=== PATIENT | male | born 1970 | race Caucasian/White ===

== ENCOUNTER → 2017-09-23 10:46 | Outpatient (CLI) | payer BC, SELFPAY ==
--- NOTE | 2017-09-23 11:29 | NURSING ---
PT ARRIVED FOR [facility] D/T CLOTTED PICC LINE BOTH LUMENS CHECKED AND POSITIVE BLOOD RETURN AND EASY FLUSH NOTED.
== END ==
DX: Z45.2 Encounter for adjustment and management of vascular access device (principal)
CPT/HCPCS: A4216

== ENCOUNTER 2017-09-29 12:13 | Outpatient (RCR) | payer BC, SELFPAY ==
[2017-09-19 13:54] LABS: Hematocrit 42.9 % (40-54); Hemoglobin 14.4 g/dl (13.0-16.5); Mean Corp Hgb Conc 33.6 g/gl (32-36); Mean Corpuscular Volume 98.2 fL (80-94); Mean Platelet Vol. 10.8 fl (6.2-12.0); Platelet Count 322 K/mm3 (150-450); RBC Distribution Width CV 13.1 % (11.6-14.6); RBC Distribution Width SD 46.5 fl (35.1-43.9); Red Blood Count 4.37 M/mm3 (4.6-6.2); White Blood Count 6.4 K/mm3 (4.4-11.0)
[2017-09-19 14:00] LABS: AST(SGOT) 286 U/L (15-37); Alanine Aminotransfer ALT/SGPT 530 U/L (16-61); Albumin, Serum 3.5 g/dL (3.2-5.0); Alkaline Phosphatase 590 U/L (45-117); Anion Gap 10 (5-15); BUN 18 mg/dL (7-18); BUN/Creat Ratio 19.7 RATIO (10-20); Calcium,Total 9.1 mg/dL (8.5-10.1); Chloride 101 mmol/L (98-107); Creatinine, Serum 0.91 mg/dL (0.70-1.30); EST Glomerular Filtration Rate 95 mL/min (>60); Est Glom Filt Rate - Afr Amer 114 mL/min (>60); Globulin 3.6 g/dL (2.2-4.2); Glucose 95 mg/dL (74-106); Magnesium 2.3 mg/dL (1.6-2.6); Phosphorus 3.4 mg/dL (2.5-4.9); Potassium 3.8 mmol/L (3.5-5.1); Protein, Total 7.1 g/dL (6.4-8.2); Sodium Level 141 mmol/L (136-145)
[2017-09-19 14:09] LABS: Scan Indicated on CBC? Y/N NO
[2017-09-26 13:08] LABS: Hematocrit 40.8 % (40-54); Hemoglobin 13.7 g/dl (13.0-16.5); Mean Corp Hgb Conc 33.6 g/gl (32-36); Mean Corpuscular Hgb 32.8 pg (27.0-32.0); Mean Corpuscular Volume 97.6 fL (80-94); Mean Platelet Vol. 11.1 fl (6.2-12.0); Platelet Count 226 K/mm3 (150-450); RBC Distribution Width CV 12.9 % (11.6-14.6); RBC Distribution Width SD 45.2 fl (35.1-43.9); Red Blood Count 4.18 M/mm3 (4.6-6.2); Scan Indicated on CBC? Y/N NO; White Blood Count 6.2 K/mm3 (4.4-11.0)
[2017-09-26 13:19] LABS: AST(SGOT) 76 U/L (15-37); Alanine Aminotransfer ALT/SGPT 277 U/L (16-61); Albumin, Serum 3.6 g/dL (3.2-5.0); Alkaline Phosphatase 348 U/L (45-117); Anion Gap 6 (5-15); BUN 13 mg/dL (7-18); BUN/Creat Ratio 15.3 RATIO (10-20); Calcium,Total 9.1 mg/dL (8.5-10.1); Chloride 105 mmol/L (98-107); Creatinine, Serum 0.85 mg/dL (0.70-1.30); EST Glomerular Filtration Rate 103 mL/min (>60); Est Glom Filt Rate - Afr Amer 125 mL/min (>60); Globulin 3.6 g/dL (2.2-4.2); Glucose 88 mg/dL (74-106); Magnesium 2.2 mg/dL (1.6-2.6); Phosphorus 2.9 mg/dL (2.5-4.9); Potassium 3.6 mmol/L (3.5-5.1); Protein, Total 7.2 g/dL (6.4-8.2); Sodium Level 140 mmol/L (136-145)
== END 2017-10-04 23:59 ==
LOC: HHLAB 12:13
DX: C34.11 Malignant neoplasm of upper lobe, right bronchus or lung (principal); I10 Essential (primary) hypertension; K57.90 Diverticulosis of intestine, part unspecified, without perforation or abscess without bleeding; Z45.2 Encounter for adjustment and management of vascular access device
CPT/HCPCS: 80053; 83735; 84100; 85027

== ENCOUNTER → 2017-09-29 17:45 | Outpatient (CLI) | payer BC, SELFPAY ==
[2017-09-29 18:12] LABS: Hematocrit 40.4 % (40-54); Hemoglobin 13.8 g/dl (13.0-16.5); Mean Corp Hgb Conc 34.2 g/gl (32-36); Mean Corpuscular Hgb 32.2 pg (27.0-32.0); Mean Corpuscular Volume 94.2 fL (80-94); Mean Platelet Vol. 10.7 fl (6.2-12.0); Platelet Count 210 K/mm3 (150-450); RBC Distribution Width SD 44.7 fl (35.1-43.9); Red Blood Count 4.29 M/mm3 (4.6-6.2); White Blood Count 5.6 K/mm3 (4.4-11.0)
[2017-09-29 18:13] LABS: Scan Indicated on CBC? Y/N NO
[2017-09-29 18:23] LABS: Anion Gap 8 (5-15); BUN 11 mg/dL (7-18); BUN/Creat Ratio 13.1 RATIO (10-20); Chloride 105 mmol/L (98-107); Creatinine, Serum 0.84 mg/dL (0.70-1.30); EST Glomerular Filtration Rate 104 mL/min (>60); Est Glom Filt Rate - Afr Amer 126 mL/min (>60); Glucose 86 mg/dL (74-106); Magnesium 2.2 mg/dL (1.6-2.6); Phosphorus 3.9 mg/dL (2.5-4.9); Sodium Level 140 mmol/L (136-145)
[2017-09-30 08:31] LABS: AST(SGOT) 43 U/L (15-37); Alanine Aminotransfer ALT/SGPT 156 U/L (16-61); Alkaline Phosphatase 264 U/L (45-117); Bilirubin, Direct 0.19 mg/dL (0.00-0.30)
== END ==
DX: Z79.899 Other long term (current) drug therapy (principal)
CPT/HCPCS: 80048; 80076; 83735; 84100; 85027

== ENCOUNTER 2024-12-29 22:42 | Emergency (ER) | payer BC, SELFPAY ==
[2024-12-29 22:43] VITALS: BP 169/94; PULSE 86; RESP 16; TEMP 36.9; O2SAT 98; BMI 27.5
--- NOTE | 2024-12-29 22:48 | ED.VIS.CHEST ---
HPI History of Present Illness Chief Complaint: Chest Pain Informant: patient Onset/Context/Timing Onset: Days (4) Activity at onset: sudden and exertion Timing: Intermittent Quality: Positive for Burning and Stabbing Location: Substernal, Right Chest and Left Chest Worsened By: Nothing Relieved By: Nothing Associated Symptoms: Negative for Nausea, Vomiting, Diaphoresis, Dyspnea, Cough, Fever, Lightheadedness, Acid Reflux or Palpitations Narrative Narrative: Patient presents with chest pain that has been getting worse over the past 4 days. Patient states it began rather suddenly. Patient states it began while he was at work. 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 Patient describes his pain as stabbing. Patient states it started on the right side of his chest but is now on the left side. Patient also admits to some burning over the substernal area. Patient states nothing makes it better and nothing makes it worse. Patient denies any shortness of breath or cough. Patient denies any nausea or vomiting. Patient denies any fevers or chills. CVD Risk Factors: Positive for Hypertension, Hypercholesterolemia and Family History 1' </=55; Negative for Diabetes or Smoking PE Risk Factors: Positive for Cancer; Negative for Recent Travel/Surgery, Recent Immobilization, Prior DVT or PE or OCP + Smoking + >/=35 [facility] Medical History (Updated 12/30/24 @ 01:[address] Jefferson Fan DO) Lung cancer Hypertension Hyperlipidemia Home Medications Medication Instructions Recorded Last Taken Type atorvastatin 10 mg tablet 10 mg PO DAILY 12/29/24 Unknown History hydrochlorothiazide 12.5 mg capsule 12.5 mg PO DAILY 12/29/24 Unknown History losartan 50 mg tablet 50 mg PO DAILY 12/29/24 Unknown History Allergy/AdvReac Type Severity Reaction Status Date / Time acetaminophen (From Allergy Intermediate Rash Verified 12/29/24 22:43 Darvocet-N) propoxyphene (From Allergy Intermediate Rash Verified 12/29/24 22:43 Darvocet-N) Surgical History (Updated 12/29/24 @ 23:[address] Jefferson Fan DO) History of lobectomy of lung History of back surgery Social History Smoking Status: Former smoker ROS ROS ED Constitutional Constitutional ED: Denies chills or fever(s) Eyes Eyes: Denies blurry vision or change in vision ENT ENT ED: Reports rhinorrhea; Denies sore throat Cardiovascular Cardiovascular: Reports chest pain; Denies palpitations Respiratory/Chest Respiratory/Chest: Denies cough or dyspnea Gastrointestinal Gastrointestinal: Denies nausea or vomiting Genitourinary Genitourinary ED: Denies dysuria or hematuria Musculoskeletal Musculoskeletal: Reports back pain and neck pain Integumentary Denies abscess or rash Neurologic Neurologic: Denies headache(s) or weakness Allergic/Immunologic Allergic/Immunologic ED: Denies mouth swelling or urticaria EXAM Physical Exam Const Vital Signs: 12/29/24 22:43 12/29/24 22:51 12/29/24 23:05 Temperature 98.5 F Temperature Source Oral Pulse Rate 86 Respiratory Rate 16 Respiratory Effort Normal Non-Labored Blood Pressure 169/94 H Blood Pressure Mean 119 Pulse Ox 98 Oxygen Delivery Method Room Air Room Air 12/29/24 23:43 12/30/24 00:00 12/30/24 01:00 Temperature Temperature Source Pulse Rate 73 67 67 Respiratory Rate 18 16 14 Respiratory Effort Blood Pressure 144/84 H 142/89 H 144/86 H Blood Pressure Mean 104 106 105 Pulse Ox 97 100 100 Oxygen Delivery Method Room Air Room Air Room Air Positive well nourished and well developed Constitutional Narrative: BMI is 27.5. General Appearance ED: well developed and NAD HEENT Reports moist mucous membranes Neck supple and no JVD Chest Wall inspection of chest normal and palpation of chest normal Resp normal respiratory effort and clear to auscultation bilaterally Cardio regular rate and regular rhythm GI soft to palpation, non-tender and non-distended Neuro oriented x3, CN's II-XII intact bilaterally and no sensory deficits noted Sensorium / Orientation: awake and alert Motor Exam: strength 5/5 throughout Psych mental status grossly normal Heart Score History: Slightly/Non-Suspicious ECG: Normal Age: >45 - <65 years Risk Factors: >/= 3 Risk Factors or History of CAD Troponin: </= Normal Limit Score: 3 MDM MDM MDM Narrative Medical decision making narrative: Differential diagnosis includes cardiac dysrhythmia, cardiac ischemia, pneumonia, bronchitis, pulmonary embolism, musculoskeletal pain, gastroesophageal reflux disease, and anxiety. EKG will be obtained to assess for cardiac dysrhythmia and cardiac ischemia. CTA of the chest will be obtained to assess for pulmonary embolism. CBC will be obtained to assess for leukocytosis and anemia. Basic metabolic profile will be obtained to assess for electrolyte abnormality and renal function. High-sensitivity troponin will be obtained to assess for cardiac ischemia. 2-hour repeat high-sensitivity troponin will be obtained to assess for ongoing cardiac ischemia. History & Record Review Additional record(s) reviewed:: No prior records Lab Data Attestation: I reviewed the patient's lab results. Lab results narrative: CBC was reviewed and was within normal limits. Basic metabolic profile was reviewed and was within normal limits. High-sensitivity troponin was reviewed and was normal at 16. 2-hour repeat high-sensitivity troponin was reviewed and was normal at 16. Labs: Laboratory Results - last 24 hr 12/29/24 12/30/24 22:50 00:50 WBC 6.8 RBC 4.99 Hgb 15.8 Hct 46.2 MCV 92.6 MCH 31.7 MCHC 34.2 RDW Std Deviation 43.3 RDW Coeff of Adrian 12.7 Plt Count 212 MPV 10.6 Immature Gran % (Auto) 0.300 Neut % (Auto) 58.9 Lymph % (Auto) 28.5 [place] % (Auto) 10.0 Eos % (Auto) 1.9 Baso % (Auto) 0.4 Absolute Neuts (auto) 4.0 Absolute Lymphs (auto) 1.94 Nucleated RBC % 0 Sodium 139 Potassium 4.2 Chloride 99 Carbon Dioxide 27.6 Anion Gap 12 BUN 12 Creatinine 0.90 Estim Creat Clear Calc 90.78 Est GFR (MDRD) Non-Af 102 BUN/Creatinine Ratio 13.3 Glucose 109 H Calcium 9.7 Troponin T High Sens 16 Troponin T Hi Sens 2 Hr 16 Radiography CTA PE Study: No Evidence of PE and No Evidence of Dissection Diagnostic Testing: Clinical Impression(s) from Imaging Studies Chest CTA 12/29/24 23:01 IMPRESSION: Suboptimal enhancement of the pulmonary artery and its branches limiting the evaluation. No demonstrated large central/massive pulmonary embolism or arterial dissection. Mild emphysema. Scattered pulmonary blebs are noted with the largest measuring 1 cm. Subsegmental atelectatic changes in the right lower lobe. Unremarkable spinal fusion metallic hardware at T12-L1 level. Mild splenomegaly measuring 14.3 cm. Reading [facility] [id number] CTA of the chest was obtained. There is no evidence of pulmonary embolism or aortic dissection. There is no acute infiltrate noted. There is subsegmental atelectasis noted in the right lower lobe. There is no acute abnormalities noted. This was interpreted by the radiologist and was also independently reviewed by myself. EKG Initial EKG: Attestation: I personally reviewed and interpreted this EKG as follows: Interpretation: Sinus Rhythm (72) and No Acute Injury Pattern Comments: EKG was obtained. On my independent interpretation, it showed a normal sinus rhythm with a rate of 72. MD interval, QRS interval, and QTc intervals were all normal. Frederica was normal. There is left ventricular hypertrophy noted. There are no acute ST or T wave changes. Prior EKG tracings: not available for review Prior: No Prior Treatment and Re-Evaluation :: Patient was given aspirin. Patient was given a dose of morphine. Patient was advised of his findings. Patient has a HEART score of 3. Patient was advised that this is a low risk for acute cardiac event. Patient was instructed to follow-up with his primary care physician in 5 to 7 days for further evaluation. Patient understood and was agreeable with the plan. All questions were answered. Discharge Plan Triage Chief Complaint: Chest Pain ED Provider: Jefferson Fan Dx/Rx/DC Orders Clinical Impression: Chest pain, Elevated blood pressure reading Instructions: ED Chest Pain, Uncertain Cause Prescriptions: No Action losartan 50 mg tablet 50 mg PO DAILY atorvastatin 10 mg tablet 10 mg PO DAILY hydrochlorothiazide 12.5 mg capsule 12.5 mg PO DAILY Primary Care Provider: Twin Tong Referrals: Twin Tong MD [Primary Care Provider, Family Practice] - 5-7 Days Print Language: Sami Disposition Disposition: Home, Self Care
--- NOTE | 2024-12-29 23:01 | EKG12_ITS ---
Test Reason : CP Blood Pressure : */* mmHG Vent. Rate : 72 BPM Atrial Rate : 72 BPM P-R Int : 136 ms QRS Dur : 112 ms QT Int : 390 ms P-R-T Axes : 46 54 47 degrees QTcB Int : 427 ms Normal sinus rhythm Minimal voltage criteria for LVH, may be normal variant ( Melquiades product ) Borderline ECG Confirmed by DEMETRIA WASHINGTON ([id number]), editorial clerk KUSHAL DONOHUE ([id number]) on 12/31/2024 6:56:47 AM Referred By: KAREY Confirmed By: DEMETRIA WASHINGTON
--- NOTE | 2024-12-29 23:01 | CT_ITS ---
PROCEDURE: CTA CHEST W/WO CONTRAST 12/29/2024 REASON FOR EXAM: CHEST PAIN TECHNIQUE: Procedure Code: [id number] Modality: CT Procedure: CTA CHEST W/WO CONTRAST Multiplanar Sagittal and Coronal images were obtained. CONTRAST: Isovue 370 VOLUME: 100 mL One or more dose reduction techniques were used (e.g., Automated exposure control, adjustment of the mA and/or kV according to patient size, use of iterative reconstruction technique). RADIATION DOSE SUMMARY: CTDlvol: 12.22 mGy DLP: 430 mGycm COMPARISON: None. FINDINGS: Mild emphysema. Scattered pulmonary blebs are noted with the largest measuring 1 cm. Subsegmental atelectatic changes in the right lower lobe. Unremarkable spinal fusion metallic hardware at T12-L1 level. Mild splenomegaly measuring 14.3 cm. Suboptimal enhancement of the enhancement of the main pulmonary artery and right and left pulmonary arteries. Suboptimal enhancement of the enhancement of the bilateral peripheral pulmonary arteries. There is no demonstrated large central or massive pulmonary embolism. Normal thoracic aorta and visualized great vessels. There is no demonstrated aortic dissection. Normal heart and pericardium. Normal mediastinum. Normal hilar regions. Normal visualized trachea and bronchi. The remaining lungs are well expanded. Normal pleura. Normal visualized upper abdomen. CT/CTA Chest W/WO Contrast IMPRESSION: Suboptimal enhancement of the pulmonary artery and its branches limiting the ev aluation. No demonstrated large central/massive pulmonary embolism or arterial dissection . Mild emphysema. Scattered pulmonary blebs are noted with the largest measuring 1 cm. Subsegmental atelectatic changes in the right lower lobe. Unremarkable spinal fusion metallic hardware at T12-L1 level. Mild splenomegaly measuring 14.3 cm. Reading Location: [place] [address]
--- OUTSIDE RECORDS SUMMARY | 2024-12-29 23:16 | XMS RPT_ITS | CCD ---
Author Organization [facility] CliniSyms Care Team Providers Care Scroll Machine Operator Name Role Phone DORI PITTMAN Unavailable Unavailable ARUNA TONG Unavailable Unavailable OSMAN MOSES Unavailable Unavailable OSMAN MOSES Unavailable Unavailable Twin New Unavailable Unavailable Twin New Unavailable Unavailable OSMAN MOSES Unavailable Unavailable OSMAN MOSES Unavailable Unavailable OSMAN MOSES Unavailable Unavailable Twin New Unavailable Unavailable OSMAN MOSES Unavailable Unavailable OSMAN MOSES Unavailable Unavailable Twin New Unavailable Unavailable Aruna Tong MD Primary Care Provider Aruna Tong MD Primary Care Provider Aruna Tong MD Primary Care Provider ARUNA TONG Primary Care Unavailab HORACE [place] Attending Unavailable Aruna Tong MD Primary Care Provider Aruna Tong MD Primary Care Provider GISELA MCKEON Referring Unavailable ARUNA TONG Primary Care Unavailab le Podlogar MECHANICAL SOUND TECHNICIAN.Belkys GRAY Unavailable Knminna MECHANICAL SOUND TECHNICIAN.Delia GRAY Unavailable Knoble MECHANICAL SOUND TECHNICIAN.Delia GRAY Unavailable BELKYS DEVINE Referring Unavailable ARUNA TONG Primary Care Unavailab le YAIMALOGBELKYS BANDA Attending Unavailable ARUNA TONG Primary Care Unavailab le ARUNA TONG Primary Care Unavailab JUVE Weems Attending Unavailable BELKYS DEVINE Attending Unavailable ARUNA TONG Primary Care Unavailab le ARUNA TONG Primary Care Unavailab ARUNA Rizo Attending Unavailab ARUNA Rizo Primary Care Unavailab le PODLOGAR, BELKYS Attending Unavailable ARUNA TONG Primary Care Unavailab le PODLOGAR, BELKYS Attending Unavailable ARUNA TONG Primary Care Unavailab tootie WEMARIVEL HAMEED Attending Unavailable MARIVEL ARREOLA Referring Unavailable ARUNA TONG Primary Care Unavailab MARIVEL Rodrigeuz Referring Unavailable ARUNA TONG Primary Care Unavailab le PODLOGAR, BELKYS Referring Unavailable ARUNA TONG Primary Care Unavailab le PODLOGAR, BELKYS Attending Unavailable ARUNA TONG Primary Care Unavailab le PODLOGAR, BELKYS Referring Unavailable ARUNA TONG Primary Care Unavailab le Allergies Allergy Classification Reported Allergen(s) Allergy Type Date of Onset Reaction(s) Facility (20 sources) PROPOXYPHENE N-ACETAMINOPHEN; Translations: [PROPOXYPHENE N-ACETAMINOPHEN] Propensity to adverse reactions (disorder) 7 [facility] Medications Current Medications Medication Drug Class(es) Dates Sig (Normalized) Sig (Original) [id number] 200 actuat albuterol 0.09 mg/actuat metered dose inhaler (20 sources) beta2-Adrenergic Agonist Start: 06-22-2023 take 2 puff(s) by inhalation every four hours as needed albuterol HFA (VENTOLIN HFA) 90 mcg/actuation inhaler Indications: SOB (shortness of breath) Inhale 2 Puffs as instructed every 4 hours as needed. 18 g 3 06/22/2023 Active Start: 11-05-2020 End: 06-12-2021 take 2 puff(s) by inhalation every four hours as needed albuterol HFA (VENTOLIN HFA) 90 mcg/actuation inhaler Indications: SOB (shortness of breath) Inhale 2 Puffs as instructed every 4 hours as needed. 18 g 3 11/05/2020 06/12/2021 Discontinued Comment on above: Inhale 2 Puffs as in structed every 4 hours as needed. atorvastatin 10 mg oral tablet (20 sources) HMG-CoA Reductase Inhibitor Start: 4 End: 5 take 1 tablet by mouth once daily atorvastatin (LIPITOR) 10 mg tablet Indications: Hyperlipidemia, mixed Take 1 tablet by mouth once daily. 90 tablet 1 08/21/2024 02/17/2025 Active Start: 12-19-2023 End: 01-16-2024 take 1 tablet by mouth once daily atorvastatin (LIPITOR) 10 mg tablet Indications: Hyperlipidemia, mixed Take 1 tablet by mouth once daily. 30 tablet 01/17/2024 Active Start: 05-24-2023 End: 12-16-2023 take 1 tablet by mouth once daily atorvastatin (LIPITOR) 10 mg tablet Indications: Hyperlipidemia, mixed Take 1 tablet by mouth once daily. 30 tablet 11/16/2023 12/16/2023 Discontinued Comment on above: Take 1 tablet by priscilla th once daily. cholestyramine resin 4000 mg powder for oral suspension (20 sources) Bile Acid Sequestrant Start: End: take 2 g by mouth twice daily before mealtime cholestyramine-s ucrose (QUESTRAN) 4 gram powder Dissolve 2 g (1/2 scoop) in water or juice and take by mouth before meals twice daily 348.6 g 5 09/21/2024 Active Start: 05-10-2022 End: 07-05-2022 take 2 g by mouth twice daily before mealtime cholestyramine-sucrose (QUESTRAN) 4 gram powder Dissolve 2 g (1/2 scoop) in water or juice and take by mouth before meals twice daily 348.6 g 0 05/10/2022 07/05/2022 Discontinued Start: 04-14-2022 take 2 g by mouth tw ice daily before mealtime cholestyramine-sucrose (QUESTRAN) 4 gram powder Dissolve 2 g (1/2 scoop) in water or juice and take by mouth before meals twice daily 348.6 g 0 04/14/2022 Active Start: 04-13-2022 End: 04-13-2022 take 1 g by mouth three times daily at mealtime cholestyramine-sucrose (QUESTRAN) 4 gram powder Take 1 g by mouth three times daily with meals. 348.6 g 0 04/13/2022 04/13/2022 Discontinued (Changing Therapy/Dosage Form) Comment on above: Take 1 g by mouth th ree times daily with meals. Dissolve 2 g (1/2 sc oop) in water or juice and take by mouth before meals twice daily fluticasone propionate 0.05 mg/actuat metered dose nasal spray (3 sources) Corticosteroid Start : 04-22 End: 05-22 take 2 spray(s) by mouth once daily fluticasone (FLONASE) 50 mcg/actuation nasal spray Indications: Rhinorrhea Use 2 Sprays in each nostril once daily. Rinse mouth after use. 18 g 0 04/22/2022 05/22/2022 Active Comment on above: Use 2 Sprays in each nostril once daily. Rinse mouth after use. hydroCHLOROthiazide 12.5 mg oral capsule (20 sources) Thiazide Diuretic Start : 04-13 End: 12-11 take 1 capsule by mouth once daily hydroCHLOROthiazide 12.5 mg capsule Indications: Hypertension, essential Take 1 capsule by mouth once daily. 90 capsule 1 06/14/2024 12/11/2024 Active Comment on above: Take 1 capsule by [facility] once daily. losartan potassium 50 mg oral tablet (20 sources) Angiotensin 2 Receptor Olga Start : 01-10 End: 09-04 take 1 tablet by mouth once daily losartan (COZAAR) 50 mg tablet Indications: Hypertension, essential Take 1 tablet by mouth once daily. 90 tablet 1 09/05/2024 Active 10 actuat olodaterol 0.0025 mg/actuat / tiotropium 0.0025 mg/actuat inhalation spray (20 sources) Anticholinergic, beta2-Adrenergic Agonist Start : 07-18 End: 01-22 tiotropium-olodaterol (STIOLTO RESPIMAT) 2.5-2.5 mcg/actuation inhaler Inhale 2 Puffs as instructed once daily. 3 Each 1 10/25/2023 Active ondansetron 4 mg disintegrating oral tablet (20 sources) Serotonin-3 Receptor Antagonist Start : 06-09 End: 05-09 take 1 tablet by mouth every eight hours as needed for nausea ondansetron orally disintegrating (ZOFRAN ODT) 4 mg disintegrating tablet Indications: Nausea and vomiting, unspecified vomiting type Take 1 tablet by mouth every 8 hours as needed for nausea/vomiting. 12 tablet 05/09/2024 Active Comment on above: Take 1 tablet by priscilla th every 8 hours as needed for nausea/vomiting. oseltamivir 75 mg oral capsule (1 source) Neuraminidase Inhibitor Start : 05-29 End: 06-03 take 1 capsule by mouth twice daily oseltamivir (TAMIFLU) 75 mg capsule Indications: Influenza Take 1 capsule by mouth two times a day for 5 days. 10 capsule 05/29/2024 06/03/2024 Active pantoprazole 40 mg delayed release oral tablet (20 sources) Proton Pump Inhibitor Start : 08-03 take 1 tablet by mouth once daily pantoprazole DR (PROTONIX) 40 mg tablet Take 1 tablet by mouth once daily. 90 tablet 1 08/03/2024 Active Start: 02-17-2023 End: 08-01-2024 take 1 tablet by mouth once daily pantoprazole DR (PROTONIX) 40 mg tablet Take 1 tablet by mouth once daily. 90 tablet 1 02/06/2024 08/01/2024 Discontinued Start: 09-14-2021 End: 08-04-2022 take 1 tablet by mouth once daily pantoprazole DR (PROTONIX) 40 mg tablet Take 1 tablet by mouth once daily. 90 tablet 1 01/05/2022 08/04/2022 Discontinued Start: 09-15-2020 take 1 tablet by priscilla th once daily pantoprazole DR (PROTONIX) 40 mg tablet Take 1 tablet by mouth once daily. 90 tablet 3 09/15/2020 Active Comment on above: Take 1 tablet by priscilla th once daily. potassium chloride 20 meq extended release oral tablet (7 sources) Start: 08-18-19 take 1 tablet by mouth once daily potassium chloride 20 mEq TbER Indications: Hypokalemia Take 1 tablet by mouth once daily. 2 tablet 08/17/2024 Active predniSONE 10 mg oral tablet (1 source) Start: 03-29-19 End: 04-07-19 predniSONE (DELTASONE) 10 mg tablet Indications: Inguinal strain, right, initial encounter Take 4 tabs daily for 3 days, then 2 tabs daily for 3 days, then 1 tab daily for 3 days with food. 21 tablet 0 03/29/2022 04/07/2022 Active Comment on above: Take 4 tabs daily fo r 3 days, then 2 tabs daily for 3 days, then 1 tab daily for 3 days with food. sildenafil 50 mg oral tablet (20 sources) Phosphodiesterase 5 Inhibitor Start: 11-01-19 take 1 tablet by mouth once daily as needed sildenafil (VIAGRA) 50 mg tablet Indications: ED (erectile dysfunction) of organic origin Take 1 tablet by mouth once daily as needed. 10 tablet 2 10/31/2024 Active Start: 08-21-2024 End: 10-30-2024 take 1 tablet by mouth once daily as needed sildenafil (VIAGRA) 50 mg tablet Indications: ED (erectile dysfunction) of organic origin Take 1 tablet by mouth once daily as needed. 10 tablet 2 08/21/2024 10/30/2024 Discontinued Start: 03-28-2024 End: 08-19-2024 take 1 tablet by mouth once daily as needed sildenafil (VIAGRA) 50 mg tablet Indications: ED (erectile dysfunction) of organic origin Take 1 tablet by mouth once daily as needed. 10 tablet 2 06/06/2024 08/19/2024 Discontinued Completed/Discontinued Medications Medication Drug Class(es) Dates Sig (Normalized) Sig (Original) busPIRone hydrochloride 10 mg oral tablet (20 sources) Start: 03-03-2023 End: 03-15-2024 take 1 tablet by mouth three times daily busPIRone (BUSPAR) 10 mg tablet Take 1 tablet by mouth three times a day. 270 tablet 1 08/29/2023 03/15/2024 Discontinued Start: 05-25-2022 End: 08-04-2022 take 1 tablet by mouth three times daily busPIRone (BUSPAR) 10 mg tablet Take 1 tablet by mouth three times daily. 270 tablet 1 08/04/2022 Active Start: 04-30-2021 End: 05-22-2022 take 1 tablet by mouth three times daily busPIRone (BUSPAR) 10 mg tablet Take 1 tablet by mouth three times daily. 270 tablet 1 01/05/2022 05/22/2022 Discontinued Comment on above: Take 1 tablet by priscilla th three times daily. Take 1 tablet by priscilla th three times a day. cyclobenzaprine hydrochloride 10 mg oral tablet (13 sources) Muscle Relaxant Start: 2021 End: 2022 take 1 tablet by mouth twice daily as needed for pain cyclobenzaprine (FLEXERIL) 10 mg tablet Indications: Acute pain of both shoulders , Acute bilateral low back pain without sciatica Take 1 tablet by mouth twice daily as needed for muscle spasm or pain. 30 tablet 01/05/2022 06/02/2022 Discontinued (Course of therapy completed) Comment on above: Take 1 tablet by priscilla th twice daily as needed for muscle spasm or pain. famotidine 20 mg oral tablet (20 sources) Histamine-2 Receptor Antagonist Start: 2024 End: 2024 take 1 tablet by mouth every twenty-four hours as needed for gastroesophageal reflux disease and gastroesophageal reflux disease famotidine (PEPCID) 20 mg tablet Indications: Gastroesophageal reflux disease, unspecified whether esophagitis present Take 1 tablet by mouth at bedtime as needed. 90 tablet 1 04/06/2024 10/03/2024 Start: 04-21-2023 End: 04-03-2024 take 1 tablet by mouth every twenty-four hours as needed for gastroesophageal reflux disease and gastroesophageal reflux disease famotidine (PEPCID) 20 mg tablet Indications: Gastroesophageal reflux disease, unspecified whether esophagitis present Take 1 tablet by mouth at bedtime as needed. 90 tablet 1 10/06/2023 04/03/2024 Active Start: 06-12-2021 End: 01-31-2023 take 1 tablet by mouth every twenty-four hours as needed for gastroesophageal reflux disease and gastroesophageal reflux disease famotidine (PEPCID) 20 mg tablet Indications: Gastroesophageal reflux disease, unspecified whether esophagitis present Take 1 tablet by mouth at bedtime as needed. 90 tablet 1 01/05/2022 03/23/2022 Discontinued Comment on above: Take 1 tablet by priscilla th at bedtime as needed. iv contrast (will be provided with radiology test) (3 sources) Start: 01-05-2022 End: 01-06-2022 iv contrast (will be provided with radiology test) Indications: Malignant neoplasm of unspecified part of unspecified bronchus or lung (HCC) , S/P lobectomy of lung CT Chest W -Inject, intravenously, once for 1 dose.No IV access, insert saline lock prior to the beginning of sedation, infusion, injection of imaging exam. Discontinue saline lock post exam. If Pt. has a central line or IVAD, may access for administration according to line specific nursing protocol. Once exam is complete flush line and de-access according to line specific nursing protocol in the CT contrast administration guidelines link. 1 Each 01/05/2022 01/06/2022 Start: 01-05-2022 End: 01-06-2022 iv contrast (will be provide d with radiology test) Indications: Malignant neoplasm of unspecified part of unspecified bronchus or lung (HCC) , S/P lobectomy of lung CT Chest W -Inject, intravenously, once for 1 dose.No IV access, insert saline lock prior to the beginning of sedation, infusion, injection of imaging exam. Discontinue saline lock post exam. If Pt. has a central line or IVAD, may access for administration according to line specific nursing protocol. Once exam is complete flush line and de-access according to line specific nursing protocol in the CT contrast administration guidelines link. 1 Each 0 01/05/2022 01/06/2022 Active Comment on above: CT Chest W -Inject, intravenously, once for 1 dose.No IV access, insert saline lock prior to the beginning of sedation, infusion, injection of imaging exam. Discontinue saline lock post exam. If Pt. has a central line or IVAD, may access for administration according to line specific nursing protocol. Once exam is complete flush line and de-access according to line specific nursing protocol in the CT contrast administration guidelines link. lisinopril 40 mg oral tablet (20 sources) Angiotensin Converting Enzyme Inhibitor Start: End: 5 take 1 tablet by mouth once daily lisinopril (ZESTRIL) 40 mg tablet Indications: Hypertension, essential Take 1 tablet by mouth once daily. 90 tablet 1 01/04/2024 01/11/2024 Discontinued Start: 06-12-2021 End: 07-04-2023 take 1 tablet by mouth once daily lisinopril (ZESTRIL) 40 mg tablet Indications: Hypertension, essential Take 1 tablet by mouth once daily. 90 tablet 1 01/05/2023 07/04/2023 Active Start: 04-22-2021 End: 06-12-2021 take 1 tablet by mouth once daily lisinopril (ZESTRIL, PRINIVIL) 20 mg tablet Indications: Hypertension, essential Take 1 tablet by mouth once daily. 90 tablet 1 04/22/2021 06/12/2021 Discontinued Comment on above: Take 1 tablet by priscilla th once daily. loperamide hydrochloride 2 mg oral capsule (1 source) Opioid Agonist Start: 05-06-19 End: 06-13-19 loperamide (IMODIUM) 2 mg cap(s) Indications: Functional bowel disorder Take 1-2 after each loose stool. Max of 8 in a day. 100 capsule 2 05/05/2020 06/12/2021 Discontinued Comment on above: Take 1-2 after each loose stool. Max of 8 in a day. meloxicam 15 mg oral tablet (3 sources) Nonsteroidal Anti-inflammatory Drug Start: 01-06-20 End: 02-05-20 take 1 tablet by mouth once daily at mealtime meloxicam (MOBIC) 15 mg tablet Indications: Acute pain of both shoulders , Acute bilateral low back pain without sciatica Take 1 tablet by mouth once daily. With food. 30 tablet 01/05/2022 02/04/2022 Comment on above: Take 1 tablet by priscilla once daily. With food. naproxen 500 mg oral tablet (6 sources) Nonsteroidal Anti-inflammatory Drug Start: 08-05-19 take 1 tablet by mouth every twelve hours as needed naproxen (NAPROSYN) 500 mg tablet Take 1 tablet by mouth twice daily as needed for pain. Take with food. 60 tablet 0 08/04/2022 Active Start: 10-28-2020 End: 06-12-2021 take 1 tablet by mouth twice daily as needed naproxen (NAPROSYN) 500 mg tablet Indications: Lateral epicondylitis of right elbow Take 1 tablet by mouth twice daily as needed. Take with food. 60 tablet 0 10/28/2020 06/12/2021 Discontinued Comment on above: Take 1 tablet by priscilla twice daily as needed. Take with food. Take 1 tablet by priscilla th twice daily as needed for pain. Take with food. sucralfate 1000 mg oral tablet (1 source) Aluminum Complex Start: 09-11-2020 End: 06-12-2021 sucralfate (CARAFATE) 1 gram tablet Indications: Diarrhea, unspecified type , Epigastric pain 3 times daily as needed, wait at least 30 min before food or drink. 120 tablet 1 09/11/2020 06/12/2021 Discontinued Comment on above: 3 times daily as nee ded, wait at least 30 min before food or drink. Problems Active Problems Problem Classification Problem Date Documented Da te Episodic/Chronic Abdominal pain (3 sources) Right upper quadrant pain; Translations: [Epigastric pain] Onset: 2 01-10-2023 Episodic Alcohol-related disorders (20 sources) Alcohol abuse; Translations: [Alcohol abuse, uncomplicated] Onset: 8 12-01-2017 Chronic Anxiety disorders (20 sources) Generalized anxiety disorder; Translations: [Generalized anxiety disorder] Onset: 2 Chronic Cancer of bone and connective tissue (20 sources) Malignant tumor of vertebral column; Translations: [Malignant neoplasm of vertebral column] Onset: 8 12-02-2017 Chronic Cancer of lung (20 sources) Malignant neoplasm of unspecified part of unspecified bronchus or lung; Translations: [Malignant neoplasm of right upper lobe of lung] Onset: 8 Chronic Chronic obstructive pulmonary disease and bronchiectasis (2 sources) Mild chronic obstructive pulmonary disease; Translations: [Chronic obstructive pulmonary disease, unspecified] 07-19-2023 Chronic Disorders of lipid metabolism (8 sources) Mixed hyperlipidemia; Translations: [Mixed hyperlipidemia] Onset: 4 05-11-2023 Chronic Esophageal disorders (10 sources) Gastroesophageal reflux disease; Translations: [Gastro-esophageal reflux disease without esophagitis] Chronic Essential hypertension (20 sources) Essential hypertension; Translations: [Essential (primary) hypertension] Onset: 2 Chronic Fluid and electrolyte disorders (1 source) Hypokalemia; Translations: [Hypokalemia] 08-17-2024 Episodic Influenza (1 source) Influenza; Translations: [Influenza due to unidentified influenza virus with other respiratory manifestations] 05-29-2024 Episodic Intestinal infection (1 source) Viral gastroenteritis; Translations: [Viral intestinal infection, unspecified] 05-09-2024 Episodic Nausea and vomiting (3 sources) Nausea and vomiting; Translations: [Nausea with vomiting, unspecified] 01-25-2023 Episodic Other aftercare (1 source) Encounter for adjustment and management of vascular access device; Translations: [Z45.2 - Encounter for adjustment and management of vascular access device] Onset: 8 Episodic Other aftercare (5 sources) History of malignant neoplasm of thoracic cavity structure; Translations: [Encounter for follow-up examination after completed treatment for malignant neoplasm] Episodic Other and unspecified benign neoplasm (1 source) History of polyp of colon; Translations: [Personal history of colonic polyps] Episodic Other circulatory disease (1 source) Ecchymosis; Translations: [Hemorrhage, not elsewhere classified] 08-15-2024 Episodic Other connective tissue disease (1 source) Swelling of lower limb; Translations: [Other specified soft tissue disorders] 07-19-2023 Episodic Other connective tissue disease (1 source) Pain of left hand; Translations: [Pain in left hand] 04-17-2024 Episodic Other gastrointestinal disorders (2 sources) Diarrhea; Translations: [Diarrhea, unspecified] 01-24-2023 Episodic Other lower respiratory disease (2 sources) Elevated diaphragm; Translations: [Disorders of diaphragm] 07-19-2023 Episodic Other lower respiratory disease (1 source) Disorders of diaphragm; Translations: [Elevated diaphragm] Onset: Episodic Other lower respiratory disease (1 source) Paralysis of diaphragm ; Translations: [Disorders of diaphragm] 10-25-2023 Episodic Other male genital disorders (20 sources) Male erectile dysfunction, unspecified; Translations: [Impotence of organic origin] Onset: 2 Chronic Other male genital disorders (5 sources) Secondary erectile dysfunction; Translations: [Male erectile dysfunction, unspecified] 01-11-2024 Chronic Other nervous system disorders (1 source) Other chronic pain; Translations: [Acute on chronic low back pain] Onset: 5 Chronic Other non-traumatic joint disorders (2 sources) Shoulder pain; Translations: [Pain in right shoulder] Episodic Other screening for suspected conditions (not mental disorders or infectious disease) (2 sources) Patient encounter status; Translations: [Encounter for screening for malignant neoplasm of colon] Episodic Other upper respiratory disease (1 source) Nasal discharge; Translations: [Other specified disorders of nose and nasal sinuses] Episodic Other upper respiratory infections (1 source) Viral sinusitis; Translations: [Chronic sinusitis, unspecified] Chronic Sprains and strains (1 source) Strain of tendon of medial thigh muscle; Translations: [Strain of adductor muscle, fascia and tendon of right thigh, initial encounter] Episodic Substance-related disorders (20 sources) Nicotine dependence; Translations: [Nicotine dependence, unspecified, uncomplicated] Onset: 8 09-09-2017 Chronic Unclassified (1 source) Unknown / UNK(Unknown) Onset: 8 Unclassified (1 source) Acute on chronic low back pain; Translations: [Acute on chronic low back pain] Onset: 5 Past or Other Problems Problem Classification Problem Date Documented Date Episodic/Chronic Abdominal hernia (20 sources) Hernia of anterior abdominal wall; Translations: [Ventral hernia without obstruction or gangrene] Onset: 04-07-2018 04-07-2018 Episodic Administrative/social admission (20 sources) Discharge status; Translations: [Other problems related to medical facilities and other health care] Onset: 08-22-2017 Resolved: 04-07-2018 04-07-2018 Episodic Immunizations and screening for infectious disease (5 sources) Needs influenza immunization; Translations: [Encounter for immunization] Onset: 01-11-2024 Episodic Neoplasms of unspecified nature or uncertain behavior (20 sources) Neoplastic disease; Translations: [Neoplasm of unspecified behavior of bone, soft tissue, and skin] Onset: 11-30-2017 12-01-2017 Episodic Other aftercare (20 sources) Drug therapy finding; Translations: [Other half-way (current) drug therapy] Onset: 07-13-2017 07-13-2017 Episodic Other and unspecified benign neoplasm (20 sources) Hemangioma of liver; Translations: [Hemangioma of intra-abdominal structures] Onset: 03-12-2022 03-12-2022 Episodic Other circulatory disease (1 source) Hemorrhage, not elsewhere classified; Translations: [Ecchymosis] Onset: 08-15-2024 Episodic Other connective tissue disease (20 sources) Diastasis recti; Translations: [Separation of muscle (nontraumatic), other site] Onset: 05-31-2018 05-31-2018 Episodic Other infections; including parasitic (20 sources) Personal history of other infectious and parasitic diseases; Translations: [Personal history of COVID-19] Onset: 12-02-2020 12-02-2020 Episodic Other lower respiratory disease (20 sources) Dyspnea; Translations: [Shortness of breath] Onset: 11-10-2019 11-10-2019 Episodic Other nervous system disorders (20 sources) Acute postoperative pain; Translations: [Other acute postprocedural pain] Onset: 09-01-2017 Resolved: 04-07-2018 04-07-2018 Episodic Other upper respiratory infections (4 sources) Acute upper respiratory infection; Translations: [Acute upper respiratory infection, unspecified] Onset: 07-03-2024 Episodic Pleurisy; pneumothorax; pulmonary collapse (20 sources) Chylothorax; Translations: [Chylous effusion] Onset: 09-02-2017 Resolved: 04-07-2018 04-07-2018 Episodic Residual codes; unclassified (20 sources) History of lung lobectomy; Translations: [Acquired absence of lung [part of]] Onset: 11-10-2019 11-10-2019 Episodic Screening and history of mental health and substance abuse codes (20 sources) Tobacco use and exposure - finding; Translations: [Personal history of nicotine dependence] Onset: 06-13-2021 06-13-2021 Episodic Spondylosis; intervertebral disc disorders; other back problems (20 sources) Chronic low back pain; Translations: [Chronic lower back pain] Onset: 06-13-2021 06-13-2021 Episodic Results Test Name Value Interpretation Reference Range Facility [facility] 11-26-2024 [facility] NAVARRO LIN ([id number]) 1970 M Date Time Provider Department 11/26/24 ARUNA TONG [facility] During your visit today, we recorded the following information about you: Steven Bess LPN 11/26/2024 4:42 PM Addendum Patient has a tooth abscess and is requesting antibiotics. Unable to come in for appointment, currently on house arrest. Virtual visit offered. Needing something after 3pm. No availability. Accepted 1pm with Delia Cook. Steven Bess LPN Allergies As of Date: 11/26/2024 Noted Allergy Reaction DARVOCET A500 (PROPOXYPHENE N-FAWAD*06/28/2016 4 - Hives Date Reviewed: 08/15/2024 Reviewed by: Steven Bess LPN - Fully Assessed Prescriptions as of 12/05/2024 - sildenafil (VIAGRA) 50 mg tablet Take 1 tablet by mouth once daily as needed. - cholestyramine-sucrose (QUESTRAN) 4 gram powder Dissolve 2 g (1/2 scoop) in water or juice and take by mouth before meals twice daily - losartan (COZAAR) 50 mg tablet Take 1 tablet by mouth once daily. - atorvastatin (LIPITOR) 10 mg tablet Take 1 tablet by mouth once daily. - potassium chloride 20 mEq TbER Take 1 tablet by mouth once daily. - pantoprazole DR (PROTONIX) 40 mg tablet Take 1 tablet by mouth once daily. - hydroCHLOROthiazide 12.5 mg capsule Take 1 capsule by mouth once daily. - ondansetron orally disintegrating (ZOFRAN ODT) 4 mg disintegrating tablet Take 1 tablet by mouth every 8 hours as needed for nausea/vomiting. - tiotropium-olodaterol (STIOLTO RESPIMAT) 2.5-2.5 mcg/actuation inhaler Inhale 2 Puffs as instructed once daily. - albuterol HFA (VENTOLIN HFA) 90 mcg/actuation inhaler Inhale 2 Puffs as instructed every 4 hours as needed. 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] 11/30/2017 Ventral hernia without obstruction or gangrene *04/07/2018 Diastasis recti [M62.08] 05/31/2018 08/31/2017 - Right VATS upper lobectomy [Z90.2] 11/10/2019 SOB (shortness of breath) [R06.02] 11/10/2019 Personal history of COVID-19 [Z86.16] 12/02/2020 Erectile dysfunction [N52.9] 06/13/2021 Chronic lower back pain [M54.50, G89.29] 06/13/2021 Generalized anxiety disorder [F41.1] 06/13/2021 History of tobacco use [Z87.891] 06/13/2021 Hypertension [I10] 06/13/2021 Liver hemangioma [D18.03] 03/12/2022 Encounter Status:Closed by STEVEN BESS on 12/05/24 Normal [facility] CBC W Auto Differential pane l (Bld)on 08-15-2024 Basophils (Bld) [#/Vol] [facility] Basophils/100 WBC (Bld) 0.4 % [facility] Differential cell count method Nom (Bld) Auto [facility] Eosinophils (Bld) [#/Vol] 0.08 10*3/uL [facility] Eosinophils/100 WBC (Bld) 1.6 % [facility] Erythrocyte distribution width (RBC) [Ratio] 13.2 % 11.5 - 15.0 % [facility] Hematocrit (Bld) [Volume fraction] 41 % 39.0 - 51.0 % [facility] Hemoglobin (Bld) [Mass/Vol] 14.2 g/dL 13.0 - 17.0 g/dL [facility] Immature granulocytes (Bld) [#/Vol] [facility] Immature granulocytes/100 WBC (Bld) 0.2 % [facility] Interpretation and review of laboratory results Abnormal [facility] Lymphocytes (Bld) [#/Vol] 0.95 10*3/uL Low [facility] Lymphocytes/100 WBC (Bld) 19.2 % [facility] MCH (RBC) [Entitic mass] 32.4 pg 26.0 - 34.0 pg [facility] MCHC (RBC) [Mass/Vol] 34.6 g/dL 30.5 - 36.0 g/dL [facility] MCV (RBC) [Entitic vol] 93.6 fL 80.0 - 100.0 fL [facility] Monocytes (Bld) [#/Vol] 0.4 10*3/uL [facility] Monocytes/100 WBC (Bld) 8.1 % [facility] Neutrophils (Bld) [#/Vol] 3.5 10*3/uL [facility] Neutrophils/100 WBC (Bld) 70.5 % [facility] Nucleated RBC (Bld) [#/Vol] NINF [facility] Nucleated RBC/100 WBC (Bld) [Ratio] 0 % /100 WBC [facility] Platelet mean volume (Bld) [Entitic vol] 11.2 fL 9.0 - 12.7 fL [facility] Platelets (Bld) [#/Vol] 203 10*3/uL [facility] RBC (Bld) [#/Vol] 4.38 10*6/uL 4.20 - 6.0 0 m/uL [facility] WBC (Bld) [#/Vol] 4.96 10*3/uL [facility] Basophils (Bld) [#/Vol] 10*3/uL Normal <0.11 [facility] Comment on above: Order Comment: Speci men Type: BLOOD SPECIMENOrdering Facility: [facility] Address: [address] [place] [address] Performed By: #### 5 7021-8 ####[facility] LABCLIA [id number] [place] [address] [place] Basophils/100 WBC (Bld) 0.4 % Normal [facility] Comment on above: Order Comment: Speci men Type: BLOOD SPECIMENOrdering Facility: [facility] Address: [address] [place] [address] Performed By: #### 5 7021-8 ####[facility] LABIA [id number] [place] [address] [place] Differential cell count method Nom (Bld) Auto Normal [facility] Comment on above: Order Comment: Speci men Type: BLOOD SPECIMENOrdering Facility: [facility] Address: [address] [place] [address] Performed By: #### 5 7021-8 ####[facility] LABCLIA [id number] [address], [place] [address] [place] Eosinophils (Bld) [#/Vol] 0.08 10*3/uL Normal <0.46 [facility] Comment on above: Order Comment: Speci men Type: BLOOD SPECIMENOrdering Facility: [facility] Address: [address] [place] [address] Performed By: #### 5 7021-8 ####[facility] LABCLIA [id number] [address], [place] [address] [place] Eosinophils/100 WBC (Bld) 1.6 % Normal [facility] Comment on above: Order Comment: Speci men Type: BLOOD SPECIMENOrdering Facility: [facility] Address: [address] [place] [address] Performed By: #### 5 7021-8 ####[facility] LABCLIA [id number] [address], [place] [address] [place] Erythrocyte distribution width (RBC) [Ratio] 13.2 % Normal 11.5-15.0 [facility] Comment on above: Order Comment: Speci men Type: BLOOD SPECIMENOrdering Facility: [facility] Address: [address] [place] [address] Performed By: #### 5 7021-8 ####[facility] LABCLIA [id number] [place] [address] [place] Hematocrit (Bld) [Volume fraction] 41.0 % Normal 39.0-51.0 [facility] Comment on above: Order Comment: Speci men Type: BLOOD SPECIMENOrdering Facility: [facility] Address: [address] [place] [address] Performed By: #### 5 7021-8 ####[facility] LABCLIA [id number] [address] [place] [address] [place] Hemoglobin (Bld) [Mass/Vol] 14.2 g/dL Normal 13.0-17.0 [facility] Comment on above: Order Comment: Speci men Type: BLOOD SPECIMENOrdering Facility: [facility] Address: [address] [place] [address] Performed By: #### 5 7021-8 ####[facility] LABCLIA [id number] [facility] [address] [place] Immature granulocytes (Bld) [#/Vol] 10*3/uL Normal <0.10 [facility] Comment on above: Order Comment: Speci men Type: BLOOD SPECIMENOrdering Facility: [facility] Address: [address] [place] [address] Performed By: #### 5 7021-8 ####[facility] LABCLIA [id number] [place] [address] [place] Immature granulocytes/100 WBC (Bld) 0.2 % Normal [facility] Comment on above: Order Comment: Speci men Type: BLOOD SPECIMENOrdering Facility: [facility] Address: [address] [place] [address] Performed By: #### 5 7021-8 ####[facility] LABCLIA [id number] [place] [address] [place] Lymphocytes (Bld) [#/Vol] 0.95 10*3/uL Low 1.00-4.00 [facility] Comment on above: Order Comment: Speci men Type: BLOOD SPECIMENOrdering Facility: [facility] Address: [address] [place] [address] Performed By: #### 5 7021-8 ####[facility] LABCLIA [id number] [place] [address] [place] Lymphocytes/100 WBC (Bld) 19.2 % Normal [facility] Comment on above: Order Comment: Speci men Type: BLOOD SPECIMENOrdering Facility: [facility] Address: [address] [place] [address] Performed By: #### 5 7021-8 ####[facility] LABIA [id number] [place] [address] [place] MCH (RBC) [Entitic mass] 32.4 pg Normal 26.0-34.0 [facility] Comment on above: Order Comment: Speci men Type: BLOOD SPECIMENOrdering Facility: [facility] Address: [address] [place] [address] Performed By: #### 5 7021-8 ####[facility] [id number] [place] [address] [place] MCHC (RBC) [Mass/Vol] 34.6 g/dL Normal 30.5-36.0 [facility] Comment on above: Order Comment: Speci men Type: BLOOD SPECIMENOrdering Facility: [facility] Address: [address] [place] [address] Performed By: #### 5 7021-8 ####[facility] [id number] [place] [address] [place] MCV (RBC) [Entitic vol] 93.6 fL Normal 80.0-100.0 [facility] Comment on above: Order Comment: Speci men Type: BLOOD SPECIMENOrdering Facility: [facility] Address: [address] [place] [address] Performed By: #### 5 7021-8 ####[facility] LABIA [id number] [place] [address] [place] Monocytes (Bld) [#/Vol] 0.40 10*3/uL Normal <0.87 [facility] Comment on above: Order Comment: Speci men Type: BLOOD SPECIMENOrdering Facility: [facility] Address: [address] [place] [address] Performed By: #### 5 7021-8 ####[facility] LABIA [id number] [address] [place] [address] [place] Monocytes/100 WBC (Bld) 8.1 % Normal [facility] Comment on above: Order Comment: Speci men Type: BLOOD SPECIMENOrdering Facility: [facility] Address: [address] [place] [address] Performed By: #### 5 7021-8 ####[facility] LABCLIA [id number] [place] [address] [place] Neutrophils (Bld) [#/Vol] 3.50 10*3/uL Normal 1.45-7.50 [facility] Comment on above: Order Comment: Speci men Type: BLOOD SPECIMENOrdering Facility: [facility] Address: [address] [place] [address] Performed By: #### 5 7021-8 ####[facility] LABCLIA [id number] [place] [address] [place] Neutrophils/100 WBC (Bld) 70.5 % Normal [facility] Comment on above: Order Comment: Speci men Type: BLOOD SPECIMENOrdering Facility: [facility] Address: [address] [place] [address] Performed By: #### 5 7021-8 ####[facility] LABCLIA [id number] [place] [address] [place] Nucleated RBC (Bld) [#/Vol] 10*3/uL Normal <0.01 [facility] Comment on above: Order Comment: Speci men Type: BLOOD SPECIMENOrdering Facility: [facility] Address: [address] [place] [address] Performed By: #### 5 7021-8 ####[facility] LABCLIA [id number] [place] [id number] [place] Nucleated RBC/100 WBC (Bld) [Ratio] 0.0 /100 WBC Normal [facility] Comment on above: Order Comment: Speci men Type: BLOOD SPECIMENOrdering Facility: [facility] Address: [address] [place] [address] Performed By: #### 5 7021-8 ####[facility] LABCLIA [id number] [place] [address] [place] Platelet mean volume (Bld) [Entitic vol] 11.2 fL Normal 9.0-12.7 [facility] Comment on above: Order Comment: Speci men Type: BLOOD SPECIMENOrdering Facility: [facility] Address: [address] [place] [address] Performed By: #### 5 7021-8 ####[facility] LABIA [id number] [place] [address] [place] Platelets (Bld) [#/Vol] 203 10*3/uL Normal 150-400 [facility] Comment on above: Order Comment: Speci men Type: BLOOD SPECIMENOrdering Facility: [facility] Address: [address] [place] [address] Performed By: #### 5 7021-8 ####[facility] LABIA [id number] [place] [address] [place] RBC (Bld) [#/Vol] 4.38 10*6/uL Normal 4.20-6.00 [facility] Comment on above: Order Comment: Speci men Type: BLOOD SPECIMENOrdering Facility: [facility] Address: [address] [place] [address] Performed By: #### 5 7021-8 ####[facility] LABCLIA [id number] [place] [id number] [place] WBC (Bld) [#/Vol] 4.96 10*3/uL Normal 3.70-11.00 [facility] Comment on above: Order Comment: Speci men Type: BLOOD SPECIMENOrdering Facility: [facility] Address: [address] [place] [address] Performed By: #### 5 7021-8 ####[facility] LABLAKSHMI [id number] ESDRASVimal [address] [place] CNOVon 08-15-2024 CNOV Office Visit (ELENAWS ) NAVARRO LIN ([id number]) 1970 M Date Time Provider Department 08/15/24 1:00 PM BELKYS DEVINE During your visit today, we recorded the following information about you: Pulse Respiration Blood pressure Weight 70/minute 18/minute 142/84 81.8 kg Belkys Devine APRN.COMPENSATION CONSULTING MANAGER 08/15/2024 1:17 PM Signed 08/15/2024 Patient presents with: Back Pain: Lower back, got some rest this morning and eased up. Needs work excuse. SUBJECTIVE: This is a 53 year old that is here today for Above Complaints.. Hx of low back pain. This AM woke up with increased pain. Pain located in center of lower back. Described as dull. Reports it has eased up since this AM. Has a hx of laminectomy. 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 hydroCHLOROthiazide 12.5 mg capsule Take 1 capsule by mouth once daily. sildenafil (VIAGRA) 50 mg tablet Take 1 tablet by mouth once daily as needed. ondansetron orally disintegrating (ZOFRAN ODT) 4 mg disintegrating tablet Take 1 tablet by mouth every 8 hours as needed for nausea/vomiting. famotidine (PEPCID) 20 mg tablet Take 1 tablet by mouth at bedtime as needed. losartan (COZAAR) 50 mg tablet Take 1 tablet by mouth once daily. atorvastatin (LIPITOR) 10 mg tablet Take 1 tablet by mouth once daily. tiotropium-olodaterol (STIOLTO RESPIMAT) 2.5-2.5 mcg/actuation inhaler Inhale 2 Puffs as instructed once daily. cholestyramine-sucrose (QUESTRAN) 4 gram powder Dissolve 2 g (1/2 scoop) in water or juice and take by mouth before meals twice daily albuterol HFA (VENTOLIN HFA) 90 mcg/actuation inhaler Inhale 2 Puffs as instructed every 4 hours as needed. (Patient not taking: Reported on 04/17/2024) No current facility-administered medications for this visit. Medications and allergies reviewed by this provider. SOCIAL HISTORY Social History Tobacco Use Smoking status: Former Current packs/day: 0.00 Average packs/day: 3.0 packs/day for 33.1 years (99.4 ttl pk-yrs) Types: Cigarettes Start date: 07/18/1984 Quit date: 08/31/2017 Years since quittin.9 Smokeless tobacco: Never Tobacco comments: quit day of surgery Vaping Use Vaping status: Never Used Substance Use Topics Alcohol use: Yes Comment: 2-3 hard cider most days Drug use: No REVIEW OF SYSTEMS All other reviewed and negative other than HPI. OBJECTIVE: BP 142/84 Pulse 70 Resp 18 Wt 81.8 kg (180 lb 6.4 oz) SpO2 97% BMI 26.64 kg/m? . Vital signs reviewed by this provider. APPEARANCE Well appearing, alert, in no acute distress, well-hydrated, well nourished. BACK: no pain to palpation, good flexion and extension, negative SLR test, Large yellowish ecchymotic area to left and right lunar spine sparing the midline, greater on left than right side- patient denies any recent injury EXTREMITIES Extremities normal, No deformities, No skin discoloration, and No edema NEURO Reflexes symmetrical, Normal gait, No involuntary motions., and negative findings: muscle tone normal, muscle strength normal, reflexes normal and symmetric, plantar response downgoing bilaterally SKIN no other ecchymosis noted to torso, arms or legs Depression Screening Never done Hepatitis B Vaccine(1 of 3 - 19+ 3-dose series) Never done DTaP,Tdap,Td Vaccine(1 - Tdap) due on 03/20/2019 Covid-19 Vaccine( - season) due on 01/10/2025 Annual PCP Team Chronic Disease Visit due on 08/15/2025 Diabetes Screening due on 02/02/2027 Colorectal Cancer Screening due on 05/15/2027 Lipid Screening due on 02/02/2029 Influenza Vaccine Completed Shingrix Vaccine Completed Pneumococcal Vaccine: 50+ Completed Hepatitis C Screening Discontinued HIV Screening Discontinued ASSESSMENT/PLAN: 1. Acute on chronic low back pain - ICD9: 724.2, 338.19, 338.29, ICD10: M54.50, G89.29 (primary diagnosis) - no red flag symptoms or exam findings - red flag symptoms discussed, verbalizes understanding - per patient gonzalez (more content not included)... Normal [facility] Comprehensive metabolic 2000 panelon 08-15-2024 Albumin [Mass/Vol] 4.4 g/dL Normal 3.9-4.9 [facility] Comment on above: Order Comment: Speci men Type: BLOOD SPECIMENOrdering Facility: [facility] Address: [address] [place] [address] Performed By: #### 2 4323-8 ####[facility] LABCLIA [id number] [place] [address] [place] ALP [Catalytic activity/Vol] 100 U/L Normal 38-113 [facility] Comment on above: Order Comment: Speci men Type: BLOOD SPECIMENOrdering Facility: [facility] Address: [address] [place] [address] Performed By: #### 2 4323-8 ####[facility] LABCLIA [id number] [address] [place] [address] [place] ALT [Catalytic activity/Vol] 20 U/L Normal 10-54 [facility] Comment on above: Order Comment: Speci men Type: BLOOD SPECIMENOrdering Facility: [facility] Address: [address] [place], [place] [address] Performed By: #### 2 4323-8 ####[facility] LABCLIA [id number] [address] [place] [address] [place] Anion gap [Moles/Vol] 14 mmol/L Normal 8-15 [facility] Comment on above: Order Comment: Speci men Type: BLOOD SPECIMENOrdering Facility: [facility] Address: [address] [place] [address] Performed By: #### 2 4323-8 ####[facility] LABCLIA [id number] [address], [facility] [place] AST [Catalytic activity/Vol] 28 U/L Normal 14-40 [facility] Comment on above: Order Comment: Speci men Type: BLOOD SPECIMENOrdering Facility: [facility] Address: [address] [place], [place] [address] Performed By: #### 2 4323-8 ####[facility] LABCLIA [id number] [address] [place] [address] [place] Bilirubin [Mass/Vol] 1.0 mg/dL Normal 0.2-1.3 [facility] Comment on above: Order Comment: Speci men Type: BLOOD SPECIMENOrdering Facility: [facility] Address: [address] [place], [place] [address] Performed By: #### 2 4323-8 ####[facility] LABCLIA [id number] [address] [address] [place] Calcium [Mass/Vol] 9.1 mg/dL Normal 8.5-10.2 [facility] Comment on above: Order Comment: Speci men Type: BLOOD SPECIMENOrdering Facility: [facility] Address: [address] [place] [address] Performed By: #### 2 4323-8 ####[facility] LABCLIA [id number] [place] [id number] [place] Chloride [Moles/Vol] 100 mmol/L Normal 98-107 [facility] Comment on above: Order Comment: Speci men Type: BLOOD SPECIMENOrdering Facility: [facility] Address: [address] [place] [address] Performed By: #### 2 4323-8 ####[facility] LABCLIA [id number] [place] [address] [place] CO2 [Moles/Vol] 30 mmol/L Normal 22-30 [facility] Comment on above: Order Comment: Speci men Type: BLOOD SPECIMENOrdering Facility: [facility] Address: [address] [place] [address] Performed By: #### 2 4323-8 ####[facility] LABCLIA [id number] [place] [id number] [place] Creatinine [Mass/Vol] 0.74 mg/dL Normal 0.73-1.22 [facility] Comment on above: Order Comment: Speci men Type: BLOOD SPECIMENOrdering Facility: [facility] Address: [address] [place] [address] Performed By: #### 2 4323-8 ####[facility] LABCLIA [id number] [place] [id number] [place] Creatinine and Glomerular filtration rate.predicted panel (S/P/Bld) 108 mL/min/1.73m??? Normal >=60 [facility] Comment on above: Order Comment: Speci men Type: BLOOD SPECIMENOrdering Facility: [facility] Address: [address] [place] [address] Result Comment: Nitza mated Glomerular Filtration Rate (eGFR) is calculated using the 2020 CKD-EPI creatinine equation. This equation utilizes serum creatinine, sex, and age as parameters. The creatinine assay has traceable calibration to isotope dilution-mass spectrometry. Refer to KDIGO guidelines for clinical interpretation. In patients with unstable renal function, e.g. those with acute kidney injury, the eGFR may not accurately reflect actual GFR. Performed By: #### 2 4323-8 ####[facility] LABCLIA [id number] Hazel[employer]D [facility] [place] [id number], [place] [address] [place] Glucose [Mass/Vol] 106 mg/dL High 74-99 [facility] Comment on above: Order Comment: Prashant osuna Type: BLOOD SPECIMENOrdering Facility: [facility] Address: [address] [place] [address] Result Comment: The [place] Diabetes Association (ADA) provides guidance for cutoff values for fasting glucose and random glucose. The ADA defines fasting as no caloric intake for at least 8 hours. Fasting plasma glucose results between 100 to 125 mg/dL indicate increased risk for diabetes (prediabetes). Fasting plasma glucose results greater than or equal to 126 mg/dL meet the criteria for diagnosis of diabetes. In the absence of unequivocal hyperglycemia, results should be confirmed by repeat testing. In a patient with classic symptoms of hyperglycemia or hyperglycemic crisis, random plasma glucose results greater than or equal to 200 mg/dL meet the criteria for diagnosis of diabetes. Reference: Standards of Medical Care in Diabetes 2016, [place] [employer] Association. Diabetes Care. 2016.39(Suppl 1). Performed By: #### 2 4323-8 ####[facility] LABCLIA [id number] [facility] [place] [id number], [place] [address] [place] Potassium [Moles/Vol] 3.4 mmol/L Low 3.7-5.1 [facility] Comment on above: Order Comment: Prashant osuna Type: BLOOD SPECIMENOrdering Facility: [facility] Address: [address] [place] [address] Performed By: #### 2 4323-8 ####[facility] LABCLIA [id number] [facility] [id number], [place] [address] [place] Protein [Mass/Vol] 6.8 g/dL Normal 6.3-8.0 [facility] Comment on above: Order Comment: Speci men Type: BLOOD SPECIMENOrdering Facility: [facility] Address: [address] [place] [address] Performed By: #### 2 4323-8 ####[facility] LABCLIA [id number] [place] [id number] [place] Sodium [Moles/Vol] 144 mmol/L Normal 136-144 [facility] Comment on above: Order Comment: Speci men Type: BLOOD SPECIMENOrdering Facility: [facility] Address: [address] [place] [address] Performed By: #### 2 4323-8 ####[facility] LABIA [id number] [address] [place] Urea nitrogen [Mass/Vol] 8 mg/dL Low 9-24 [facility] Comment on above: Order Comment: Speci men Type: BLOOD SPECIMENOrdering Facility: [facility] Address: [address] [place] [address] Performed By: #### 2 4323-8 ####[facility] LABIA [id number] [place] [address] [place] PT panel Coag (PPP)on 2024 INR Coag (PPP) [Relative time] 1.0 {INR} Normal 0.9-1.3 [facility] Comment on above: Order Comment: Speci men Type: BLOOD SPECIMENOrdering Facility: [facility] Address: [address] [place] [address] Result Comment: Concepcion min K Antagonist (VKA) Therapeutic Range: INR 2 to 3 (Target INR of 2.5) Note: For patients treated with VKA drugs, such as warfarin, the [employer] [employer] 2012 Guideline recommends a therapeutic INR range of 2 to 3 (target INR of 2.5). This recommendation includes high-risk patients with antiphospholipid syndrome with previous arterial or venous thromboembolism, current-generation mechanical or bioprosthetic aortic heart valve replacement. Note: Patients with mechanical aortic valve replacement and additional risk factors for thromboembolic events (atrial fibrillation, previous thromboembolism, LV dysfunction, hypercoagulable conditions) or an older generation mechanical AVR (i.e., ball in-Cage) or any mechanical MVR should have a INR therapeutic range of 2.5 to 3.5 (target INR of 3). Lele DERAS, et al. Chest 2012, 141:7S-47S Robert PEÑA, et al. [facility] 2017, 70: 252-289 Performed By: #### 3 4528-0, 19245-5 ####[facility] [place] [id number] [place] [address] [place] PT Coag (PPP) [Time] 11.0 s Normal 9.7-13.0 [facility] Comment on above: Order Comment: Speci men Type: BLOOD SPECIMENOrdering Facility: [facility] Address: [address] [place] [address] Performed By: #### 3 4528-0, 94373-4 ####[facility] [place] [id number] [place] [address] [place] XR LUMBAR 3V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 50 mg tablet Take 1 tablet by mouth once daily. atorvastatin (LIPITOR) 10 mg tablet Take 1 tablet by mouth once daily. pantoprazole DR (PROTONIX) 40 mg tablet Take 1 tablet by mouth once daily. hydroCHLOROthiazide 12.5 mg capsule Take 1 capsule by mouth once daily. cholestyramine-sucrose (QUESTRAN) 4 gram powder Dissolve 2 g (1/2 scoop) in water or juice and take by mouth before meals twice daily tiotropium-olodaterol (STIOLTO RESPIMAT) 2.5-2.5 mcg/actuation inhaler Inhale 2 Puffs as instructed once daily. albuterol HFA (VENTOLIN HFA) 90 mcg/actuation inhaler Inhale 2 Puffs as instructed every 4 hours as needed. (Patient not taking: Reported on 04/17/2024) ondansetron orally disintegrating (ZOFRAN ODT) 4 mg disintegrating tablet Take 1 tablet by mouth every 8 hours as needed for nausea/vomiting. (Patient not taking: Reported on 04/17/2024) No current facility-administered medications for this visit. Medications and allergies reviewed by this provider. SOCIAL HISTORY Social History Tobacco Use Smoking status: Former Current packs/day: 0.00 Average packs/day: 3.0 packs/day for 33.1 years (99.4 ttl pk-yrs) Types: Cigarettes Start date: 07/18/1984 Quit date: 08/31/2017 Years since quittin.6 Smokeless tobacco: Never Tobacco comments: quit day of surgery Vaping Use Vaping status: Never Used Substance Use Topics Alcohol use: Yes Comment: 2-3 hard cider most days Drug use: No REVIEW OF SYSTEMS All other reviewed and negative other than HPI. OBJECTIVE: BP 142/76 (BP Site: Left Arm, BP Position: Sitting) Pulse 76 Resp 16 Wt 84.9 kg (187 lb 2.7 oz) SpO2 98% BMI 27.64 kg/m? . Vital signs reviewed by this provider. APPEARANCE Well appearing, alert, in no acute distress, well-hydrated, well nourished. LEFT HAND: No obvious deformity, swelling, erythema or ecchymosis. 2+ radial pulse with cap refill WNL. Able to make fist and okay sign. Depression Screening Never done BP Controlled (<130/80) Never done Hepatitis B Vaccine(1 of 3 - 19+ 3-dose series) Never done Alpha-1 Antitrypsin Deficiency Screening Never done DTaP,Tdap,Td Vaccine(1 - Tdap) due on 03/20/2019 Covid-19 Vaccine() due on 01/10/2025 Annual PCP Team Chronic Disease Visit due on 03/28/2025 Diabetes Screening due on 02/02/2027 Colorectal Cancer Screening due on 05/15/2027 Lipid Screening due on 02/02/2029 Spirometry Completed Influenza Vaccine Completed Shingrix Vaccine Completed Pneumococcal Vaccine: 50+ Completed Hepatitis C Screening Discontinued HIV Screening Discontinued ASSESSMENT/PLAN: 1. Left hand pain - ICD9: 729.5, ICD10: M79.642 - no red flag symptoms or exam findings - red flag symptoms discussed, verbalizes understanding - would recommend ice for 15 minutes at a time as well as OTC pain reliever as directed on packaging if needed - follow-up if fails to improve to ER with red flag symptoms Belkys Podlogar, MECHANICAL SOUND TECHNICIAN.COMPENSATION CONSULTING MANAGER Prescription instructions reviewed with patient as applicable. Patient advised if symptoms do not improve or if symptoms worsen sooner, to contact their primary care physician. Potent (more content not included)... Normal [facility] CNOVon 03-28-2024 CNOV Office Visit (FAMPWS ) NAVARRO LIN ([id number]) 1970 M Date Time Provider Department 03/28/24 3:20 PM BELKYS DEVINE During your visit today, we recorded the following information about you: Pulse Respiration Blood pressure Weight 70/minute 18/minute 136/78 85.6 kg Belkys Devine APRN.COMPENSATION CONSULTING MANAGER 03/28/2024 3:51 PM Signed 03/28/2024 Patient presents with: Blood Pressure Check SUBJECTIVE: This is a 53 year old that is here today for Above Complaints. Lisinopril changed to Losartan at last office appointment in January as patient thought contributing to his ED. Reports seems to last a little longer. Taking and tolerating without side effects. Denies visual changes, headaches lightheadedness, dizziness, slurred speech, facial drooping, extremity numbness tingling or weakness. Patient was prescribed Viagra in the past but he reports was too expensive. 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 atorvastatin (LIPITOR) 10 mg tablet Take 1 tablet by mouth once daily. pantoprazole DR (PROTONIX) 40 mg tablet Take 1 tablet by mouth once daily. hydroCHLOROthiazide 12.5 mg capsule Take 1 capsule by mouth once daily. tiotropium-olodaterol (STIOLTO RESPIMAT) 2.5-2.5 mcg/actuation inhaler Inhale 2 Puffs as instructed once daily. famotidine (PEPCID) 20 mg tablet Take 1 tablet by mouth at bedtime as needed. cholestyramine-sucrose (QUESTRAN) 4 gram powder Dissolve 2 g (1/2 scoop) in water or juice and take by mouth before meals twice daily albuterol HFA (VENTOLIN HFA) 90 mcg/actuation inhaler Inhale 2 Puffs as instructed every 4 hours as needed. ondansetron orally disintegrating (ZOFRAN ODT) 4 mg disintegrating tablet Take 1 tablet by mouth every 8 hours as needed for nausea/vomiting. No current facility-administered medications for this visit. Medications and allergies reviewed by this provider. SOCIAL HISTORY Social History Tobacco Use Smoking status: Former Current packs/day: 0.00 Average packs/day: 3.0 packs/day for 33.1 years (99.4 ttl pk-yrs) Types: Cigarettes Start date: 07/18/1984 Quit date: 08/31/2017 Years since quittin.5 Smokeless tobacco: Never Tobacco comments: quit day of surgery Vaping Use Vaping status: Never Used Substance Use Topics Alcohol use: Yes Comment: 2-3 hard cider most days Drug use: No REVIEW OF SYSTEMS All other reviewed and negative other than HPI. OBJECTIVE: BP 136/78 Pulse 70 Resp 18 Wt 85.6 kg (188 lb 12.8 oz) SpO2 97% BMI 27.88 kg/m? . Vital signs reviewed by this provider. APPEARANCE Well appearing, alert, in no acute distress, well-hydrated, well nourished. Depression Screening Never done BP Controlled (<130/80) Never done Hepatitis B Vaccine(1 of 3 - 19+ 3-dose series) Never done Alpha-1 Antitrypsin Deficiency Screening Never done DTaP,Tdap,Td Vaccine(1 - Tdap) due on 03/20/2019 Covid-19 Vaccine( - season) due on 01/10/2025 Annual PCP Team Chronic Disease Visit due on 03/28/2025 Diabetes Screening due on 02/02/2027 Colorectal Cancer Screening due on 05/15/2027 Lipid Screening due on 02/02/2029 Spirometry Completed Influenza Vaccine Completed Shingrix Vaccine Completed Pneumococcal Vaccine: 50+ Completed HPV Vaccine Aged Out Hepatitis C Screening Discontinued HIV Screening Discontinued ASSESSMENT/PLAN: 1. Hypertension, essential - ICD9: 401.9, ICD10: I10 (primary diagnosis) - Controlled - Continue current medications - Recommend home blood pressure monitoring, to bring results to next visit - Encouraged sodium restriction, DASH or Mediterranean diet - Recommend regular aerobic exercise - Follow up in 6 months for hypertension visit - LOSARTAN 50 MG TABLET 2. ED (erectile dysfunction) of organic origin - ICD9: 607.84, ICD10: N52.9 - follow-up if symptoms fail to improve - SILDENAFIL 50 MG TABLET- possible side effects discussed Belkys Devine, MECHANICAL SOUND TECHNICIAN.COMPENSATION CONSULTING MANAGER Prescription instructions reviewed with patient as applicable. Patient advised if symptoms do not improve or if symptoms worsen sooner, to contact their primary care physician. Potential red flag symptoms discussed with the patient. Reviewed appropriate action plan to home (more content not included)... Normal [facility] CT CHEST WO IVCONon 03-12-19 CT CHEST WO IVCON * * *Final Report* * * DATE OF EXAM: Mar 12 2024 10:16AM [facility] 0541 - CT CHEST WO IVCON / PROCEDURE REASON: Neoplasm of lung * * * * Physician Interpretation * * * * EXAMINATION: CHEST CT WITHOUT CONTRAST CLINICAL HISTORY: History of lung adenocarcinoma with visceral pleural invasion status post right upper lobe lobectomy and negative lymph node dissection in 2018. Former smoker. Technique: Spiral CT acquisition of the chest from the thoracic inlet to the upper abdomen without contrast. MQ: CTCWO_6 CT Radiation dose: Integrated Dose-length product (DLP) for this visit = 235 mGy*cm CT Dose Reduction Employed: Automated exposure control(AEC) and iterative recon Comparison: CT chest 03/04/2023. RESULT: Lines, tubes, and devices: None. Lung parenchyma and airways: Right upper lobectomy. Unchanged, small, scattered pulmonary nodules with the largest measuring up to 4 mm along the right major fissure (image 89). Stable, mild herniation of the lateral right middle lobe between the fourth intercostal space. Stable bulla/cyst along the No focal consolidation. Stable 1.4 cm bulla adjacent to the lower mediastinum (image 124). Stable, mild narrowing of the proximal right middle lobe bronchus. The central airways are otherwise patent. Pleural space: No pleural effusion. Stable, mild, smooth right basilar pleural thickening.. Lower neck, lymph nodes, and mediastinum: The imaged thyroid gland is normal. No lymphadenopathy in the supraclavicular, axillary, mediastinal, or hilar regions. Heart, pericardium, and thoracic vessels: The thoracic aorta and main pulmonary artery are normal in caliber. Stable, borderline atria. The cardiac chambers are normal in size. No coronary artery atherosclerotic calcifications are noted, although the study is not optimized for coronary assessment. No pericardial effusion or thickening. Mild aortic arch calcifications Bones and soft tissues: T12-L1 fusion hardware. Thoracic spine degenerative changes. No destructive bone lesion. Stable 1.3 cm fluid density cystic lesion in the right posterior chest wall which likely represents sebaceous cyst. Upper abdomen: No abnormality in the imaged upper abdomen. Localizer images: No additional findings. IMPRESSION: No CT evidence of neoplastic recurrence. No new or enlarging pulmonary nodules. No lymphadenopathy. I agree that this report by the resident or fellow represents my interpretation of the study. Labor Custodian: ROBERTS CHAPEL Transcribe Date/Time: Mar 12 2024 10:39A Dictated by : MARIA ELENA DUONG MD This examination was interpreted and the report reviewed and electronically signed by: LA WILLINGHAM MD on Mar 12 2024 7:22PM EST [id number] Normal [facility] CT Chest WO contraston 03-12 IMPRESSION: No CT evidence of neoplastic recurrence. No new or enlarging pulmonary nodules. No lymphadenopathy. I agree that this report by the resident or fellow represents my interpretation of the study. Labor Custodian: PSCB Transcribe Date/Time: Mar 12 2024 10:39A Dictated by : MARIA ELENA DUONG MD This examination was interpreted and the report reviewed and electronically signed by: LA WILLINGHAM MD on Mar 12 2024 7:22PM [facility] DIVISION OF RADIOLOGY * * *Final Report* * * DATE OF EXAM: Mar 12 2024 10:16AM [facility] 0541 - CT CHEST WO IVCON / PROCEDURE REASON: Neoplasm of lung * * * * Physician Interpretation * * * * EXAMINATION: CHEST CT WITHOUT CONTRAST CLINICAL HISTORY: History of lung adenocarcinoma with visceral pleural invasion status post right upper lobe lobectomy and negative lymph node dissection in 2018. Former smoker. Technique: Spiral CT acquisition of the chest from the thoracic inlet to the upper abdomen without contrast. MQ: CTCWO_6 CT Radiation dose: Integrated Dose-length product (DLP) for this visit = 235 mGy*cm CT Dose Reduction Employed: Automated exposure control(AEC) and iterative recon Comparison: CT chest 03/04/2023. RESULT: Lines, tubes, and devices: None. Lung parenchyma and airways: Right upper lobectomy. Unchanged, small, scattered pulmonary nodules with the largest measuring up to 4 mm along the right major fissure (image 89). Stable, mild herniation of the lateral right middle lobe between the fourth intercostal space. Stable bulla/cyst along the No focal consolidation. Stable 1.4 cm bulla adjacent to the lower mediastinum (image 124). Stable, mild narrowing of the proximal right middle lobe bronchus. The central airways are otherwise patent. Pleural space: No pleural effusion. Stable, mild, smooth right basilar pleural thickening.. Lower neck, lymph nodes, and mediastinum: The imaged thyroid gland is normal. No lymphadenopathy in the supraclavicular, axillary, mediastinal, or hilar regions. Heart, pericardium, and thoracic vessels: The thoracic aorta and main pulmonary artery are normal in caliber. Stable, borderline atria. The cardiac chambers are normal in size. No coronary artery atherosclerotic calcifications are noted, although the study is not optimized for coronary assessment. No pericardial effusion or thickening. Mild aortic arch calcifications Bones and soft tissues: T12-L1 fusion hardware. Thoracic spine degenerative changes. No destructive bone lesion. Stable 1.3 cm fluid density cystic lesion in the right posterior chest wall which likely represents sebaceous cyst. Upper abdomen: No abnormality in the imaged upper abdomen. Localizer images: No additional findings. DIVISION OF RADIOLOGY Provider, [facility] - 03/12/2024 * * *Final Report* * * DATE OF EXAM: Mar 12 2024 10:16AM [facility] 0541 - CT CHEST WO IVCON / PROCEDURE REASON: Neoplasm of lung * * * * Physician Interpretation * * * * EXAMINATION: CHEST CT WITHOUT CONTRAST CLINICAL HISTORY: History of lung adenocarcinoma with visceral pleural invasion status post right upper lobe lobectomy and negative lymph node dissection in 2018. Former smoker. Technique: Spiral CT acquisition of the chest from the thoracic inlet to the upper abdomen without contrast. MQ: CTCWO_6 CT Radiation dose: Integrated Dose-length product (DLP) for this visit = 235 mGy*cm CT Dose Reduction Employed: Automated exposure control(AEC) and iterative recon Comparison: CT chest 03/04/2023. RESULT: Lines, tubes, and devices: None. Lung parenchyma and airways: Right upper lobectomy. Unchanged, small, scattered pulmonary nodules with the largest measuring up to 4 mm along the right major fissure (image 89). Stable, mild herniation of the lateral right middle lobe between the fourth intercostal space. Stable bulla/cyst along the No focal consolidation. Stable 1.4 cm bulla adjacent to the lower mediastinum (image 124). Stable, mild narrowing of the proximal right middle lobe bronchus. The central airways are otherwise patent. Pleural space: No pleural effusion. Stable, mild, smooth right basilar pleural thickening.. Lower neck, lymph nodes, and mediastinum: The imaged thyroid gland is normal. No lymphadenopathy in the supraclavicular, axillary, mediastinal, or hilar regions. Heart, pericardium, and thoracic vessels: The thoracic aorta and main pulmonary artery are normal in caliber. Stable, borderline atria. The cardiac chambers are normal in size. No coronary artery atherosclerotic calcifications are noted, although the study is not optimized for coronary assessment. No pericardial effusion or thickening. Mild aortic arch calcifications Bones and soft tissues: T12-L1 fusion hardware. Thoracic spine degenerative changes. No destructive bone lesion. Stable 1.3 cm fluid density cystic lesion in the right posterior chest wall which likely represents sebaceous cyst. Upper abdomen: No abnormality in the imaged upper abdomen. Localizer images: No additional findings. IMPRESSION IMPRESSION: No CT evidence of neoplastic recurrence. No new or enlarging pulmonary nodules. No lymphadenopathy. I agree that this report by the resident or fellow represents my interpretation of the study. Labor Custodian: OPAL Transcribe Date/Time: Mar 12 2024 10:39A Dictated by : MARIA ELENA DUONG MD This examination was interpreted and the report reviewed and electronically signed by: LA WILLINGHAM MD on Mar 12 2024 7:22PM EST [facility] Radiology Study observation (narrative) [facility] CT Chest WO contrastOrdered By: [facility] Provider on 03-12-2024 [facility] Howard 02-10-2024 CNPN Telephone (FAMPWS) NAVARRO LIN ([id number]) 1970 M Date Time Provider Department 02/10/24 ARUNA TONG During your visit today, we recorded the following information about you: Tammie Camacho RN 02/10/2024 10:30 AM Signed Patient contacted and given message below. Tammie Camacho RN (COPIED): Result Notes Belkys Devine APRN.COMPENSATION CONSULTING MANAGER 02/10/2024 5:56 AM EST Some improvement in cholesterol- would recommend he continue cholesterol med. Triglyceriddes elevated- would work on lower calorie diet along with low carbohydate and low fat. Aim for at least 150 minutes of exercise per week. Liver enzymes are slightly elevated- would recommend avoidance of alcohol and acetaminophen products. Will recheck at next office visit. Belkys Devine, NYDIA.COMPENSATION CONSULTING MANAGER Allergies As of Date: 02/10/2024 Noted Allergy Reaction DARVOCET A500 (PROPOXYPHENE N-FAWAD*06/28/2016 4 - Hives Date Reviewed: 01/11/2024 Reviewed by: Steven Bess LPN - Fully Assessed Reason for Visit: Results [95] Prescriptions as of 02/10/2024 - pantoprazole DR (PROTONIX) 40 mg tablet Take 1 tablet by mouth once daily. - atorvastatin (LIPITOR) 10 mg tablet Take 1 tablet by mouth once daily. - losartan (COZAAR) 50 mg tablet Take 1 tablet by mouth once daily. - hydroCHLOROthiazide 12.5 mg capsule Take 1 capsule by mouth once daily. - tiotropium-olodaterol (STIOLTO RESPIMAT) 2.5-2.5 mcg/actuation inhaler Inhale 2 Puffs as instructed once daily. - famotidine (PEPCID) 20 mg tablet Take 1 tablet by mouth at bedtime as needed. - cholestyramine-sucrose (QUESTRAN) 4 gram powder Dissolve 2 g (1/2 scoop) in water or juice and take by mouth before meals twice daily - busPIRone (BUSPAR) 10 mg tablet Take 1 tablet by mouth three times a day. - albuterol HFA (VENTOLIN HFA) 90 mcg/actuation inhaler Inhale 2 Puffs as instructed every 4 hours as needed. - ondansetron orally disintegrating (ZOFRAN ODT) 4 mg disintegrating tablet Take 1 tablet by mouth every 8 hours as needed for nausea/vomiting. 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] 11/30/2017 Ventral hernia without obstruction or gangrene *04/07/2018 Diastasis recti [M62.08] 05/31/2018 08/31/2017 - Right VATS upper lobectomy [Z90.2] 11/10/2019 SOB (shortness of breath) [R06.02] 11/10/2019 Personal history of COVID-19 [Z86.16] 12/02/2020 Erectile dysfunction [N52.9] 06/13/2021 Chronic lower back pain [M54.50, G89.29] 06/13/2021 Generalized anxiety disorder [F41.1] 06/13/2021 History of tobacco use [Z87.891] 06/13/2021 Hypertension [I10] 06/13/2021 Liver hemangioma [D18.03] 03/12/2022 Encounter Status:Closed by TAMMIE CAMACHO on 02/10/24 Normal [facility] Comprehensive metabolic 2000 panelon 02-03-2024 Albumin [Mass/Vol] 4.4 g/dL Normal 3.9-4.9 [facility] Comment on above: Order Comment: Speci men Type: BLOOD SPECIMENOrdering Facility: [facility] Address: [address] [place] [address] Performed By: #### 2 4323-8, 46010-8 ####[facility] LABCLIA [id number] [place] [address] [place] ALP [Catalytic activity/Vol] 108 U/L Normal 38-113 [facility] Comment on above: Order Comment: Speci men Type: BLOOD SPECIMENOrdering Facility: [facility] Address: [address] [place] [address] Performed By: #### 2 4323-8, 79740-2 ####[facility] LABCLIA [id number] [place] [address] [place] ALT [Catalytic activity/Vol] 57 U/L High 10-54 [facility] Comment on above: Order Comment: Speci men Type: BLOOD SPECIMENOrdering Facility: [facility] Address: [address] [place] [address] Performed By: #### 2 4323-8, 36961-9 ####[facility] LABCLIA [id number] [place] [address] [place] Anion gap [Moles/Vol] 14 mmol/L Normal 8-15 [facility] Comment on above: Order Comment: Speci men Type: BLOOD SPECIMENOrdering Facility: [facility] Address: [address] [place] [address] Performed By: #### 2 4323-8, 50192-3 ####[facility] LABCLIA [id number] [place] [address] [place] AST [Catalytic activity/Vol] 53 U/L High 14-40 [facility] Comment on above: Order Comment: Speci men Type: BLOOD SPECIMENOrdering Facility: [facility] Address: [address] [place] [address] Performed By: #### 2 4323-8, 18148-5 ####[facility] LABCLIA [id number] [place] [address] [place] Bilirubin [Mass/Vol] 0.9 mg/dL Normal 0.2-1.3 [facility] Comment on above: Order Comment: Speci men Type: BLOOD SPECIMENOrdering Facility: [facility] Address: [address] [place] [address] Performed By: #### 2 4323-8, 82819-0 ####[facility] LABCLIA [id number] [place] [address] [place] Calcium [Mass/Vol] 9.4 mg/dL Normal 8.5-10.2 [facility] Comment on above: Order Comment: Speci men Type: BLOOD SPECIMENOrdering Facility: [facility] Address: [address] [place] [address] Performed By: #### 2 4323-8, 75032-2 ####[facility] LABCLIA [id number] [place] [address] [place] Chloride [Moles/Vol] 101 mmol/L Normal 98-107 [facility] Comment on above: Order Comment: Speci men Type: BLOOD SPECIMENOrdering Facility: [facility] Address: [address] [place] [address] Performed By: #### 2 4323-8, 75062-1 ####[facility] LABCLIA [id number] [place] [address] [place] CO2 [Moles/Vol] 28 mmol/L Normal 22-30 [facility] Comment on above: Order Comment: Speci men Type: BLOOD SPECIMENOrdering Facility: [facility] Address: [address] [place] [address] Performed By: #### 2 4323-8, 34698-2 ####[facility] LABCLIA [id number] [place] [address] [place] Creatinine [Mass/Vol] 0.83 mg/dL Normal 0.73-1.22 [facility] Comment on above: Order Comment: Prashant osuna Type: BLOOD SPECIMENOrdering Facility: [facility] Address: [address] [place] [address] Performed By: #### 2 4323-8, 13275-8 ####[facility] LABCLIA [id number] [place] [address] [place] Creatinine and Glomerular filtration rate.predicted panel (S/P/Bld) 105 mL/min/1.73m??? Normal >=60 [facility] Comment on above: Order Comment: Prashant osuna Type: BLOOD SPECIMENOrdering Facility: [facility] Address: [address] [place] [address] Result Comment: Nitza mated Glomerular Filtration Rate (eGFR) is calculated using the 2020 CKD-EPI creatinine equation. This equation utilizes serum creatinine, sex, and age as parameters. The creatinine assay has traceable calibration to isotope dilution-mass spectrometry. Refer to KDIGO guidelines for clinical interpretation. In patients with unstable renal function, e.g. those with acute kidney injury, the eGFR may not accurately reflect actual GFR. Performed By: #### 2 4323-8, 57398-6 ####[facility] LABCLIA [id number] [place] [address] [place] Glucose [Mass/Vol] 100 mg/dL High 74-99 [facility] Comment on above: Order Comment: Prashant osuna Type: BLOOD SPECIMENOrdering Facility: [facility] Address: [address] [place] [address] Result Comment: The [place] Diabetes Association (ADA) provides guidance for cutoff values for fasting glucose and random glucose. The ADA defines fasting as no caloric intake for at least 8 hours. Fasting plasma glucose results between 100 to 125 mg/dL indicate increased risk for diabetes (prediabetes). Fasting plasma glucose results greater than or equal to 126 mg/dL meet the criteria for diagnosis of diabetes. In the absence of unequivocal hyperglycemia, results should be confirmed by repeat testing. In a patient with classic symptoms of hyperglycemia or hyperglycemic crisis, random plasma glucose results greater than or equal to 200 mg/dL meet the criteria for diagnosis of diabetes. Reference: Standards of Medical Care in Diabetes 2016, [place] Diabetes Association. Diabetes Care. 2016.39(Suppl 1). Performed By: #### 2 4323-8, 05683-0 ####[facility] LABCLIA [id number] [address] [address] [place] Potassium [Moles/Vol] 3.7 mmol/L Normal 3.7-5.1 [facility] Comment on above: Order Comment: Speci men Type: BLOOD SPECIMENOrdering Facility: [facility] Address: [address] [place] [address] Performed By: #### 2 4323-8, 50527-2 ####[facility] LABCLIA [id number] [place] [address] [place] Protein [Mass/Vol] 6.9 g/dL Normal 6.3-8.0 [facility] Comment on above: Order Comment: Speci men Type: BLOOD SPECIMENOrdering Facility: [facility] Address: [address] [place] [address] Performed By: #### 2 4323-8, ####[facility] LABIA [id number] [place] [address] [place] Sodium [Moles/Vol] 143 mmol/L Normal 136-144 [facility] Comment on above: Order Comment: Speci men Type: BLOOD SPECIMENOrdering Facility: [facility] Address: [address] [place] [id number] Performed By: #### 2 4323-8, 11702-1 ####[facility] LABCLIA [id number] [address] [address] [place] Urea nitrogen [Mass/Vol] 8 mg/dL Low 9-24 [facility] Comment on above: Order Comment: Speci men Type: BLOOD SPECIMENOrdering Facility: [facility] Address: [address] [place] [id number] Performed By: #### 2 4323-8, 54749-1 ####[facility] LABCLIA [id number] [facility] [place] [address] [place] Lipid 1996 panelon 4 Cholesterol [Mass/Vol] 217 mg/dL High <200 [facility] Comment on above: Order Comment: Speci men Type: BLOOD SPECIMENOrdering Facility: [facility] Address: [address] [place] [address] Result Comment: <200 mg/dL, Desirable 200-239 mg/dL, Borderline high >239 mg/dL, High Performed By: #### 2 4323-8, 98039-8 ####[facility] LABCLIA [id number] [address] [place] Cholesterol in HDL [Mass/Vol] 66 mg/dL Normal >39 [facility] Comment on above: Order Comment: Speci men Type: BLOOD SPECIMENOrdering Facility: [facility] Address: [address] [place] [address] Result Comment: 40-5 9 mg/dL, Acceptable >59 mg/dL, High: Negative risk factor for coronary heart disease <40 mg/dL, Low: Positive risk factor for coronary heart disease Performed By: #### 2 4323-8, 05720-4 ####[facility] LABCLIA [id number] [address] [place] Cholesterol in LDL [Mass/Vol] 92 mg/dL Normal <100 [facility] Comment on above: Order Comment: Speci men Type: BLOOD SPECIMENOrdering Facility: [facility] Address: [address] [place] [address] Result Comment: <100 mg/dL, Optimal 100-129 mg/dL, Near optimal/above optimal 130-159 mg/dL, Borderline high 160-189 mg/dL, High >189 mg/dL, Very high Secondary prevention optimal LDL Cholesterol levels are recommended to be < 70 mg/dL Performed By: #### 2 4323-8, 09833-4 ####[facility] LABCLIA [id number] [address] [place] Cholesterol in LDL/Cholesterol in HDL [Mass ratio] 1.39 {ratio} Normal <2.54 [facility] Comment on above: Order Comment: Prashant osuna Type: BLOOD SPECIMENOrdering Facility: [facility] Address: [address] [place] [address] Result Comment: Refe rence: 1. National Cholesterol Education Program ATP III Guideline At-A-Glance Quick Desk Reference: National Heart, Lung, and Blood [place]. National Institutes of Health. 2001: NIH Publication No. 01-3305. 2. An International Atherosclerosis Society position paper: global recommendations for the management of dyslipidemia: executive summary, Atherosclerosis. 2014: 232(2):410-413. Performed By: #### 2 4323-8, 13749-5 ####[facility] LABCLIA [id number] [place] [address] [place] Cholesterol in VLDL [Mass/Vol] 59 mg/dL High <30 [facility] Comment on above: Order Comment: Prashant osuna Type: BLOOD SPECIMENOrdering Facility: [facility] Address: [address] [place] [address] Performed By: #### 2 4323-8, 32892-5 ####[facility] LABCLIA [id number] [address] [place] Cholesterol non HDL [Mass/Vol] 151 mg/dL High <130 [facility] Comment on above: Order Comment: Symonei men Type: BLOOD SPECIMENOrdering Facility: [facility] Address: [address] [place] [address] Result Comment: <130 mg/dL, Optimal 130-159 mg/dL, Near optimal/above optimal 160-189 mg/dL, Borderline high 190-219 mg/dL, High >219 mg/dL, Very high Secondary prevention optimal non HDL Cholesterol levels are recommended to be <100 mg/dL Performed By: #### 2 4323-8, 29259-3 ####[facility] LABCLIA [id number] [place] [id number] [place] Cholesterol.total/Ch olesterol in HDL [Mass ratio] 3.29 {ratio} Normal <5.10 [facility] Comment on above: Order Comment: Speci men Type: BLOOD SPECIMENOrdering Facility: [facility] Address: [address] [place] [address] Performed By: #### 2 4323-8, 93800-4 ####[facility] LABCLIA [id number] [place] [address] [place] FASTING TIME 12 hrs Normal [facility] Comment on above: Order Comment: Speci men Type: BLOOD SPECIMENOrdering Facility: [facility] Address: [address] [place] [address] Performed By: #### 2 4323-8, 63167-6 ####[facility] LABCLIA [id number] [place] [address] [place] Triglyceride [Mass/Vol] 293 mg/dL High <150 [facility] Comment on above: Order Comment: Speci men Type: BLOOD SPECIMENOrdering Facility: [facility] Address: [address] [place] [address] Result Comment: <150 mg/dL, Normal 150-199 mg/dL, Borderline high 200-499 mg/dL, High >499 mg/dL, Very high Performed By: #### 2 4323-8, 09919-3 ####[facility] LABCLIA [id number] [place] [address] [place] CNOVon 01-11-2024 CNOV Office Visit (FAMPWS ) NAVARRO LIN ([id number]) 1970 M Date Time Provider Department 01/11/24 3:40 PM BELKYS DEVINE During your visit today, we recorded the following information about you: Pulse Respiration Blood pressure Weight 84/minute 18/minute 144/86 85.1 kg Belkys Devine APRN.CNP 01/11/2024 4:24 PM Signed 01/11/2024 Patient presents with: Med Change Request SUBJECTIVE: This is a 53 year old that is here today for Above Complaints.. Reports he believes his Lisinopril is causing him erectile dysfunction. Reports problems with maintaining an erection as well as premature ejaculation and at times inability to ejaculate. Does always have morning erections. Did not take his BP med for the last two days because he ran out Wants to wean off his Buspar. Has been taking 20 mg twice a day. 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 hydroCHLOROthiazide 12.5 mg capsule Take 1 capsule by mouth once daily. atorvastatin (LIPITOR) 10 mg tablet Take 1 tablet by mouth once daily. tiotropium-olodaterol (STIOLTO RESPIMAT) 2.5-2.5 mcg/actuation inhaler Inhale 2 Puffs as instructed once daily. famotidine (PEPCID) 20 mg tablet Take 1 tablet by mouth at bedtime as needed. cholestyramine-sucrose (QUESTRAN) 4 gram powder Dissolve 2 g (1/2 scoop) in water or juice and take by mouth before meals twice daily busPIRone (BUSPAR) 10 mg tablet Take 1 tablet by mouth three times a day. pantoprazole DR (PROTONIX) 40 mg tablet Take 1 tablet by mouth once daily. albuterol HFA (VENTOLIN HFA) 90 mcg/actuation inhaler Inhale 2 Puffs as instructed every 4 hours as needed. ondansetron orally disintegrating (ZOFRAN ODT) 4 mg disintegrating tablet Take 1 tablet by mouth every 8 hours as needed for nausea/vomiting. No current facility-administered medications for this visit. Medications and allergies reviewed by this provider. SOCIAL HISTORY Social History Tobacco Use Smoking status: Former Current packs/day: 0.00 Average packs/day: 3.0 packs/day for 33.1 years (99.4 ttl pk-yrs) Types: Cigarettes Start date: 07/18/1984 Quit date: 08/31/2017 Years since quittin.3 Smokeless tobacco: Never Tobacco comments: quit day of surgery Vaping Use Vaping status: Never Used Substance Use Topics Alcohol use: Yes Comment: 2-3 hard cider most days Drug use: No REVIEW OF SYSTEMS All other reviewed and negative other than HPI. OBJECTIVE: BP 144/86 Pulse 84 Resp 18 Wt 85.1 kg (187 lb 9.8 oz) SpO2 98% BMI 27.71 kg/m? . Vital signs reviewed by this provider. APPEARANCE Well appearing, alert, in no acute distress, well-hydrated, well nourished. EYES conjunctiva and sclera normal. HEART RRR with normal S1 and S2, no murmurs, no gallops, no JVD appreciated LUNG clear to auscultation. No wheezes, rhonchi or rales SKIN Skin color, texture, turgor normal, no suspicious rashes or lesions Depression Screening Never done Hepatitis B Vaccine(1 of 3 - 19+ 3-dose series) Never done Alpha-1 Antitrypsin Deficiency Screening Never done DTaP,Tdap,Td Vaccine(1 - Tdap) due on 03/20/2019 Influenza Vaccine(1) due on 2023 Covid-19 Vaccine( - 2023- season) due on 01/10/2025 Annual PCP Team Chronic Disease Visit due on 06/21/2024 BP Controlled (<130/80) due on 10/24/2024 Diabetes Screening due on 05/22/2026 Colorectal Cancer Screening due on 05/15/2027 Lipid Screening due on 05/22/2028 Spirometry Completed Shingrix Vaccine Completed Pneumococcal Vaccine Completed HPV Vaccine Aged Out Hepatitis C Screening Discontinued HIV Screening Discontinued ASSESSMENT/PLAN: 1. ED (erectile dysfunction) of organic origin - ICD9: 607.84, ICD10: N52.9 (primary diagnosis) - will change Lisinopril to Losartan to see if this helps 2. Hyperlipidemia, mixed - ICD9: 272.2, ICD10: E78.2 - Control undetermined, due for labs - Continue current medications - Counseled on healthy diet and regular exercise - Follow up in 1 month, sooner should any other issues arise. - LIPID PANEL BASIC - COMPREHENSIVE METABOLIC PANEL 3. Encounter for immunization - ICD9: V03.89, ICD10: Z23 - INFLUENZA VA (more content not included)... Normal [facility] GI FLUORO CHEST SNIFF TESTon 09-01-2023 GI FLUORO CHEST SNIFF TEST * * *Final Report* * * DATE OF EXAM: Sep 01 2023 9:23AM MDX 5536 - GI FLUORO CHEST SNIFF TEST / PROCEDURE REASON: J98.6-Elevated diaphragm * * * * Physician Interpretation * * * * GI FLUORO CHEST SNIFF TEST HISTORY: Indication: Elevated diaphragm PT STS DYSPNEA, COPD, RIGHT LOBECTOMY X6 YEARS AGO. TECHNIQUE: Fluoroscopic Radiation Summary: Plane A, Air Kerma: 5.5 mGy Dose Area Product (DAP): 2961.8 mGy*cm2 Fluoro time: 0:42 min:sec Images obtained: 3 Spot film images/cine fluoroscopy images under fluoroscopic guidance. Images were stored in a permanent archive. Comparison: The RIGHT hemidiaphragm and is similar elevation of the chest x-ray from 09/20/2019. RESULT: Findings: RIGHT hemidiaphragm is moderately elevated. On deep inspiration no definite downward movement of the RIGHT hemidiaphragm is seen. During the sniff portion of the RIGHT hemidiaphragm either did not move or may have moved slightly in the opposite direction from the LEFT hemidiaphragm. See procedural note in Epic for further discussion. IMPRESSION: The RIGHT hemidiaphragm showed no downward movement with inspiration. No definite dilated. paradoxical motion was seen Labor Custodian: ROBERTS CHAPEL Transcribe Date/Time: Sep 01 2023 10:48A Dictated by : JOSSY MCELROY DO This examination was interpreted and the report reviewed and electronically signed by: JOSSY MCELROY DO on Sep 01 2023 11:04AM EST [id number] Normal [facility] XR and RF Chest 2 Views and Viewson 09-01-2023 IMPRESSION: The RIGHT hemidiaphragm showed no downward movement with inspiration. No definite dilated. paradoxical motion was seen Labor Custodian: OPAL Transcribe Date/Time: Sep 01 2023 10:48A Dictated by : JOSSY MCELROY DO This examination was interpreted and the report reviewed and electronically signed by: JOSSY MCELROY DO on Sep 01 2023 11:04AM EST [facility] * * *Final Report* * * DATE OF EXAM: Sep 01 2023 9:23AM MDX 5536 - GI FLUORO CHEST SNIFF TEST / PROCEDURE REASON: J98.6-Elevated diaphragm * * * * Physician Interpretation * * * * GI FLUORO CHEST SNIFF TEST HISTORY: Indication: Elevated diaphragm PT STS DYSPNEA, COPD, RIGHT LOBECTOMY X6 YEARS AGO. TECHNIQUE: Fluoroscopic Radiation Summary: Plane A, Air Kerma: 5.5 mGy Dose Area Product (DAP): 2961.8 mGy*cm2 Fluoro time: 0:42 min:sec Images obtained: 3 Spot film images/cine fluoroscopy images under fluoroscopic guidance. Images were stored in a permanent archive. Comparison: The RIGHT hemidiaphragm and is similar elevation of the chest x-ray from 09/20/2019. RESULT: Findings: RIGHT hemidiaphragm is moderately elevated. On deep inspiration no definite downward movement of the RIGHT hemidiaphragm is seen. During the sniff portion of the RIGHT hemidiaphragm either did not move or may have moved slightly in the opposite direction from the LEFT hemidiaphragm. See procedural note in Epic for further discussion. [facility] Provider, Cc Kane g [place] - 09/01/2023 * * *Final Report* * * DATE OF EXAM: Sep 01 2023 9:23AM MDX 5536 - GI FLUORO CHEST SNIFF TEST / PROCEDURE REASON: J98.6-Elevated diaphragm * * * * Physician Interpretation * * * * GI FLUORO CHEST SNIFF TEST HISTORY: Indication: Elevated diaphragm PT STS DYSPNEA, COPD, RIGHT LOBECTOMY X6 YEARS AGO. TECHNIQUE: Fluoroscopic Radiation Summary: Plane A, Air Kerma: 5.5 mGy Dose Area Product (DAP): 2961.8 mGy*cm2 Fluoro time: 0:42 min:sec Images obtained: 3 Spot film images/cine fluoroscopy images under fluoroscopic guidance. Images were stored in a permanent archive. Comparison: The RIGHT hemidiaphragm and is similar elevation of the chest x-ray from 09/20/2019. RESULT: Findings: RIGHT hemidiaphragm is moderately elevated. On deep inspiration no definite downward movement of the RIGHT hemidiaphragm is seen. During the sniff portion of the RIGHT hemidiaphragm either did not move or may have moved slightly in the opposite direction from the LEFT hemidiaphragm. See procedural note in Epic for further discussion. IMPRESSION IMPRESSION: The RIGHT hemidiaphragm showed no downward movement with inspiration. No definite dilated. paradoxical motion was seen Labor Custodian: OPAL Transcribe Date/Time: Sep 01 2023 10:48A Dictated by : JOSSY MCELROY DO This examination was interpreted and the report reviewed and electronically signed by: JOSSY MCELRYO DO on Sep 01 2023 11:04AM EST [facility] Radiology Study observation (narrative) [facility] XR and RF Chest 2 Views and ViewsOrdered By: Ccf Provider on 09-01-2023 [facility] SPIROMETRY - BASELINE AND PO ST DILATORon 07-19-2023 THJ96-84% POST (L/S) 1.19 L/S [facility] HAQ48-32% PRE (L/S) 1.42 L/S [facility] FEV1 PRE (L) 2.53 L [facility] FEV1/FVC POST (%) 68 % [facility] FEV1/FVC PRE (%) 67 % [facility] FEV1_POST (L) 2.45 L [facility] FVC POST (L) 3.61 L [facility] FVC PRE (L) 3.79 L [facility] PEF POST (L/S) 5.57 L/S [facility] PEF PRE (L/S) 6.27 L/S [facility] [address] [place] [address] Test Date: 2023-07-19 Pat Name: NAVARRO LIN Department: Room: Gender: M Pharmacy Care Coordinator: : Requested By: Order Number: [id number] Reading MD: Gisela Mckeon MD Interpretive Statements Medications and Allergies were reviewed for possible drug interactions per policy. No contraindications or sensitivities were noted. Meds taken: albuterol 1 hours before testing. 4 puffs Albuterol (360 mcg) delivered by MDI via holding chamber. HR pre = 70/min, HR post = 70/min. Current ATS/ERS acceptability and repeatability standards for spirometry met. Start of test and EOFE criteria met. IMPRESSION: Spirometry indicates mild obstruction. There was not a significant bronchodilator response. Electronically Signed On 07-19-2023 12:52:29 EDT by Gisela Mckeon MD ID: [id number] Name: NAVARRO LIN Race: White Ht: 69.00 in Wt: 191.00 lbs Age: 52 Gender: Male : 1970 Dx: Shortness of breath Smoking Hx: Non-smoker Doctor: BELKYS DEVINE Test Date: 07/19/2023 Site: Tech: Dacia Miller PRE-BRONCH POST-BRONCH Pre LLN Pred ULN %Pred Post %Pred %Chg SPIROMETRY FVC (L) 3.79 3.34 4.40 5.48 86 3.61 82 -3 FEV1 (L) 2.53 2.63 3.50 4.33 72 2.45 69 -2 FEV1/FVC 0.67 0.68 0.79 0.89 84 0.68 85 1 PEF L/s (L/sec) 6.27 7.22 9.47 11.72 66 5.57 58 -11 FEF50 (L/sec) 1.97 2.39 4.52 6.64 43 1.91 42 -2 FIF50 (L/sec) 2.69 3.01 11 FEF50/FIF50 0.73 90-100 0.64 -13 FIVC (L) 2.84 3.32 16 LBF09-57 (L/sec) 1.42 1.77 3.35 5.42 42 1.19 35 -16 Time (sec) 12.25 12.44 1 FET PEF (sec) 0.07 0.12 64 WALLY (L) 0.08 0.07 -17 Vol Extrap % (%) 2 2 -13 Comments: Medications and Allergies were reviewed for possible drug interactions per policy. No contraindications or sensitivities were noted. Meds taken: albuterol 1 hours before testing. 4 puffs Albuterol (360 mcg) delivered by MDI via holding chamber. HR pre = 70/min, HR post = 70/min. Current ATS/ERS acceptability and repeatability standards for spirometry met. Start of test and EOFE criteria met. PULMONARY FUNCTION LAB [facility] Influenza virus A and B RNA and SARS-CoV-2 (COVID-19) N gene panel RENÉ+probe (Resp)on 01-25-2023 FLUAV RNA RENÉ+probe Ql (Unsp spec) Not detected Not Detected [facility] FLUBV RNA RENÉ+probe Ql (Unsp spec) Not detected Not Detected [facility] SARS-CoV-2 (COVID-19) RNA RENÉ+probe Ql (Resp) Not detected See comment [facility] Comprehensive metabolic 2000 panelon 01-11-2023 Albumin [Mass/Vol] 4.7 g/dL 3.9 - 4.9 g/dL [facility] ALP [Catalytic activity/Vol] 77 U/L 38 - 113 U/L [facility] ALT [Catalytic activity/Vol] 26 U/L 10 - 54 U/L [facility] Anion gap [Moles/Vol] 11 mmol/L 9 - 18 mmol/L [facility] AST [Catalytic activity/Vol] 29 U/L 14 - 40 U/L [facility] Bilirubin [Mass/Vol] 0.8 mg/dL 0.2 - 1 .3 mg/dL [facility] Calcium [Mass/Vol] 10.1 mg/dL 8.5 - 10. 2 mg/dL [facility] Chloride [Moles/Vol] 100 mmol/L 97 - 10 5 mmol/L [facility] CO2 [Moles/Vol] 27 mmol/L 22 - 30 mmol/L [facility] Creatinine [Mass/Vol] 1.30 mg/dL High 0.73 - 1.22 mg/dL [facility] Estimated Glomerular Filtration Rate 66 mL/min/1.73m >=60 mL/min/1.73 m [facility] Glucose [Mass/Vol] 89 mg/dL 74 - 99 mg/dL [facility] Potassium [Moles/Vol] 5.0 mmol/L 3.7 - 5.1 mmol/L [facility] Protein [Mass/Vol] 7.4 g/dL 6.3 - 8.0 g/dL [facility] Sodium [Moles/Vol] 138 mmol/L 136 - 144 mmol/L [facility] Urea nitrogen [Mass/Vol] 18 mg/dL 9 - 24 mg/dL [facility] LIPASE BLDon 01-11-2023 Lipase [Catalytic activity/Vol] 19 U/L 16 - 61 U/L [facility] CBC W Auto Differential pane l (Bld)on 01-10-2023 Basophils (Bld) [#/Vol] 0.03 10*3/uL <0.11 k/uL [facility] Basophils/100 WBC (Bld) 0.4 % [facility] Differential cell count method Nom (Bld) Auto [facility] Eosinophils (Bld) [#/Vol] 0.15 10*3/uL <0.46 k/uL [facility] Eosinophils/100 WBC (Bld) 2.1 % [facility] Erythrocyte distribution width (RBC) [Ratio] 13.0 % 11.5 - 15.0 % [facility] Hematocrit (Bld) [Volume fraction] 48.1 % 39.0 - 51.0 % [facility] Hemoglobin (Bld) [Mass/Vol] 16.4 g/dL 13.0 - 17.0 g/dL [facility] Immature granulocytes (Bld) [#/Vol] <0.10 k/uL [facility] Immature granulocytes/100 WBC (Bld) 0.3 % [facility] Lymphocytes (Bld) [#/Vol] 1.59 10*3/uL 1.00 - 4.00 k/uL [facility] Lymphocytes/100 WBC (Bld) 22.7 % [facility] MCH (RBC) [Entitic mass] 32.9 pg 26.0 - 34.0 pg [facility] MCHC (RBC) [Mass/Vol] 34.1 g/dL 30.5 - 36.0 g/dL [facility] MCV (RBC) [Entitic vol] 96.6 fL 80.0 - 100.0 fL [facility] Monocytes (Bld) [#/Vol] 0.82 10*3/uL <0.87 k/uL [facility] Monocytes/100 WBC (Bld) 11.7 % [facility] Neutrophils (Bld) [#/Vol] 4.39 10*3/uL 1.45 - 7.50 k/uL [facility] Neutrophils/100 WBC (Bld) 62.8 % [facility] Nucleated RBC (Bld) [#/Vol] <0.01 k/uL [facility] Nucleated RBC/100 WBC (Bld) [Ratio] 0.0 /100 WBC [facility] Platelet mean volume (Bld) [Entitic vol] 10.9 fL 9.0 - 12.7 fL [facility] Platelets (Bld) [#/Vol] 216 10*3/uL 150 - 400 k/uL [facility] RBC (Bld) [#/Vol] 4.98 10*6/uL 4.20 - 6.0 0 m/uL [facility] WBC (Bld) [#/Vol] 7.00 10*3/uL 3.70 - 11.00 k/uL [facility] ALLIED HEALTHon 01-18-2022 ALLIED HEALTH HNO ID: [id number] Author: RT Aleksandar(R) Service: ? Author Type: Pharmacy Care Coordinator Type: Allied Health Filed: 01/18/2022 7:08 PM Note Text: Radiology Service Progress Note DATE OF SERVICE: January 18, 2022 TIME: 7:08 PM PATIENT IDENTITY VERIFICATION COMPLETED USING TWO (2) STANDARD IDENTIFIERS: Name and Date of confirmed by patient verbally. FALL SCREENING: Has the patient had 2 falls in the last year or 1 fall with injury or currently using an Ambulatory Assistive Device (Walker, Cane, Wheelchair, Crutches, etc.)? Emergency Room Patient: Screened in ED PATIENT GENDER DATA: Male PATIENT RELEVANT IMPLANT DATA REVIEWED: Not Applicable ALLERGIES: Reviewed and unchanged CONTRAST ALLERGY: NO. EXAM: CT -CONTRAST INDUCED NEPHROPATHY RISK FACTORS: Not applicable CREATININE: Creatinine Date Value Ref Range Status 01/18/2022 0.95 0.73 - 1.22 mg/dL Final 06/12/2021 0.92 0.73 - 1.22 mg/dL Final 11/26/2019 0.91 0.73 - 1.22 mg/dL Final Estimated Glomerular Filtration Rate Date Value Ref Range Status 01/18/2022 97 >=60 mL/min/1.73m? Final Comment: Estimated Glomerular Filtration Rate (eGFR) is calculated using the 2020 CKD-EPI creatinine equation. This equation utilizes serum creatinine, sex, and age as parameters. The creatinine assay has traceable calibration to isotope dilution-mass spectrometry. Refer to KDIGO guidelines for clinical interpretation. In patients with unstable renal function, e.g. those with acute kidney injury, the eGFR may not accurately reflect actual GFR. eGFR- Date Value Ref Range Status 11/26/2019 >60 Final P.O.C.T. RESULTS: POC done: Yes, See Lab Tab January 18, 2022 TREATMENT: N/A PERIPHERAL IV DATA: Inpatient - refer to [facility] documentation RADIOLOGY DEPARTMENT: CT; Exam(s) Completed: Abdomen/Pelvis SIGNATURE: Belkys Winn RT(R) PATIENT NAME: Navarro Lin DATE: January 18, 2022 TIME: 7:08 PM Normal [facility] CBC W Auto Differential pane l (Bld)on 01-18-2022 Basophils (Bld) [#/Vol] 10*3/uL Normal <0.11 [facility] Comment on above: Order Comment: Speci men Type: BLOOD SPECIMEN Ordering Facility: [facility] Address: [address] [place] [address] Performed By: #### 5 7021-8 #### [facility] CLIA [id number] [address] [place] [address] [place] Basophils/100 WBC (Bld) 0.3 % Normal [facility] Comment on above: Order Comment: Speci men Type: BLOOD SPECIMEN Ordering Facility: [facility] Address: [address] [place] [address] Performed By: #### 5 7021-8 #### [facility] CLIA [id number] [address] [id number] [place] Differential cell count method Nom (Bld) Auto Normal [facility] Comment on above: Order Comment: Speci men Type: BLOOD SPECIMEN Ordering Facility: [facility] Address: [address] [address] Performed By: #### 5 7021-8 #### [facility] CLIA [id number] [address] [place] [address] [place] Eosinophils (Bld) [#/Vol] 0.11 10*3/uL Normal <0.46 [facility] Comment on above: Order Comment: Speci men Type: BLOOD SPECIMEN Ordering Facility: [facility] Address: [address] [place] [address] Performed By: #### 5 7021-8 #### [facility] CLIA [id number] [address] [place] [address] [facility] Eosinophils/100 WBC (Bld) 1.5 % Normal [facility] Comment on above: Order Comment: Speci men Type: BLOOD SPECIMEN Ordering Facility: [facility] Address: [address] [place] [address] Performed By: #### 5 7021-8 #### [facility] CLIA [id number] [address] [place] [address] [place] Erythrocyte distribution width (RBC) [Ratio] 12.4 % Normal 11.5-15.0 [facility] Comment on above: Order Comment: Speci men Type: BLOOD SPECIMEN Ordering Facility: [facility] Address: [address] [place] [address] Performed By: #### 5 7021-8 #### [facility] CLIA [id number] [address] [place] Hematocrit (Bld) [Volume fraction] 44.4 % Normal 39.0-51.0 [facility] Comment on above: Order Comment: Speci men Type: BLOOD SPECIMEN Ordering Facility: [facility] Address: [address] [place] [address] Performed By: #### 5 7021-8 #### [facility] CLIA [id number] [address] [place] [address] [place] Hemoglobin (Bld) [Mass/Vol] 15.0 g/dL Normal 13.0-17.0 [facility] Comment on above: Order Comment: Speci men Type: BLOOD SPECIMEN Ordering Facility: [facility] Address: [address] [place] [address] Performed By: #### 5 7021-8 #### [facility] CLIA [id number] [address] [place] [address] [place] Lymphocytes (Bld) [#/Vol] 1.24 10*3/uL Normal 1.00-4.00 [facility] Comment on above: Order Comment: Speci men Type: BLOOD SPECIMEN Ordering Facility: [facility] Address: [address] [place] [address] Performed By: #### 5 7021-8 #### [facility] CLIA [id number] [address] [place] Lymphocytes/100 WBC (Bld) 16.6 % Normal [facility] Comment on above: Order Comment: Speci men Type: BLOOD SPECIMEN Ordering Facility: [facility] Address: [address] [place] [address] Performed By: #### 5 7021-8 #### [facility] CLIA [id number] [address] [place] MCH (RBC) [Entitic mass] 32.9 pg Normal 26.0-34.0 [facility] Comment on above: Order Comment: Speci men Type: BLOOD SPECIMEN Ordering Facility: [facility] Address: [address] [place] [address] Performed By: #### 5 7021-8 #### [facility] CLIA [id number] [address] [place] MCHC (RBC) [Mass/Vol] 33.8 g/dL Normal 30.5-36.0 [facility] Comment on above: Order Comment: Speci men Type: BLOOD SPECIMEN Ordering Facility: [facility] Address: [address] [place] [address] Performed By: #### 5 7021-8 #### [facility] CLIA [id number] [address] [place], [place] [address] [place] [address] [place] MCV (RBC) [Entitic vol] 97.4 fL Normal 80.0-100.0 [facility] Comment on above: Order Comment: Speci men Type: BLOOD SPECIMEN Ordering Facility: [facility] Address: [address] [address] Performed By: #### 5 7021-8 #### [facility] CLIA [id number] [address] [place] [address] [place] Monocytes (Bld) [#/Vol] 0.58 10*3/uL Normal <0.87 [facility] Comment on above: Order Comment: Speci men Type: BLOOD SPECIMEN Ordering Facility: [facility] Address: [address] [place] [address] Performed By: #### 5 7021-8 #### [facility] CLIA [id number] [address] [place] Monocytes/100 WBC (Bld) 7.8 % Normal [facility] Comment on above: Order Comment: Speci men Type: BLOOD SPECIMEN Ordering Facility: [facility] Address: [address] [place] [address] Performed By: #### 5 7021-8 #### [facility] CLIA [id number] [address] [place] [address] [place] Neutrophils (Bld) [#/Vol] 5.53 10*3/uL Normal 1.45-7.50 [facility] Comment on above: Order Comment: Speci men Type: BLOOD SPECIMEN Ordering Facility: [facility] Address: [address] [place] [address] Performed By: #### 5 7021-8 #### [facility] CLIA [id number] [address] [place] [address] [place] Neutrophils/100 WBC (Bld) 73.8 % Normal [facility] Comment on above: Order Comment: Speci men Type: BLOOD SPECIMEN Ordering Facility: [facility] Address: [address] [place] [address] Performed By: #### 5 7021-8 #### [facility] CLIA [id number] [address] [place] [address] [place] Platelet mean volume (Bld) [Entitic vol] 11.0 fL Normal 9.0-12.7 [facility] Comment on above: Order Comment: Speci men Type: BLOOD SPECIMEN Ordering Facility: [facility] Address: [address] [place] [address] Performed By: #### 5 7021-8 #### [facility] CLIA [id number] [address] [place] [address] [place] Platelets (Bld) [#/Vol] 193 10*3/uL Normal 150-400 [facility] Comment on above: Order Comment: Speci men Type: BLOOD SPECIMEN Ordering Facility: [facility] Address: [address] [place] [address] Performed By: #### 5 7021-8 #### [facility] CLIA [id number] [address] [place] RBC (Bld) [#/Vol] 4.56 10*6/uL Normal 4.20-6.00 [facility] Comment on above: Order Comment: Speci men Type: BLOOD SPECIMEN Ordering Facility: [facility] Address: [address] [place] [address] Performed By: #### 5 7021-8 #### [facility] CLIA [id number] [address] [facility] WBC (Bld) [#/Vol] 7.48 10*3/uL Normal 3.70-11.00 [facility] Comment on above: Order Comment: Speci men Type: BLOOD SPECIMEN Ordering Facility: [facility] Address: [address] [place] [address] Performed By: #### 5 7021-8 #### [facility] CLIA [id number] [address] [facility] CT ABD/PEL W IVCONon 11-14-[address] ABD/PEL W IVCON * * *Final Report* * * DATE OF EXAM: Jan 18 2022 6:49PM [facility] 0530 - CT ABD/PEL W IVCON / PROCEDURE REASON: Abdominal pain, acute, nonlocalized * * * * Physician Interpretation * * * * EXAMINATION: CT ABDOMEN AND PELVIS WITH IV CONTRAST CLINICAL HISTORY: Abdominal pain. TECHNIQUE: CT of the abdomen and pelvis was performed using standard technique, scanning from just above the dome of the diaphragm to the symphysis pubis. MQ: CTAP_3 Contrast: IV: 100 ml of Omnipaque 300 Oral: None CT Radiation dose: Integrated Dose-length product (DLP) for this visit = 539.92 mGy*cm. CT Dose Reduction Employed: Automated exposure control (AEC) COMPARISON: 08/01/2016, MRI of the liver dated 09/10/2016. RESULT: Liver: Slight increase in size of a intermediate low-attenuation lesion with peripheral enhancement in the subcapsular aspect of the inferior anterior medial segment of the left lobe the liver (2:46). There is a sub-5 mm partially enhancing focus in the subcapsular inferior right lobe the liver (2:42) which is stable. Slight increase in size of a enhancing lesion in the subcapsular lateral aspect of the lateral segment of the left lobe the liver now measuring 1.9 cm (2:35). Biliary: No bile duct dilation. Gallbladder is unremarkable. Spleen: No mass. No splenomegaly. Pancreas: No mass or duct dilation. Persistence of several tiny calcifications in the pancreas suggesting chronic inflammation. Adrenals: No mass. Kidneys: No mass, calculus or hydronephrosis. GI tract: No dilation or wall thickening. Normal appendix. There are scattered colonic diverticula without CT evidence of diverticulitis. No evidence of bowel obstruction or perforation. Lymph nodes: No abdominal or pelvic lymphadenopathy. Mesentery/Peritoneum: No ascites or mass. Retroperitoneum: No mass. Vasculature: - Abdominal aorta and iliac arteries: Atherosclerotic calcifications without aneurysm. - Celiac and SMA: Patent without stenosis. - Portal venous system (SMV, splenic vein, portal vein and branches): Patent. - Hepatic veins: Patent. Pelvis: No mass, ascites or fluid collection. The urinary bladder appears within normal limits. There are several phlebolithic type calcifications in the pelvis. Bones/Soft Tissues: Postsurgical changes in the T12-L1 spine with posterior fixation hardware and laminectomy defects. Mild degenerative changes in the spine. Bilateral pars interarticularis defects at L5. Slight anterolisthesis of L5 relative to S1. Lower thorax: Scattered foci of subsegmental atelectasis or fibrosis in both lung bases. Postsurgical changes in the right hilar region. 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 IMPRESSION: 1. No evidence of acute intra-abdominal or pelvic pathology. 2. Slight increase in size of hepatic lesions since prior study. Previous MRI dated 09/10/2016 demonstrating these represent benign hemangiomas. No further evaluation required. 3. Several colonic diverticula without CT evidence of diverticulitis. Labor Custodian: PSCB Transcribe Date/Time: Jan 18 2022 7:34P Dictated by : ZOILA MCKEON MD This examination was interpreted and the report reviewed and electronically signed by: ZOILA MCKEON MD on Jan 18 2022 7:55PM EST [id number] Normal [facility] Comprehensive metabolic 2000 panelon 01-18-2022 Albumin [Mass/Vol] 4.6 g/dL Normal 3.9-4.9 [facility] Comment on above: Order Comment: Prashant osuna Type: BLOOD SPECIMEN Ordering Facility: [facility] Address: [address] [address] Performed By: #### 3 040-3, 05878-8 #### [facility] CLIA [id number] [address] OF [facility] ALP [Catalytic activity/Vol] 66 U/L Normal 38-113 [facility] Comment on above: Order Comment: Prashant osuna Type: BLOOD SPECIMEN Ordering Facility: [facility] Address: [address] [address] Performed By: #### 3 040-3, 43580-3 #### [facility] CLIA [id number] [address] [place] ALT With P-5'-P [Catalytic activity/Vol] 24 U/L Normal 10-54 [facility] Comment on above: Order Comment: Prashant osuna Type: BLOOD SPECIMEN Ordering Facility: [facility] Address: [address] [address] Performed By: #### 3 040-3, 25204-1 #### [facility] CLIA [id number] [address] [place] [address] [place] Anion gap [Moles/Vol] 8 mmol/L Low 9-18 [facility] Comment on above: Order Comment: Speci men Type: BLOOD SPECIMEN Ordering Facility: [facility] Address: [address] [place] [address] Performed By: #### 3 040-3, 80772-1 #### [facility] CLIA [id number] [address] [place] [address] [place] AST With P-5'-P [Catalytic activity/Vol] 22 U/L Normal 14-40 [facility] Comment on above: Order Comment: Speci men Type: BLOOD SPECIMEN Ordering Facility: [facility] Address: [address] [place] [address] Performed By: #### 3 040-3, 58367-1 #### [facility] CLIA [id number] [address] [place] [address] [place] Bilirubin [Mass/Vol] 0.4 mg/dL Normal 0.2-1.3 [facility] Comment on above: Order Comment: Speci men Type: BLOOD SPECIMEN Ordering Facility: [facility] Address: [address] [place] [address] Performed By: #### 3 040-3, 59729-8 #### [facility] CLIA [id number] [address] [place] [address] [place] Calcium [Mass/Vol] 9.4 mg/dL Normal 8.5-10.2 [facility] Comment on above: Order Comment: Speci men Type: BLOOD SPECIMEN Ordering Facility: [facility] Address: [address] [place] [address] Performed By: #### 3 040-3, 43296-0 #### [facility] CLIA [id number] [address] [place] [address] [place] Chloride [Moles/Vol] 103 mmol/L Normal 97-105 [facility] Comment on above: Order Comment: Speci men Type: BLOOD SPECIMEN Ordering Facility: [facility] Address: [address] [address] Performed By: #### 3 040-3, 44356-6 #### [facility] CLIA [id number] [address] [place] [address] [place] CO2 [Moles/Vol] 30 mmol/L Normal 22-30 [facility] Comment on above: Order Comment: Speci men Type: BLOOD SPECIMEN Ordering Facility: [facility] Address: [address] [address] Performed By: #### 3 040-3, 27064-4 #### [facility] CLIA [id number] [address] [place] [address] [facility] Creatinine [Mass/Vol] 0.95 mg/dL Normal 0.73-1.22 [facility] Comment on above: Order Comment: Speci men Type: BLOOD SPECIMEN Ordering Facility: [facility] Address: [address] [place] [address] Performed By: #### 3 -3, 96553-5 #### [facility] CLIA [id number] [address] ESTIMATED GLOMERULAR FILTRATION RATE 97 mL/min/1.73m??? Normal >=60 [facility] Comment on above: Order Comment: Speci men Type: BLOOD SPECIMEN Ordering Facility: [facility] Address: [address] [place] [address] Result Comment: Nitza mated Glomerular Filtration Rate (eGFR) is calculated using the 2020 CKD-EPI creatinine equation. This equation utilizes serum creatinine, sex, and age as parameters. The creatinine assay has traceable calibration to isotope dilution-mass spectrometry. Refer to KDIGO guidelines for clinical interpretation. In patients with unstable renal function, e.g. those with acute kidney injury, the eGFR may not accurately reflect actual GFR. Performed By: #### 3 040-3, 40507-1 #### [facility] CLIA [id number] [address] [place] [address] [place] Glucose [Mass/Vol] 121 mg/dL High 74-99 [facility] Comment on above: Order Comment: Prashant osuna Type: BLOOD SPECIMEN Ordering Facility: [facility] Address: [address] [place] [address] Result Comment: The [place] Diabetes Association (ADA) provides guidance for cutoff values for fasting glucose and random glucose. The ADA defines fasting as no caloric intake for at least 8 hours. Fasting plasma glucose results between 100 to 125 mg/dL indicate increased risk for diabetes (prediabetes). Fasting plasma glucose results greater than or equal to 126 mg/dL meet the criteria for diagnosis of diabetes. In the absence of unequivocal hyperglycemia, results should be confirmed by repeat testing. In a patient with classic symptoms of hyperglycemia or hyperglycemic crisis, random plasma glucose results greater than or equal to 200 mg/dL meet the criteria for diagnosis of diabetes. Reference: Standards of Medical Care in Diabetes 2016, [place] Diabetes Association. Diabetes Care. 2016.39(Suppl 1). Performed By: #### 3 040-3, 78892-7 #### [facility] CLIA [id number] [address] [place] [address] [place] Potassium [Moles/Vol] 3.8 mmol/L Normal 3.7-5.1 [facility] Comment on above: Order Comment: Prashant osuna Type: BLOOD SPECIMEN Ordering Facility: [facility] Address: [address] [id number] Performed By: #### 3 040-3, 31500-5 #### [employer] [facility] CLIA [id number] [address] [place] [address] [place] Protein [Mass/Vol] 6.8 g/dL Normal 6.3-8.0 [facility] Comment on above: Order Comment: Prashant osuna Type: BLOOD SPECIMEN Ordering Facility: [facility] Address: [address] [place] [address] Performed By: #### 3 040-3, 96025-7 #### [facility] CLIA [id number] [address] [place] [address] [place] Sodium [Moles/Vol] 141 mmol/L Normal 136-144 [facility] Comment on above: Order Comment: Speci men Type: BLOOD SPECIMEN Ordering Facility: [facility] Address: [address] [place] [address] Performed By: #### 3 040-3, 84431-6 #### [facility] CLIA [id number] [address] [place] [address] [facility] Urea nitrogen [Mass/Vol] 18 mg/dL Normal 9-24 [facility] [facility] Comment on above: Order Comment: Speci men Type: BLOOD SPECIMEN Ordering Facility: [facility] Address: [address] [place] [address] Performed By: #### 3 040-3, 26812-1 #### [facility] CLIA [id number] [address] [place] [address] [facility] ED NOTEon 01-18-2022 ED NOTE HNO ID: [id number] Author: Mele Johnson RN Service: Emergency Medicine Author Type: Registered Nurse Type: ED Notes Filed: 01/19/2022 10:13 AM Note Text: Patient Call Back Information How are you doing ? better Did we appropriately manage your pain? Yes Did you understand your discharge instructions? Yes Did you get your prescriptions filled? Yes Were you able to make a follow-up appointment with your physician? Yes Were you comfortable during your stay here? Yes Did a member of the ER nursing team round on you during your visit? Yes You will receive a patient satisfaction survey in the mail in the nest 2 weeks, please take the time to fill out the survey as your input from your ER visit is very important to us. Yes Can we do anything else to help you? No Normal [facility] ED NOTE HNO ID: [id number] Author: Delia Brantley RN Service: Emergency Medicine Author Type: Registered Nurse Type: ED Notes Filed: 01/18/2022 8:57 PM Note Text: Dc instr to fu w pmd, return prn. Isidro und, agreeable to plan. Patient is AANDO, wdp, resps unlabored, relaxed facial expression and posture. Ambulates from ER with steady upright gait. 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 He reports pain to right sided initially then radiating across his abdomen, now back to ruq. He states similar pain in the same area about 5 yrs ago and he thinks he was diagnosed at that time with diverticulitis. Pt appears in NAD. VSS. Call light in reach. Normal [facility] ED PROV NOTEon 01-18-2022 ED PROV NOTE HNO ID: [id number] Author: Horace Wise MD Service: Emergency Medicine Author Type: Physician Type: ED Provider Notes Filed: 01/18/2022 10:30 PM Note Text: ED Provider Note Patient Name: Navarro Lin : 1970 SERVICE DATE: 01/18/22 History Patient presents with: Abdominal Pain Navarro Lin is a 51 year old male with history of similar pain in the past who presents with RUQ abdominal pain. Patient has has not taken anything with no relief of symptoms. - Symptom began this afternoon. - Severity: moderate - Timing: constant - Quality: cramping - Pain is exacerbated by movement. Pain radiates to right lower abdomen. - Pain is not exacerbated by deep breath. - Symptoms are associated with Nothing - Symptoms are not associated with bowel or bladder change no traumatic injury. - Improved by nothing. - Not improved by rest Patient states he felt fine up until about an hour ago when he had a sudden onset of pain in the right upper middle portion of the abdomen that then seem to radiate into the lower part of the abdomen. He said this feels similar to what he had had about 5 years ago when he was diagnosed with diverticulitis. He is not really reporting any sort of colicky symptoms with this there is no bowel or bladder change. There was no traumatic injury.. 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, benign PAST SURGICAL HISTORY Procedure Laterality Date - COLONOSCOPY FLX DX W/COLLJ SPEC WHEN PFRMD 03/23/2019 Colonoscopy - ESOPHAGOGASTRODUODENOSCOPY TRANSORAL DIAGNOSTIC 03/23/2019 EGD - LUNG SURGERY HX - ORTHOPEDICS SURGERY HX Right 2000 boxer fracture repair- right hand - PAST SURGICAL HISTORY OF 11/2017 s/p T12-L1 laminectomy, resection of epidural tumor, T12-L1 posterolateral fusion with pedicle screw fixation - PICC LINE INSERT/CONSULT 09/02/2017 - REVISE MEDIAN N/CARPAL TUNNEL SURG Left 01/02/2021 Left carpal tunnel release - REVISE MEDIAN N/CARPAL TUNNEL SURG Right 11/2021 Carpal tunnel release surgery - RMVL LUNG OTHER THAN PNEUMONECTOMY 1 LOBE LOBECT Right 08/31/2017 VATS right upper lung lobectomy, lymph node dissection by lung cancer - TONSILLECTOMY PRIMARY/SECONDARY Tonsillectomy FAMILY HISTORY Problem Relation Age of Onset - Heart Mother [place] at 52 y/o - Heart Father pacemaker - other (paralyzed) Father after fall-bed bound at 82 y/o - Breast Cancer Maternal Aunt - Coronary Artery Disease Sister s/p stent - Alcohol/Drug Brother Opiate overdose in his 40's - None Sister - Alcohol/Drug Brother - other (unkown) Brother in [facility] Social History Tobacco Use - Smoking status: Former Packs/day: 3.00 Years: 32.00 Pack years: 96.00 Types: Cigarettes Start date: 07/18/1984 Quit date: 08/31/2017 Years since quittin.3 - Smokeless tobacco: Never - Tobacco comments: quit day of surgery Vaping Use - Vaping Use: Never used Substance and Sexual Activity - Alcohol use: Yes Comment: 2-3 hard cider most days - Drug use: No - Sexual activity: Not Currently ALLERGIES Allergen Reactions - Darvocet A500 [Prop* Hives Review of Systems Constitutional: Negative for chills and fever. HENT: Negative for congestion and sore throat. Respiratory: Negative for cough and shortness of breath. Gastrointestinal: Positive for abdominal pain. Negative for diarrhea, nausea and vomiting. Genitourinary: Negative for dysuria and flank pain. Musculoskeletal: Negative for back pain and myalgias. Skin: Negative for color change, pallor, rash and wound. Allergic/Immunologic: Negative for environmental allergies, food allergies and immunocompromised state. Neurological: Negative for syncope and light-headedness. Psychiatric/Behavioral: Negative for confusion. The patient is not nervous/anxious. Physical Exam Vitals [01/18/22 1708] BP Pulse Temp Temp src Resp SpO2 Weight Height 163/84 85 36.9 ?C (98.5 ?F) Temporal 16 99 % 83.5 kg (184 lb) -- Physical Exam Vitals and nursing note reviewed. Constitutional: General: He is not in acute distress. Appearance: He is well-developed. He is not ill-appearing, toxic-appearing or diaphoretic. HENT: Head: Normocephalic and atraumatic. Eyes: General: No scleral icterus. Extraocular Movements: Extraocular movements intact. Cardiovascular: Rate and Rhythm: Normal rate and regular rhythm. Pulmonary: Effort (more content not included)... Normal [facility] Lipase SerPl-cCncon 01-19-20 22 Lipase [Catalytic activity/Vol] 10 U/L Low 16-61 [facility] Comment on above: Order Comment: Speci men Type: BLOOD SPECIMEN Ordering Facility: [facility] Address: [address] [place] [address] Performed By: #### 3 040-3, 98993-8 #### [facility] CLIA [id number] [address] [place] Urinalysis complete panel (U )on 01-18-2022 Bilirubin Ql (U) Negative Normal Negative [facility] Comment on above: Order Comment: Speci men Type: URINE SPECIMEN Ordering Facility: [facility] Address: [address] [place] [address] Performed By: #### 2 4356-8 #### [facility] CLIA [id number] [address] [place] [address] [place] Clarity (Unsp spec) Clear Normal Clear [facility] Comment on above: Order Comment: Speci men Type: URINE SPECIMEN Ordering Facility: [facility] Address: [address] [place] [address] Performed By: #### 2 4356-8 #### [facility] CLIA [id number] [address] [place] [address] [place] Color (U) Yellow Normal Yellow [facility] Comment on above: Order Comment: Speci men Type: URINE SPECIMEN Ordering Facility: [facility] Address: [address] [place] [address] Performed By: #### 2 4356-8 #### [facility] CLIA [id number] [address] [place] [address] [place] Epithelial cells LM.HPF (Urine sed) [#/Area] Few Normal [facility] Comment on above: Order Comment: Speci men Type: URINE SPECIMEN Ordering Facility: [facility] Address: [address] [place] [address] Performed By: #### 2 4356-8 #### [facility] CLIA [id number] [address] [place] [address] [place] Glucose Test strip (U) [Mass/Vol] Negative Normal Negative [facility] Comment on above: Order Comment: Speci men Type: URINE SPECIMEN Ordering Facility: [facility] Address: [address] [place] [address] Performed By: #### 2 4356-8 #### [facility] CLIA [id number] [address] [place] [address] [place] Hemoglobin Ql (U) Negative Normal Negative [facility] Comment on above: Order Comment: Speci men Type: URINE SPECIMEN Ordering Facility: [facility] Address: [address] [place] [address] Performed By: #### 2 4356-8 #### [facility] CLIA [id number] [address] [place] [address] [facility] [place] Ketones Ql (U) Negative Normal Negative [facility] Comment on above: Order Comment: Speci men Type: URINE SPECIMEN Ordering Facility: [facility] Address: [address] [place] [address] Performed By: #### 2 4356-8 #### [facility] CLIA [id number] [address] Leukocyte esterase Test strip Ql (U) Negative Normal Negative [facility] Comment on above: Order Comment: Speci men Type: URINE SPECIMEN Ordering Facility: [facility] Address: [address] [place] [address] Performed By: #### 2 4356-8 #### [facility] CLIA [id number] [address] STATES [facility] Nitrite Ql (U) Negative Normal Negative [facility] Comment on above: Order Comment: Speci men Type: URINE SPECIMEN Ordering Facility: [facility] Address: [address] [place] [address] Performed By: #### 2 4356-8 #### [facility] CLIA [id number] [address] [place] [address] [place] pH (U) 7.0 [pH] Normal 5.0-8.0 [facility] Comment on above: Order Comment: Speci men Type: URINE SPECIMEN Ordering Facility: [facility] Address: [address] [place] [address] Performed By: #### 2 4356-8 #### [facility] CLIA [id number] [address] Protein (U) [Mass/Vol] Negative Normal Negative [facility] Comment on above: Order Comment: Speci men Type: URINE SPECIMEN Ordering Facility: [facility] Address: [address] [place] [address] Performed By: #### 2 4356-8 #### [facility] CLIA [id number] [address] [place] RBC LM.HPF (Urine sed) [#/Area] 0-3 /HPF Normal 0-3 /HPF [facility] Comment on above: Order Comment: Speci men Type: URINE SPECIMEN Ordering Facility: [facility] Address: [address] [place] [address] Performed By: #### 2 4356-8 #### [facility] CLIA [id number] [address] [place] [address] Specific gravity (U) [Rel density] 1.025 Normal 1.005-1.030 [facility] Comment on above: Order Comment: Speci men Type: URINE SPECIMEN Ordering Facility: [facility] Address: [address] [place] [address] Performed By: #### 2 4356-8 #### [facility] CLIA [id number] [address] [place] [address] Urobilinogen Ql (U) 0.2 EU/dL Normal 0.2-1.0 EU/dL [facility] Comment on above: Order Comment: Speci men Type: URINE SPECIMEN Ordering Facility: [facility] Address: [address] [place] [address] Performed By: #### 2 4356-8 #### [facility] CLIA [id number] [address] [place] [address] WBC LM.HPF (Urine sed) [#/Area] 0-5 /HPF Normal 0-5 /HPF [facility] Comment on above: Order Comment: Speci men Type: URINE SPECIMEN Ordering Facility: [facility] Address: [address] [place] [address] Performed By: #### 2 4356-8 #### [facility] CLIA [id number] [address] No Panel Informationon 01-06 IMPRESSION: Unremarkable radiograph Labor Custodian: PSCB Transcribe Date/Time: Jan 06 2022 4:08P Dictated by : CRYSTAL RICHARDSON MD This examination was interpreted and the report reviewed and electronically signed by: CRYSTAL RICHARDSON MD on Jan 06 2022 4:10PM [facility] DIVISION OF RADIOLOGY No Panel InformationOrdered By: [facility] Provider on 01-06-2022 [facility] XR Lumbar spine 3 Viewson IMPRESSION: GRADE 1 SPONDYLOLISTHESIS AND SPONDYLOLYSIS AT L5-S1. HARDWARE APPEARS INTACT. MILD DEGENERATIVE CHANGE Labor Custodian: OPAL Transcribe Date/Time: Jan 06 2022 1:56P Dictated by : NOMI RAYMOND MD This examination was interpreted and the report reviewed and electronically signed by: NOMI RAYMOND MD on Jan 06 2022 1:59PM [facility] DIVISION OF RADIOLOGY * * *Final Report* * * DATE OF EXAM: Jan 05 2022 3:00PM WOX 5228 - XR LUMBAR 3V AP/LAT/L5-S1 / PROCEDURE REASON: Acute bilateral low back pain without sciatica * * * * Physician Interpretation * * * * Examination: XR LUMBAR 3V AP/LAT/L5-S1 History: Acute bilateral low back pain without sciatica Technique: XR LUMBAR 3V AP/LAT/L5-S1 Comparison: Report from 01/12/2018 RESULT: 5 nonrib-bearing lumbar type vertebrae. For numbering purposes, L4-5 is at the level of the iliac crest. Mild spondylosis and osteophytosis throughout. Normal lordosis. Mild degenerative change involving the posterior elements from L3 through S1. Grade 1 spondylolisthesis of L5 on S1 with spondylolysis at this level. Pedicle plate and screw device transfixes T12 and L1. DIVISION OF RADIOLOGY Provider, [facility] - 01/06/2022 * * *Final Report* * * DATE OF EXAM: Jan 05 2022 3:00PM WOX 5228 - XR LUMBAR 3V AP/LAT/L5-S1 / PROCEDURE REASON: Acute bilateral low back pain without sciatica * * * * Physician Interpretation * * * * Examination: XR LUMBAR 3V AP/LAT/L5-S1 History: Acute bilateral low back pain without sciatica Technique: XR LUMBAR 3V AP/LAT/L5-S1 Comparison: Report from 01/12/2018 RESULT: 5 nonrib-bearing lumbar type vertebrae. For numbering purposes, L4-5 is at the level of the iliac crest. Mild spondylosis and osteophytosis throughout. Normal lordosis. Mild degenerative change involving the posterior elements from L3 through S1. Grade 1 spondylolisthesis of L5 on S1 with spondylolysis at this level. Pedicle plate and screw device transfixes T12 and L1. IMPRESSION IMPRESSION: GRADE 1 SPONDYLOLISTHESIS AND SPONDYLOLYSIS AT L5-S1. HARDWARE APPEARS INTACT. MILD DEGENERATIVE CHANGE Labor Custodian: ROBERTS CHAPEL Transcribe Date/Time: Jan 06 2022 1:56P Dictated by : NOMI RAYMOND MD This examination was interpreted and the report reviewed and electronically signed by: NOMI RAYMOND MD on Jan 06 2022 1:59PM [facility] XR Shoulder - left 3 Viewson 01-06-2022 * * *Final Report* * * DATE OF EXAM: Jan 05 2022 3:00PM WOX 5252 - XR SHLDR >/=3V AP/JL AP/OTHR LT / PROCEDURE REASON: multiple diagnoses * * * * Physician Interpretation * * * * Left shoulder HISTORY: Shoulder pain FINDINGS: Three views were performed. No evidence of acute fracture or dislocation. Glenohumeral joint space: maintained Acromio-humeral interval: within normal limits. No evidence of a subacromial spur. Acromio-clavicular joint: Within normal limits DIVISION OF RADIOLOGY Provider, [facility] - 01/06/2022 * * *Final Report* * * DATE OF EXAM: Jan 05 2022 3:00PM WOX 5252 - XR SHLDR >/=3V AP/JL AP/OTHR LT / PROCEDURE REASON: multiple diagnoses * * * * Physician Interpretation * * * * Left shoulder HISTORY: Shoulder pain FINDINGS: Three views were performed. No evidence of acute fracture or dislocation. Glenohumeral joint space: maintained Acromio-humeral interval: within normal limits. No evidence of a subacromial spur. Acromio-clavicular joint: Within normal limits IMPRESSION IMPRESSION: Unremarkable radiograph Labor Custodian: ROBERTS CHAPEL Transcribe Date/Time: Jan 06 2022 4:08P Dictated by : CRYSTAL RICHARDSON MD This examination was interpreted and the report reviewed and electronically signed by: CRYSTAL RICHARDSON MD on Jan 06 2022 4:10PM [facility] XR Shoulder - right 3 Viewso n 01-06-2022 * * *Final Report* * * DATE OF EXAM: Jan 05 2022 3:00PM WOX 5253 - XR SHLDR >/=3V AP/JL AP/OTHR RT / PROCEDURE REASON: multiple diagnoses * * * * Physician Interpretation * * * * Right shoulder HISTORY: Shoulder pain FINDINGS: Three views were performed. No evidence of acute fracture or dislocation. Glenohumeral joint space: maintained Acromio-humeral interval: within normal limits. No evidence of a subacromial spur. Acromio-clavicular joint: Within normal limits DIVISION OF RADIOLOGY Provider, [facility] - 01/06/2022 * * *Final Report* * * DATE OF EXAM: Jan 05 2022 3:00PM WOX 5253 - XR SHLDR >/=3V AP/JL AP/OTHR RT / PROCEDURE REASON: multiple diagnoses * * * * Physician Interpretation * * * * Right shoulder HISTORY: Shoulder pain FINDINGS: Three views were performed. No evidence of acute fracture or dislocation. Glenohumeral joint space: maintained Acromio-humeral interval: within normal limits. No evidence of a subacromial spur. Acromio-clavicular joint: Within normal limits IMPRESSION IMPRESSION: Unremarkable radiograph Labor Custodian: PSCB Transcribe Date/Time: Jan 06 2022 4:08P Dictated by : CRYSTAL RICHARDSON MD This examination was interpreted and the report reviewed and electronically signed by: CRYSTAL RICHARDSON MD on Jan 06 2022 4:10PM EST [facility] No Panel Informationon 01-05 Radiology Study observation (narrative) [facility] CBC panel Auto (Bld)on 06-12 Erythrocyte distribution width (RBC) [Ratio] 12.1 % 11.5 - 15.0 % [facility] Hematocrit (Bld) [Volume fraction] 46.4 % 39.0 - 51.0 % [facility] Hemoglobin (Bld) [Mass/Vol] 15.8 g/dL 13.0 - 17.0 g/dL [facility] MCH (RBC) [Entitic mass] 32.8 pg 26.0 - 34.0 pg [facility] MCHC (RBC) [Mass/Vol] 34.1 g/dL 30.5 - 36.0 g/dL [facility] MCV (RBC) [Entitic vol] 96.3 fL 80.0 - 100.0 fL [facility] Nucleated RBC (Bld) [#/Vol] 10*3/uL <0.01 k/uL [facility] Platelet mean volume (Bld) [Entitic vol] 10.9 fL 9.0 - 12.7 fL [facility] Platelets (Bld) [#/Vol] 180 10*3/uL 150 - 400 k/uL [facility] RBC (Bld) [#/Vol] 4.82 10*6/uL 4.20 - 6.0 0 m/uL [facility] WBC (Bld) [#/Vol] 6.11 10*3/uL 3.70 - 11.00 k/uL [facility] Liver Profileon 09-30-2017 Albumin mass conc 4.0 g/dL Normal 3.2-5.0 [facility] Comment on above: Order Comment: ADD C MP TO BLOODWORK DONE 09/29 Performed By: #### L 500.2500, L501.2300, L501.5200, L500.3400 ####[facility] [address] [place], [address] ALP enzyme act/vol 264 U/L High 45-117 [facility] Comment on above: Order Comment: ADD C MP TO BLOODWORK DONE 09/29 Performed By: #### L 500.2500, L501.2300, L501.5200, L500.3400 ####[facility] [address] [place], [address] ALT enzyme act/vol 156 U/L High 16-61 [facility] Comment on above: Order Comment: ADD C MP TO BLOODWORK DONE 09/29 Performed By: #### L 500.2500, L501.2300, L501.5200, L500.3400 ####[facility] [address] [place], [address] AST enzyme act/vol 43 U/L High 15-37 [facility] Comment on above: Order Comment: ADD C MP TO BLOODWORK DONE 09/29 Performed By: #### L 500.2500, L501.2300, L501.5200, L500.3400 ####[facility] [address] [place], [address] Bilirubin mass conc 0.70 mg/dL Normal 0.20-1.00 [facility] Comment on above: Order Comment: ADD C MP TO BLOODWORK DONE 09/29 Performed By: #### L 500.2500, L501.2300, L501.5200, L500.3400 ####[facility] [address] [place], [address] Bilirubin.direct mass conc 0.19 mg/dL Normal 0.00-0.30 [facility] Comment on above: Order Comment: ADD C MP TO BLOODWORK DONE 09/29 Performed By: #### L 500.2500, L501.2300, L501.5200, L500.3400 ####[facility] [address] [place], [address] Globulin Calculated mass conc (S) 3.0 g/dL Normal 2.2-4.2 [facility] Comment on above: Order Comment: ADD C MP TO BLOODWORK DONE 09/29 Performed By: #### L 500.2500, L501.2300, L501.5200, L500.3400 ####[facility] [address] [place], [address] Protein mass conc 7.0 g/dL Normal 6.4-8.2 [facility] Comment on above: Order Comment: ADD C MP TO BLOODWORK DONE 09/29 Performed By: #### L 500.2500, L501.2300, L501.5200, L500.3400 ####[facility] [address] [place], [address] Basic Metabolic Profile (BMP )on 09-29-2017 Calcium mass conc 9.0 mg/dL Normal 8.5-10.1 [facility] Comment on above: Order Comment: ADD C MP TO BLOODWORK DONE 09/29 Performed By: #### L 500.2500, L501.2300, L501.5200, L500.3400 ####[facility] [address] [place], [address] Chloride molar conc 105 mmol/L Normal 98-107 [facility] Comment on above: Order Comment: ADD C MP TO BLOODWORK DONE 09/29 Performed By: #### L 500.2500, L501.2300, L501.5200, L500.3400 ####[facility] [address] [place], [address] CO2 molar conc 27.0 mmol/L Normal 21.0-32.0 [facility] Comment on above: Order Comment: ADD C MP TO BLOODWORK DONE 09/29 Performed By: #### L 500.2500, L501.2300, L501.5200, L500.3400 ####[facility] [address] [place], [address] Creatinine mass conc 0.84 mg/dL Normal 0.70-1.30 [facility] Comment on above: Order Comment: ADD C MP TO BLOODWORK DONE 09/29 Result Comment: The validity of the calculated GFR AND GFRAA in patients over70 years has not been determined. Clinical correlation isessential. Performed By: #### L 500.2500, L501.2300, L501.5200, L500.3400 ####[facility] [address] [place], [address] EST GFR - AA 126 mL/min Normal >60 [facility] Comment on above: Order Comment: ADD C MP TO BLOODWORK DONE 09/29 Result Comment: Afri can Vincentian GFR Calc Performed By: #### L 500.2500, L501.2300, L501.5200, L500.3400 ####[facility] [address] [place], [address] GAP 8 Normal 5-15 [facility] Comment on above: Order Comment: ADD C MP TO BLOODWORK DONE 09/29 Performed By: #### L 500.2500, L501.2300, L501.5200, L500.3400 ####[facility] [address] [place], [address] GFR/1.73 sq M predicted among non-blacks MDRD vol rate/area (S/P/Bld) 104 mL/min/{1.73_m2} Normal >60 [facility] Comment on above: Order Comment: ADD C MP TO BLOODWORK DONE 09/29 Result Comment: Non- GFR Calc Performed By: #### L 500.2500, L501.2300, L501.5200, L500.3400 ####[facility] [address] [place], [address] Glucose mass conc 86 mg/dL Normal 74-106 [facility] Comment on above: Order Comment: ADD C MP TO BLOODWORK DONE 09/29 Result Comment: Yvonne barrow note revised GLUCOSE reference range [id number]/02/2018. Performed By: #### L 500.2500, L501.2300, L501.5200, L500.3400 ####[facility] [address] [place], [address] Potassium molar conc 4.0 mmol/L Normal 3.5-5.1 [facility] Comment on above: Order Comment: ADD C MP TO BLOODWORK DONE 09/29 Performed By: #### L 500.2500, L501.2300, L501.5200, L500.3400 ####[facility] [address] [place], [address] Sodium molar conc 140 mmol/L Normal 136-145 [facility] Comment on above: Order Comment: ADD C MP TO BLOODWORK DONE 09/29 Performed By: #### L 500.2500, L501.2300, L501.5200, L500.3400 ####[facility] [address] [place], [address] Urea nitrogen mass conc 11 mg/dL Normal 7-18 [facility] Comment on above: Order Comment: ADD C MP TO BLOODWORK DONE 09/29 Performed By: #### L 500.2500, L501.2300, L501.5200, L500.3400 ####[facility] [address] [place], [address] Urea nitrogen mass conc (Bld) 13.1 RATIO Normal 10-20 [facility] Comment on above: Order Comment: ADD C MP TO BLOODWORK DONE 09/29 Performed By: #### L 500.2500, L501.2300, L501.5200, L500.3400 ####[facility] [address] [place], [address] CBC-Complete Blood Cnt No Di ffon 09-29-2017 Erythrocyte distribution width Auto Ratio (RBC) 13.0 % Normal 11.6-14.6 [facility] Comment on above: Performed By: #### L 100.0500 ####[facility] [address] [place], [address] Hematocrit Auto Volume Fraction (Bld) 40.4 % Normal 40-54 [facility] Comment on above: Performed By: #### L 100.0500 ####[facility] [address] [place], [address] Hemoglobin mass conc (Bld) 13.8 g/dL Normal 13.0-16.5 [facility] Comment on above: Performed By: #### L 100.0500 ####[facility] [address] [place], [address] MCH Auto Entitic mass (RBC) 32.2 pg High 27.0-32.0 [facility] Comment on above: Performed By: #### L 100.0500 ####[facility] [address] [place], [address] MCHC Auto mass conc (RBC) 34.2 g/gl Normal 32-36 [facility] Comment on above: Performed By: #### L 100.0500 ####[facility] [address] [place], [address] MCV Auto Entitic volume (RBC) 94.2 fL High 80-94 [facility] Comment on above: Performed By: #### L 100.0500 ####[facility] [address] [place], [address] Platelet mean volume Auto Entitic volume (Bld) 10.7 fL Normal 6.2-12.0 [facility] Comment on above: Performed By: #### L 100.0500 ####[facility] [address] [place], [address] Platelets Auto #/vol (Bld) 210 10*3/uL Normal 150-450 [facility] Comment on above: Performed By: #### L 100.0500 ####[facility] [address] [place], [address] RBC Auto #/vol (Bld) 4.29 M/mm3 Low 4.6-6.2 [facility] Comment on above: Performed By: #### L 100.0500 ####[facility] [address] [place], [address] RDW SD 44.7 fl High 35.1-43.9 [facility] Comment on above: Performed By: #### L 100.0500 ####[facility] [address] [place], [address] WBC Auto #/vol (Bld) 5.6 10*3/uL Normal 4.4-11.0 [facility] Comment on above: Performed By: #### L 100.0500 ####[facility] [address] [place], [address] Magnesiumon 09-29-2017 Magnesium mass conc 2.2 mg/dL Normal 1.6-2.6 [facility] Comment on above: Order Comment: ADD C MP TO BLOODWORK DONE 7/26 Performed By: #### L 500.2500, L501.2300, L501.5200, L500.3400 ####[facility] [address] [place], [address] Phosphoruson 09-29-2017 Phosphate mass conc 3.9 mg/dL Normal 2.5-4.9 [facility] Comment on above: Order Comment: ADD C MP TO BLOODWORK DONE 09/29 Performed By: #### L 500.2500, L501.2300, L501.5200, L500.3400 ####[facility] [address] [place], [address] CBC-Complete Blood Cnt No Di ffon 09-19-2017 Erythrocyte distribution width Auto Ratio (RBC) 13.1 % Normal 11.6-14.6 [facility] Comment on above: Performed By: #### L 100.0500 ####[facility] [address] [place], [address] Hematocrit Auto Volume Fraction (Bld) 42.9 % Normal 40-54 [facility] Comment on above: Performed By: #### L 100.0500 ####[facility] [address] [place], [address] Hemoglobin mass conc (Bld) 14.4 g/dL Normal 13.0-16.5 [facility] Comment on above: Performed By: #### L 100.0500 ####[facility] [address] [place], [address] MCH Auto Entitic mass (RBC) 33.0 pg High 27.0-32.0 [facility] Comment on above: Performed By: #### L 100.0500 ####[facility] [address] [place], [address] MCHC Auto mass conc (RBC) 33.6 g/gl Normal 32-36 [facility] Comment on above: Performed By: #### L 100.0500 ####[facility] [address] [place], [address] MCV Auto Entitic volume (RBC) 98.2 fL High 80-94 [facility] Comment on above: Performed By: #### L 100.0500 ####[facility] [address] [place], [address] Platelet mean volume Auto Entitic volume (Bld) 10.8 fL Normal 6.2-12.0 [facility] Comment on above: Performed By: #### L 100.0500 ####[facility] [address] [place], [address] Platelets Auto #/vol (Bld) 322 10*3/uL Normal 150-450 [facility] Comment on above: Performed By: #### L 100.0500 ####[facility] [address] [place], [address] RBC Auto #/vol (Bld) 4.37 M/mm3 Low 4.6-6.2 [facility] Comment on above: Performed By: #### L 100.0500 ####[facility] [address] [place], [address] RDW SD 46.5 fl High 35.1-43.9 [facility] Comment on above: Performed By: #### L 100.0500 ####[facility] [address] [place], [address] WBC Auto #/vol (Bld) 6.4 10*3/uL Normal 4.4-11.0 [facility] Comment on above: Performed By: #### L 100.0500 ####[facility] [address] [place], [address] Comprehensive Metabolic Prof ilon 09-19-2017 A/G 1.0 RATIO Normal 0.9-2.4 [facility] Comment on above: Performed By: #### L 500.4050, L501.2300, L501.5200 ####[facility] [address] [place], [address] Albumin mass conc 3.5 g/dL Normal 3.2-5.0 [facility] Comment on above: Performed By: #### L 500.4050, L501.2300, L501.5200 ####[facility] [address] [place], [address] ALP enzyme act/vol 590 U/L High 45-117 [facility] Comment on above: Performed By: #### L 500.4050, L501.2300, L501.5200 ####[facility] [address] [place], [address] ALT enzyme act/vol 530 U/L High 16-61 [facility] Comment on above: Performed By: #### L 500.4050, L501.2300, L501.5200 ####[facility] [address] [place], [address] AST enzyme act/vol 286 U/L High 15-37 [facility] Comment on above: Performed By: #### L 500.4050, L501.2300, L501.5200 ####[facility] [address] [place], [address] Bilirubin mass conc 0.60 mg/dL Normal 0.20-1.00 [facility] Comment on above: Performed By: #### L 500.4050, L501.2300, L501.5200 ####[facility] [address] [place], [address] Calcium mass conc 9.1 mg/dL Normal 8.5-10.1 [facility] Comment on above: Performed By: #### L 500.4050, L501.2300, L501.5200 ####[facility] [address] [place], [address] Chloride molar conc 101 mmol/L Normal 98-107 [facility] Comment on above: Performed By: #### L 500.4050, L501.2300, L501.5200 ####[facility] [address] [place], [address] CO2 molar conc 30.0 mmol/L Normal 21.0-32.0 [facility] Comment on above: Performed By: #### L 500.4050, L501.2300, L501.5200 ####[facility] [address] [place], [address] Creatinine mass conc 0.91 mg/dL Normal 0.70-1.30 [facility] Comment on above: Result Comment: The validity of the calculated GFR AND GFRAA in patients over70 years has not been determined. Clinical correlation isessential. Performed By: #### L 500.4050, L501.2300, L501.5200 ####[facility] [address] [place], [address] EST GFR - AA 114 mL/min Normal >60 [facility] Comment on above: Result Comment: Afri can Vincentian GFR Calc Performed By: #### L 500.4050, L501.2300, L501.5200 ####[facility] [address] [place], [address] GAP 10 Normal 5-15 [facility] Comment on above: Performed By: #### L 500.4050, L501.2300, L501.5200 ####[facility] [address] [place], [address] GFR/1.73 sq M predicted among non-blacks MDRD vol rate/area (S/P/Bld) 95 mL/min/{1.73_m2} Normal >60 [facility] Comment on above: Result Comment: Non- GFR Calc Performed By: #### L 500.4050, L501.2300, L501.5200 ####[facility] [address] [place], [address] Globulin Calculated mass conc (S) 3.6 g/dL Normal 2.2-4.2 [facility] Comment on above: Performed By: #### L 500.4050, L501.2300, L501.5200 ####[facility] [address] [place], [address] Glucose mass conc 95 mg/dL Normal 74-106 [facility] Comment on above: Result Comment: Yvonne barrow note revised GLUCOSE reference range [id number]/02/2018. Performed By: #### L 500.4050, L501.2300, L501.5200 ####[facility] [address] [place], [address] Potassium molar conc 3.8 mmol/L Normal 3.5-5.1 [facility] Comment on above: Performed By: #### L 500.4050, L501.2300, L501.5200 ####[facility] [address] [place], [address] Protein mass conc 7.1 g/dL Normal 6.4-8.2 [facility] Comment on above: Performed By: #### L 500.4050, L501.2300, L501.5200 ####[facility] [address] [place], [address] Sodium molar conc 141 mmol/L Normal 136-145 [facility] Comment on above: Performed By: #### L 500.4050, L501.2300, L501.5200 ####[facility] [address] [place], [address] Urea nitrogen mass conc 18 mg/dL Normal 7-18 [facility] Comment on above: Performed By: #### L 500.4050, L501.2300, L501.5200 ####[facility] [address] [place], [address] Urea nitrogen mass conc (Bld) 19.7 RATIO Normal 10-20 [facility] Comment on above: Performed By: #### L 500.4050, L501.2300, L501.5200 ####[facility] [address] [place], [address] Magnesiumon 09-19-2017 Magnesium mass conc 2.3 mg/dL Normal 1.6-2.6 [facility] Comment on above: Performed By: #### L 500.4050, L501.2300, L501.5200 ####[facility] [address] [place], [address] Phosphoruson 09-19-2017 Phosphate mass conc 3.4 mg/dL Normal 2.5-4.9 [facility] Comment on above: Performed By: #### L 500.4050, L501.2300, L501.5200 ####[facility] [address] [place], [address] EYE FOR FOREIGN BODYon 07-29 EYE FOR FOREIGN BODY Performed at [facility] APPROVED BY: Carlos Chavarria MD EXAM TITLE: EYE FOR FOREIGN BODY DATE: 07/29/2017 13:56 COMPARISON: None. CLINICAL INDICATION/HISTORY: History of metal exposure, rule out radiopaque foreign body prior to MRI TECHNIQUE: AP and lateral views of the orbits FINDINGS:No radiopaque foreign body projecting over either orbit. The visualized paranasal sinuses appear clear as do the mastoid air cells. No obvious facial bone abnormality. IMPRESSION: Normal orbits. No radiopaque foreign body. Normal [facility] MRI BRAIN W/WO CONTRASTon MRI BRAIN W/WO CONTRAST Performed at [facility] APPROVED BY: Leonardo Garcia MD EXAMINATION: MRI BRAIN W/WO CONTRAST CLINICAL HISTORY: Non-small cell lung cancer, stage (T2a/b, N0 - central), pre-treatment eval TECHNIQUE: Routine brain MRI protocol without and with contrast including diffusion images. MQ: [id number] Contrast: 17 mL Dotarem IV COMPARISON: None. RESULT: Acute Change: There is no evidence of restricted diffusion to suggest an acute infarct. Hemorrhage: No evidence of prior parenchymal hemorrhage on the gradient echo images. Mass Lesion/ Mass Effect: No evidence of an intracranial mass or extra-axial fluid collection. No abnormal parenchymal or leptomeningeal enhancement is noted following contrast administration. No significant mass effect. Chronic Change: The white matter is within normal limits of signal intensity for age. Parenchyma: No significant volume loss for age. The brain parenchyma is otherwise within normal limits of signal intensity and morphology. Ventricles: Normal caliber and morphology. Skull Base: Hypothalamic and pituitary region are grossly normal. Craniocervical junction is normal. No significant marrow replacement process. Vasculature: Major intracranial arterial structures, and dural venous sinuses show typical flow void, suggesting patency by spin echo criteria. Other: The visualized paranasal sinuses and mastoid air cells are clear. Cystic changes of the adenoid tissue in the posterior nasopharynx. The orbits and extracranial soft tissues are unremarkable. IMPRESSION: 1. No evidence of vasogenic edema or enhancing mass indicate intracranial metastasis Normal [facility] Vital Signs Date Time Vital Sign Value Performing Clinician Maverick ortiz 08-15-2024 12:51-0400 Body mass index (BMI) [Ratio] 26.64 kg/m2 Belkys Podlogar MECHANICAL SOUND TECHNICIAN.COMPENSATION CONSULTING MANAGER Work Phone: [facility] 08-15-2024 12:51-0400 Body weight 81.83 kg Belkys Podlogar MECHANICAL SOUND TECHNICIAN.COMPENSATION CONSULTING MANAGER Work Phone: [facility] 08-15-2024 12:51-0400 Diastolic blood pressure 84 mm[Hg] Podlogar MECHANICAL SOUND TECHNICIAN.COMPENSATION CONSULTING MANAGER Work Phone: [facility] 08-15-2024 12:51-0400 Heart rate 70 /min Belkys Podlogar MECHANICAL SOUND TECHNICIAN.COMPENSATION CONSULTING MANAGER Work Phone: [facility] 08-15-2024 12:51-0400 Respiratory rate 18 /min Belkys Podlogar MECHANICAL SOUND TECHNICIAN.COMPENSATION CONSULTING MANAGER Work Phone: [facility] 08-15-2024 12:51-0400 SaO2% (BldA) [Mass fraction] 97 % Belkys Devine APRN.COMPENSATION CONSULTING MANAGER Work Phone: [facility] 08-15-2024 12:51-0400 Systolic blood pressure 142 mm[Hg] Belkys Devine APRN.COMPENSATION CONSULTING MANAGER Work Phone: [facility] 07-03-2024 10:07-0400 Body mass index (BMI) [Ratio] 26.66 kg/m2 Krislyn Aberegg PA Work Phone: [facility] 07-03-2024 10:07-0400 Body temperature 97.9 [degF] Krislyn Aberegg PA Work Phone: [facility] 07-03-2024 10:07-0400 Body weight 81.9 kg Krislyn Aberegg PA Work Phone: [facility] 07-03-2024 10:07-0400 Diastolic blood pressure 78 mm[Hg] Krislyn Aberegg PA Work Phone: [facility] 07-03-2024 10:07-0400 Heart rate 88 /min Krislyn Aberegg PA Work Phone: [facility] 07-03-2024 10:07-0400 Respiratory rate 16 /min Krislyn Aberegg PA Work Phone: [facility] 07-03-2024 10:07-0400 SaO2% (BldA) [Mass fraction] 97 % Krislyn Aberegg PA Work Phone: [facility] 07-03-2024 10:07-0400 Systolic blood pressure 124 mm[Hg] Krislyn Aberegg PA Work Phone: [facility] 05-29-2024 09:37-0400 Body mass index (BMI) [Ratio] 27.67 kg/m2 Crystal Clutter PA-C Work Phone: [facility] 05-29-2024 09:37-0400 Body temperature 98.01 [degF] Crystal Clutter PA-C Work Phone: [facility] 05-29-2024 09:37-0400 Body weight 85 kg Crystal Clutter PA-C Work Phone: [facility] 05-29-2024 09:37-0400 Diastolic blood pressure 84 mm[Hg] Crystal Clutter PA-C Work Phone: [facility] 05-29-2024 09:37-0400 Heart rate 71 /min Crystal Clutter PA-C Work Phone: [facility] 05-29-2024 09:37-0400 Respiratory rate 20 /min Crystal Clutter PA-C Work Phone: [facility] 05-29-2024 09:37-0400 SaO2% (BldA) [Mass fraction] 98 % Crystal Clutter PA-C Work Phone: [facility] 05-29-2024 09:37-0400 Systolic blood pressure 167 mm[Hg] Crystal Clutter PA-C Work Phone: [facility] 05-09-2024 09:41-0500 Body mass index (BMI) [Ratio] 27.44 kg/m2 Aruna Tong MD Work Phone: [facility] 05-09-2024 09:41-0500 Body temperature 97.59 [degF] Aruna Tong MD Work Phone: [facility] 05-09-2024 09:41-0500 Body weight 84.28 kg Aruna Tong MD Work Phone: [facility] 05-09-2024 09:41-0500 Diastolic blood pressure 72 mm[Hg] Aruna Tong MD Work Phone: [facility] 05-09-2024 09:41-0500 Heart rate 77 /min Aruna Tong MD Work Phone: [facility] 05-09-2024 09:41-0500 Respiratory rate 16 /min Aruna Tong MD Work Phone: [facility] 05-09-2024 09:41-0500 SaO2% (BldA) [Mass fraction] 98 % Aruna Tong MD Work Phone: [facility] 05-09-2024 09:41-0500 Systolic blood pressure 134 mm[Hg] Aruna Tong MD Work Phone: [facility] 04-17-2024 12:07-0500 Diastolic blood pressure 78 mm[Hg] Belkys Podlogar MECHANICAL SOUND TECHNICIAN.COMPENSATION CONSULTING MANAGER Work Phone: [facility] 04-17-2024 12:07-0500 Systolic blood pressure 136 mm[Hg] Belkys Podlogar MECHANICAL SOUND TECHNICIAN.COMPENSATION CONSULTING MANAGER Work Phone: [facility] 04-17-2024 11:54-0500 Body mass index (BMI) [Ratio] 27.64 kg/m2 Belkys Podlogar MECHANICAL SOUND TECHNICIAN.COMPENSATION CONSULTING MANAGER Work Phone: [facility] 04-17-2024 11:54-0500 Body weight 84.9 kg Belkys Podlogar MECHANICAL SOUND TECHNICIAN.COMPENSATION CONSULTING MANAGER Work Phone: [facility] 04-17-2024 11:54-0500 Heart rate 76 /min Belyks Podlogar MECHANICAL SOUND TECHNICIAN.COMPENSATION CONSULTING MANAGER Work Phone: [facility] 04-17-2024 11:54-0500 Respiratory rate 16 /min Belkys Podlogar MECHANICAL SOUND TECHNICIAN.COMPENSATION CONSULTING MANAGER Work Phone: [facility] 04-17-2024 11:54-0500 SaO2% (BldA) [Mass fraction] 98 % Belkys Podlogar MECHANICAL SOUND TECHNICIAN.COMPENSATION CONSULTING MANAGER Work Phone: [facility] 03-28-2024 15:12-0500 Body mass index (BMI) [Ratio] 27.88 kg/m2 Belkys Podlogar MECHANICAL SOUND TECHNICIAN.COMPENSATION CONSULTING MANAGER Work Phone: [facility] 03-28-2024 15:12-0500 Body weight 85.64 kg Belkys Podlogar MECHANICAL SOUND TECHNICIAN.COMPENSATION CONSULTING MANAGER Work Phone: [facility] 03-28-2024 15:12-0500 Diastolic blood pressure 78 mm[Hg] Belkys Podlogar MECHANICAL SOUND TECHNICIAN.COMPENSATION CONSULTING MANAGER Work Phone: [facility] 03-28-2024 15:12-0500 Heart rate 70 /min Belkys Podlogar MECHANICAL SOUND TECHNICIAN.COMPENSATION CONSULTING MANAGER Work Phone: [facility] 03-28-2024 15:12-0500 Respiratory rate 18 /min Belkys Podlogar MECHANICAL SOUND TECHNICIAN.COMPENSATION CONSULTING MANAGER Work Phone: [facility] 03-28-2024 15:12-0500 SaO2% (BldA) [Mass fraction] 97 % Belkys Podlogar MECHANICAL SOUND TECHNICIAN.COMPENSATION CONSULTING MANAGER Work Phone: [facility] 03-28-2024 15:12-0500 Systolic blood pressure 136 mm[Hg] Belkys Podlogar MECHANICAL SOUND TECHNICIAN.COMPENSATION CONSULTING MANAGER Work Phone: [facility] 01-11-2024 15:42-0500 Body mass index (BMI) [Ratio] 27.71 kg/m2 Belkys Podlogar MECHANICAL SOUND TECHNICIAN.COMPENSATION CONSULTING MANAGER Work Phone: [facility] 01-11-2024 15:42-0500 Body weight 85.1 kg Belkys Podlogar MECHANICAL SOUND TECHNICIAN.COMPENSATION CONSULTING MANAGER Work Phone: [facility] 01-11-2024 15:42-0500 Diastolic blood pressure 86 mm[Hg] Belkys Podlogar MECHANICAL SOUND TECHNICIAN.COMPENSATION CONSULTING MANAGER Work Phone: [facility] 01-11-2024 15:42-0500 Heart rate 84 /min Belkys Podlogar MECHANICAL SOUND TECHNICIAN.COMPENSATION CONSULTING MANAGER Work Phone: [facility] 01-11-2024 15:42-0500 Respiratory rate 18 /min Belkys Podlogar MECHANICAL SOUND TECHNICIAN.COMPENSATION CONSULTING MANAGER Work Phone: [facility] 01-11-2024 15:42-0500 SaO2% (BldA) [Mass fraction] 98 % Belkys Podlogar MECHANICAL SOUND TECHNICIAN.COMPENSATION CONSULTING MANAGER Work Phone: [facility] 01-11-2024 15:42-0500 Systolic blood pressure 144 mm[Hg] Belkys Podlogar MECHANICAL SOUND TECHNICIAN.COMPENSATION CONSULTING MANAGER Work Phone: [facility] 10-25-2023 14:56-0400 Body mass index (BMI) [Ratio] 27.17 kg/m2 Gisela Mckeon MD Work Phone: [facility] 10-25-2023 14:56-0400 Body weight 83.46 kg Gisela Mckeon MD Work Phone: [facility] 07-19-2023 10:41-0400 Body height 175.3 cm Gisela Mckeon MD Work Phone: [facility] 07-19-2023 10:41-0400 Body mass index (BMI) [Ratio] 28.21 kg/m2 Gisela Mckeon MD Work Phone: [facility] 07-19-2023 10:41-0400 Body weight 86.64 kg Gisela Mckeon MD Work Phone: [facility] 07-19-2023 10:41-0400 Diastolic blood pressure 76 mm[Hg] Gisela Mckeon MD Work Phone: [facility] 07-19-2023 10:41-0400 Heart rate 70 /min Gisela Mckeon MD Work Phone: [facility] 07-19-2023 10:41-0400 Respiratory rate 14 /min Gisela Mckeon MD Work Phone: [facility] 07-19-2023 10:41-0400 SaO2% (BldA) [Mass fraction] 99 % Gisela Mckeon MD Work Phone: [facility] 07-19-2023 10:41-0400 Systolic blood pressure 152 mm[Hg] Gisela Mckeon MD Work Phone: [facility] 07-19-2023 10:20-0400 Body height 175.3 cm Pulm Wstr Work Phone: [facility] 07-19-2023 10:20-0400 Body mass index (BMI) [Ratio] 28.21 kg/m2 Pulm Wstr Work Phone: [facility] 07-19-2023 10:20-0400 Body weight 86.64 kg Pulm Wstr Work Phone: [facility] 07-19-2023 10:20-0400 Heart rate 70 /min Pulm Wstr Work Phone: [facility] 07-19-2023 10:20-0400 Respiratory rate 14 /min Pulm Wstr Work Phone: [facility] 07-19-2023 10:20-0400 SaO2% (BldA) [Mass fraction] 99 % Pulm Wstr Work Phone: [facility] 06-22-2023 15:22-0400 Body weight 86.64 kg Belkys Podlogar MECHANICAL SOUND TECHNICIAN.COMPENSATION CONSULTING MANAGER Work Phone: [facility] 06-22-2023 15:22-0400 Diastolic blood pressure 82 mm[Hg] Belkys Podlogar MECHANICAL SOUND TECHNICIAN.COMPENSATION CONSULTING MANAGER Work Phone: [facility] 06-22-2023 15:22-0400 Heart rate 76 /min Belkys Podlogar MECHANICAL SOUND TECHNICIAN.COMPENSATION CONSULTING MANAGER Work Phone: [facility] 06-22-2023 15:22-0400 Respiratory rate 18 /min Belkys Podlogar MECHANICAL SOUND TECHNICIAN.COMPENSATION CONSULTING MANAGER Work Phone: [facility] 06-22-2023 15:22-0400 SaO2% (BldA) [Mass fraction] 97 % Belkys Podlogar MECHANICAL SOUND TECHNICIAN.COMPENSATION CONSULTING MANAGER Work Phone: [facility] 06-22-2023 15:22-0400 Systolic blood pressure 144 mm[Hg] Belkys Podlogar MECHANICAL SOUND TECHNICIAN.COMPENSATION CONSULTING MANAGER Work Phone: [facility] 06-10-2023 12:40-0400 Body temperature 98.01 [degF] Belkys Podlogar MECHANICAL SOUND TECHNICIAN.COMPENSATION CONSULTING MANAGER Work Phone: [facility] 06-10-2023 12:40-0400 Body weight 87 kg Belkys Podlogar MECHANICAL SOUND TECHNICIAN.COMPENSATION CONSULTING MANAGER Work Phone: [facility] 06-10-2023 12:40-0400 Diastolic blood pressure 68 mm[Hg] Belkys Podlogar MECHANICAL SOUND TECHNICIAN.COMPENSATION CONSULTING MANAGER Work Phone: [facility] 06-10-2023 12:40-0400 Heart rate 79 /min Belkys Podlogar MECHANICAL SOUND TECHNICIAN.COMPENSATION CONSULTING MANAGER Work Phone: [facility] 06-10-2023 12:40-0400 Respiratory rate 16 /min Belkys Podlogar MECHANICAL SOUND TECHNICIAN.COMPENSATION CONSULTING MANAGER Work Phone: [facility] 06-10-2023 12:40-0400 SaO2% (BldA) [Mass fraction] 98 % Belkys Podlogar MECHANICAL SOUND TECHNICIAN.COMPENSATION CONSULTING MANAGER Work Phone: [facility] 06-10-2023 12:40-0400 Systolic blood pressure 122 mm[Hg] Belkys Podlogar MECHANICAL SOUND TECHNICIAN.COMPENSATION CONSULTING MANAGER Work Phone: [facility] 05-11-2023 15:03-0500 Body weight 85.37 kg Belkys Podlogar MECHANICAL SOUND TECHNICIAN.COMPENSATION CONSULTING MANAGER Work Phone: [facility] 05-11-2023 15:03-0500 Diastolic blood pressure 88 mm[Hg] Belkys Podlogar MECHANICAL SOUND TECHNICIAN.COMPENSATION CONSULTING MANAGER Work Phone: [facility] 05-11-2023 15:03-0500 Heart rate 93 /min Belkys Podlogar MECHANICAL SOUND TECHNICIAN.COMPENSATION CONSULTING MANAGER Work Phone: [facility] 05-11-2023 15:03-0500 Respiratory rate 16 /min Belkys Podlogar MECHANICAL SOUND TECHNICIAN.COMPENSATION CONSULTING MANAGER Work Phone: [facility] 05-11-2023 15:03-0500 SaO2% (BldA) [Mass fraction] 97 % Belkys Podlogar MECHANICAL SOUND TECHNICIAN.COMPENSATION CONSULTING MANAGER Work Phone: [facility] 05-11-2023 15:03-0500 Systolic blood pressure 138 mm[Hg] Belkys Podlogar MECHANICAL SOUND TECHNICIAN.COMPENSATION CONSULTING MANAGER Work Phone: [facility] 01-24-2023 14:41-0500 Diastolic blood pressure 58 mm[Hg] Belkys Podlogar MECHANICAL SOUND TECHNICIAN.COMPENSATION CONSULTING MANAGER Work Phone: [facility] 01-24-2023 14:41-0500 Heart rate 81 /min Belkys Podlogar MECHANICAL SOUND TECHNICIAN.COMPENSATION CONSULTING MANAGER Work Phone: [facility] 01-24-2023 14:41-0500 Systolic blood pressure 95 mm[Hg] Belkys Podlogar MECHANICAL SOUND TECHNICIAN.COMPENSATION CONSULTING MANAGER Work Phone: [facility] 01-24-2023 14:36-0500 Body temperature 98.2 [degF] Belkys Podlogar MECHANICAL SOUND TECHNICIAN.COMPENSATION CONSULTING MANAGER Work Phone: [facility] 01-24-2023 14:36-0500 Body weight 85.28 kg Belkys Podlogar MECHANICAL SOUND TECHNICIAN.COMPENSATION CONSULTING MANAGER Work Phone: [facility] 01-24-2023 14:36-0500 Respiratory rate 16 /min Belkys Podlogar MECHANICAL SOUND TECHNICIAN.COMPENSATION CONSULTING MANAGER Work Phone: [facility] 01-24-2023 14:36-0500 SaO2% (BldA) [Mass fraction] 97 % Belkys Podlogar MECHANICAL SOUND TECHNICIAN.COMPENSATION CONSULTING MANAGER Work Phone: [facility] 01-10-2023 14:09-0500 Body temperature 98.6 [degF] Belkys Podlogar MECHANICAL SOUND TECHNICIAN.COMPENSATION CONSULTING MANAGER Work Phone: [facility] 01-10-2023 14:09-0500 Body weight 85.19 kg Belkys Podlogar MECHANICAL SOUND TECHNICIAN.COMPENSATION CONSULTING MANAGER Work Phone: [facility] 01-10-2023 14:09-0500 Diastolic blood pressure 72 mm[Hg] Belkys Podlogar MECHANICAL SOUND TECHNICIAN.COMPENSATION CONSULTING MANAGER Work Phone: [facility] 01-10-2023 14:09-0500 Heart rate 88 /min Belkys Podlogar MECHANICAL SOUND TECHNICIAN.COMPENSATION CONSULTING MANAGER Work Phone: [facility] 01-10-2023 14:09-0500 Respiratory rate 18 /min Belkys Podlogar MECHANICAL SOUND TECHNICIAN.COMPENSATION CONSULTING MANAGER Work Phone: [facility] 01-10-2023 14:09-0500 SaO2% (BldA) [Mass fraction] 96 % Belkys Podlogar MECHANICAL SOUND TECHNICIAN.COMPENSATION CONSULTING MANAGER Work Phone: [facility] 01-10-2023 14:09-0500 Systolic blood pressure 108 mm[Hg] Belkys Devine APRN.COMPENSATION CONSULTING MANAGER Work Phone: [facility] 08-04-2022 10:59-0400 Body weight 82.56 kg Aruna Tong MD Work Phone: [facility] 08-04-2022 10:59-0400 Diastolic blood pressure 84 mm[Hg] Aruna Tong MD Work Phone: [facility] 08-04-2022 10:59-0400 Heart rate 76 /min Aruna Tong MD Work Phone: [facility] 08-04-2022 10:59-0400 Respiratory rate 16 /min Aruna Tong MD Work Phone: [facility] 08-04-2022 10:59-0400 Systolic blood pressure 130 mm[Hg] Aruna Tong MD Work Phone: [facility] 06-03-2022 13:55-0400 Body temperature 98.49 [degF] Diaz Paz MD Work Phone: [facility] 06-03-2022 13:55-0400 Body weight 81.56 kg Diaz Paz MD Work Phone: [facility] 06-03-2022 13:55-0400 Diastolic blood pressure 76 mm[Hg] Diaz Paz MD Work Phone: [facility] 06-03-2022 13:55-0400 Heart rate 75 /min Diaz Paz MD Work Phone: [facility] 06-03-2022 13:55-0400 Respiratory rate 21 /min Diaz Paz MD Work Phone: [facility] 06-03-2022 13:55-0400 SaO2% (BldA) [Mass fraction] 98 % Diaz Paz MD Work Phone: [facility] 06-03-2022 13:55-0400 Systolic blood pressure 130 mm[Hg] Diaz Paz MD Work Phone: [facility] 06-02-2022 15:28-0400 Body height 170.3 cm Belkys Podlogar MECHANICAL SOUND TECHNICIAN.COMPENSATION CONSULTING MANAGER Work Phone: [facility] 06-02-2022 15:28-0400 Body weight 81.1 kg Belkys Podlogar MECHANICAL SOUND TECHNICIAN.COMPENSATION CONSULTING MANAGER Work Phone: [facility] 06-02-2022 15:28-0400 Diastolic blood pressure 76 mm[Hg] Belkys Podlogar MECHANICAL SOUND TECHNICIAN.COMPENSATION CONSULTING MANAGER Work Phone: [facility] 06-02-2022 15:28-0400 Heart rate 82 /min Belkys Podlogar MECHANICAL SOUND TECHNICIAN.COMPENSATION CONSULTING MANAGER Work Phone: [facility] 06-02-2022 15:28-0400 Respiratory rate 16 /min Belkys Podlogar MECHANICAL SOUND TECHNICIAN.COMPENSATION CONSULTING MANAGER Work Phone: [facility] 06-02-2022 15:28-0400 SaO2% (BldA) [Mass fraction] 97 % Belkys Podlogar MECHANICAL SOUND TECHNICIAN.COMPENSATION CONSULTING MANAGER Work Phone: [facility] 06-02-2022 15:28-0400 Systolic blood pressure 134 mm[Hg] Belkys Podlogar MECHANICAL SOUND TECHNICIAN.COMPENSATION CONSULTING MANAGER Work Phone: [facility] 04-23-2022 11:02-0500 Body temperature 97.11 [degF] Aruna Tong MD Work Phone: [facility] 04-23-2022 11:02-0500 Body weight 83.46 kg Aruna Tong MD Work Phone: [facility] 04-23-2022 11:02-0500 Diastolic blood pressure 64 mm[Hg] Aruna Tong MD Work Phone: [facility] 04-23-2022 11:02-0500 Heart rate 64 /min Aruna Tong MD Work Phone: [facility] 04-23-2022 11:02-0500 Respiratory rate 16 /min Aruna Tong MD Work Phone: [facility] 04-23-2022 11:02-0500 SaO2% (BldA) [Mass fraction] 98 % Aruna Tong MD Work Phone: [facility] 04-23-2022 11:02-0500 Systolic blood pressure 106 mm[Hg] Aruna Tong MD Work Phone: [facility] 04-22-2022 16:39-0500 Body temperature 97.81 [degF] Diaz Paz MD Work Phone: [facility] 04-22-2022 16:39-0500 Body weight 84.46 kg Diaz Paz MD Work Phone: [facility] 04-22-2022 16:39-0500 Diastolic blood pressure 72 mm[Hg] Diaz Paz MD Work Phone: [facility] 04-22-2022 16:39-0500 Heart rate 81 /min Diaz Paz MD Work Phone: [facility] 04-22-2022 16:39-0500 Respiratory rate 18 /min Diaz Paz MD Work Phone: [facility] 04-22-2022 16:39-0500 SaO2% (BldA) [Mass fraction] 98 % Diaz Paz MD Work Phone: [facility] 04-22-2022 16:39-0500 Systolic blood pressure 126 mm[Hg] Diaz Paz MD Work Phone: [facility] 04-13-2022 12:55-0500 Body temperature 98.1 [degF] Cesilia Alex PA-C Work Phone: [facility] 04-13-2022 12:55-0500 Body weight 83.92 kg Cesilia [place] PA-C Work Phone: [facility] 04-13-2022 12:55-0500 Diastolic blood pressure 64 mm[Hg] Cesilia [place] PA-C Work Phone: [facility] 04-13-2022 12:55-0500 Heart rate 66 /min Cesilia [place] PA-C Work Phone: [facility] 04-13-2022 12:55-0500 SaO2% (BldA) [Mass fraction] 99 % Cesilia RALPH-C Work Phone: [facility] 04-13-2022 12:55-0500 Systolic blood pressure 104 mm[Hg] Cesilia RALPH-C Work Phone: [facility] 03-29-2022 12:10-0500 Body temperature 98.2 [degF] Johny Juan Carlos MECHANICAL SOUND TECHNICIAN.COMPENSATION CONSULTING MANAGER Work Phone: [facility] 03-29-2022 12:10-0500 Body weight 83.01 kg Johny Juan Carlos MECHANICAL SOUND TECHNICIAN.COMPENSATION CONSULTING MANAGER Work Phone: [facility] 03-29-2022 12:10-0500 Diastolic blood pressure 78 mm[Hg] Johny Juan Carlos MECHANICAL SOUND TECHNICIAN.COMPENSATION CONSULTING MANAGER Work Phone: [facility] 03-29-2022 12:10-0500 Heart rate 73 /min Johny Juan Carlos MECHANICAL SOUND TECHNICIAN.COMPENSATION CONSULTING MANAGER Work Phone: [facility] 03-29-2022 12:10-0500 Respiratory rate 16 /min Johny Juan Carlos MECHANICAL SOUND TECHNICIAN.COMPENSATION CONSULTING MANAGER Work Phone: [facility] 03-29-2022 12:10-0500 SaO2% (BldA) [Mass fraction] 98 % Johny Juan Carlos MECHANICAL SOUND TECHNICIAN.COMPENSATION CONSULTING MANAGER Work Phone: [facility] 03-29-2022 12:10-0500 Systolic blood pressure 118 mm[Hg] Johny Juan Carlos MECHANICAL SOUND TECHNICIAN.COMPENSATION CONSULTING MANAGER Work Phone: [facility] 01-05-2022 14:03-0400 Body weight 83.55 kg Aruna Tong MD Work Phone: [facility] 01-05-2022 14:03-0400 Diastolic blood pressure 68 mm[Hg] Aruna Tong MD Work Phone: [facility] 01-05-2022 14:03-0400 Heart rate 69 /min Aruna Tong MD Work Phone: [facility] 01-05-2022 14:03-0400 Respiratory rate 16 /min Aruna Tong MD Work Phone: [facility] 01-05-2022 14:03-0400 SaO2% (BldA) [Mass fraction] 97 % Aruna Tong MD Work Phone: [facility] 01-05-2022 14:03-0400 Systolic blood pressure 116 mm[Hg] Aruna Tong MD Work Phone: [facility] 06-29-2021 13:14-0400 Diastolic blood pressure 74 mm[Hg] Mi Nurse Work Phone: [facility] 06-29-2021 13:14-0400 Heart rate 76 /min Mi Nurse Work Phone: [facility] 06-29-2021 13:14-0400 Systolic blood pressure 118 mm[Hg] Mi Nurse Work Phone: [facility] 06-13-2021 14:33-0400 Diastolic blood pressure 82 mm[Hg] Aruna Tong MD Work Phone: [facility] 06-13-2021 14:33-0400 Systolic blood pressure 150 mm[Hg] Aruna Tong MD Work Phone: [facility] 06-12-2021 15:20-0400 Body weight 84.6 kg Aruna Tong MD Work Phone: [facility] 06-12-2021 15:20-0400 Heart rate 65 /min Aruna Tong MD Work Phone: [facility] 06-12-2021 15:20-0400 Respiratory rate 18 /min Aruna Tong MD Work Phone: [facility] 06-12-2021 15:20-0400 SaO2% (BldA) [Mass fraction] 96 % Aruna Tong MD Work Phone: [facility] Encounters Encounter Date Encounter Type Care Provider Facility Start: 10-30-2024 End: 10-31-2024 Refill Belkys Podlogar MECHANICAL SOUND TECHNICIAN.COMPENSATION CONSULTING MANAGER Work Phone: [facility] [place] Comment on above: Refill Request Start: 09-21-2024 End: 09-21-2024 Refill Aruna Tong MD Work Phone: [facility] [place] Comment on above: Refill Request Start: 09-04-2024 End: 09-05-2024 Refill Belkys Podlogar MECHANICAL SOUND TECHNICIAN.COMPENSATION CONSULTING MANAGER Work Phone: [facility] [place] Comment on above: Refill Request Start: 08-19-2024 End: 08-21-2024 Refill Belkys Podlogar MECHANICAL SOUND TECHNICIAN.COMPENSATION CONSULTING MANAGER Work Phone: [facility] [place] Comment on above: Refill Request Start: 08-15-2024 End: 10-15-2024 Follow-up encounter Steven Bess LPN [facility] [place] Comment on above: Results Start: 08-15-2024 End: 08-15-2024 Subsequent hospital visit by physician X[facility] [place] Work Phone: Radiology Comment on above: Acute on chronic low back pain [M54.50, G89.29] Start: 08-15-2024 End: 08-15-2024 Patient encounter procedure Belkys Podlogar MECHANICAL SOUND TECHNICIAN.COMPENSATION CONSULTING MANAGER Work Phone: [facility] [place] Comment on above: Acute on chronic low back pain (Primary Dx); Ecchymosis Start: 08-15-2024 End: 08-15-2024 ambulatory BELKYS PODLOGAR Facility:[facility] Start: 08-01-2024 End: 08-03-2024 Refill Belkys Podlogar MECHANICAL SOUND TECHNICIAN.COMPENSATION CONSULTING MANAGER Work Phone: [facility] [place] Comment on above: Refill Request Start: 07-03-2024 End: 07-03-2024 Patient encounter procedure Juve RALPH Work Phone: [facility] Comment on above: Sore throat (Primary Dx) Start: 07-03-2024 End: 07-03-2024 ambulatory ARUNA TONG Facility:[facility] Start: 07-02-2024 End: 07-02-2024 ambulatory BELKYS PODLOGAR Facility:[facility] Start: 06-06-2024 End: 06-06-2024 Refill Aruna Tong MD Work Phone: [facility] [place] Comment on above: Refill Request Start: 05-29-2024 End: 05-29-2024 ambulatory ARUNA TONG Facility:[facility] Start: 05-29-2024 End: 05-29-2024 Office outpatient visit 25 minutes Crystal Esparza PA-C Work Phone: [facility] Comment on above: Influenza (Primary D x) Start: 05-09-2024 End: 05-09-2024 ambulatory ARUNA TONG Facility:[facility] Start: 05-09-2024 End: 05-09-2024 Patient encounter procedure Aruna Tong MD Work Phone: [facility] [place] Comment on above: Viral gastroenteriti s (Primary Dx); Nausea and vomiting, unspecified vomiting type; Generalized abdominal pain Start: 04-17-2024 End: 04-17-2024 ambulatory BELKYS PODLOGAR Facility:[facility] Start: 04-17-2024 End: 04-17-2024 Patient encounter procedure Belkys Erwinlogsolo MECHANICAL SOUND TECHNICIAN.COMPENSATION CONSULTING MANAGER Work Phone: [facility] [place] Comment on above: Left hand pain (Prim bj Dx) Start: 04-06-2024 End: 04-06-2024 Refill Delia Cook APRN.COMPENSATION CONSULTING MANAGER Work Phone: [facility] [place] Comment on above: Refill Request Start: 03-28-2024 End: 03-28-2024 Patient encounter procedure Belkys Erwinlogsolo MECHANICAL SOUND TECHNICIAN.COMPENSATION CONSULTING MANAGER Work Phone: [facility] [place] Comment on above: Hypertension, essent ial (Primary Dx); ED (erectile dysfunction) of organic origin Start: 03-28-2024 End: 03-28-2024 ambulatory BELKYS PODLOGAR Facility:[facility] Start: 03-15-2024 End: 03-15-2024 ambulatory MARIVEL ARREOLA Facility:[facility] Start: 03-15-2024 End: 03-15-2024 Patient encounter procedure Marivel Arreola MECHANICAL SOUND TECHNICIAN.COMPENSATION CONSULTING MANAGER Work Phone: [facility] Comment on above: Neoplasm of lung (Pr imary Dx); Malignant neoplasm of right upper lobe of lung (HCC) Start: 03-15-2024 End: 03-15-2024 Telemedicine consultation with patient Marivel Arreola MECHANICAL SOUND TECHNICIAN.COMPENSATION CONSULTING MANAGER Work Phone: [facility] Start: 03-12-2024 End: 03-12-2024 ambulatory MARIVEL ARREOLA Facility:[facility] Start: 03-12-2024 End: 03-12-2024 Subsequent hospital visit by physician [facility] ([facility]) Work Phone: Cat Scan Comment on above: Neoplasm of lung [D4 9.1] Start: 03-08-2024 End: 03-08-2024 Refill Belkys Podlogar MECHANICAL SOUND TECHNICIAN.COMPENSATION CONSULTING MANAGER Work Phone: [facility] [place] Comment on above: Refill Request Start: 02-10-2024 End: 02-10-2024 Telephone encounter Aruna Tong MD Work Phone: [facility] [place] Comment on above: Results Start: 02-05-2024 End: 02-06-2024 Refill Aruna Tong MD Work Phone: [facility] [place] Comment on above: Refill Request Start: 02-03-2024 End: 02-03-2024 ambulatory BELKYS PODLOGAR Facility:[facility] Start: 01-16-2024 End: 01-17-2024 Refill Belkys Podlogar MECHANICAL SOUND TECHNICIAN.COMPENSATION CONSULTING MANAGER Work Phone: [facility] [place] Comment on above: Refill Request Start: 01-11-2024 End: 01-11-2024 Patient encounter procedure Belkys Podlogar MECHANICAL SOUND TECHNICIAN.COMPENSATION CONSULTING MANAGER Work Phone: [facility] [place] Comment on above: ED (erectile dysfunc tion) of organic origin (Primary Dx); Hyperlipidemia, mixed; Encounter for immunization; Hypertension, essential Start: 01-11-2024 End: 01-11-2024 ambulatory BELKYS PODLOGAR Facility:[facility] Start: 01-04-2024 End: 01-04-2024 Refill Aruna Tong MD Work Phone: [facility] [place] Comment on above: Refill Request Start: 01-03-2024 End: 01-03-2024 Refill Belkys Podlogar MECHANICAL SOUND TECHNICIAN.COMPENSATION CONSULTING MANAGER Work Phone: [facility] [place] Comment on above: Refill Request Start: 12-20-2023 End: 12-20-2023 Refill Aruna Tong MD Work Phone: [facility] [place] Comment on above: Refill Request Start: 12-16-2023 End: 12-19-2023 Refill Aruna Tong MD Work Phone: [facility] [place] Comment on above: Refill Request Start: 11-15-2023 End: 11-16-2023 Refill Belkys Podlogar MECHANICAL SOUND TECHNICIAN.COMPENSATION CONSULTING MANAGER Work Phone: [facility] [place] Comment on above: Refill Request Start: 10-25-2023 End: 10-25-2023 Patient encounter procedure Gisela Mckeon MD Work Phone: Pulmonary Medicine Comment on above: Diaphragm paralysis (Primary Dx); COPD, mild (HCC); Former cigarette smoker; History of lung cancer Start: 10-05-2023 Refill Delia calderon MECHANICAL SOUND TECHNICIANErichCOMPENSATION CONSULTING MANAGER Work Phone: [facility] [place] Comment on above: Refill Request Start: 09-13-2023 Refill Aruna Tong MD Work Phone: [facility] [place] Comment on above: Refill Request Start: 09-12-2023 Refill Gisela Mckeon MD Work Phone: [facility]monary Medicine Comment on above: Refill Request Start: 09-01-2023 ambulatory GISELA MCKEON Fac ility:[facility] Start: 09-01-2023 End: 09-01-2023 Subsequent hospital visit by physician Gi/[facility] Work Phone: Radiology Comment on above: Elevated diaphragm [ J98.6] Start: 08-28-2023 Refill Delia calderon APRN.COMPENSATION CONSULTING MANAGER [facility] Phone: [facility] Comment on above: Refill Request Start: 08-09-2023 Refill Aruna Tong MD Work Phone: [facility] Comment on above: Refill Request Start: 07-26-2023 Telephone encounter Twin Tong MD Work Phone: [facility] Comment on above: FMLA papers Start: 07-20-2023 Telephone encounter Twin Tong MD Work Phone: [facility] Comment on above: Results Start: 07-19-2023 End: 07-19-2023 ambulatory Pulm Lab [facility] Work Phone: PULM LAB [facility] Comment on above: Spirometry Start: 07-19-2023 End: 07-19-2023 Patient encounter procedure [facility] Work Phone: [facility] Comment on above: SOB (shortness of br eath) (Primary Dx); Elevated diaphragm; Former smoker; Leg swelling; COPD, mild (HCC); History of lung cancer Start: 07-14-2023 Refill Aruna Tong MD Work Phone: [facility] Comment on above: Refill Request Start: 07-10-2023 Refill Belkys Devine APRN.COMPENSATION CONSULTING MANAGER Work Phone: [facility] Comment on above: Refill Request Start: 07-02-2023 Refill Belkys Devine APRN.COMPENSATION CONSULTING MANAGER Work Phone: [facility] Comment on above: Refill Request Start: 06-22-2023 End: 06-22-2023 Patient encounter procedure Belkys Devine APRN.COMPENSATION CONSULTING MANAGER Work Phone: [facility] Comment on above: SOB (shortness of br eath) (Primary Dx); Hx of cancer of lung Start: 06-22-2023 Telephone encounter Belkys plascencia APRN.COMPENSATION CONSULTING MANAGER Work Phone: [facility] Start: 06-22-2023 End: 06-22-2023 ambulatory Nurse Intm/Famp Triage [facility] Work Phone: Nurse Phone Triage Comment on above: Breathing Problem Start: 06-10-2023 End: 06-10-2023 Patient encounter procedure Belkys Devine APRN.COMPENSATION CONSULTING MANAGER Work Phone: [facility] [place] Comment on above: Nausea (Primary Dx) Start: 05-24-2023 Telephone encounter Twin Tong MD Work Phone: [facility] [place] Comment on above: Results Start: 05-11-2023 End: 05-11-2023 Patient encounter procedure Belkys Erwinlogsolo MECHANICAL SOUND TECHNICIAN.COMPENSATION CONSULTING MANAGER Work Phone: [facility] [place] Comment on above: Hypertension, essent ial (Primary Dx); Immunization due; Screening for depression; Hyperlipidemia, mixed; Generalized anxiety disorder; Gastroesophageal reflux disease, unspecified whether esophagitis present; Diarrhea, unspecified type Start: 04-21-2023 ambulatory Aruna Tong MD Work Phone: [facility] [place] Comment on above: Famotidine 20mg Start: 01-24-2023 End: 01-24-2023 Patient encounter procedure Belkys Devine APRN.COMPENSATION CONSULTING MANAGER Work Phone: [facility] [place] Comment on above: Diarrhea, unspecifie d type (Primary Dx); Nausea and vomiting, unspecified vomiting type Start: 01-10-2023 End: 01-10-2023 Patient encounter procedure Belkys Erwinlogsolo MECHANICAL SOUND TECHNICIAN.COMPENSATION CONSULTING MANAGER Work Phone: [facility] [place] Comment on above: Chronic epigastric p ain (Primary Dx); Encounter for immunization Start: 01-04-2023 Refill Belkys Podlogar MECHANICAL SOUND TECHNICIAN.COMPENSATION CONSULTING MANAGER Work Phone: [facility] [place] Comment on above: Refill Request Start: 11-10-2022 Telephone encounter Aly Tomlinson MD Work Phone: [facility] Comment on above: Appointment Reschedu led Start: 08-04-2022 End: 08-04-2022 Patient encounter procedure Aruna Tong MD Work Phone: [facility] Comment on above: Acute bilateral low back pain without sciatica (Primary Dx); Gastroesophageal reflux disease, unspecified whether esophagitis present Start: 07-05-2022 Refill Aruna Tong MD Work Phone: [facility] Comment on above: Refill Request Start: 06-03-2022 End: 06-03-2022 Patient encounter procedure Diaz Paz MD Work Phone: [facility] Comment on above: Ventral hernia witho ut obstruction or gangrene (Primary Dx) Start: 06-02-2022 End: 06-02-2022 Patient encounter procedure Belkys Devine APRN.CNP Work Phone: [facility] [place] Comment on above: Annual physical exam (Primary Dx); Hypertension, essential; Screening for hyperlipidemia; Generalized anxiety disorder; Gastroesophageal reflux disease, unspecified whether esophagitis present; Hx of cancer of lung Start: 05-22-2022 Refill Aruna Tong MD Work Phone: [facility] Comment on above: Refill Request Start: 05-14-2022 Orders Only Lori mccabe MD Work Phone: Ambulatory Surgery Start: 04-23-2022 End: 04-23-2022 Patient encounter procedure Aruna Tong MD Work Phone: [facility] Comment on above: Viral sinusitis (Yadira jose martin Dx); Viral URI with cough Start: 04-22-2022 End: 04-22-2022 Patient encounter procedure Diaz Paz MD Work Phone: [facility] Comment on above: URI, acute (Primary Dx); Rhinorrhea Start: 04-13-2022 Telephone encounter Cesilia buchanan PA-C Work Phone: General Surgery Comment on above: Orders Start: 04-13-2022 End: 04-13-2022 Patient encounter procedure Cesilia Johnson PA-C Work Phone: General Surgery Comment on above: Encounter for screen ing for malignant neoplasm of colon (Primary Dx); History of colonic polyps Start: 03-29-2022 End: 03-29-2022 Patient encounter procedure Johny Rangel BRENNAN Work Phone: [facility] Comment on above: Inguinal strain, rig ht, initial encounter (Primary Dx) Start: 03-12-2022 End: 03-12-2022 Follow-up encounter Aly Tomlinson MD Work Phone: [facility] Comment on above: Encounter for follow -up surveillance of lung cancer (Primary Dx); Malignant neoplasm of right upper lobe of lung (HCC); 08/31/2017 - Right VATS upper lobectomy; Personal history of COVID-19; Liver hemangioma; Malignant neoplasm of unspecified part of unspecified bronchus or lung (HCC) Start: 03-12-2022 End: 03-12-2022 Telemedicine consultation with patient Aly Tomlinson MD Work Phone: [facility] Start: 02-07-2022 Refill Aruna Tong MD Work Phone: [facility] Comment on above: Refill Request Start: 01-18-2022 End: 01-18-2022 Emergency department patient visit ARUNA TONG Facility:[facility] Start: 01-06-2022 Telephone encounter Twin Tong MD Work Phone: [facility] Comment on above: Results Start: 01-05-2022 End: 01-05-2022 Orders Only Jarred Herrera MD, PhD Work Phone: [facility] Comment on above: Malignant neoplasm o f unspecified part of unspecified bronchus or lung (HCC) (Primary Dx); S/P lobectomy of lung Acute pain of both s houlders (Primary Dx); Acute bilateral low back pain without sciatica; Hypertension, essential; Gastroesophageal reflux disease, unspecified whether esophagitis present; Need for influenza vaccination Acute pain of both s houlders [M25.511, M25.512] Start: 01-04-2022 Telephone encounter Twin Tong MD Work Phone: [facility] Comment on above: Appointment Start: 11-19-2021 Refill Aruna Tong MD Work Phone: [facility] [place] Comment on above: Refill Request Start: 09-17-2021 Refill Aruna Tong MD Work Phone: [facility] [place] Comment on above: Refill Request Start: 06-29-2021 Telephone encounter Twin Tong MD Work Phone: [facility] [place] Comment on above: Blood Pressure Check Start: 06-29-2021 End: 06-29-2021 Nursing evaluation of patient and report Mi Nurse Work Phone: [facility] [place] Comment on above: Hypertension, essent ial (Primary Dx) Start: 06-12-2021 End: 06-12-2021 Patient encounter procedure Aruna Tong MD Work Phone: [facility] [place] Comment on above: Hypertension, essent ial (Primary Dx); ANIL (generalized anxiety disorder); Gastroesophageal reflux disease, unspecified whether esophagitis present; Malignant neoplasm of right upper lobe of lung (HCC); Erectile dysfunction, unspecified erectile dysfunction type Start: 10-15-2017 Patient encounter OSMAN Temple lity:[facility] Start: 09-29-2017 Patient encounter OSMAN [place]:[facility] Start: 09-29-2017 End: 10-05-2017 Patient encounter OSMAN MOSES Facility:[facility] Start: 09-23-2017 Patient encounter Twin New Facility:[facility] Start: 07-29-2017 Ambulatory DORI PITTMAN Facilit y:[facility] Procedures Date Procedure Procedure Detail Performing Clinician Start: 08-15-2024 Radex spine lumbosac ral 2/3 views Belkys Devine MECHANICAL SOUND TECHNICIAN.COMPENSATION CONSULTING MANAGER Work Phone: Start: 07-03-2024 STREP A MOLECULAR (POC) Juve Wilks PA Work Phone: Start: 03-12-2024 Ct thorax w/o contra st material Marivel Arreola MECHANICAL SOUND TECHNICIAN.COMPENSATION CONSULTING MANAGER Work Phone: Start: 02-03-2024 Lipid 1996 panel - S willie or Plasma Aruna Tong MD Work Phone: Start: 09-01-2023 Fluoroscopy up to 1 hour physician/qhp time Gisela Mckeon MD Work Phone: Start: 07-19-2023 Brncdilat rspse spmt ry pre&post-brncdilat admn Belkys Podlogar MECHANICAL SOUND TECHNICIAN.COMPENSATION CONSULTING MANAGER Work Phone: Start: 05-23-2023 Lipid 1996 panel - S willie or Plasma Aruna Tong MD Work Phone: Start: 01-24-2023 COVID & INFLUENZA A/ B NAAT, ROUTINE Belkys Podlogar MECHANICAL SOUND TECHNICIAN.COMPENSATION CONSULTING MANAGER Work Phone: Start: 06-03-2022 Lipid 1996 panel - S willie or Plasma Belkys Podlogar MECHANICAL SOUND TECHNICIAN.COMPENSATION CONSULTING MANAGER Work Phone: Start: 05-14-2022 Colonoscopy Lori Enriquez MD Work Phone: Start: 01-05-2022 Radex spine lumbosac ral 2/3 views Aruna Tong MD Work Phone: Start: 01-05-2022 INFLUENZA VACCINE QUADRIVALENT 6 MO - 64 YRS IM Aruna Tong MD Work Phone: Start: 06-12-2021 Adult depression scr eening assessment Aruna Tong MD Work Phone: Start: 03-23-2019 Colonoscopy Twin Tong MD Work Phone: Plan of Treatment Date Care Activity Detail Author Start: 02-02-2029 Lipid panel Lipid Screening [facility] Start: 05-22-2028 Lipid panel Lipid Screening [facility] Start: 08-16-2027 Diabetes Screening Diabetes Screenin g [facility] Start: 06-04-2027 Lipid 1996 panel - Serum or Plasma Lipid Screening [facility] Start: 06-04-2027 Lipid panel Lipid Screening [facility] Start: 06-04-2027 LIPID SCREEN LIPID SCREEN [facility] Start: 05-15-2027 Colonoscopy COLONOSCOPY [facility] Start: 05-15-2027 COLORECTAL CANCER SCREENING COLORECTAL CANCER SCREENING [facility] Start: 05-15-2027 Screening for malign ant neoplasm of colon [facility] Start: 02-02-2027 Diabetes Screening Diabetes Screenin g [facility] Start: 06-12-2026 LIPID SCREEN LIPID SCREEN [facility] Start: 05-22-2026 Diabetes Screening Diabetes Screenin g [facility] Start: 01-10-2026 Diabetes Screening Diabetes Screenin g [facility] Start: 08-15-2025 Annual PCP Team Professional Nurse keily Disease Visit Annual PCP Team Chronic Disease Visit [facility] Start: 07-03-2025 BP Controlled (<130/80) BP Controlle d (<130/80) [facility] Start: 07-02-2025 Annual PCP Team Professional Nurse keily Disease Visit Annual PCP Team Chronic Disease Visit [facility] Start: 06-03-2025 DIABETES SCREEN DIABETES SCREEN [facility] Start: 06-03-2025 Diabetes Screening Diabetes Screenin g [facility] Start: 05-14-2025 Colonoscopy COLONOSCOPY [facility] Start: 05-14-2025 COLORECTAL CANCER SCREENING COLORECTAL CANCER SCREENING [facility] Start: 05-09-2025 Annual PCP Team Professional Nurse keily Disease Visit Annual PCP Team Chronic Disease Visit [facility] Start: 04-17-2025 Annual PCP Team Professional Nurse keily Disease Visit Annual PCP Team Chronic Disease Visit [facility] Start: 03-28-2025 Annual PCP Team Professional Nurse keily Disease Visit Annual PCP Team Chronic Disease Visit [facility] Start: 01-18-2025 DIABETES SCREEN DIABETES SCREEN [facility] Start: 01-10-2025 Annual PCP Team Professional Nurse keily Disease Visit Annual PCP Team Chronic Disease Visit [facility] Start: 01-10-2025 Covid-19 Vaccine ( season) Covid-19 Vaccine ( season) [facility] Comment on above: Postponed from 11/05 (Declined at this time) Start: 11-05-2024 Influenza vaccination Influenza Vacc ine (#1) [facility] Start: 10-24-2024 BP Controlled (<130/80) BP Controlle d (<130/80) [facility] Start: 09-26-2024 End: 09-26-2024 Patient encounter procedure 09/26/2024 3:40 PM EDT Office Visit [facility] [place] [address] [facility] [place] [address] PodBelkys ochoa APRN.COMPENSATION CONSULTING MANAGER [address] [place] [address] 6 month follow up [facility] [place] Comment on above: 6 month follow up Start: 08-20-2024 End: 11-19-2024 Potassium [Moles/volume] in Serum or Plasma POTASSIUM Lab Routine Hypokalemia Expected: 08/20/2024, Expires: 11/19/2024 [facility] Work Phone: Comment on above: Expected: 08/20/2024 , Expires: 11/19/2024 Start: 08-15-2024 End: 11-14-2024 aPTT in Platelet poor plasma by Coagulation assay [facility] Comment on above: Expected: 08/15/2024 , Expires: 11/14/2024 Start: 08-15-2024 End: 11-14-2024 Comprehensive metabolic 2000 panel - Serum or Plasma [facility] Work Phone: Comment on above: Expected: 08/15/2024 , Expires: 11/14/2024 Start: 08-15-2024 End: 11-14-2024 PT panel - Platelet poor plasma by Coagulation assay [facility] Comment on above: Expected: 08/15/2024 , Expires: 11/14/2024 Start: 06-21-2024 Annual PCP Team Professional Nurse keily Disease Visit Annual PCP Team Chronic Disease Visit [facility] Start: 06-12-2024 DIABETES SCREEN DIABETES SCREEN [facility] Start: 06-09-2024 Annual PCP Team Professional Nurse keily Disease Visit Annual PCP Team Chronic Disease Visit [facility] Start: 06-09-2024 BP Controlled (<130/80) BP Controlle d (<130/80) [facility] Start: 05-10-2024 Annual PCP Team Professional Nurse keily Disease Visit Annual PCP Team Chronic Disease Visit [facility] Start: 05-01-2024 End: 05-01-2024 Patient encounter procedure 05/01/2024 10:30 AM EST Office Visit Pulmonary Medicine [address] [place] [address] Arlene Romano MECHANICAL SOUND TECHNICIAN.COMPENSATION CONSULTING MANAGER [address] [facility] [address] [place] [phone] 6 MTH F/U Pulmonary Medicine Comment on above: 6 MTH F/U Start: 04-27-2024 End: 04-27-2024 Patient encounter procedure 04/27/2024 10:30 AM EST Office Visit Pulmonary Medicine [address] [place] [address] Gisela Mckeon MD [address] [place] [address] 6 MTH F/U Pulmonary Medicine Comment on above: 6 MTH F/U Start: 03-28-2024 End: 03-28-2024 Patient encounter procedure 03/28/2024 3:20 PM EST Office Visit [facility] [place] [address] [place] [address] Belkys Devine APRN.COMPENSATION CONSULTING MANAGER [address] [place] [address] Follow up [facility] [place] Comment on above: Follow up Start: 03-15-2024 End: 03-15-2024 Telephone follow-up 03/15/2024 3:30 PM EST [facility] [address] [place] [phone] Marivel Arreola MECHANICAL SOUND TECHNICIAN.COMPENSATION CONSULTING MANAGER [address] [place] [phone] Phone call Encounter for follow-up surveillance of lung cancer, ct completed 03/12/24 [facility] Comment on above: Phone call Encounter for follow-up surveillance of lung cancer, ct completed 03/12/24 Start: 03-12-2024 End: 03-12-2024 Patient encounter procedure 03/12/2024 10:20 AM EST Appointment Cat Scan [address] [place] [address] Neoplasm of lung [D49.1] Cat Scan Comment on above: Neoplasm of lung [D4 9.1] Start: 03-02-2024 Annual PCP Team Professional Nurse keily Disease Visit Annual PCP Team Chronic Disease Visit [facility] Start: 02-08-2024 End: 02-08-2024 Patient encounter procedure 02/08/2024 6:40 PM EST Office Visit [facility] [place] [address] [facility] [place] [address] PodBelkys ochoa, MECHANICAL SOUND TECHNICIAN.COMPENSATION CONSULTING MANAGER [address] [place] [address] Annual/1 month follow up [facility] [place] Comment on above: Annual/1 month follo w up Start: 01-25-2024 Annual PCP Team Professional Nurse keily Disease Visit Annual PCP Team Chronic Disease Visit [facility] Start: 01-25-2024 BP Controlled (<130/80) BP Controlle d (<130/80) [facility] Start: 01-11-2024 End: 01-11-2024 Patient encounter procedure 01/11/2024 3:40 PM EST Office Visit [facility] [place] [address] [place] [address] PodBelkys ochoa, MECHANICAL SOUND TECHNICIAN.COMPENSATION CONSULTING MANAGER [address] [place] [address] Check up [facility] [place] Comment on above: Check up Start: 01-11-2024 Annual PCP Team Professional Nurse keily Disease Visit Annual PCP Team Chronic Disease Visit [facility] Start: 01-11-2024 BP Controlled (<130/80) BP Controlle d (<130/80) [facility] Start: 01-11-2024 End: 04-11-2024 Comprehensive metabolic 2000 panel - Serum or Plasma COMPREHENSIVE METABOLIC PANEL Lab Routine Hyperlipidemia, mixed Expected: 01/11/2024, Expires: 04/11/2024 [facility] Comment on above: Expected: 01/11/2024 , Expires: 04/11/2024 Start: 01-11-2024 End: 04-11-2024 Lipid 1996 panel - Serum or Plasma LIPID PANEL BASIC Lab Routine Hyperlipidemia, mixed Expected: 01/11/2024, Expires: 04/11/2024 [facility] Work Phone: Comment on above: Expected: 01/11/2024 , Expires: 04/11/2024 Start: 2023 Covid-19 Vaccine ( season) Covid-19 Vaccine () [facility] Start: 2023 Covid-19 Vaccine () Covid-19 Vaccine () [facility] Start: 2023 Influenza vaccination C [facility] Start: 10-25-2023 End: 10-25-2023 Patient encounter procedure 10/25/2023 3:15 PM EDT Office Visit Pulmonary Medicine [address] [place] [address] Gisela Mckeon MD [address] [place] [address] f/u after testing [facility]monary Medicine Comment on above: f/u after testing Start: 09-01-2023 End: 09-01-2023 Patient encounter procedure Radiology Comment on above: Elevated diaphragm [ J98.6] Leg swelling [M79.89 ] Start: 08-24-2023 End: 11-23-2023 Comprehensive metabolic 2000 panel - Serum or Plasma COMP METABOLIC PANEL Lab Routine Hyperlipidemia, mixed Expected: 08/24/2023, Expires: 11/23/2023 [facility] Work Phone: Comment on above: Expected: 08/24/2023 , Expires: 11/23/2023 Start: 08-24-2023 End: 11-23-2023 Lipid 1996 panel - Serum or Plasma LIPID PANEL BASIC Lab Routine Hyperlipidemia, mixed Expected: 08/24/2023, Expires: 11/23/2023 [facility] Work Phone: Comment on above: Expected: 08/24/2023 , Expires: 11/23/2023 Start: 08-05-2023 ANNUAL PCP TEAM OSTEOPATHIC PHYSICIAN KEILY DISEASE VISIT ANNUAL PCP TEAM CHRONIC DISEASE VISIT [facility] Start: 07-19-2023 End: 07-19-2023 Patient encounter procedure 07/19/2023 11:00 AM EDT Office Visit Pulmonary Medicine [address] [place] [address] Gisela Mckeon MD [address] [place] [address] SOB (shortness of breath) [R06.02] Pulmonary Medicine Comment on above: SOB (shortness of br eath) [R06.02] Start: 07-19-2023 End: 07-19-2023 ambulatory 07/19/2023 10:30 AM EDT Procedure PULM LAB [facility] [address] [place] [address] [facility], Pulm Lab [facility] [address] [place] [address] SOB (shortness of breath) [R06.02] PULM LAB [facility] Comment on above: SOB (shortness of br eath) [R06.02] Start: 06-03-2023 ANNUAL PCP TEAM OSTEOPATHIC PHYSICIAN KEILY DISEASE VISIT ANNUAL PCP TEAM CHRONIC DISEASE VISIT [facility] Start: 06-03-2023 COVID-19 VACCINE (#1) COVID-19 VACCI NE (#1) [facility] Comment on above: Postponed from 05/06 (Declined at this time) Start: 05-11-2023 End: 08-10-2023 Comprehensive metabolic 2000 panel - Serum or Plasma COMP METABOLIC PANEL Lab Routine Hypertension, essential Expected: 05/11/2023, Expires: 08/10/2023 [facility] Work Phone: Comment on above: Expected: 05/11/2023 , Expires: 08/10/2023 Start: 05-11-2023 End: 08-10-2023 Lipid 1996 panel - Serum or Plasma LIPID PANEL BASIC Lab Routine Hyperlipidemia, mixed Expected: 05/11/2023, Expires: 08/10/2023 [facility] Work Phone: Comment on above: Expected: 05/11/2023 , Expires: 08/10/2023 Start: 04-23-2023 ANNUAL PCP TEAM OSTEOPATHIC PHYSICIAN KEILY DISEASE VISIT ANNUAL PCP TEAM CHRONIC DISEASE VISIT [facility] Start: 04-23-2023 BP CONTROLLED (<130/80) BP CONTROLLE D (<130/80) [facility] Start: 04-22-2023 BP CONTROLLED (<130/80) BP CONTROLLE D (<130/80) [facility] Start: 04-13-2023 BP CONTROLLED (<130/80) BP CONTROLLE D (<130/80) [facility] Start: 03-29-2023 BP CONTROLLED (<130/80) BP CONTROLLE D (<130/80) [facility] Start: 03-23-2023 ANNUAL PCP TEAM OSTEOPATHIC PHYSICIAN KEILY DISEASE VISIT ANNUAL PCP TEAM CHRONIC DISEASE VISIT [facility] Start: 03-23-2023 Urine microalbumin profile [facility] Comment on above: Postponed from 03/20 (Declined at this time) Start: 03-11-2023 Hzv zoster vacc recombinant adjuvanted im njx ZOSTER VACCINE, RECOMBINANT (SHINGRIX) Immunization/Injection Routine Encounter for immunization Expected: 03/11/2023 [facility] Work Phone: Comment on above: Expected: 03/11/2023 Start: 03-07-2023 Behavioral Health Screening Behavioral Health Screening [facility] Start: 03-07-2023 Depression Assessment Depression Ass essment [facility] Start: 03-07-2023 Shingrix Vaccine (2 of 2) Shingrix Vaccine (2 of 2) [facility] Start: 03-04-2023 End: 06-03-2023 Ct thorax w/o contrast material CT CHEST WO IVCON Radiology Routine Malignant neoplasm of unspecified part of unspecified bronchus or lung (HCC) Expected: 03/04/2023 (Approximate), Expires: 06/03/2023 [facility] Work Phone: Comment on above: Expected: 03/04/2023 (Approximate), Expires: 06/03/2023 Start: 01-05-2023 ANNUAL PCP TEAM OSTEOPATHIC PHYSICIAN KEILY DISEASE VISIT ANNUAL PCP TEAM CHRONIC DISEASE VISIT [facility] Start: 01-05-2023 BP CONTROLLED (<130/80) BP CONTROLLE D (<130/80) [facility] Start: 11-25-2022 DIABETES SCREEN DIABETES SCREEN [facility] Start: 11-05-2022 Covid-19 Vaccine ( season) Covid-19 Vaccine () [facility] Start: 11-05-2022 Influenza vaccination C [facility] Start: 06-29-2022 BP CONTROLLED (<130/80) BP CONTROLLE D (<130/80) [facility] Start: 06-12-2022 Adult depression screening assessment DEPRESSION SCREENING [facility] Start: 06-12-2022 ANNUAL PCP TEAM OSTEOPATHIC PHYSICIAN KEILY DISEASE VISIT ANNUAL PCP TEAM CHRONIC DISEASE VISIT [facility] Start: 06-09-2022 LIPID SCREEN LIPID SCREEN [facility] Start: 06-02-2022 End: 08-02-2022 Comprehensive metabolic 2000 panel - Serum or Plasma COMP METABOLIC PANEL Lab Routine Hypertension, essential Expected: 06/02/2022, Expires: 08/02/2022 [facility] Work Phone: Comment on above: Expected: 06/02/2022 , Expires: 08/02/2022 Start: 06-02-2022 End: 08-02-2022 Lipid 1996 panel - Serum or Plasma LIPID PANEL BASIC Lab Routine Screening for hyperlipidemia Expected: 06/02/2022, Expires: 08/02/2022 [facility] Work Phone: Comment on above: Expected: 06/02/2022 , Expires: 08/02/2022 Start: 03-23-2022 Colonoscopy COLONOSCOPY [facility] Start: 03-23-2022 COLORECTAL CANCER SCREENING COLORECTAL CANCER SCREENING [facility] Start: 03-07-2022 DEPRESSION ASSESSMENT DEPRESSION ASS ESSMENT [facility] Start: 11-05-2021 Influenza vaccination C [facility] Start: 06-12-2021 End: 08-12-2021 Comprehensive metabolic 2000 panel - Serum or Plasma [facility] Work Phone: Comment on above: Expected: 06/12/2021 , Expires: 08/12/2021 Start: 06-12-2021 End: 08-12-2021 LIPID PANEL, NONFASTING [facility] Work Phone: Comment on above: Expected: 06/12/2021 , Expires: 08/12/2021 Start: 03-07-2021 DEPRESSION ASSESSMENT DEPRESSION ASS ESSMENT [facility] Start: 2020 SHINGRIX VACCINE (1 of 2) SHINGRIX VACCINE (1 of 2) [facility] Start: 03-20-2019 Urine microalbumin profile [facility] Start: 10-29-2017 PNEUMOCOCCAL (2 - PCV) PNEUMOCOCCAL (2 - PCV) [facility] Start: 11-07-2015 COLOGUARD (FIT-DNA) COLOGUARD (FIT-D NA) [facility] Start: 11-07-[address] COLONOGRAPHY [facility] Start: 11-07-2015 FECAL OCCULT BLOOD FECAL OCCULT BLOO D [facility] Start: 11-07-2015 Screening for malign ant neoplasm of colon [facility] Start: 11-07-2015 SIGMOIDOSCOPY SIGMOIDOSCOPY [facility] Start: 2000 Zoledronic acid therapy Alpha- 1 Antitrypsin Deficiency Screening [facility] Start: 1989 Hepatitis B Vaccine (1 of 3 - 19+ 3-dose series) Hepatitis B Vaccine (1 of 3 - 19+ 3-dose series) [facility] Start: 1988 BP CONTROLLED (<130/80) BP CONTROLLE D (<130/80) [facility] Start: 1988 Depression Screening Depression Scre ening [facility] Start: 11-07-1975 COVID-19 VACCINE (1) COVID-19 VACCIN E (1) [facility] Start: 05-07-1971 COVID-19 VACCINE (#1) COVID-19 VACCI NE (#1) [facility] Start: 1970 HEPATITIS B (1 of 3 - 3-dose series) HEPATITIS B (1 of 3 - 3-dose series) [facility] Start: 1970 Hepatitis B Vaccine (1 of 3 - 3-dose series) Hepatitis B Vaccine (1 of 3 - 3-dose series) [facility] End: 02-04-2023 CT CHEST W IVCON CT CHEST W IVCON Radiology Routine Malignant neoplasm of unspecified part of unspecified bronchus or lung (HCC) S/P lobectomy of lung 1 Occurrences starting 01/05/2022 until 02/04/2023 [facility] Work Phone: Comment on above: 1 Occurrences starti ng 01/05/2022 until 02/04/2023 End: 04-14-2025 CT Chest WO contrast CT CHEST WO IVCON Radiology Routine Neoplasm of lung 1 Occurrences starting 03/15/2024 until 04/14/2025 [facility] Work Phone: Comment on above: 1 Occurrences starti ng 03/15/2024 until 04/14/2025 End: 02-04-2023 LUNG DIFFUSION CAPACITY (DLCO) LUNG DIFFUSION CAPACITY (DLCO) PFT Routine Malignant neoplasm of unspecified part of unspecified bronchus or lung (HCC) S/P lobectomy of lung 1 Occurrences starting 01/05/2022 until 02/04/2023 [facility] Work Phone: Comment on above: 1 Occurrences starti ng 01/05/2022 until 02/04/2023 End: 02-04-2023 Radex spine lumbosacral 2/3 views XR LUMBAR GENERAL 3V AP/LAT/L5-S1 Radiology Routine Acute bilateral low back pain without sciatica 1 Occurrences starting 01/05/2022 until 02/04/2023 [facility] Work Phone: Comment on above: 1 Occurrences starti ng 01/05/2022 until 02/04/2023 Radex spine lumbosac ral 2/3 views XR LUMBAR GENERAL 3V AP/LAT/L5-S1 Radiology Routine Acute bilateral low back pain without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 tiotropium-olodaterol (STIOLTO RESPIMAT) 2.5-2.5 mcg/actuation inhaler Inhale 2 Puffs as instructed once daily. cholestyramine-sucrose (QUESTRAN) 4 gram powder Dissolve 2 g (1/2 scoop) in water or juice and take by mouth before meals twice daily albuterol HFA (VENTOLIN HFA) 90 mcg/actuation inhaler Inhale 2 Puffs as instructed every 4 hours as needed. (Patient not taking: Reported on 04/17/2024) No current facility-administered medications for this visit. Medications and allergies reviewed by this provider. SOCIAL HISTORY Social History Tobacco Use Smoking status: Former Current packs/day: 0.00 Average packs/day: 3.0 packs/day for 33.1 years (99.4 ttl pk-yrs) Types: Cigarettes Start date: 07/18/1984 Quit date: 08/31/2017 Years since quittin.9 Smokeless tobacco: Never Tobacco comments: quit day of surgery Vaping Use Vaping status: Never Used Substance Use Topics Alcohol use: Yes Comment: 2-3 hard cider most days Drug use: No REVIEW OF SYSTEMS All other reviewed and negative other than HPI. OBJECTIVE: BP 142/84 Pulse 70 Resp 18 Wt 81.8 kg (180 lb 6.4 oz) SpO2 97% BMI 26.64 kg/m . Vital signs reviewed by this provider. APPEARANCE Well appearing, alert, in no acute distress, well-hydrated, well nourished. BACK: no pain to palpation, good flexion and extension, negative SLR test, Large yellowish ecchymotic area to left and right lunar spine sparing the midline, greater on left than right side- patient denies any recent injury EXTREMITIES Extremities normal, No deformities, No skin discoloration, and No edema NEURO Reflexes symmetrical, Normal gait, No involuntary motions., and negative findings: muscle tone normal, muscle strength normal, reflexes normal and symmetric, plantar response downgoing bilaterally SKIN no other ecchymosis noted to torso, arms or legs Depression Screening Never done Hepatitis B Vaccine(1 of 3 - 19+ 3-dose series) Never done DTaP,Tdap,Td Vaccine(1 - Tdap) due on 03/20/2019 Covid-19 Vaccine( season) due on 01/10/2025 Annual PCP Team Chronic Disease Visit due on 08/15/2025 Diabetes Screening due on 02/02/2027 Colorectal Cancer Screening due on 05/15/2027 Lipid Screening due on 02/02/2029 Influenza Vaccine Completed Shingrix Vaccine Completed Pneumococcal Vaccine: 50+ Completed Hepatitis C Screening Discontinued HIV Screening Discontinued ASSESSMENT/PLAN: 1. Acute on chronic low back pain - ICD9: 724.2, 338.19, 338.29, ICD10: M54.50, G89.29 (primary diagnosis) - no red flag symptoms or exam findings - red flag symptoms discussed, verbalizes understanding - per patient has noted improvement with rest - recommend OTC heat or ice for 15 minutes at a time as well as OTC pain relievers as directed on packaging - XR LUMBAR GENERAL 3V AP/LAT/L5-S1 - follow-up if fails to improve to ER with red flag symptoms 2. Ecchymosis - ICD9: 459.89, ICD10: R58 - unclear etiology as patient does not remember any trauma to area - no other areas of bruising - no red flag symptoms or exam findings - red flag symptoms discussed, verbalizes understanding - COMPLETE BLOOD COUNT AND DIFFERENTIAL - COMPREHENSIVE METABOLIC PANEL - ACTIVATED PARTIAL THROMBOPLASTIN TIME - PROTHROMBIN TIME - follow-up pending blood work to ER with red flag symptoms Belkys Devine APRN.MARINA Prescription instructions reviewed with patient as applicable. Patient advised if symptoms do not improve or if symptoms worsen sooner, to contact their primary care physician. Potential red flag symptoms discussed with the patient. Reviewed appropriate action plan to take if red flag symptoms occur. Patient agreeable to treatment plan. Medical Decision Making: Problems: Moderate: 1+ chronic illnesses with change and New problem with uncertain prognosis Data: Unique test(s) ordered: 3+ Medical Decision Making Level: 4 - Moderate documented in this encounter [facility] 08-03-2024 Telephone encounter Note Patient has been identified by name and date of : Patient phones for refill(s): Requested Prescriptions Pending Prescriptions Disp Refills pantoprazole DR (PROTONIX) 40 mg tablet 90 tablet 1 Sig: Take 1 tablet by mouth once daily. Date of last office visit in primary care: 07/02/2024 Date of next office visit in primary care: 09/26/2024 Please advise. Thank you. Katarina Cortes LPN. [facility] Work Phone: 08-03-2024 Miscellaneous Notes Patient has been identified by name and date of : Patient phones for refill(s): Requested Prescriptions Pending Prescriptions Disp Refills pantoprazole DR (PROTONIX) 40 mg tablet 90 tablet 1 Sig: Take 1 tablet by mouth once daily. Date of last office visit in primary care: 07/02/2024 Date of next office visit in primary care: 09/26/2024 Please advise. Thank you. Katarina Cortes LPN. documented in this encounter [facility] 07-03-2024 Note HNO ID: [id number] Author: JUVE WILKS PA Service: ? Author Type: Physician Screen Writer Type: Progress Notes Filed: 07/03/2024 10:32 Note Text: [facility] Subjective Navarro Lin is a 53 year old male. Patient presents with: Sore Throat: x 4 days, ? splinter from bone in throat HPI 53-year-old male presents for sore throat for the past 4 days. Patient states sore throat started after eating wings on Tuesday. He states that he has burning sensation in his throat and his throat feels irritated since then. He states he did not choke or remember swallowing anything, but is concerned he may have scratched his throat with a bone or have a bone stuck in his throat. He has also had nasal congestion, productive cough. He reports chills. No fevers. He has not taken anything for his symptoms. He is still able to eat and drink. He did see his PCP yesterday, but declined all viral testing. Symptoms have persisted through today, so he is here for evaluation. 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 Diverticulosis Erectile dysfunction Generalized anxiety disorder Hemorrhoid History of carpal tunnel release of both wrists History of tobacco use Hypertension Malignant neoplasm of vertebral column (HCC) 2018 calcified mass, benign PAST SURGICAL HISTORY Procedure Laterality Date BACK SURGERY HX fusion COLONOSCOPY 05/14/2022 repeat in 5 years COLONOSCOPY FLX DX W/COLLJ SPEC WHEN PFRMD 03/23/2019 Colonoscopy ESOPHAGOGASTRODUODENOSCOPY TRANSORAL DIAGNOSTIC 03/23/2019 EGD ORTHOPEDICS SURGERY HX Right 1999 boxer fracture repair- right hand PAST SURGICAL HISTORY OF 11/2017 s/p T12-L1 laminectomy, resection of epidural tumor, T12-L1 posterolateral fusion with pedicle screw fixation PICC LINE INSERT/CONSULT 09/02/2017 REVISE MEDIAN N/CARPAL TUNNEL SURG Left 01/02/2021 Left carpal tunnel release REVISE MEDIAN N/CARPAL TUNNEL SURG Right 11/2021 Carpal tunnel release surgery RMVL LUNG OTHER THAN PNEUMONECTOMY 1 LOBE LOBECT Right 08/31/2017 VATS right upper lung lobectomy, lymph node dissection by lung cancer SKIN BIOPSY HX TONSILLECTOMY PRIMARY/SECONDARY Tonsillectomy ALLERGIES Darvocet A500 [Propoxyphene N-Acetaminophen] MEDICATIONS hydroCHLOROthiazide 12.5 mg capsule Take 1 capsule by mouth once daily. sildenafil (VIAGRA) 50 mg tablet Take 1 tablet by mouth once daily as needed. ondansetron orally disintegrating (ZOFRAN ODT) 4 mg disintegrating tablet Take 1 tablet by mouth every 8 hours as needed for nausea/vomiting. famotidine (PEPCID) 20 mg tablet Take 1 tablet by mouth at bedtime as needed. losartan (COZAAR) 50 mg tablet Take 1 tablet by mouth once daily. atorvastatin (LIPITOR) 10 mg tablet Take 1 tablet by mouth once daily. pantoprazole DR (PROTONIX) 40 mg tablet Take 1 tablet by mouth once daily. tiotropium-olodaterol (STIOLTO RESPIMAT) 2.5-2.5 mcg/actuation inhaler Inhale 2 Puffs as instructed once daily. cholestyramine-sucrose (QUESTRAN) 4 gram powder Dissolve 2 g (1/2 scoop) in water or juice and take by mouth before meals twice daily albuterol HFA (VENTOLIN HFA) 90 mcg/actuation inhaler Inhale 2 Puffs as instructed every 4 hours as needed. (Patient not taking: Reported on 04/17/2024) FAMILY HISTORY Problem Relation Age of Onset Heart Mother [place] at 52 y/o Heart Father pacemaker other (paralyzed) Father after fall-bed bound at 82 y/o Breast Cancer Maternal Aunt Coronary Artery Disease Sister s/p stent Alcohol/Drug Brother Opiate overdose in his 40's None Sister Alcohol/Drug Brother other (unkown) Brother in [facility] Social History Tobacco Use Smoking status: Former Current packs/day: 0.00 Average packs/day: 3.0 packs/day for 33.1 years (99.4 ttl pk-yrs) Types: Cigarettes Start date: 07/18/1984 Quit date: 08/31/2017 Years since quittin.8 Smokeless tobacco: Never Tobacco comments: quit day of surgery Vaping Use Vaping status: Never Used Substance Use Topics Alcohol use: Yes Comment: 2-3 hard cider most days Drug use: No Review of Systems Constitutional: Positive for chills. Negative for fever. HENT: Positive for congestion and sore throat. Respiratory: Positive for cough. Negative for shortness of breath. Gastrointestinal: Negative for diarrhea and vomiting. Objective BP 124/78 Pulse 88 Temp 36.6 ?C (97.9 ?F) Resp 16 Wt 81.9 kg (180 lb 8.9 oz) SpO2 97% BMI 26.66 kg/m? Physical Exam Vitals and nursing note reviewed. Constitutional: General: He is not in acute distress. Appearance: Normal appearance. He is not toxic-appearing. HENT: Right Ear: Tympanic membrane and ear canal normal. Left Ear: (more content not included)... [facility] 07-03-2024 History of Present illness Narrative [facility] Subjective Navarro Lin is a 53 year old male. Patient presents with: Sore Throat: x 4 days, ? splinter from bone in throat HPI 53-year-old male presents for sore throat for the past 4 days. Patient states sore throat started after eating wings on Tuesday. He states that he has burning sensation in his throat and his throat feels irritated since then. He states he did not choke or remember swallowing anything, but is concerned he may have scratched his throat with a bone or have a bone stuck in his throat. He has also had nasal congestion, productive cough. He reports chills. No fevers. He has not taken anything for his symptoms. He is still able to eat and drink. He did see his PCP yesterday, but declined all viral testing. Symptoms have persisted through today, so he is here for evaluation. 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 Diverticulosis Erectile dysfunction Generalized anxiety disorder Hemorrhoid History of carpal tunnel release of both wrists History of tobacco use Hypertension Malignant neoplasm of vertebral column (HCC) 2018 calcified mass, benign PAST SURGICAL HISTORY Procedure Laterality Date BACK SURGERY HX fusion COLONOSCOPY 05/14/2022 repeat in 5 years COLONOSCOPY FLX DX W/COLLJ SPEC WHEN PFRMD 03/23/2019 Colonoscopy ESOPHAGOGASTRODUODENOSCOPY TRANSORAL DIAGNOSTIC 03/23/2019 EGD ORTHOPEDICS SURGERY HX Right 2000 boxer fracture repair- right hand PAST SURGICAL HISTORY OF 11/2017 s/p T12-L1 laminectomy, resection of epidural tumor, T12-L1 posterolateral fusion with pedicle screw fixation PICC LINE INSERT/CONSULT 09/02/2017 REVISE MEDIAN N/CARPAL TUNNEL SURG Left 01/02/2021 Left carpal tunnel release REVISE MEDIAN N/CARPAL TUNNEL SURG Right 11/2021 Carpal tunnel release surgery RMVL LUNG OTHER THAN PNEUMONECTOMY 1 LOBE LOBECT Right 08/31/2017 VATS right upper lung lobectomy, lymph node dissection by lung cancer SKIN BIOPSY HX TONSILLECTOMY PRIMARY/SECONDARY <AGE 12 Tonsillectomy ALLERGIES Darvocet A500 [Propoxyphene N-Acetaminophen] MEDICATIONS hydroCHLOROthiazide 12.5 mg capsule Take 1 capsule by mouth once daily. sildenafil (VIAGRA) 50 mg tablet Take 1 tablet by mouth once daily as needed. ondansetron orally disintegrating (ZOFRAN ODT) 4 mg disintegrating tablet Take 1 tablet by mouth every 8 hours as needed for nausea/vomiting. famotidine (PEPCID) 20 mg tablet Take 1 tablet by mouth at bedtime as needed. losartan (COZAAR) 50 mg tablet Take 1 tablet by mouth once daily. atorvastatin (LIPITOR) 10 mg tablet Take 1 tablet by mouth once daily. pantoprazole DR (PROTONIX) 40 mg tablet Take 1 tablet by mouth once daily. tiotropium-olodaterol (STIOLTO RESPIMAT) 2.5-2.5 mcg/actuation inhaler Inhale 2 Puffs as instructed once daily. cholestyramine-sucrose (QUESTRAN) 4 gram powder Dissolve 2 g (1/2 scoop) in water or juice and take by mouth before meals twice daily albuterol HFA (VENTOLIN HFA) 90 mcg/actuation inhaler Inhale 2 Puffs as instructed every 4 hours as needed. (Patient not taking: Reported on 04/17/2024) FAMILY HISTORY Problem Relation Age of Onset Heart Mother [place] at 52 y/o Heart Father pacemaker other (paralyzed) Father after fall-bed bound at 82 y/o Breast Cancer Maternal Aunt Coronary Artery Disease Sister s/p stent Alcohol/Drug Brother Opiate overdose in his 40's None Sister Alcohol/Drug Brother other (unkown) Brother in [facility] Social History Tobacco Use Smoking status: Former Current packs/day: 0.00 Average packs/day: 3.0 packs/day for 33.1 years (99.4 ttl pk-yrs) Types: Cigarettes Start date: 07/18/1984 Quit date: 08/31/2017 Years since quittin.8 Smokeless tobacco: Never Tobacco comments: quit day of surgery Vaping Use Vaping status: Never Used Substance Use Topics Alcohol use: Yes Comment: 2-3 hard cider most days Drug use: No Review of Systems Constitutional: Positive for chills. Negative for fever. HENT: Positive for congestion and sore throat. Respiratory: Positive for cough. Negative for shortness of breath. Gastrointestinal: Negative for diarrhea and vomiting. Objective BP 124/78 Pulse 88 Temp 36.6 C (97.9 F) Resp 16 Wt 81.9 kg (180 lb 8.9 oz) SpO2 97% BMI 26.66 kg/m Physical Exam Vitals and nursing note reviewed. Constitutional: General: He is not in acute distress. Appearance: Normal appearance. He is not toxic-appearing. HENT: Right Ear: Tympanic membrane and ear canal normal. Left Ear: Tympanic membrane and ear canal normal. Nose: Nose normal. Mouth/Throat: Mouth: Mucous membranes are moist. Pharynx: Uvula midline. Posterior oropharyngeal erythema present. Tonsils: No tonsillar exudate or tonsillar abscesses. 0 on the right. 0 on the left. Comments: No foreign body seen. Uvula midline. Erythema noted of the uvula and posterior oropharynx. Handling secretions. No trismus. Eyes: Conjunctiva/sclera: Conjunctivae normal. Cardiovascular: Rate and Rhythm: Normal rate and regular rhythm. Pulmonary: Effort: Pulmonary effort is normal. Breath sounds: Normal breath sounds. Skin: General: Skin is warm and dry. Neurological: Mental Status: He is alert. {ASSESSMENT/PLAN: 1. Sore throat - ICD9: 462, ICD10: J02.9 - suspect viral - Group A strep molecular testing negative - Discussed supportive care treatment with fluids, rest and analgesia. - The patient may also use warm salt water gargles, throat lozenges and/or OTC throat spray as needed. - STREP A MOLECULAR (POC) -Do suspect this is more viral with chills, congestion and cough. - No foreign body seen on exam. Patient reports irritation just at the back of his throat. Discussed I do not believe XR would be beneficial at this point to show foreign body. I did recommend if he continues with foreign body sensation to follow-up with ENT. He will call [facility] and schedule his own appointment. If unable to swallow, difficulty swallowing, go to ER. Patient agreeable. Diagnosis and treatment plan were discussed and questions were answered to the patient's satisfaction. Pt acknowledged understanding of concepts and follow up plan. Specific signs and symptoms that would indicate the need for higher level of care were discussed in detail warranting prompt ER evaluation. LOREE Torre History and Record Review External record(s) reviewed: prior outpatient record. Systemic symptoms present included: Chills Differential Diagnoses - Viral pharyngitis is more likely for the following reason(s): suggested by H&P - Strep pharyngitis is less likely for the following reason(s): laboratory studies not suggestive Disposition The patient was discharged. Procedures documented in this encounter [facility] 07-02-2024 Note HNO ID: [id number] Author: BELKYS DEVINE APRN.COMPENSATION CONSULTING MANAGER Service: ? Author Type: Nurse Practitioner Type: Progress Notes Filed: 07/02/2024 12:50 Note Text: 07/02/2024 Patient presents with: Sore Throat: Burning and hard to swallow, Nasal congestion, cough x2 days SUBJECTIVE: This is a 53 year old that is here today for Above Complaints.. Tuesday started with sore throat after eating some wings. Since then has had burning in throat, feels like it is hard to swallow. Also noted nasal congestion and cough.Not taking any OTC medications for symptoms. Denies fevers, chills, loss of taste or smell, rhinorrhea, SOB, dyspnea, wheezing, nausea, vomiting or diarrhea. 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 sildenafil (VIAGRA) 50 mg tablet Take 1 tablet by mouth once daily as needed. ondansetron orally disintegrating (ZOFRAN ODT) 4 mg disintegrating tablet Take 1 tablet by mouth every 8 hours as needed for nausea/vomiting. famotidine (PEPCID) 20 mg tablet Take 1 tablet by mouth at bedtime as needed. losartan (COZAAR) 50 mg tablet Take 1 tablet by mouth once daily. atorvastatin (LIPITOR) 10 mg tablet Take 1 tablet by mouth once daily. pantoprazole DR (PROTONIX) 40 mg tablet Take 1 tablet by mouth once daily. tiotropium-olodaterol (STIOLTO RESPIMAT) 2.5-2.5 mcg/actuation inhaler Inhale 2 Puffs as instructed once daily. cholestyramine-sucrose (QUESTRAN) 4 gram powder Dissolve 2 g (1/2 scoop) in water or juice and take by mouth before meals twice daily albuterol HFA (VENTOLIN HFA) 90 mcg/actuation inhaler Inhale 2 Puffs as instructed every 4 hours as needed. (Patient not taking: Reported on 04/17/2024) No current facility-administered medications for this visit. Medications and allergies reviewed by this provider. SOCIAL HISTORY Social History Tobacco Use Smoking status: Former Current packs/day: 0.00 Average packs/day: 3.0 packs/day for 33.1 years (99.4 ttl pk-yrs) Types: Cigarettes Start date: 07/18/1984 Quit date: 08/31/2017 Years since quittin.8 Smokeless tobacco: Never Tobacco comments: quit day of surgery Vaping Use Vaping status: Never Used Substance Use Topics Alcohol use: Yes Comment: 2-3 hard cider most days Drug use: No REVIEW OF SYSTEMS All other reviewed and negative other than HPI. OBJECTIVE: BP 144/84 Pulse 86 Temp 37.5 ?C (99.5 ?F) Resp 18 Wt 83.5 kg (184 lb) SpO2 95% BMI 27.17 kg/m? . Vital signs reviewed by this provider. APPEARANCE Well appearing, alert, in no acute distress, well-hydrated, well nourished. EYES PERRLA, conjunctiva and sclera normal. EARS External ears normal, canals clear NOSE/SINUS negative findings: no sinus tenderness THROAT mild erythema Neck: Supple, no adenopathy; thyroid symmetric, normal size HEART RRR with normal S1 and S2, no murmurs, no gallops, no JVD appreciated LUNG clear to auscultation. No wheezes, rhonchi or rales SKIN Skin color, texture, turgor normal, no suspicious rashes or lesions Depression Screening Never done BP Controlled (<130/80) Never done Hepatitis B Vaccine(1 of 3 - 19+ 3-dose series) Never done Alpha-1 Antitrypsin Deficiency Screening Never done DTaP,Tdap,Td Vaccine(1 - Tdap) due on 03/20/2019 Covid-19 Vaccine( season) due on 01/10/2025 Annual PCP Team Chronic Disease Visit due on 05/09/2025 Diabetes Screening due on 02/02/2027 Colorectal Cancer Screening due on 05/15/2027 Lipid Screening due on 02/02/2029 Spirometry Completed Influenza Vaccine Completed Shingrix Vaccine Completed Pneumococcal Vaccine: 50+ Completed Hepatitis C Screening Discontinued HIV Screening Discontinued ASSESSMENT/PLAN: 1. Sore throat - ICD9: 462, ICD10: J02.9 - suspect viral - declines strep, influenza and COVID-19 testing - no red flag symptoms or exam findings - red flag symptoms discussed, verbalizes understanding - Discussed supportive care treatment with fluids, rest and analgesia. - The patient may also use OTC cough and cold meds as needed, warm salt water gargles, throat lozenges and/or OTC throat spray as needed, and nasal saline gtts and suction prn. - The patient should follow up in 3-5 days if symptoms persist or worsen - Call back if drooling, increased temperature, symptom (more content not included)... [facility] 06-06-2024 Telephone encounter Note Last script sent 03/28/24 foir 10 tabs with 2 refills. Pt confirms he has used all 30 tablets. The patient has been identified by name and date of : Yes Caregiver verified no other encounters exist for this prescription request: Yes Caregiver confirmed with patient/requestor that no other refills are due, in the near future, with this provider at this time: Yes The last office visit in the department: 05/09/2024 Does the patient have a future office visit with this provider/department: Yes 09/26/2024 Requested Prescriptions Pending Prescriptions Disp Refills sildenafil (VIAGRA) 50 mg tablet 10 tablet 2 Sig: Take 1 tablet by mouth once daily as needed. Jessa Roberto RN June 06, 2024 3:12 PM [facility] 06-06-2024 Miscellaneous Notes Last script sent 03/28/24 foir 10 tabs with 2 refills. Pt confirms he has used all 30 tablets. The patient has been identified by name and date of : Yes Caregiver verified no other encounters exist for this prescription request: Yes Caregiver confirmed with patient/requestor that no other refills are due, in the near future, with this provider at this time: Yes The last office visit in the department: 05/09/2024 Does the patient have a future office visit with this provider/department: Yes 09/26/2024 Requested Prescriptions Pending Prescriptions Disp Refills sildenafil (VIAGRA) 50 mg tablet 10 tablet 2 Sig: Take 1 tablet by mouth once daily as needed. Jessa Roberto RN June 06, 2024 3:12 PM documented in this encounter [facility] 05-29-2024 Note HNO ID: [id number] Author: CRYSTAL ESPARZA PA-C Service: ? Author Type: Physician Screen Writer Type: Progress Notes Filed: 05/29/2024 10:04 Note Text: This note was created using [employer]. Subjective Navarro Lin is a 53 year old male. Patient is a 53-year-old male who complains of acute onset of fever, chills, myalgia and upset stomach that he has been experiencing for the past 1 day. Patient reports no congestion, sinus pressure, ear pain, sore throat or cough. Patient describes a generalized feeling of illness. Patient does have a history of diverticulitis but states that his symptoms involve only epigastric discomfort and he denies focal abdominal pain. Patient does take cholestyramine for chronic diarrhea. Patient reports mild nausea and states that he has a history of same and has a prescription for Zofran at home. Patient is also taking Protonix 40 mg prescribed for gastric reflux. Patient clearly denies focal right upper quadrant or right lower quadrant abdominal pain. Patient states other family members at home are asymptomatic. Abdominal Pain Associated symptoms include fever and myalgias. Review of Systems Constitutional: Positive for chills, fatigue and fever. Gastrointestinal: Positive for abdominal pain. Musculoskeletal: Positive for myalgias. All other systems reviewed and are negative. Objective BP 167/84 Pulse 71 Temp 36.7 ?C (98 ?F) Resp 20 Wt 85 kg (187 lb 6.3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 BP Position: Sitting) Pulse 76 Resp 16 Wt 84.9 kg (187 lb 2.7 oz) SpO2 98% BMI 27.64 kg/m . Vital signs reviewed by this provider. APPEARANCE Well appearing, alert, in no acute distress, well-hydrated, well nourished. LEFT HAND: No obvious deformity, swelling, erythema or ecchymosis. 2+ radial pulse with cap refill WNL. Able to make fist and okay sign. Depression Screening Never done BP Controlled (<130/80) Never done Hepatitis B Vaccine(1 of 3 - 19+ 3-dose series) Never done Alpha-1 Antitrypsin Deficiency Screening Never done DTaP,Tdap,Td Vaccine(1 - Tdap) due on 03/20/2019 Covid-19 Vaccine( - season) due on 01/10/2025 Annual PCP Team Chronic Disease Visit due on 03/28/2025 Diabetes Screening due on 02/02/2027 Colorectal Cancer Screening due on 05/15/2027 Lipid Screening due on 02/02/2029 Spirometry Completed Influenza Vaccine Completed Shingrix Vaccine Completed Pneumococcal Vaccine: 50+ Completed Hepatitis C Screening Discontinued HIV Screening Discontinued ASSESSMENT/PLAN: 1. Left hand pain - ICD9: 729.5, ICD10: M79.642 - no red flag symptoms or exam findings - red flag symptoms discussed, verbalizes understanding - would recommend ice for 15 minutes at a time as well as OTC pain reliever as directed on packaging if needed - follow-up if fails to improve to ER with red flag symptoms Belkys Devine APRN.MARINA Prescription instructions reviewed with patient as applicable. Patient advised if symptoms do not improve or if symptoms worsen sooner, to contact their primary care physician. Potential red flag symptoms discussed with the patient. Reviewed appropriate action plan to take if red flag symptoms occur. Patient agreeable to treatment plan. Medical Decision Making: Problems: Low: Acute, uncomplicated illness or injury Risk: Low: Low risk from testing/treatment Medical Decision Making Level: 3 - Low documented in this encounter [facility] 04-06-2024 Telephone encounter Note Prescription Refill Information The patient has been identified by name and date of : Yes Caregiver verified no other encounters exist for this prescription request: Yes Caregiver confirmed with patient/requestor that no other refills are due, in the near future, with this provider at this time: Yes The last office visit in the department: 03/28/24 Does the patient have a future office visit with this provider/department: Yes 7/23/25 Requested Prescriptions Pending Prescriptions Disp Refills famotidine (PEPCID) 20 mg tablet 90 tablet 1 Sig: Take 1 tablet by mouth at bedtime as needed. Jessa Crockett LPN April 06, 2024 9:27 AM [facility] 04-06-2024 Miscellaneous Notes Prescription Refill Information The patient has been identified by name and date of : Yes Caregiver verified no other encounters exist for this prescription request: Yes Caregiver confirmed with patient/requestor that no other refills are due, in the near future, with this provider at this time: Yes The last office visit in the department: 03/28/24 Does the patient have a future office visit with this provider/department: Yes 09/26/24 Requested Prescriptions Pending Prescriptions Disp Refills famotidine (PEPCID) 20 mg tablet 90 tablet 1 Sig: Take 1 tablet by mouth at bedtime as needed. Jessa Crockett LPN April 06, 2024 9:27 AM documented in this encounter [facility] 03-28-2024 Note HNO ID: [id number] Author: BELKYS DEVINE APRN.COMPENSATION CONSULTING MANAGER Service: ? Author Type: Nurse Practitioner Type: Progress Notes Filed: 03/28/2024 15:51 Note Text: 03/28/2024 Patient presents with: Blood Pressure Check SUBJECTIVE: This is a 53 year old that is here today for Above Complaints. Lisinopril changed to Losartan at last office appointment in January as patient thought contributing to his ED. Reports seems to last a little longer. Taking and tolerating without side effects. Denies visual changes, headaches lightheadedness, dizziness, slurred speech, facial drooping, extremity numbness tingling or weakness. Patient was prescribed Viagra in the past but he reports was too expensive. 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 atorvastatin (LIPITOR) 10 mg tablet Take 1 tablet by mouth once daily. pantoprazole DR (PROTONIX) 40 mg tablet Take 1 tablet by mouth once daily. hydroCHLOROthiazide 12.5 mg capsule Take 1 capsule by mouth once daily. tiotropium-olodaterol (STIOLTO RESPIMAT) 2.5-2.5 mcg/actuation inhaler Inhale 2 Puffs as instructed once daily. famotidine (PEPCID) 20 mg tablet Take 1 tablet by mouth at bedtime as needed. cholestyramine-sucrose (QUESTRAN) 4 gram powder Dissolve 2 g (1/2 scoop) in water or juice and take by mouth before meals twice daily albuterol HFA (VENTOLIN HFA) 90 mcg/actuation inhaler Inhale 2 Puffs as instructed every 4 hours as needed. ondansetron orally disintegrating (ZOFRAN ODT) 4 mg disintegrating tablet Take 1 tablet by mouth every 8 hours as needed for nausea/vomiting. No current facility-administered medications for this visit. Medications and allergies reviewed by this provider. SOCIAL HISTORY Social History Tobacco Use Smoking status: Former Current packs/day: 0.00 Average packs/day: 3.0 packs/day for 33.1 years (99.4 ttl pk-yrs) Types: Cigarettes Start date: 07/18/1984 Quit date: 08/31/2017 Years since quittin.5 Smokeless tobacco: Never Tobacco comments: quit day of surgery Vaping Use Vaping status: Never Used Substance Use Topics Alcohol use: Yes Comment: 2-3 hard cider most days Drug use: No REVIEW OF SYSTEMS All other reviewed and negative other than HPI. OBJECTIVE: BP 136/78 Pulse 70 Resp 18 Wt 85.6 kg (188 lb 12.8 oz) SpO2 97% BMI 27.88 kg/m? . Vital signs reviewed by this provider. APPEARANCE Well appearing, alert, in no acute distress, well-hydrated, well nourished. Depression Screening Never done BP Controlled (<130/80) Never done Hepatitis B Vaccine(1 of 3 - 19+ 3-dose series) Never done Alpha-1 Antitrypsin Deficiency Screening Never done DTaP,Tdap,Td Vaccine(1 - Tdap) due on 03/20/2019 Covid-19 Vaccine( - season) due on 01/10/2025 Annual PCP Team Chronic Disease Visit due on 03/28/2025 Diabetes Screening due on 02/02/2027 Colorectal Cancer Screening due on 05/15/2027 Lipid Screening due on 02/02/2029 Spirometry Completed Influenza Vaccine Completed Shingrix Vaccine Completed Pneumococcal Vaccine: 50+ Completed HPV Vaccine Aged Out Hepatitis C Screening Discontinued HIV Screening Discontinued ASSESSMENT/PLAN: 1. Hypertension, essential - ICD9: 401.9, ICD10: I10 (primary diagnosis) - Controlled - Continue current medications - Recommend home blood pressure monitoring, to bring results to next visit - Encouraged sodium restriction, DASH or Mediterranean diet - Recommend regular aerobic exercise - Follow up in 6 months for hypertension visit - LOSARTAN 50 MG TABLET 2. ED (erectile dysfunction) of organic origin - ICD9: 607.84, ICD10: N52.9 - follow-up if symptoms fail to improve - SILDENAFIL 50 MG TABLET- possible side effects discussed Belkys Devine APRN.COMPENSATION CONSULTING MANAGER Prescription instructions reviewed with patient as applicable. Patient advised if symptoms do not improve or if symptoms worsen sooner, to contact their primary care physician. Potential red flag symptoms discussed with the patient. Reviewed appropriate action plan to take if red flag symptoms occur. Patient agreeable to treatment plan. Medical Decision Making: Problems: Low: Stable chronic illness Moderate: 1+ chronic illnesses with change Risk: Moderate: Moderate risk from testing/treatment and Drug management M (more content not included)... [facility] 03-28-2024 History of Present illness Narrative 03/28/2024 Patient presents with: Blood Pressure Check SUBJECTIVE: This is a 53 year old that is here today for Above Complaints. Lisinopril changed to Losartan at last office appointment in January as patient thought contributing to his ED. Reports seems to last a little longer. Taking and tolerating without side effects. Denies visual changes, headaches lightheadedness, dizziness, slurred speech, facial drooping, extremity numbness tingling or weakness. Patient was prescribed Viagra in the past but he reports was too expensive. 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 atorvastatin (LIPITOR) 10 mg tablet Take 1 tablet by mouth once daily. pantoprazole DR (PROTONIX) 40 mg tablet Take 1 tablet by mouth once daily. hydroCHLOROthiazide 12.5 mg capsule Take 1 capsule by mouth once daily. tiotropium-olodaterol (STIOLTO RESPIMAT) 2.5-2.5 mcg/actuation inhaler Inhale 2 Puffs as instructed once daily. famotidine (PEPCID) 20 mg tablet Take 1 tablet by mouth at bedtime as needed. cholestyramine-sucrose (QUESTRAN) 4 gram powder Dissolve 2 g (1/2 scoop) in water or juice and take by mouth before meals twice daily albuterol HFA (VENTOLIN HFA) 90 mcg/actuation inhaler Inhale 2 Puffs as instructed every 4 hours as needed. ondansetron orally disintegrating (ZOFRAN ODT) 4 mg disintegrating tablet Take 1 tablet by mouth every 8 hours as needed for nausea/vomiting. No current facility-administered medications for this visit. Medications and allergies reviewed by this provider. SOCIAL HISTORY Social History Tobacco Use Smoking status: Former Current packs/day: 0.00 Average packs/day: 3.0 packs/day for 33.1 years (99.4 ttl pk-yrs) Types: Cigarettes Start date: 07/18/1984 Quit date: 08/31/2017 Years since quittin.5 Smokeless tobacco: Never Tobacco comments: quit day of surgery Vaping Use Vaping status: Never Used Substance Use Topics Alcohol use: Yes Comment: 2-3 hard cider most days Drug use: No REVIEW OF SYSTEMS All other reviewed and negative other than HPI. OBJECTIVE: BP 136/78 Pulse 70 Resp 18 Wt 85.6 kg (188 lb 12.8 oz) SpO2 97% BMI 27.88 kg/m . Vital signs reviewed by this provider. APPEARANCE Well appearing, alert, in no acute distress, well-hydrated, well nourished. Depression Screening Never done BP Controlled (<130/80) Never done Hepatitis B Vaccine(1 of 3 - 19+ 3-dose series) Never done Alpha-1 Antitrypsin Deficiency Screening Never done DTaP,Tdap,Td Vaccine( - Tdap) due on 03/20/2019 Covid-19 Vaccine(2023- season) due on 01/10/2025 Annual PCP Team Chronic Disease Visit due on 03/28/2025 Diabetes Screening due on 02/02/2027 Colorectal Cancer Screening due on 05/15/2027 Lipid Screening due on 02/02/2029 Spirometry Completed Influenza Vaccine Completed Shingrix Vaccine Completed Pneumococcal Vaccine: 50+ Completed HPV Vaccine Aged Out Hepatitis C Screening Discontinued HIV Screening Discontinued ASSESSMENT/PLAN: 1. Hypertension, essential - ICD9: 401.9, ICD10: I10 (primary diagnosis) - Controlled - Continue current medications - Recommend home blood pressure monitoring, to bring results to next visit - Encouraged sodium restriction, DASH or Mediterranean diet - Recommend regular aerobic exercise - Follow up in 6 months for hypertension visit - LOSARTAN 50 MG TABLET 2. ED (erectile dysfunction) of organic origin - ICD9: 607.84, ICD10: N52.9 - follow-up if symptoms fail to improve - SILDENAFIL 50 MG TABLET- possible side effects discussed Belkys Devine APRN.CNP Prescription instructions reviewed with patient as applicable. Patient advised if symptoms do not improve or if symptoms worsen sooner, to contact their primary care physician. Potential red flag symptoms discussed with the patient. Reviewed appropriate action plan to take if red flag symptoms occur. Patient agreeable to treatment plan. Medical Decision Making: Problems: Low: Stable chronic illness Moderate: 1+ chronic illnesses with change Risk: Moderate: Moderate risk from testing/treatment and Drug management Medical Decision Making Level: 4 - Moderate documented in this encounter [facility] 03-15-2024 Note HNO ID: [id number] Author: MARIVEL ARREOLA APRN.CNP Service: ? Author Type: Nurse Practitioner Type: Progress Notes Filed: 03/15/2024 18:47 Note Text: Heart, Vascular AND Thoracic [place] Department of Thoracic Surgery TELEPHONE VISIT (audio only) PROGRESS NOTE This is a telephone encounter initiated for an established patient. The patient, parent or guardian is not originating from a related Evaluation AND Management service provided within the previous 7 days nor leading to an Evaluation AND Management service or procedure within the next 24 hours or soonest available appointment. I have communicated my name and active licensure. The patient's identity and physical location were verified at the time of this visit. Either the patient or their legal tax representative has been informed of the risks and benefits of -- and alternatives to -- treatment through a remote evaluation and consents to proceed with the evaluation remotely. Navarro Lin has consented to this telephone encounter. Persons Present: patient Total Time Spent: 21-30 minutes Marivel Arreola APRN.CNP Part of this note was copied from previous note, all content has been individually reviewed, updated as necessary, and thoroughly reviewed. [facility] - OUTPATIENT THORACIC SURGERY CLINIC NOTE PT NAME: Navarro Lin [facility] NO: [id number] THORACIC SURGEON: Dr Aly Tomlinson DATE OF SERVICE: 03/15/2024 PRINCIPAL DX: T2aN0/stage IB adenocarcinoma of RUL SURGICAL HX: 08/31/2017: Right video-assisted thoracoscopic surgery upper lobectomy with mediastinal lymph node dissection Surgical Pathology: FINAL DIAGNOSIS 1. Lung, right upper lobe, lobectomy (A) - Adenocarcinoma (3.7 cm), solid predominant (See comment). - Visceral pleural invasion preset. - Eight hilar/peribronchial lymph nodes, negative for tumor (0/8). - Margins negative. 2. Lymph node, level 9R, excision (B) - Benign adipose tissue. 3. Lymph node, level 8R, excision (C) - Benign adipose tissue. 4. Lymph node, level 7R, excision (D) - Negative for tumor (0/1). 5. Lymph node, 11R, excision (E) - Negative for tumor (0/1). 6. Lymph node, 4R, excision (F) - Negative for tumor (0/1). GLADIS/zunilda 09/05/2017 SYNOPTIC REPORT OF [facility] PATHOLOGIC FINDINGS RIGHT UPPER LOBE BRONCHIAL/VASCULAR MARGINS: LUNG RESECTION WORKSHEET Specimen: Lobe(s) of lung: Right upper lobe Procedure: Lobectomy Specimen Laterality: Right Tumor Site: Upper lobe Tumor Focality: Single tumor Histologic Type: Invasive adenocarcinoma, solid predominant Histologic Grade: G3: Poorly differentiated Tumor Size: Tumor size greatest dimension: 3.7 cm Additional dimension: 3.5 cm Additional dimension: 2.5 cm Not applicable Not applicable Visceral Pleura Invasion: Present Direct Invasion of Adjacent Structures: No adjacent structures present All Margins Uninvolved By Invasive Carcinoma: Distance of invasive carcinoma from closest margin: 8 mm Margin closest to invasive carcinoma: Parenchymal Bronchial Margin: Uninvolved by invasive carcinoma Vascular Margin: Uninvolved by invasive carcinoma Parenchymal Margin: Uninvolved by invasive carcinoma Treatment Effect: No known presurgical therapy Lymph-Vascular Invasion: Not identified Extranodal Extension: Not identified Ancillary Studies: KRAS mutational analysis results: G12C positive on prior biopsy Pathologic Stage Classification (pTNM, AJCC 8th ed) TNM Descriptors: Not applicable Primary Tumor (pT): pT2a: Tumor >3 cm but <=4 cm or <=3 cm having any of the following features: Involves the main bronchus regardless of distance to the caron, but without involvement of the caron; Invades visceral pleura (PL1 or PL2); or Associated with atelectasis or obstructive pneumonitis that extends to the hilar region, involving part or all of the lung. Regional Lymph Nodes (pN): pN0: No regional lymph node metastasis Number of nodes involved: 0 Number of nodes examined: 11 Specify examined sherrell station(s): hilar/peribronchial,9,8,7,11,4 Distant Metastasis (pM): Not applicable/Not confirmed pathologically in this case Spread through air spaces (ROBERTO): Present Additional Pathologic Findings: Inflammation, type: Respiratory bronchiolitis Bender Hand Tumor Block: Specify: A4 REASON FOR VISIT: CT surveillance HPI: Navarro Lin is a 53 year old male ex smoker (96 pack years, quit day of surgery), ETOH user (drinks 6 beers/day) with chronic back pain, referred for lung cancer. During work up for spine surgery for back pain, was found to have a right upper lung mass on chest imaging. Transbronchial biopsy of the RUL mass 07/19/17 revealed revealed adenocarcinoma while 4R and level 7 node biopsies were negative. PET/CT 07/28/17 showed the 3.8cm RUL mass to be hypermetabolic (SUV 9.7) with no evidence for metastasis. Surgery was recommended and he underwent VATS rig (more content not included)... [facility] 03-15-2024 History of Present illness Narrative Heart, V[facility] Thor[facility] [place] Department of Thoracic Surgery TELEPHONE VISIT (audio only) PROGRESS NOTE This is a telephone encounter initiated for an established patient. The patient, parent or guardian is not originating from a related Evaluation & Management service provided within the previous 7 days nor leading to an Evaluation & Management service or procedure within the next 24 hours or soonest available appointment. I have communicated my name and active licensure. The patient's identity and physical location were verified at the time of this visit. Either the patient or their legal tax representative has been informed of the risks and benefits of -- and alternatives to -- treatment through a remote evaluation and consents to proceed with the evaluation remotely. Navarro Lin has consented to this telephone encounter. Persons Present: patient Total Time Spent: 21-30 minutes Marivel Arreola APRN.COMPENSATION CONSULTING MANAGER Part of this note was copied from previous note, all content has been individually reviewed, updated as necessary, and thoroughly reviewed. [facility] - OUTPATIENT THORACIC SURGERY CLINIC NOTE PT NAME: Navarro Lin [facility] NO: [id number] THORACIC SURGEON: Dr Aly Tomlinson DATE OF SERVICE: 03/15/2024 PRINCIPAL DX: T2aN0/stage IB adenocarcinoma of RUL SURGICAL HX: 08/31/2017: Right video-assisted thoracoscopic surgery upper lobectomy with mediastinal lymph node dissection Surgical Pathology: FINAL DIAGNOSIS 1. Lung, right upper lobe, lobectomy (A) - Adenocarcinoma (3.7 cm), solid predominant (See comment). - Visceral pleural invasion preset. - Eight hilar/peribronchial lymph nodes, negative for tumor (0/8). - Margins negative. 2. Lymph node, level 9R, excision (B) - Benign adipose tissue. 3. Lymph node, level 8R, excision (C) - Benign adipose tissue. 4. Lymph node, level 7R, excision (D) - Negative for tumor (0/1). 5. Lymph node, 11R, excision (E) - Negative for tumor (0/1). 6. Lymph node, 4R, excision (F) - Negative for tumor (0/1). GLADIS/zunilda 09/05/2017 SYNOPTIC REPORT OF SARMIENTO PATHOLOGIC FINDINGS RIGHT UPPER LOBE BRONCHIAL/VASCULAR MARGINS: LUNG RESECTION WORKSHEET Specimen: Lobe(s) of lung: Right upper lobe Procedure: Lobectomy Specimen Laterality: Right Tumor Site: Upper lobe Tumor Focality: Single tumor Histologic Type: Invasive adenocarcinoma, solid predominant Histologic Grade: G3: Poorly differentiated Tumor Size: Tumor size greatest dimension: 3.7 cm Additional dimension: 3.5 cm Additional dimension: 2.5 cm Not applicable Not applicable Visceral Pleura Invasion: Present Direct Invasion of Adjacent Structures: No adjacent structures present All Margins Uninvolved By Invasive Carcinoma: Distance of invasive carcinoma from closest margin: 8 mm Margin closest to invasive carcinoma: Parenchymal Bronchial Margin: Uninvolved by invasive carcinoma Vascular Margin: Uninvolved by invasive carcinoma Parenchymal Margin: Uninvolved by invasive carcinoma Treatment Effect: No known presurgical therapy Lymph-Vascular Invasion: Not identified Extranodal Extension: Not identified Ancillary Studies: KRAS mutational analysis results: G12C positive on prior biopsy Pathologic Stage Classification (pTNM, AJCC 8th ed) TNM Descriptors: Not applicable Primary Tumor (pT): pT2a: Tumor >3 cm but <=4 cm or <=3 cm having any of the following features: Involves the main bronchus regardless of distance to the caron, but without involvement of the caron; Invades visceral pleura (PL1 or PL2); or Associated with atelectasis or obstructive pneumonitis that extends to the hilar region, involving part or all of the lung. Regional Lymph Nodes (pN): pN0: No regional lymph node metastasis Number of nodes involved: 0 Number of nodes examined: 11 Specify examined sherrell station(s): hilar/peribronchial,9,8,7,11,4 Distant Metastasis (pM): Not applicable/Not confirmed pathologically in this case Spread through air spaces (ROBERTO): Present Additional Pathologic Findings: Inflammation, type: Respiratory bronchiolitis Bender Hand Tumor Block: Specify: A4 REASON FOR VISIT: CT surveillance HPI: Navarro Lin is a 53 year old male ex smoker (96 pack years, quit day of surgery), ETOH user (drinks 6 beers/day) with chronic back pain, referred for lung cancer. During work up for spine surgery for back pain, was found to have a right upper lung mass on chest imaging. Transbronchial biopsy of the RUL mass 07/19/17 revealed revealed adenocarcinoma while 4R and level 7 node biopsies were negative. PET/CT 07/28/17 showed the 3.8cm RUL mass to be hypermetabolic (SUV 9.7) with no evidence for metastasis. Surgery was recommended and he underwent VATS right upper lung lobectomy with lymph node dissection on 08/31/17. Final path showed resection of adenocarcinoma (3.7 cm), solid predominant with visceral pleural invasion present. Margins negative and sampled lymph nodes were negative. Developed a chylothorax postoperatively and started on TPN. PHYSICAL EXAM: VITAL SIGNS: There were no vitals taken for this visit. 187 lb stable Incision location: Right Old chest tube sites and right VATS REVIEW OF SYSTEMS PAIN ASSESSMENT: Negative for pain, history of chronic pain, or current treatment for a chronic pain condition. GENERAL: No weight loss, malaise or fevers RESPIRATORY: Negative for cough, hemoptysis, wheezing, COPD, dyspnea or shortness of breath CARDIOVASCULAR: Negative for chest pain, leg swelling, hypertension, CHF or palpitations IMAGING/TESTS: CT Chest 03/12/24 IMPRESSION: No CT evidence of neoplastic recurrence. No new or enlarging pulmonary nodules. No lymphadenopathy. INTERVAL HISTORY: Mr Lin is phoned today for a visit following CT scan of the chest. He has been doing well, and denies cough, SOB, hemoptysis, unintentional weight loss. CT scan shows no evidence of new or recurrent disease. He wishes to get surveillance CT scans every other year, which is reasonable. Will arrange for [place] and then have a follow up phone visit. IMPRESSION: 53 year old male s/p Right video-assisted thoracoscopic surgery upper lobectomy with mediastinal lymph node dissection 08/31/[address] Aly Tomlinson for T2aN0/ stage IB adenocarcinoma. VITO PLAN: - CT chest in 12 years at [facility], phone visit next day Marivel Arreola APRN.MARINA documented in this encounter [facility] 03-12-2024 History of Present illness Narrative Radiology Service Progress Note PATIENT NAME: Navarro Lin DATE OF SERVICE: March 12, 2024 TIME: 10:55 AM PATIENT IDENTITY VERIFICATION COMPLETED USING TWO (2) IDENTIFIERS: Name and Date of confirmed by patient verbally. FALL SCREENING: Has the patient had 2 falls in the last year or 1 fall with injury or currently using an Ambulatory Assistive Device (Walker, Cane, Wheelchair, Crutches, etc.)? No PATIENT GENDER DATA: Male PATIENT RELEVANT IMPLANT DATA REVIEWED: Yes PATIENT PRESENTS WITH AN IMPLANTABLE OR ATTACHED GOLF BALL MARKER: No RADIOLOGY DEPARTMENT: CT; Exam(s) Completed: Chest PERIPHERAL IV DATA: Not applicable SIGNED BY: RT Rin(Gregorio) March 12, 2024 10:55 AM documented in this encounter [facility] 03-12-2024 Note HNO ID: [id number] Author: DALIA SCHROEDER RT(R) Service: ? Author Type: Pharmacy Care Coordinator Type: Progress Notes Filed: 03/12/2024 10:56 Note Text: Radiology Service Progress Note PATIENT NAME: Navarro Lin DATE OF SERVICE: March 12, 2024 TIME: 10:55 AM PATIENT IDENTITY VERIFICATION COMPLETED USING TWO (2) IDENTIFIERS: Name and Date of confirmed by patient verbally. FALL SCREENING: Has the patient had 2 falls in the last year or 1 fall with injury or currently using an Ambulatory Assistive Device (Walker, Cane, Wheelchair, Crutches, etc.)? No PATIENT GENDER DATA: Male PATIENT RELEVANT IMPLANT DATA REVIEWED: Yes PATIENT PRESENTS WITH AN IMPLANTABLE OR ATTACHED GOLF BALL MARKER: No RADIOLOGY DEPARTMENT: CT; Exam(s) Completed: Chest PERIPHERAL IV DATA: Not applicable SIGNED BY: RT Rin(Gregorio) March 12, 2024 10:55 AM [facility] 03-08-2024 Telephone encounter Note Prescription Refill Information The patient has been identified by name and date of : Yes Caregiver verified no other encounters exist for this prescription request: Yes Caregiver confirmed with patient/requestor that no other refills are due, in the near future, with this provider at this time: No The last office visit in the department: 01/11/24 Does the patient have a future office visit with this provider/department: Yes Requested Prescriptions Pending Prescriptions Disp Refills losartan (COZAAR) 50 mg tablet 30 tablet 1 Sig: Take 1 tablet by mouth once daily. Lou Dueñas MA March 08, 2024 2:46 PM [facility] 03-08-2024 Miscellaneous Notes Prescription Refill Information The patient has been identified by name and date of : Yes Caregiver verified no other encounters exist for this prescription request: Yes Caregiver confirmed with patient/requestor that no other refills are due, in the near future, with this provider at this time: No The last office visit in the department: 01/11/24 Does the patient have a future office visit with this provider/department: Yes Requested Prescriptions Pending Prescriptions Disp Refills losartan (COZAAR) 50 mg tablet 30 tablet 1 Sig: Take 1 tablet by mouth once daily. Lou Dueñas MA March 08, 2024 2:46 PM documented in this encounter [facility] 02-10-2024 Telephone encounter Note Images from the original note were not included. Patient contacted and given message below. Tammie Camacho RN (COPIED): Result Notes Belkys Devine APRN.CNP 02/10/2024 5:56 AM EST Some improvement in cholesterol- would recommend he continue cholesterol med. Triglyceriddes elevated- would work on lower calorie diet along with low carbohydate and low fat. Aim for at least 150 minutes of exercise per week. Liver enzymes are slightly elevated- would recommend avoidance of alcohol and acetaminophen products. Will recheck at next office visit. Belkys Devine APRN.CNP [facility] 02-10-2024 Miscellaneous Notes Images from the original note were not included. Patient contacted and given message below. Tammie Camacho RN (COPIED): Result Notes Belkys Devine APRN.CNP 02/10/2024 5:56 AM EST Some improvement in cholesterol- would recommend he continue cholesterol med. Triglyceriddes elevated- would work on lower calorie diet along with low carbohydate and low fat. Aim for at least 150 minutes of exercise per week. Liver enzymes are slightly elevated- would recommend avoidance of alcohol and acetaminophen products. Will recheck at next office visit. Belkys Devine APRN.COMPENSATION CONSULTING MANAGER documented in this encounter [facility] 02-06-2024 Telephone encounter Note Prescription Refill Information The patient has been identified by name and date of : Yes Caregiver verified no other encounters exist for this prescription request: Yes Caregiver confirmed with patient/requestor that no other refills are due, in the near future, with this provider at this time: Yes The last office visit in the department: 01/11/24 Does the patient have a future office visit with this provider/department: Yes, 02/08/24 Requested Prescriptions Pending Prescriptions Disp Refills pantoprazole DR (PROTONIX) 40 mg tablet 90 tablet 1 Sig: Take 1 tablet by mouth once daily. Kan Landa LPN February 06, 2024 10:10 AM [facility] 02-06-2024 Miscellaneous Notes Prescription Refill Information The patient has been identified by name and date of : Yes Caregiver verified no other encounters exist for this prescription request: Yes Caregiver confirmed with patient/requestor that no other refills are due, in the near future, with this provider at this time: Yes The last office visit in the department: 01/11/24 Does the patient have a future office visit with this provider/department: Yes, 02/08/24 Requested Prescriptions Pending Prescriptions Disp Refills pantoprazole DR (PROTONIX) 40 mg tablet 90 tablet 1 Sig: Take 1 tablet by mouth once daily. Kan Landa LPN February 06, 2024 10:10 AM documented in this encounter [facility] 01-16-2024 Telephone encounter Note Prescription Refill Information The patient has been identified by name and date of : Yes Caregiver verified no other encounters exist for this prescription request: Yes Caregiver confirmed with patient/requestor that no other refills are due, in the near future, with this provider at this time: No The last office visit in the department: 01/11/24 Does the patient have a future office visit with this provider/department: Yes Requested Prescriptions Pending Prescriptions Disp Refills atorvastatin (LIPITOR) 10 mg tablet 30 tablet 0 Sig: Take 1 tablet by mouth once daily. Lou Dueñas MA January 16, 2024 5:21 PM [facility] 01-16-2024 Miscellaneous Notes Prescription Refill Information The patient has been identified by name and date of : Yes Caregiver verified no other encounters exist for this prescription request: Yes Caregiver confirmed with patient/requestor that no other refills are due, in the near future, with this provider at this time: No The last office visit in the department: 01/11/24 Does the patient have a future office visit with this provider/department: Yes Requested Prescriptions Pending Prescriptions Disp Refills atorvastatin (LIPITOR) 10 mg tablet 30 tablet 0 Sig: Take 1 tablet by mouth once daily. Lou Dueñas MA January 16, 2024 5:21 PM documented in this encounter [facility] 01-11-2024 Note HNO ID: [id number] Author: BELKYS DEVINE APRN.COMPENSATION CONSULTING MANAGER Service: ? Author Type: Nurse Practitioner Type: Progress Notes Filed: 01/11/2024 16:24 Note Text: 01/11/2024 Patient presents with: Med Change Request SUBJECTIVE: This is a 53 year old that is here today for Above Complaints.. Reports he believes his Lisinopril is causing him erectile dysfunction. Reports problems with maintaining an erection as well as premature ejaculation and at times inability to ejaculate. Does always have morning erections. Did not take his BP med for the last two days because he ran out Wants to wean off his Buspar. Has been taking 20 mg twice a day. 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 hydroCHLOROthiazide 12.5 mg capsule Take 1 capsule by mouth once daily. atorvastatin (LIPITOR) 10 mg tablet Take 1 tablet by mouth once daily. tiotropium-olodaterol (STIOLTO RESPIMAT) 2.5-2.5 mcg/actuation inhaler Inhale 2 Puffs as instructed once daily. famotidine (PEPCID) 20 mg tablet Take 1 tablet by mouth at bedtime as needed. cholestyramine-sucrose (QUESTRAN) 4 gram powder Dissolve 2 g (1/2 scoop) in water or juice and take by mouth before meals twice daily busPIRone (BUSPAR) 10 mg tablet Take 1 tablet by mouth three times a day. pantoprazole DR (PROTONIX) 40 mg tablet Take 1 tablet by mouth once daily. albuterol HFA (VENTOLIN HFA) 90 mcg/actuation inhaler Inhale 2 Puffs as instructed every 4 hours as needed. ondansetron orally disintegrating (ZOFRAN ODT) 4 mg disintegrating tablet Take 1 tablet by mouth every 8 hours as needed for nausea/vomiting. No current facility-administered medications for this visit. Medications and allergies reviewed by this provider. SOCIAL HISTORY Social History Tobacco Use Smoking status: Former Current packs/day: 0.00 Average packs/day: 3.0 packs/day for 33.1 years (99.4 ttl pk-yrs) Types: Cigarettes Start date: 07/18/1984 Quit date: 08/31/2017 Years since quittin.3 Smokeless tobacco: Never Tobacco comments: quit day of surgery Vaping Use Vaping status: Never Used Substance Use Topics Alcohol use: Yes Comment: 2-3 hard cider most days Drug use: No REVIEW OF SYSTEMS All other reviewed and negative other than HPI. OBJECTIVE: BP 144/86 Pulse 84 Resp 18 Wt 85.1 kg (187 lb 9.8 oz) SpO2 98% BMI 27.71 kg/m? . Vital signs reviewed by this provider. APPEARANCE Well appearing, alert, in no acute distress, well-hydrated, well nourished. EYES conjunctiva and sclera normal. HEART RRR with normal S1 and S2, no murmurs, no gallops, no JVD appreciated LUNG clear to auscultation. No wheezes, rhonchi or rales SKIN Skin color, texture, turgor normal, no suspicious rashes or lesions Depression Screening Never done Hepatitis B Vaccine(1 of 3 - 19+ 3-dose series) Never done Alpha-1 Antitrypsin Deficiency Screening Never done DTaP,Tdap,Td Vaccine(1 - Tdap) due on 03/20/2019 Influenza Vaccine(1) due on 2023 Covid-19 Vaccine(1 - 2023- season) due on 01/10/2025 Annual PCP Team Chronic Disease Visit due on 06/21/2024 BP Controlled (<130/80) due on 10/24/2024 Diabetes Screening due on 05/22/2026 Colorectal Cancer Screening due on 05/15/2027 Lipid Screening due on 05/22/2028 Spirometry Completed Shingrix Vaccine Completed Pneumococcal Vaccine Completed HPV Vaccine Aged Out Hepatitis C Screening Discontinued HIV Screening Discontinued ASSESSMENT/PLAN: 1. ED (erectile dysfunction) of organic origin - ICD9: 607.84, ICD10: N52.9 (primary diagnosis) - will change Lisinopril to Losartan to see if this helps 2. Hyperlipidemia, mixed - ICD9: 272.2, ICD10: E78.2 - Control undetermined, due for labs - Continue current medications - Counseled on healthy diet and regular exercise - Follow up in 1 month, sooner should any other issues arise. - LIPID PANEL BASIC - COMPREHENSIVE METABOLIC PANEL 3. Encounter for immunization - ICD9: V03.89, ICD10: Z23 - INFLUENZA VACCINE, AGE 6MO-64YR, TRIVALENT (AFLURIA, FLULAVAL, FLUVIRIN, FLUZONE) 4. Hypertension, essential - ICD9: 401.9, ICD10: I10 - Uncontrolled- has not taken BP med in two days - Start losartan, stop Lisinopril - Recommend home blood pressure monitoring, to (more content not included)... [facility] 01-11-2024 History of Present illness Narrative 01/11/2024 Patient presents with: Med Change Request SUBJECTIVE: This is a 53 year old that is here today for Above Complaints.. Reports he believes his Lisinopril is causing him erectile dysfunction. Reports problems with maintaining an erection as well as premature ejaculation and at times inability to ejaculate. Does always have morning erections. Did not take his BP med for the last two days because he ran out Wants to wean off his Buspar. Has been taking 20 mg twice a day. 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 hydroCHLOROthiazide 12.5 mg capsule Take 1 capsule by mouth once daily. atorvastatin (LIPITOR) 10 mg tablet Take 1 tablet by mouth once daily. tiotropium-olodaterol (STIOLTO RESPIMAT) 2.5-2.5 mcg/actuation inhaler Inhale 2 Puffs as instructed once daily. famotidine (PEPCID) 20 mg tablet Take 1 tablet by mouth at bedtime as needed. cholestyramine-sucrose (QUESTRAN) 4 gram powder Dissolve 2 g (1/2 scoop) in water or juice and take by mouth before meals twice daily busPIRone (BUSPAR) 10 mg tablet Take 1 tablet by mouth three times a day. pantoprazole DR (PROTONIX) 40 mg tablet Take 1 tablet by mouth once daily. albuterol HFA (VENTOLIN HFA) 90 mcg/actuation inhaler Inhale 2 Puffs as instructed every 4 hours as needed. ondansetron orally disintegrating (ZOFRAN ODT) 4 mg disintegrating tablet Take 1 tablet by mouth every 8 hours as needed for nausea/vomiting. No current facility-administered medications for this visit. Medications and allergies reviewed by this provider. SOCIAL HISTORY Social History Tobacco Use Smoking status: Former Current packs/day: 0.00 Average packs/day: 3.0 packs/day for 33.1 years (99.4 ttl pk-yrs) Types: Cigarettes Start date: 07/18/1984 Quit date: 08/31/2017 Years since quittin.3 Smokeless tobacco: Never Tobacco comments: quit day of surgery Vaping Use Vaping status: Never Used Substance Use Topics Alcohol use: Yes Comment: 2-3 hard cider most days Drug use: No REVIEW OF SYSTEMS All other reviewed and negative other than HPI. OBJECTIVE: BP 144/86 Pulse 84 Resp 18 Wt 85.1 kg (187 lb 9.8 oz) SpO2 98% BMI 27.71 kg/m . Vital signs reviewed by this provider. APPEARANCE Well appearing, alert, in no acute distress, well-hydrated, well nourished. EYES conjunctiva and sclera normal. HEART RRR with normal S1 and S2, no murmurs, no gallops, no JVD appreciated LUNG clear to auscultation. No wheezes, rhonchi or rales SKIN Skin color, texture, turgor normal, no suspicious rashes or lesions Depression Screening Never done Hepatitis B Vaccine(1 of 3 - 19+ 3-dose series) Never done Alpha-1 Antitrypsin Deficiency Screening Never done DTaP,Tdap,Td Vaccine(1 - Tdap) due on 03/20/2019 Influenza Vaccine(1) due on 2023 Covid-19 Vaccine( - 2023- season) due on 01/10/2025 Annual PCP Team Chronic Disease Visit due on 06/21/2024 BP Controlled (<130/80) due on 10/24/2024 Diabetes Screening due on 05/22/2026 Colorectal Cancer Screening due on 05/15/2027 Lipid Screening due on 05/22/2028 Spirometry Completed Shingrix Vaccine Completed Pneumococcal Vaccine Completed HPV Vaccine Aged Out Hepatitis C Screening Discontinued HIV Screening Discontinued ASSESSMENT/PLAN: 1. ED (erectile dysfunction) of organic origin - ICD9: 607.84, ICD10: N52.9 (primary diagnosis) - will change Lisinopril to Losartan to see if this helps 2. Hyperlipidemia, mixed - ICD9: 272.2, ICD10: E78.2 - Control undetermined, due for labs - Continue current medications - Counseled on healthy diet and regular exercise - Follow up in 1 month, sooner should any other issues arise. - LIPID PANEL BASIC - COMPREHENSIVE METABOLIC PANEL 3. Encounter for immunization - ICD9: V03.89, ICD10: Z23 - INFLUENZA VACCINE, AGE 6MO-64YR, TRIVALENT (AFLURIA, FLULAVAL, FLUVIRIN, FLUZONE) 4. Hypertension, essential - ICD9: 401.9, ICD10: I10 - Uncontrolled- has not taken BP med in two days - Start losartan, stop Lisinopril - Recommend home blood pressure monitoring, to bring results to next visit - Encouraged sodium restriction, DASH or Mediterranean diet - Recommend regular aerobic exercise - Follow up in 4 weeks for hypertension visit - LOSARTAN 50 MG TABLET Belkys Devine APRN.CNP Prescription instructions reviewed with patient as applicable. Patient advised if symptoms do not improve or if symptoms worsen sooner, to contact their primary care physician. Potential red flag symptoms discussed with the patient. Reviewed appropriate action plan to take if red flag symptoms occur. Patient agreeable to treatment plan. Medical Decision Making: Problems: Moderate: New problem with uncertain prognosis and 1+ chronic illnesses with change Data: Unique test(s) ordered: 2 Risk: Moderate: Drug management and Moderate risk from testing/treatment Medical Decision Making Level: 4 - Moderate documented in this encounter [facility] 01-04-2024 Telephone encounter Note Prescription Refill Information The patient has been identified by name and date of : Yes Caregiver verified no other encounters exist for this prescription request: Yes Caregiver confirmed with patient/requestor that no other refills are due, in the near future, with this provider at this time: Yes The last office visit in the department: 06/22/23 Does the patient have a future office visit with this provider/department: Yes 01/11/24 Requested Prescriptions Pending Prescriptions Disp Refills lisinopril (ZESTRIL) 40 mg tablet 90 tablet 1 Sig: Take 1 tablet by mouth once daily. Jessa Crockett LPN January 04, 2024 1:26 PM [facility] 01-04-2024 Miscellaneous Notes Prescription Refill Information The patient has been identified by name and date of : Yes Caregiver verified no other encounters exist for this prescription request: Yes Caregiver confirmed with patient/requestor that no other refills are due, in the near future, with this provider at this time: Yes The last office visit in the department: 06/22/23 Does the patient have a future office visit with this provider/department: Yes 01/11/24 Requested Prescriptions Pending Prescriptions Disp Refills lisinopril (ZESTRIL) 40 mg tablet 90 tablet 1 Sig: Take 1 tablet by mouth once daily. Jessa Crockett LPN January 04, 2024 1:26 PM documented in this encounter [facility] 01-03-2024 Telephone encounter Note Prescription Refill Information The patient has been identified by name and date of : Yes Caregiver verified no other encounters exist for this prescription request: Yes Caregiver confirmed with patient/requestor that no other refills are due, in the near future, with this provider at this time: Yes The last office visit in the department: 06/22/23 Does the patient have a future office visit with this provider/department: Yes, 01/11/24 Requested Prescriptions Pending Prescriptions Disp Refills hydroCHLOROthiazide 12.5 mg capsule 90 capsule 1 Sig: Take 1 capsule by mouth once daily. Last rx written 12/20/23 #90 with 1 refill. Pt not due for refill. MC message to pt advising of the same. Kan Landa LPN January 03, 2024 9:55 AM [facility] 01-03-2024 Miscellaneous Notes Prescription Refill Information The patient has been identified by name and date of : Yes Caregiver verified no other encounters exist for this prescription request: Yes Caregiver confirmed with patient/requestor that no other refills are due, in the near future, with this provider at this time: Yes The last office visit in the department: 06/22/23 Does the patient have a future office visit with this provider/department: Yes, 01/11/24 Requested Prescriptions Pending Prescriptions Disp Refills hydroCHLOROthiazide 12.5 mg capsule 90 capsule 1 Sig: Take 1 capsule by mouth once daily. Last rx written 12/20/23 #90 with 1 refill. Pt not due for refill. MC message to pt advising of the same. Kan Landa LPN January 03, 2024 9:55 AM documented in this encounter [facility] 12-20-2023 Telephone encounter Note Prescription Refill Information The patient has been identified by name and date of : Yes Caregiver verified no other encounters exist for this prescription request: Yes Caregiver confirmed with patient/requestor that no other refills are due, in the near future, with this provider at this time: Yes The last office visit in the department: 06/22/2023 Does the patient have a future office visit with this provider/department: No Requested Prescriptions Pending Prescriptions Disp Refills hydroCHLOROthiazide 12.5 mg capsule 90 capsule 1 Sig: Take 1 capsule by mouth once daily. Pascale Little LPN December 20, 2023 9:30 AM [facility] 12-20-2023 Miscellaneous Notes Prescription Refill Information The patient has been identified by name and date of : Yes Caregiver verified no other encounters exist for this prescription request: Yes Caregiver confirmed with patient/requestor that no other refills are due, in the near future, with this provider at this time: Yes The last office visit in the department: 06/22/2023 Does the patient have a future office visit with this provider/department: No Requested Prescriptions Pending Prescriptions Disp Refills hydroCHLOROthiazide 12.5 mg capsule 90 capsule 1 Sig: Take 1 capsule by mouth once daily. Pascale Little LPN December 20, 2023 9:30 AM documented in this encounter [facility] 12-16-2023 Telephone encounter Note Prescription Refill Information The patient has been identified by name and date of : Yes Caregiver verified no other encounters exist for this prescription request: Yes Caregiver confirmed with patient/requestor that no other refills are due, in the near future, with this provider at this time: Yes The last office visit in the department: 06/22/2023 Does the patient have a future office visit with this provider/department: No Requested Prescriptions Pending Prescriptions Disp Refills atorvastatin (LIPITOR) 10 mg tablet 30 tablet 0 Sig: Take 1 tablet by mouth once daily. Niya Jaramillo MA December 16, 2023 3:53 PM [facility] 12-16-2023 Miscellaneous Notes Prescription Refill Information The patient has been identified by name and date of : Yes Caregiver verified no other encounters exist for this prescription request: Yes Caregiver confirmed with patient/requestor that no other refills are due, in the near future, with this provider at this time: Yes The last office visit in the department: 06/22/2023 Does the patient have a future office visit with this provider/department: No Requested Prescriptions Pending Prescriptions Disp Refills atorvastatin (LIPITOR) 10 mg tablet 30 tablet 0 Sig: Take 1 tablet by mouth once daily. Niya Jaramillo MA December 16, 2023 3:53 PM documented in this encounter [facility] 11-16-2023 Telephone encounter Note Prescription Refill Information The patient has been identified by name and date of : Yes Caregiver verified no other encounters exist for this prescription request: Yes Caregiver confirmed with patient/requestor that no other refills are due, in the near future, with this provider at this time: Yes The last office visit in the department: 06/22/23 Does the patient have a future office visit with this provider/department: No My chart message sent Requested Prescriptions Pending Prescriptions Disp Refills atorvastatin (LIPITOR) 10 mg tablet 30 tablet 5 Sig: Take 1 tablet by mouth once daily. Jessa Crockett LPN November 16, 2023 7:43 AM [facility] 11-16-2023 Miscellaneous Notes Prescription Refill Information The patient has been identified by name and date of : Yes Caregiver verified no other encounters exist for this prescription request: Yes Caregiver confirmed with patient/requestor that no other refills are due, in the near future, with this provider at this time: Yes The last office visit in the department: 06/22/23 Does the patient have a future office visit with this provider/department: No My chart message sent Requested Prescriptions Pending Prescriptions Disp Refills atorvastatin (LIPITOR) 10 mg tablet 30 tablet 5 Sig: Take 1 tablet by mouth once daily. Jessa Crockett LPN November 16, 2023 7:43 AM documented in this encounter [facility] 10-25-2023 History of Present illness Narrative Images from the original note were not included. . [facility] Note Patient name: Navarro Lin PCP: Aruna Tong MD CC: Follow up testing HPI: Navarro Lin 52 year old male former [id number] smoker, quitting in 2018 with PMH significant for history of alcohol abuse, anxiety disorder, HTN, history of lung cancer s/p RUL lobectomy in 2018 complicated by chylothorax requiring pleurodesis recently seen for evaluation of shortness of breath. Pulmonary function test showed combined mild restriction and obstruction without improvement postbronchodilator. Chest imaging notable for elevated right hemidiaphragm. Started patient on Stiolto Respimat with as needed albuterol and ordered sniff testing. Sniff testing showed no movement of the right hemidiaphragm. He has not had his Stiolto for a month (needed to get mail order prescription). He has SOB with squatting, bending over, hurrying that has not improved with inhaler therapy. He is having issues with cough productive of sputum more prominent in am but can occur throughout the day. Denies significant sinus drainage. No wheezing DATA: Imaging / Diagnostic Studies: DATE OF EXAM: Sep 01 2023 9:23AM MDX [id number] - GI FLUORO CHEST SNIFF TEST / PROCEDURE REASON: J98.6-Elevated diaphragm IMPRESSION: The RIGHT hemidiaphragm showed no downward movement with inspiration. No definite dilated. paradoxical motion was seen I personally reviewed the images which show no movement of right diaphragm PAST MEDICAL HISTORY 07/19/2017: Adenocarcinoma of right lung (HCC) Comment: RUL, s/p VATS No date: Alcohol use Comment: history of DUI 2006 No date: Carpal tunnel syndrome No date: Chronic lower back pain Comment: calcified mass pinching spinal cord 1.3 cm benign-appearing extradural mass extending from the left facet No date: Diverticulosis No date: Erectile dysfunction No date: Generalized anxiety disorder No date: Hemorrhoid No date: History of carpal tunnel release of both wrists No date: History of tobacco use No date: Hypertension 2018: Malignant neoplasm of vertebral column (HCC) Comment: calcified mass, benign ALLERGIES Allergen Reactions Darvocet A500 [Prop* Hives tiotropium-olodaterol (STIOLTO RESPIMAT) 2.5-2.5 mcg/actuation inhaler Inhale 2 Puffs as instructed once daily. famotidine (PEPCID) 20 mg tablet Take 1 tablet by mouth at bedtime as needed. cholestyramine-sucrose (QUESTRAN) 4 gram powder Dissolve 2 g (1/2 scoop) in water or juice and take by mouth before meals twice daily busPIRone (BUSPAR) 10 mg tablet Take 1 tablet by mouth three times a day. pantoprazole DR (PROTONIX) 40 mg tablet Take 1 tablet by mouth once daily. lisinopril (ZESTRIL) 40 mg tablet Take 1 tablet by mouth once daily. hydroCHLOROthiazide 12.5 mg capsule Take 1 capsule by mouth once daily. albuterol HFA (VENTOLIN HFA) 90 mcg/actuation inhaler Inhale 2 Puffs as instructed every 4 hours as needed. ondansetron orally disintegrating (ZOFRAN ODT) 4 mg disintegrating tablet Take 1 tablet by mouth every 8 hours as needed for nausea/vomiting. atorvastatin (LIPITOR) 10 mg tablet Take 1 tablet by mouth once daily. Social History Tobacco Use Smoking status: Former Current packs/day: 0.00 Average packs/day: 3.0 packs/day for 33.1 years (99.4 ttl pk-yrs) Types: Cigarettes Start date: 07/18/1984 Quit date: 08/31/2017 Years since quittin.1 Smokeless tobacco: Never Tobacco comments: quit day of surgery Vaping Use Vaping status: Never Used Substance Use Topics Alcohol use: Yes Comment: 2-3 hard cider most days Drug use: No FAMILY HISTORY Problem Relation Age of Onset Heart Mother [place] at 52 y/o Heart Father pacemaker other (paralyzed) Father after fall-bed bound at 82 y/o Breast Cancer Maternal Aunt Coronary Artery Disease Sister s/p stent Alcohol/Drug Brother Opiate overdose in his 40's None Sister Alcohol/Drug Brother other (unkown) Brother in [facility] PAST SURGICAL HISTORY No date: BACK SURGERY HX Comment: fusion 05/14/2022: COLONOSCOPY Comment: repeat in 5 years 03/23/2019: COLONOSCOPY FLX DX W/COLLJ SPEC WHEN PFRMD Comment: Colonoscopy 03/23/2019: ESOPHAGOGASTRODUODENOSCOPY TRANSORAL DIAGNOSTIC Comment: EGD 2000: ORTHOPEDICS SURGERY HX; Right Comment: boxer fracture repair- right hand 11/2017: PAST SURGICAL HISTORY OF Comment: s/p T12-L1 laminectomy, resection of epidural tumor, T12-L1 posterolateral fusion with pedicle screw fixation 09/02/2017: PICC LINE INSERT/CONSULT Comment: 01/02/2021: REVISE MEDIAN N/CARPAL TUNNEL SURG; Left Comment: Left carpal tunnel release 11/2021: REVISE MEDIAN N/CARPAL TUNNEL SURG; Right Comment: Carpal tunnel release surgery 08/31/2017: RMVL LUNG OTHER THAN PNEUMONECTOMY 1 LOBE LOBECT; Right Comment: VATS right upper lung lobectomy, lymph node dissection by lung cancer No date: SKIN BIOPSY HX No date: TONSILLECTOMY PRIMARY/SECONDARY <AGE 12 Comment: Tonsillectomy PMH, Social history, family history and surgical history reviewed and updated in EMR REVIEW OF SYSTEMS: CONSTITUTIONAL: No fevers, chills, nightsweats, unintended weight loss HEENT: Denies headache, nasal congestion/sinus symptoms, allergy problems. CARDIOVASCULAR: No chest pain, palpitations, edema. PULM: See HPI. PSY: Anxiety INTEGUMENTARY: No new skin changes PHYSICAL EXAMINATION: Wt 184 lb (83.5kg) BP 128/62, P 82, RR 14, SpO2 98% on RA General Appearance: Age appropriate, NAD. Skin: Skin color, texture, turgor normal, no suspicious rashes or lesions. Head: Normocephalic, no masses, lesions, tenderness or abnormalities. Facial telangectasias Eyes: Normal sclera. Oropharynx: No oral lesions, no cobblestoning. Neck: No JVD, no masses, no adenopathy. Lungs: Not labored, no wheezes or crackles. Heart: RRR, no murmur. Extremities: No clubbing. Assessment/Plan: Diaphragm paralysis -No significant respiratory impairment -Does not need intervention Mild COPD -Sent in mail order prescription for Stiolto respimat -Instructed to try OTC antihistamine for cough Former cigarette smoker -Former heavy smoker with sequelae of COPD and lung cancer -Continue abstinence H/o lung cancer -Active surveillance per Thoracic -No evidence of recurrence Gisela Mckeon MD [facility] documented in this encounter [facility] 10-06-2023 Telephone encounter Note Patient sent [employer] message requesting the following refill. Requested Prescriptions Pending Prescriptions Disp Refills famotidine (PEPCID) 20 mg tablet 90 tablet 1 Sig: Take 1 tablet by mouth at bedtime as needed. Patient last appointment: 06/22/2023 Patient Phone numbers: [phone] (home) [phone] (work) Request is for script(s) to be escript to pharmacy. Lakeshia Blanco MA [facility] 10-06-2023 Miscellaneous Notes Patient sent Last 2 Left message requesting the following refill. Requested Prescriptions Pending Prescriptions Disp Refills famotidine (PEPCID) 20 mg tablet 90 tablet 1 Sig: Take 1 tablet by mouth at bedtime as needed. Patient last appointment: 06/22/2023 Patient Phone numbers: [phone] (home) [phone] (work) Request is for script(s) to be escript to pharmacy. Lakeshia Blanco MA documented in this encounter [facility] 09-13-2023 Telephone encounter Note Patient calls and states that Belkys had told him at previous appointment that when patient needed medication she would prescribe medication for him. The patient has been identified by name and date of : Yes Caregiver verified no other encounters exist for this prescription request: Yes Caregiver confirmed with patient/requestor that no other refills are due, in the near future, with this provider at this time: Yes The last office visit in the department: 06/22/2023 Does the patient have a future office visit with this provider/department: No Visit date not found Requested Prescriptions Pending Prescriptions Disp Refills cholestyramine-sucrose (QUESTRAN) 4 gram powder 348.6 g 5 Sig: Dissolve 2 g (1/2 scoop) in water or juice and take by mouth before meals twice daily Mitzi Dougherty RN September 13, 2023 3:47 PM [facility] 09-13-2023 Miscellaneous Notes Patient calls and states that Belkys had told him at previous appointment that when patient needed medication she would prescribe medication for him. The patient has been identified by name and date of : Yes Caregiver verified no other encounters exist for this prescription request: Yes Caregiver confirmed with patient/requestor that no other refills are due, in the near future, with this provider at this time: Yes The last office visit in the department: 06/22/2023 Does the patient have a future office visit with this provider/department: No Visit date not found Requested Prescriptions Pending Prescriptions Disp Refills cholestyramine-sucrose (QUESTRAN) 4 gram powder 348.6 g 5 Sig: Dissolve 2 g (1/2 scoop) in water or juice and take by mouth before meals twice daily Mitzi Dougherty RN September 13, 2023 3:47 PM documented in this encounter [facility] 09-12-2023 Telephone encounter Note Prescription Refill Information The patient has been identified by name and date of : Yes Caregiver verified no other encounters exist for this prescription request: Yes Caregiver confirmed with patient/requestor that no other refills are due, in the near future, with this provider at this time: Yes The last office visit in the department: 07/19/23 Does the patient have a future office visit with this provider/department: Yes 10/25/23 Requested Prescriptions Pending Prescriptions Disp Refills tiotropium-olodaterol (STIOLTO RESPIMAT) 2.5-2.5 mcg/actuation 1 Each 5 Sig: Inhale 2 Puffs as instructed once daily. Per patient his insurance changed policies and will only cover 90 day supply at mail order pharmacy now. Ana Garcia RN September 12, 2023 10:48 AM [facility] 09-12-2023 Miscellaneous Notes Prescription Refill Information The patient has been identified by name and date of : Yes Caregiver verified no other encounters exist for this prescription request: Yes Caregiver confirmed with patient/requestor that no other refills are due, in the near future, with this provider at this time: Yes The last office visit in the department: 07/19/23 Does the patient have a future office visit with this provider/department: Yes 10/25/23 Requested Prescriptions Pending Prescriptions Disp Refills tiotropium-olodaterol (STIOLTO RESPIMAT) 2.5-2.5 mcg/actuation 1 Each 5 Sig: Inhale 2 Puffs as instructed once daily. Per patient his insurance changed policies and will only cover 90 day supply at mail order pharmacy now. Ana Garcia RN September 12, 2023 10:48 AM documented in this encounter [facility] 09-01-2023 History of Present illness Narrative Radiology Service Progress Note PATIENT NAME: Navarro Lin DATE OF SERVICE: September 01, 2023 TIME: 10:38 AM PATIENT IDENTITY VERIFICATION COMPLETED USING TWO (2) IDENTIFIERS: Name and Date of confirmed by patient verbally. FALL SCREENING: Has the patient had 2 falls in the last year or 1 fall with injury or currently using an Ambulatory Assistive Device (Walker, Cane, Wheelchair, Crutches, etc.)? No PATIENT GENDER DATA: Male PATIENT RELEVANT IMPLANT DATA REVIEWED: Not Applicable PATIENT PRESENTS WITH AN IMPLANTABLE OR ATTACHED GOLF BALL MARKER: No RADIOLOGY DEPARTMENT: General X-ray: Exam(s) Completed: GI/ Procedure(s): Chest airway fluoro PERIPHERAL IV DATA: Not applicable SIGNED BY: RT Michael(Gregorio) September 01, 2023 10:38 AM documented in this encounter [facility] 09-01-2023 Note HNO ID: [id number] Author: KAMILA MIRAMONTES RT(R) Service: Radiology Author Type: Technologist Type: Progress Notes Filed: 09/01/2023 10:38 Note Text: Radiology Service Progress Note PATIENT NAME: Navarro Lin DATE OF SERVICE: September 01, 2023 TIME: 10:38 AM PATIENT IDENTITY VERIFICATION COMPLETED USING TWO (2) IDENTIFIERS: Name and Date of confirmed by patient verbally. FALL SCREENING: Has the patient had 2 falls in the last year or 1 fall with injury or currently using an Ambulatory Assistive Device (Walker, Cane, Wheelchair, Crutches, etc.)? No PATIENT GENDER DATA: Male PATIENT RELEVANT IMPLANT DATA REVIEWED: Not Applicable PATIENT PRESENTS WITH AN IMPLANTABLE OR ATTACHED GOLF BALL MARKER: No RADIOLOGY DEPARTMENT: General X-ray: Exam(s) Completed: GI/ Procedure(s): Chest airway fluoro PERIPHERAL IV DATA: Not applicable SIGNED BY: RT Michael(R) September 01, 2023 10:38 AM [facility] 08-29-2023 Telephone encounter Note Prescription Refill Information The patient has been identified by name and date of : Yes Caregiver verified no other encounters exist for this prescription request: Yes Caregiver confirmed with patient/requestor that no other refills are due, in the near future, with this provider at this time: Yes The last office visit in the department: 06/22/2023 Does the patient have a future office visit with this provider/department: No Requested Prescriptions Pending Prescriptions Disp Refills busPIRone (BUSPAR) 10 mg tablet 270 tablet 1 Sig: Take 1 tablet by mouth three times a day. FERNANDO Montes August 29, 2023 9:08 AM [facility] 08-29-2023 Miscellaneous Notes Prescription Refill Information The patient has been identified by name and date of : Yes Caregiver verified no other encounters exist for this prescription request: Yes Caregiver confirmed with patient/requestor that no other refills are due, in the near future, with this provider at this time: Yes The last office visit in the department: 06/22/2023 Does the patient have a future office visit with this provider/department: No Requested Prescriptions Pending Prescriptions Disp Refills busPIRone (BUSPAR) 10 mg tablet 270 tablet 1 Sig: Take 1 tablet by mouth three times a day. FERNANDO Montes August 29, 2023 9:08 AM documented in this encounter [facility] 08-09-2023 Telephone encounter Note Prescription Refill Information The patient has been identified by name and date of : Yes Caregiver verified no other encounters exist for this prescription request: Yes Caregiver confirmed with patient/requestor that no other refills are due, in the near future, with this provider at this time: Yes The last office visit in the department: 06/22/23 Does the patient have a future office visit with this provider/department: no Requested Prescriptions Pending Prescriptions Disp Refills pantoprazole DR (PROTONIX) 40 mg tablet 90 tablet 1 Sig: Take 1 tablet by mouth once daily. Ailyn Singh LPN August 09, 2023 6:25 PM [facility] 08-09-2023 Miscellaneous Notes Prescription Refill Information The patient has been identified by name and date of : Yes Caregiver verified no other encounters exist for this prescription request: Yes Caregiver confirmed with patient/requestor that no other refills are due, in the near future, with this provider at this time: Yes The last office visit in the department: 06/22/23 Does the patient have a future office visit with this provider/department: no Requested Prescriptions Pending Prescriptions Disp Refills pantoprazole DR (PROTONIX) 40 mg tablet 90 tablet 1 Sig: Take 1 tablet by mouth once daily. Ailyn Singh LPN August 09, 2023 6:25 PM documented in this encounter [facility] 07-26-2023 Telephone encounter Note Pt returned call and given provider's message below with verbalized understanding. Patient agreeable. [facility] 07-26-2023 Miscellaneous Notes Pt returned call and given provider's message below with verbalized understanding. Patient agreeable. VM left for patient to return call to review message. I would have him discuss this need with his driller and reamer. Belkys Devine APRN.MARINA Pt calling to see if you are willing to fill out FMLA paperwork. 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 Please let pt know if you are willing to fill out and then he will get forms faxed in. Please advise pt. Krystin Vogel LPN documented in this encounter [facility] 07-26-2023 Telephone encounter Note VM left for patient to return call to review message. [facility] 07-26-2023 Telephone encounter Note I would have him discuss this need with his driller and reamer. Belkys Devine APRN.MARINA [facility] 07-26-2023 Telephone encounter Note Pt calling to see if you are willing to fill out FMLA paperwork. 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 Please let pt know if you are willing to fill out and then he will get forms faxed in. Please advise pt. Krystin Vogel LPN [facility] 07-20-2023 Telephone encounter Note Spoke with pt and information listed below given. Pt verbalizes understanding. Krystin Vogle LPN [facility] 07-20-2023 Miscellaneous Notes Spoke with pt and information listed below given. Pt verbalizes understanding. Krystin Vogel LPN Left a message for pt to call the office and ask to speak to a nurse. Krystin Vogel LPN ----- Message from Belkys Devine APRN.CNP sent at 07/20/2023 7:49 AM EDT ----- Spirometry shows mild obstruction- see he saw the driller and reamer so I assume she went over these results. Belkys Devine APRN.COMPENSATION CONSULTING MANAGER documented in this encounter [facility] 07-20-2023 Telephone encounter Note Left a message for pt to call the office and ask to speak to a nurse. Krystin Vogel LPN [facility] 07-20-2023 Telephone encounter Note ----- Message from Belkys Devine APRN.COMPENSATION CONSULTING MANAGER sent at 07/20/2023 7:49 AM EDT ----- Spirometry shows mild obstruction- see he saw the driller and reamer so I assume she went over these results. Belkys Devine APRN.COMPENSATION CONSULTING MANAGER [facility] 07-19-2023 History of Present illness Narrative Images from the original note were not included. . [facility] Note Patient name: Navarro Lin PCP: Aruna Tong MD CC: Intermittent shortness of breath HPI: Navarro Lin 52 year old male former [id number] smoker, quitting in 2018 with PMH significant for alcohol abuse, lung cancer status post VATS right upper lobectomy 2018 complicated by chylothorax, anxiety disorder, HTN, being referred for evaluation of shortness of breath. Has noted issues with intermittent SOB since his lung resection. Has gradually increased in severity and frequency. He describes intermittent episodes of sensation of restriction in his breathing, like a switch is being turned on. The episodes are fleeting. He has not noted any particular trigger. Initially this occurred predominantly at night. Awakens him from sleep. No snoring or gasping. Now will have episodes during the daytime. Was prescribed albuterol which he is using four times a day without significant relief. He has SANTOS when climbing stairs and bending over. Has daily morning cough productive of thick clear phlegm. Occasional wheezes. DATA: PFT: PFTs show mild obstruction that does not improve with bronchodilator Labs: omponent Ref Range & Units 6 mo ago (01/10/23) 1 yr ago (01/18/22) WBC 3.70 - 11.00 k/uL 7.00 7.48 RBC 4.20 - 6.00 m/uL 4.98 4.56 Hemoglobin 13.0 - 17.0 g/dL 16.4 15.0 Hematocrit 39.0 - 51.0 % 48.1 44.4 MCV 80.0 - 100.0 fL 96.6 97.4 MCH 26.0 - 34.0 pg 32.9 32.9 MCHC 30.5 - 36.0 g/dL 34.1 33.8 RDW-CV 11.5 - 15.0 % 13.0 12.4 Platelet Count 150 - 400 k/uL 216 193 MPV 9.0 - 12.7 fL 10.9 11.0 Neutrophils % % 62.8 73.8 Abs Neut 1.45 - 7.50 k/uL 4.39 5.53 Lymphocytes % % 22.7 16.6 Abs Lymph 1.00 - 4.00 k/uL 1.59 1.24 Monocytes % % 11.7 7.8 Abs Jewell <0.87 k/uL 0.82 0.58 Eosinophils % % 2.1 1.5 Abs Eosin <0.46 k/uL 0.15 0.11 Basophils % % 0.4 0.3 Abs Baso <0.11 k/uL 0.03 <0.03 Immature Granulocytes % % 0.3 Abs Immature Gran <0.10 k/uL <0.03 NRBC /100 WBC 0.0 Absolute nRBC <0.01 k/uL <0.01 Diff Type Auto Imaging / Diagnostic Studies: DATE OF EXAM: Mar 04 2023 1:11PM [facility] 0541 - CT CHEST WO IVCON / IMPRESSION: Stable exam with no compelling CT evidence of recurrence or metastasis RESULT: Limitations: None. Lines, tubes, and devices: None. Lung parenchyma and airways: Post right upper lobectomy with no evidence of recurrence. Unchanged RML proximal bronchus narrowing. Focal right intercostal lung herniation, unchanged. Scattered linear scarring, more evident in the right base. Unchanged scattered tiny 2-4 mm nodules, likely benign. No enlarging or suspicious nodule. Pleural space: Unchanged right basilar mild smooth thickening Lower neck, lymph nodes, and mediastinum: No enlarged lymph nodes Heart, pericardium, and thoracic vessels: Borderline atrial size. Mildly dilated central pulmonary arteries. No distinct coronary calcification. Normal pericardium Bones and soft tissues: No destructive osseous lesion decreased bone density. Stable right posterior chest wall cyst. Upper abdomen: Stable left hepatic 2.1 cm hypodensity, likely benign. 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 I personally reviewed and analyzed the images which shows RML bronchial narrowing, evidence of lobectomy, right chest wall small herniation, elevated right diaphragm 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 Diverticulosis Erectile dysfunction Generalized anxiety disorder Hemorrhoid History of carpal tunnel release of both wrists History of tobacco use Hypertension Malignant neoplasm of vertebral column (HCC) 2018 calcified mass, benign ALLERGIES Allergen Reactions Darvocet A500 [Prop* Hives famotidine (PEPCID) 20 mg tablet Take 1 tablet by mouth at bedtime as needed. lisinopril (ZESTRIL) 40 mg tablet Take 1 tablet by mouth once daily. hydroCHLOROthiazide 12.5 mg capsule Take 1 capsule by mouth once daily. albuterol HFA (VENTOLIN HFA) 90 mcg/actuation inhaler Inhale 2 Puffs as instructed every 4 hours as needed. ondansetron orally disintegrating (ZOFRAN ODT) 4 mg disintegrating tablet Take 1 tablet by mouth every 8 hours as needed for nausea/vomiting. atorvastatin (LIPITOR) 10 mg tablet Take 1 tablet by mouth once daily. busPIRone (BUSPAR) 10 mg tablet Take 1 tablet by mouth three times a day. pantoprazole DR (PROTONIX) 40 mg tablet Take 1 tablet by mouth once daily. cholestyramine-sucrose (QUESTRAN) 4 gram powder Dissolve 2 g (1/2 scoop) in water or juice and take by mouth before meals twice daily tiotropium-olodaterol (STIOLTO RESPIMAT) 2.5-2.5 mcg/actuation Inhale 2 Puffs as instructed once daily. Social History Tobacco Use Smoking status: Former Packs/day: 3.00 Years: 32.00 Additional pack years: 0.00 Total pack years: 96.00 Types: Cigarettes Start date: 07/18/1984 Quit date: 08/31/2017 Years since quittin.8 Smokeless tobacco: Never Tobacco comments: quit day of surgery Vaping Use Vaping Use: Never used Substance Use Topics Alcohol use: Yes Comment: 2-3 hard cider most days Drug use: No FAMILY HISTORY Problem Relation Age of Onset Heart Mother [place] at 52 y/o Heart Father pacemaker other (paralyzed) Father after fall-bed bound at 82 y/o Breast Cancer Maternal Aunt Coronary Artery Disease Sister s/p stent Alcohol/Drug Brother Opiate overdose in his 40's None Sister Alcohol/Drug Brother other (unkown) Brother in [facility] PAST SURGICAL HISTORY Procedure Laterality Date BACK SURGERY HX fusion COLONOSCOPY 05/14/2022 repeat in 5 years COLONOSCOPY FLX DX W/COLLJ SPEC WHEN PFRMD 03/23/2019 Colonoscopy ESOPHAGOGASTRODUODENOSCOPY TRANSORAL DIAGNOSTIC 03/23/2019 EGD ORTHOPEDICS SURGERY HX Right 2000 boxer fracture repair- right hand PAST SURGICAL HISTORY OF 11/2017 s/p T12-L1 laminectomy, resection of epidural tumor, T12-L1 posterolateral fusion with pedicle screw fixation PICC LINE INSERT/CONSULT 09/02/2017 REVISE MEDIAN N/CARPAL TUNNEL SURG Left 01/02/2021 Left carpal tunnel release REVISE MEDIAN N/CARPAL TUNNEL SURG Right 11/2021 Carpal tunnel release surgery RMVL LUNG OTHER THAN PNEUMONECTOMY 1 LOBE LOBECT Right 08/31/2017 VATS right upper lung lobectomy, lymph node dissection by lung cancer SKIN BIOPSY HX TONSILLECTOMY PRIMARY/SECONDARY <AGE 12 Tonsillectomy PMH, Social history, family history and surgical history reviewed and updated in EMR REVIEW OF SYSTEMS: CONSTITUTIONAL: No fevers, chills, nightsweats, unintended weight loss HEENT: Denies nasal congestion/sinus symptoms, allergy problems. EYES: No diplopia or blurry vision. CARDIOVASCULAR: No chest pain, palpitations, orthopnea, PND. Right leg larger than left leg with pitting edema PULM: See HPI GI: No dysphagia/odynophagia, problematic reflux, or history of GIB. Liver hemangiomas : No urinary complaints, including dysuria, gross hematuria or pyuria. NEURO: No balance problems, peripheral weakness/paresthesias or numbness of concern. MUSC-SKEL: No joint pain, swelling, or erythema. No back pain PSY: Anxiety disorder INTEGUMENTARY: No new skin changes PHYSICAL EXAMINATION: BP 152/76 Pulse 70 Resp 14 Ht 5' 9" (1.75m) Wt 191 lb (86.6kg) SpO2 99% BMI 28.19 kg/(m^2). General Appearance: Age-appropriate male, NAD. Skin: Skin color, texture, turgor normal, no suspicious rashes. Telangiectasias on cheeks and nose Head: Normocephalic, no masses, lesions, tenderness or abnormalities. Eyes: Conjunctiva normal. Oropharynx: No oral telangiectasias noted. Neck: No JVD, no masses, no adenopathy. Lungs: Not labored, dullness to percussion right base, no wheezes or crackles. Heart: Regular rate and rhythm, no murmurs or gallops. Extremities: Right leg markedly enlarged compared to left leg with some pitting edema, no clubbing. Musculoskeletal: No joint deformities or effusions. Lymph Nodes: No cervical lymphadenopathy and No supraclavicular lymphadenopathy. Assessment/Plan: 1. Shortness of breath -Has mild COPD but intermittent episodes of SOB too fleeting and uncharacteristic of bronchospasm. Elevated right hemidiaphragm may purely be related to lobectomy but will need to exclude paralysis -Started Stiolto Respimat and instructed patient to use albuterol only as needed -Sniff test 2. Elevated diaphragm -See #1 3. Former cigarette smoker -Former smoker with sequelae of mild COPD and lung cancer -Continue abstinence 4. Leg swelling -DVT study 5. Mild COPD -See #1 6. History of lung cancer -No evidence of recurrence with surveillance for 5 years -Continue surveillance per thoracic surgery. Patient desires yearly CT. He actually qualifies for lung cancer screening which may be a better option due to lower radiation dose Note: Facial telangectasias and liver lesions brings up possible Osler Dela Cruz Rendu diagnosis. Telangectasias are not on lips or buccal mucosa. May be related to his alcoholism I spent a total of 66 minutes on the date of the service which included preparing to see the patient, [id number] patient care, completing clinical documentation, obtaining and/or reviewing separately obtained history, performing a medically appropriate examination, ordering medications, tests, or procedures, and independently interpreting results (not separately reported). Gisela Mckeon MD [facility] documented in this encounter [facility] 07-19-2023 Nurse Note Intake information documented in the prior visit with RO Hankins today. [facility] 07-19-2023 Nurse Note Intake information documented in the prior visit with RO Hankins today. documented in this encounter [facility] 07-19-2023 History of Present illness Narrative PULM FUNCTION SMARTBLOCK: Provider: Belkys Devine APRN.COMPENSATION CONSULTING MANAGER Assisting Tech: Dacia Miller RPFT Spirometry w/BD: 1 documented in this encounter [facility] 07-15-2023 Telephone encounter Note Patient has been identified by name and date of : Yes Patient phones for refill(s): Requested Prescriptions Pending Prescriptions Disp Refills famotidine (PEPCID) 20 mg tablet 90 tablet 0 Sig: Take 1 tablet by mouth at bedtime as needed. Date of last office visit in primary care: 06/22/2023 Date of next office visit in primary care: Visit date not found Please advise. Thank you. Kan Landa LPN. [facility] 07-15-2023 Miscellaneous Notes Patient has been identified by name and date of : Yes Patient phones for refill(s): Requested Prescriptions Pending Prescriptions Disp Refills famotidine (PEPCID) 20 mg tablet 90 tablet 0 Sig: Take 1 tablet by mouth at bedtime as needed. Date of last office visit in primary care: 06/22/2023 Date of next office visit in primary care: Visit date not found Please advise. Thank you. Kan Landa LPN. documented in this encounter [facility] 07-11-2023 Telephone encounter Note Patient has been identified by name and date of : Yes, Provider Aruna Tong MD Date July 11, 2023 Time 9:39 AM Patient phones for refill(s): Requested Prescriptions Pending Prescriptions Disp Refills lisinopril (ZESTRIL) 40 mg tablet 90 tablet 1 Sig: Take 1 tablet by mouth once daily. Date of last office visit in primary care: 06/22/2023 Date of next office visit in primary care: none Please advise. Thank you. Lou Dueñas MA. [facility] 07-11-2023 Miscellaneous Notes Patient has been identified by name and date of : Yes, Provider Aruna Tong MD Date July 11, 2023 Time 9:39 AM Patient phones for refill(s): Requested Prescriptions Pending Prescriptions Disp Refills lisinopril (ZESTRIL) 40 mg tablet 90 tablet 1 Sig: Take 1 tablet by mouth once daily. Date of last office visit in primary care: 06/22/2023 Date of next office visit in primary care: none Please advise. Thank you. Lou Dueñas MA. documented in this encounter [facility] 07-02-2023 Telephone encounter Note Patient has been identified by name and date of : Yes, Provider Aruna Tong MD Date July 02, 2023 Time 10:55 AM Patient phones for refill(s): Requested Prescriptions Pending Prescriptions Disp Refills hydroCHLOROthiazide 12.5 mg capsule 90 capsule 1 Sig: Take 1 capsule by mouth once daily. Date of last office visit in primary care: 06/22/2023 Date of next office visit in primary care: none Please advise. Thank you. Lou Dueñas MA. [facility] 07-02-2023 Miscellaneous Notes Patient has been identified by name and date of : Yes, Provider Aruna Tong MD Date July 02, 2023 Time 10:55 AM Patient phones for refill(s): Requested Prescriptions Pending Prescriptions Disp Refills hydroCHLOROthiazide 12.5 mg capsule 90 capsule 1 Sig: Take 1 capsule by mouth once daily. Date of last office visit in primary care: 06/22/2023 Date of next office visit in primary care: none Please advise. Thank you. Lou Dueñas MA. documented in this encounter [facility] 06-22-2023 History of Present illness Narrative 06/22/2023 Patient presents with: Breathing Problem: Wants new order put in for pulmonary testing to be completed; last time before completing SUBJECTIVE: This is a 52 year old that is here today for Above Complaints.. Has had some SOB for some time. Mostly with exertion. Reports can be sleeping just fine and then wakes up needing to take a deep breath. Reports his thoracic surgeon had ordered him lung function studies but he never completed and they have since fell out of system and he can not schedule it. Denies dyspnea, wheezing, coughing, hemoptysis, daytime fatigue, snoring, being told he stops breathing while sleeping, chest pain or palpitations. Has hx of right upper lobectomy due to adenocarcinoma. 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 atorvastatin (LIPITOR) 10 mg tablet Take 1 tablet by mouth once daily. famotidine (PEPCID) 20 mg tablet Take 1 tablet by mouth at bedtime as needed. busPIRone (BUSPAR) 10 mg tablet Take 1 tablet by mouth three times a day. pantoprazole DR (PROTONIX) 40 mg tablet Take 1 tablet by mouth once daily. lisinopril (ZESTRIL) 40 mg tablet Take 1 tablet by mouth once daily. hydroCHLOROthiazide 12.5 mg capsule Take 1 capsule by mouth once daily. cholestyramine-sucrose (QUESTRAN) 4 gram powder Dissolve 2 g (1/2 scoop) in water or juice and take by mouth before meals twice daily No current facility-administered medications for this visit. Medications and allergies reviewed by this provider. SOCIAL HISTORY Social History Tobacco Use Smoking status: Former Packs/day: 3.00 Years: 32.00 Additional pack years: 0.00 Total pack years: 96.00 Types: Cigarettes Start date: 07/18/1984 Quit date: 08/31/2017 Years since quittin.8 Smokeless tobacco: Never Tobacco comments: quit day of surgery Vaping Use Vaping Use: Never used Substance Use Topics Alcohol use: Yes Comment: 2-3 hard cider most days Drug use: No REVIEW OF SYSTEMS All other reviewed and negative other than HPI. OBJECTIVE: BP 144/82 Pulse 76 Resp 18 Wt 86.6 kg (191 lb) SpO2 97% BMI 29.04 kg/m . Vital signs reviewed by this provider. APPEARANCE Well appearing, alert, in no acute distress, well-hydrated, well nourished. EYES conjunctiva and sclera normal. HEART RRR with normal S1 and S2, no murmurs, no gallops, no JVD appreciated LUNG clear to auscultation. No wheezes, rhonchi or rales SKIN Skin color, texture, turgor normal, no suspicious rashes or lesions BP Controlled (<130/80) Never done Hepatitis B Vaccine(1 of 3 - 19+ 3-dose series) Never done DTaP,Tdap,Td Vaccine(1 - Tdap) due on 03/20/2019 Covid-19 Vaccine( - season) Never done Behavioral Health Screening Never done Influenza Vaccine(Season Ended) due on 2023 Annual PCP Team Chronic Disease Visit due on 06/21/2024 Diabetes Screening due on 05/22/2026 Colorectal Cancer Screening due on 05/15/2027 Lipid Screening due on 05/22/2028 Shingrix Vaccine Completed Pneumococcal Vaccine Completed HPV Vaccine Aged Out Hepatitis C Screening Discontinued HIV Screening Discontinued ASSESSMENT/PLAN: 1. SOB (shortness of breath) - ICD9: 786.05, ICD10: R06.02 (primary diagnosis) - no red flag symptoms or exam findings - red flag symptoms discussed, verbalizes understanding - SPIROMETRY - BASELINE AND POST DILATOR - CONSULT TO PULMONARY MEDICINE - ALBUTEROL SULFATE HFA 90 MCG/ACTUATION AEROSOL INHALER - follow-up with pulmonology to ER with red flag symptoms 2. Hx of cancer of lung - ICD9: V10.11, ICD10: Z85.118 - CONSULT TO PULMONARY MEDICINE Belkys Devine APRN.CNP Prescription instructions reviewed with patient as applicable. Patient advised if symptoms do not improve or if symptoms worsen sooner, to contact their primary care physician. Potential red flag symptoms discussed with the patient. Reviewed appropriate action plan to take if red flag symptoms occur. Patient agreeable to treatment plan. Medical Decision Making: Problems: Moderate: New problem with uncertain prognosis Data: Unique test(s) ordered: 1 Risk: Low: Low risk from testing/treatment Medical Decision Making Level: 3 - Low documented in this encounter [facility] 06-22-2023 Miscellaneous Notes Reviewed. Will see in office. Belkys Devine APRN.CNP Triage Protocol Recommended: (upgraded): see provider today for evaluation. Appt made for today. Pt aware to call 911 for severe symptoms as reviewed during call. Reason for Disposition [1] MODERATE longstanding difficulty breathing (e.g., speaks in phrases, SOB even at rest, pulse 100-120) AND [2] SAME as normal Answer Assessment - Initial Assessment Questions Patient contacted to obtain further information regarding stated breathing issues in his appointment note for today. Patient states he is not having any current SOB, chest pain, dizziness or any current concerns. Stated he primarily is trying to get breathing tests ordered that were ordered for him in the past that he never got completed and they have since , due to "occasional changes in his breathing" that he has. Reports he has noticed at times, especially when at work or at times when sleeping that he has to intentionally take a deep breath because he "feels like his breathing changes at times". After the deep breath, he feels fine. Reports he has had inhalers prescribed for him in the past but he does not use them and does not usually carry an inhaler with him. 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 Occasional cough every morning but resolves. 1. RESPIRATORY STATUS: no current SOB, no breathing difficulties now 2. ONSET: "for awhile" 3. PATTERN: as above 4. SEVERITY: Feels mild-moderate SOB at times 5. RECURRENT SYMPTOM: yes 6. CARDIAC HISTORY: see history 7. LUNG HISTORY: yes, see history 8. CAUSE: Pt not sure, would like further testing 9. OTHER SYMPTOMS: DENIES: dizziness, runny nose, cough, chest pain, fever 10. O2 SATURATION MONITOR: Does not have home SpO2 monitor 11. :n/a 12. TRAVEL: no Protocols used: Breathing [id number]-IH TC patient, left message for patient to call back and speak with a triage nurse breathing issues. Mitzi Dougherty RN documented in this encounter [facility] 06-22-2023 Miscellaneous Notes see triage phone note. Added to nurse triage schedule. Steven Bess LPN Please triage patient's complaints of breathing issues. ThanksBelkys APRN.COMPENSATION CONSULTING MANAGER documented in this encounter [facility] 06-10-2023 History of Present illness Narrative 06/10/2023 Patient presents with: Nausea: Comes and goes, thinks it may be his nerves. Has been constant today. SUBJECTIVE: This is a 52 year old that is here today for Above Complaints.. Feeling intermittent nauseated the last couple of weeks, today it is constant. Thinks maybe related to nerves. No dietary changes. Admits he eat potatoes chips in the morning. Varies the time a day he feels nauseated. No aggravating features. Generalized burning in abdomen. Taking medications as prescribed. Denies fever, fluid brash, bloating diarrhea, constipation, hematochezia or melana. 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 famotidine (PEPCID) 20 mg tablet Take 1 tablet by mouth at bedtime as needed. busPIRone (BUSPAR) 10 mg tablet Take 1 tablet by mouth three times a day. pantoprazole DR (PROTONIX) 40 mg tablet Take 1 tablet by mouth once daily. lisinopril (ZESTRIL) 40 mg tablet Take 1 tablet by mouth once daily. hydroCHLOROthiazide 12.5 mg capsule Take 1 capsule by mouth once daily. cholestyramine-sucrose (QUESTRAN) 4 gram powder Dissolve 2 g (1/2 scoop) in water or juice and take by mouth before meals twice daily No current facility-administered medications for this visit. Medications and allergies reviewed by this provider. SOCIAL HISTORY Social History Tobacco Use Smoking status: Former Packs/day: 3.00 Years: 32.00 Additional pack years: 0.00 Total pack years: 96.00 Types: Cigarettes Start date: 07/18/1984 Quit date: 08/31/2017 Years since quittin.7 Smokeless tobacco: Never Tobacco comments: quit day of surgery Vaping Use Vaping Use: Never used Substance Use Topics Alcohol use: Yes Comment: 2-3 hard cider most days Drug use: No REVIEW OF SYSTEMS All other reviewed and negative other than HPI. OBJECTIVE: BP 122/68 Pulse 79 Temp 36.7 C (98 F) Resp 16 Wt 87 kg (191 lb 12.8 oz) SpO2 98% BMI 29.16 kg/m . Vital signs reviewed by this provider. APPEARANCE Well appearing, alert, in no acute distress, well-hydrated, well nourished. EYES conjunctiva and sclera normal. HEART RRR with normal S1 and S2, no murmurs, no gallops, no JVD appreciated LUNG clear to auscultation. No wheezes, rhonchi or rales ABDOMEN bowel sounds normoactive, no bruits, soft, non-tender, non-distended, without organomegaly or palpable masses. No rebound tenderness or guarding. Negative Diaz's SKIN Skin color, texture, turgor normal, no suspicious rashes or lesions to exposed skin BP Controlled (<130/80) Never done Hepatitis B Vaccine(1 of 3 - 19+ 3-dose series) Never done DTaP,Tdap,Td Vaccine(1 - Tdap) due on 03/20/2019 Covid-19 Vaccine( - season) Never done Behavioral Health Screening Never done Influenza Vaccine(Season Ended) due on 2023 Annual PCP Team Chronic Disease Visit due on 05/10/2024 Diabetes Screening due on 05/22/2026 Colorectal Cancer Screening due on 05/15/2027 Lipid Screening due on 05/22/2028 Shingrix Vaccine Completed Pneumococcal Vaccine Completed HPV Vaccine Aged Out Hepatitis C Screening Discontinued HIV Screening Discontinued ASSESSMENT/PLAN: 1. Nausea - ICD9: 787.02, ICD10: R11.0 - possible related to anxiety - no red flag symptoms or exam findings - red flag symptoms discussed, verbalizes understanding - ONDANSETRON 4 MG DISINTEGRATING TABLET - follow-up if persistent to ER with red flag symptoms Belkys Devine APRN.CNP Prescription instructions reviewed with patient as applicable. Patient advised if symptoms do not improve or if symptoms worsen sooner, to contact their primary care physician. Potential red flag symptoms discussed with the patient. Reviewed appropriate action plan to take if red flag symptoms occur. Patient agreeable to treatment plan. Medical Decision Making: Problems: Moderate: New problem with uncertain prognosis Risk: Low: Low risk from testing/treatment Medical Decision Making Level: 3 - Low documented in this encounter [facility] 05-24-2023 Miscellaneous Notes Patient returns call and provider message reviewed. Patient verbalizes understanding with no further questions. Rachel Huizar RN Called and left a voicemail for the Patient to call back and ask for a nurse to receive the providers message. Cesilia Styles RN Will send in prescription for cholesterol medication. Most common side effects is muscle aches. Take one pill prior to bed. Recheck labs fasting in 3 months. Belkys Devine APRN.MARINA Patient returned call and given provider's message below. When patient advised of recommendation to lower his carbohydrate and saturated fat diet and perfomr at least 150 minutes of exercise per week., patient stated "That's not going to happen". Pt states he is requesting to take cholesterol medication, if provider agreeable. Uses [facility] in [place]. Please call patient with update. Thank you. Left a message for pt to call the office and ask to speak to a nurse. Krystin Vogel LPN ----- Message from Belkys Devine APRN.CNP sent at 05/24/2023 12:25 PM EDT ----- Total cholesterol, triglycerides and LDL (bad cholesterol) have increased. Recommend lower carbohydrate and saturated fat diet with at least 150 minutes of exercise per week. Belkys Devine APRN.CNP FOR REFERENCE ONLY The 10-year ASCVD risk score (Lencho DK, et al., 2019) is: 6.9% Values used to calculate the score: Age: 52 years Sex: Male Is Non- : No Diabetic: No Tobacco smoker: No Systolic Blood Pressure: 138 mmHg Is BP treated: Yes HDL Cholesterol: 55 mg/dL Total Cholesterol: 253 mg/dL documented in this encounter [facility] 05-11-2023 History of Present illness Narrative 05/11/2023 Patient presents with: Medication Review SUBJECTIVE: This is a 52 year old that is here today for Above Complaints. Since last office visit has been in good health without ER visits or hospitalizations. HTN: Patient is compliant with meds Yes Monitors bp at home: No. Denies side effects: Yes. Chest pain: No. Dyspnea: No. Edema: No. Palpitations: No. Syncope: No. Headache: No. Dizziness: No. Anxiety: taking Buspar as prescribed. Feels it is working well. Does note some martial discord at this time. Living with a friend. Admits to some down days. Has started counseling. Denies SI, HI or insomnia GERD: taking pantoprazole and Pepcid as prescribed which works well to control symptoms. Occasional breakthrough symptoms Taking questran for loose stools which has been helping quite a bit. Needs renewal of handicap placard. Has a hx of right upper lobectomy. Gets SOB walking longer distances. 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 busPIRone (BUSPAR) 10 mg tablet Take 1 tablet by mouth three times a day. pantoprazole DR (PROTONIX) 40 mg tablet Take 1 tablet by mouth once daily. lisinopril (ZESTRIL) 40 mg tablet Take 1 tablet by mouth once daily. hydroCHLOROthiazide 12.5 mg capsule Take 1 capsule by mouth once daily. cholestyramine-sucrose (QUESTRAN) 4 gram powder Dissolve 2 g (1/2 scoop) in water or juice and take by mouth before meals twice daily No current facility-administered medications for this visit. Medications and allergies reviewed by this provider. SOCIAL HISTORY Social History Tobacco Use Smoking status: Former Packs/day: 3.00 Years: 32.00 Additional pack years: 0.00 Total pack years: 96.00 Types: Cigarettes Start date: 07/18/1984 Quit date: 08/31/2017 Years since quittin.6 Smokeless tobacco: Never Tobacco comments: quit day of surgery Vaping Use Vaping Use: Never used Substance Use Topics Alcohol use: Yes Comment: 2-3 hard cider most days Drug use: No REVIEW OF SYSTEMS All other reviewed and negative other than HPI. OBJECTIVE: BP 138/88 Pulse 93 Resp 16 Wt 85.4 kg (188 lb 3.2 oz) SpO2 97% BMI 28.62 kg/m . Vital signs reviewed by this provider. APPEARANCE Well appearing, alert, in no acute distress, well-hydrated, well nourished. EYES conjunctiva and sclera normal. HEART RRR with normal S1 and S2, no murmurs, no gallops, no JVD appreciated LUNG clear to auscultation. No wheezes, rhonchi or rales EXTREMITIES Extremities normal, No deformities, No skin discoloration, and No edema SKIN Skin color, texture, turgor normal, no suspicious rashes or lesions to exposed skin Component Latest Ref Rng & Units 01/10/2023 WBC 3.70 - 11.00 k/uL 7.00 RBC 4.20 - 6.00 m/uL 4.98 Hemoglobin 13.0 - 17.0 g/dL 16.4 Hematocrit 39.0 - 51.0 % 48.1 MCV 80.0 - 100.0 fL 96.6 MCH 26.0 - 34.0 pg 32.9 MCHC 30.5 - 36.0 g/dL 34.1 RDW-CV 11.5 - 15.0 % 13.0 Platelet Count 150 - 400 k/uL 216 MPV 9.0 - 12.7 fL 10.9 Neut% % 62.8 Abs Neut (ANC) 1.45 - 7.50 k/uL 4.39 Lymph% % 22.7 Abs Lymph 1.00 - 4.00 k/uL 1.59 Jewell% % 11.7 Abs Jewell <0.87 k/uL 0.82 Eosin% % 2.1 Abs Eosin <0.46 k/uL 0.15 Baso% % 0.4 Abs Baso <0.11 k/uL 0.03 Immature Gran % % 0.3 IMMATURE GRANS (ABS) <0.10 k/uL <0.03 NRBC /100 WBC 0.0 Absolute nRBC <0.01 k/uL <0.01 DTYPE Auto Protein, Total 6.3 - 8.0 g/dL 7.4 Albumin 3.9 - 4.9 g/dL 4.7 Calcium 8.5 - 10.2 mg/dL 10.1 Bilirubin, Total 0.2 - 1.3 mg/dL 0.8 Alkaline Phosphatase 38 - 113 U/L 77 AST 14 - 40 U/L 29 ALT 10 - 54 U/L 26 Glucose 74 - 99 mg/dL 89 BUN 9 - 24 mg/dL 18 Creatinine 0.73 - 1.22 mg/dL 1.30 (H) Sodium 136 - 144 mmol/L 138 Potassium 3.7 - 5.1 mmol/L 5.0 Chloride 97 - 105 mmol/L 100 CO2 22 - 30 mmol/L 27 Anion Gap 9 - 18 mmol/L 11 eGFR >=60 mL/min/1.73m 66 Component Latest Ref Rng & Units 06/03/2022 Cholesterol, Total <200 mg/dL 232 (H) Triglyceride <150 mg/dL 183 (H) HDL Cholesterol >39 mg/dL 54 Non HDL Cholesterol <130 mg/dL 178 (H) Fasting Time hrs 12 VLDL Cholesterol <30 mg/dL 37 (H) TC:HDL Ratio <5.10 4.30 LDL Cholesterol <100 mg/dL 141 (H) LDL:HDL Ratio <2.54 2.61 (H) Hepatitis B Vaccine(1 of 3 - 3-dose series) Never done BP Controlled (<130/80) Never done DTaP,Tdap,Td Vaccine(1 - Tdap) due on 03/20/2019 Influenza Vaccine(1) due on 11/05/2022 Covid-19 Vaccine(1) due on 06/03/2023 Annual PCP Team Chronic Disease Visit due on 05/10/2024 Diabetes Screening due on 01/10/2026 Colorectal Cancer Screening due on 05/15/2027 Lipid Screening due on 06/04/2027 Depression Assessment Completed Shingrix Vaccine Completed Pneumococcal Vaccine Completed HPV Vaccine Aged Out Hepatitis C Screening Discontinued HIV Screening Discontinued ASSESSMENT/PLAN: 1. Hypertension, essential - ICD9: 401.9, ICD10: I10 (primary diagnosis) - Controlled - Continue current medications - Recommend home blood pressure monitoring, to bring results to next visit - Encouraged sodium restriction, DASH or Mediterranean diet - Recommend regular aerobic exercise - Follow up in 6 months for hypertension visit - COMP METABOLIC PANEL 2. Immunization due - ICD9: V05.9, ICD10: Z23 - shingles vaccine- needs #2 3. Screening for depression - ICD9: V79.0, ICD10: Z13.31 - DEPRESSION SCREENING/ASSESSMENT 4. Hyperlipidemia, mixed - ICD9: 272.2, ICD10: E78.2 - Control undetermined, due for labs - Counseled on healthy diet and regular exercise - Follow up in 1 year, sooner should any other issues arise. - LIPID PANEL BASIC 5. Generalized anxiety disorder - ICD9: 300.02, ICD10: F41.1 - continue Buspar - follow-up with counseling 6. Gastroesophageal reflux disease, unspecified whether esophagitis present - ICD9: 530.81, ICD10: K21.9 - stable on current regime 7. Diarrhea, unspecified type - ICD9: 787.91, ICD10: R19.7 - controlled on Questran Belkys Devine APRN.CNP Prescription instructions reviewed with patient as applicable. Patient advised if symptoms do not improve or if symptoms worsen sooner, to contact their primary care physician. Potential red flag symptoms discussed with the patient. Reviewed appropriate action plan to take if red flag symptoms occur. Patient agreeable to treatment plan. Medical Decision Making: Problems: Moderate: 2+ stable chronic illnesses Risk: Moderate: Moderate risk from testing/treatment Medical Decision Making Level: 4 - Moderate documented in this encounter [facility] 04-21-2023 Miscellaneous Notes Rx sent. Due for annual physical in May. Needs to schedule OV. Patient has been identified by name and date of : Yes, Provider Aruna Tong MD Date April 21, 2023 Time 4:55 PM Patient phones for refill(s): Requested Prescriptions Pending Prescriptions Disp Refills famotidine (PEPCID) 20 mg tablet 90 tablet 1 Sig: Take 1 tablet by mouth at bedtime as needed. Date of last office visit in primary care: 03/02/2023 Date of next office visit in primary care: none Please advise. Thank you. Lou Dueñas Ma. documented in this encounter [facility] 01-24-2023 Instructions YaimalogBelkys banda APRN.COMPENSATION CONSULTING MANAGER - 01/24/2023 2:52 PM EST BRAT DIET (may eat any of the following as tolerated) Bananas Applesauce [place] Saltine Crackers Animal Crackers Pretzels Oatmeal Unsweetened Dry Cereal (Rice Krispies, Cheerios) Plain Baked or Boiled Potato Plain White Rice Plain Noodles All clear liquid listed below CLEAR LIQUID DIET (need to drink 2 ounces total every half hour) Broth Jello Popsicles Pedialyte Gatorade NO Juices NO Milk NO Dairy Products Call if urine output is decreased or he develops dry mucous membranes, or lethargy. documented in this encounter [facility] 01-24-2023 History of Present illness Narrative 01/24/2023 Patient presents with: Acute Visit: Emesis x1 and diarrhea, started today. Some nasal congestion. SUBJECTIVE: This is a 52 year old that is here today for Above Complaints.. Diarrhea x 2 and emesis x 1 this morning. Asking for note for work. Also admits to nasal congestion and chills. Has not taken anything for symptoms. Able to hold fluids down. No known sick contacts. Did not self test for COVID-19. 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 hydroCHLOROthiazide 12.5 mg capsule Take 1 capsule by mouth once daily. busPIRone (BUSPAR) 10 mg tablet Take 1 tablet by mouth three times daily. pantoprazole DR (PROTONIX) 40 mg tablet Take 1 tablet by mouth once daily. famotidine (PEPCID) 20 mg tablet Take 1 tablet by mouth at bedtime as needed. naproxen (NAPROSYN) 500 mg tablet Take 1 tablet by mouth twice daily as needed for pain. Take with food. cholestyramine-sucrose (QUESTRAN) 4 gram powder Dissolve 2 g (1/2 scoop) in water or juice and take by mouth before meals twice daily No current facility-administered medications for this visit. Medications and allergies reviewed by this provider. SOCIAL HISTORY Social History Tobacco Use Smoking status: Former Packs/day: 3.00 Years: 32.00 Additional pack years: 0.00 Total pack years: 96.00 Types: Cigarettes Start date: 07/18/1984 Quit date: 08/31/2017 Years since quittin.4 Smokeless tobacco: Never Tobacco comments: quit day of surgery Vaping Use Vaping Use: Never used Substance Use Topics Alcohol use: Yes Comment: 2-3 hard cider most days Drug use: No REVIEW OF SYSTEMS All other reviewed and negative other than HPI. OBJECTIVE: BP 95/58 Pulse 81 Temp 36.8 C (98.2 F) Resp 16 Wt 85.3 kg (188 lb) SpO2 97% BMI 29.40 kg/m . Vital signs reviewed by this provider. 102/50 APPEARANCE Well appearing, alert, in no acute distress, well-hydrated, well nourished. EYES conjunctiva and sclera normal. EARS External ears normal, canals clear NECK Supple, no adenopathy; thyroid symmetric, normal size HEART RRR with normal S1 and S2, no murmurs, no gallops, no JVD appreciated LUNG clear to auscultation. No wheezes, rhonchi or rales ABDOMEN bowel sounds normoactive, no bruits, soft, non-tender, non-distended, without organomegaly or palpable masses. No rebound tenderness or guarding EXTREMITIES Extremities normal, No deformities, No skin discoloration, and No edema SKIN Skin color, texture, turgor normal, no suspicious rashes or lesions to exposed skin Hepatitis B Vaccine(1 of 3 - 3-dose series) Never done Influenza Vaccine(1) due on 11/05/2022 DTaP,Tdap,Td Vaccine(1 - Tdap) due on 03/23/2023 Covid-19 Vaccine(1) due on 06/03/2023 Shingrix Vaccine(2 of 2) due on 03/07/2023 Annual PCP Team Chronic Disease Visit due on 01/25/2024 BP Controlled (<130/80) due on 01/25/2024 Diabetes Screening due on 01/10/2026 Colorectal Cancer Screening due on 05/15/2027 Lipid Screening due on 06/04/2027 Depression Assessment Completed Pneumococcal Vaccine Completed HPV Vaccine Aged Out Hepatitis C Screening Discontinued HIV Screening Discontinued ASSESSMENT/PLAN: 1. Diarrhea, unspecified type - ICD9: 787.91, ICD10: R19.7 (primary diagnosis) - no further episodes since this AM - No red flag symptoms or exam findings - red flag symptoms discussed, verbalizes understanding - COVID & INFLUENZA A/B NAAT, ROUTINE - stay hydrated, would recommend Gatorade and water. Discussed BRAT diet- handout provided - follow-up if symptoms fail to improve to ER with red flag symptoms 2. Nausea and vomiting, unspecified vomiting type - ICD9: 787.01, ICD10: R11.2 - one episode this AM - plan as in #1 Belkys Podlogar, MECHANICAL SOUND TECHNICIAN.COMPENSATION CONSULTING MANAGER Prescription instructions reviewed with patient as applicable. Patient advised if symptoms do not improve or if symptoms worsen sooner, to contact their primary care physician. Potential red flag symptoms discussed with the patient. Reviewed appropriate action plan to take if red flag symptoms occur. Patient agreeable to treatment plan. I spent a total of 20 minutes on the date of the service which included preparing to see the patient, [id number] patient care, completing clinical documentation, obtaining and/or reviewing separately obtained history, performing a medically appropriate examination, counseling and educating the patient/family/caregiver, and ordering medications, tests, or procedures. documented in this encounter [facility] 01-10-2023 History of Present illness Narrative 01/10/2023 Patient presents with: Abdominal Pain: Middle upper quadrant pain SUBJECTIVE: This is a 52 year old that is here today for Above Complaints. ONSET: years LOCATION: epigastric DURATION: constant the past three days up until then intermittent CHARACTERISTICS: like someone is pushing on it AGGRAVATING FEATURES: when takes a deep and at night can wake him up ALLEVIATING FEATURES: has tried pantoprazole and Pepcid. 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 famotidine (PEPCID) 20 mg tablet Take 1 tablet by mouth at bedtime as needed. lisinopril (ZESTRIL) 40 mg tablet Take 1 tablet by mouth once daily. hydroCHLOROthiazide 12.5 mg capsule Take 1 capsule by mouth once daily. busPIRone (BUSPAR) 10 mg tablet Take 1 tablet by mouth three times daily. naproxen (NAPROSYN) 500 mg tablet Take 1 tablet by mouth twice daily as needed for pain. Take with food. cholestyramine-sucrose (QUESTRAN) 4 gram powder Dissolve 2 g (1/2 scoop) in water or juice and take by mouth before meals twice daily No current facility-administered medications for this visit. Medications and allergies reviewed by this provider. SOCIAL HISTORY Social History Tobacco Use Smoking status: Former Packs/day: 3.00 Years: 32.00 Additional pack years: 0.00 Total pack years: 96.00 Types: Cigarettes Start date: 07/18/1984 Quit date: 08/31/2017 Years since quittin.3 Smokeless tobacco: Never Tobacco comments: quit day of surgery Vaping Use Vaping Use: Never used Substance Use Topics Alcohol use: Yes Comment: 2-3 hard cider most days Drug use: No REVIEW OF SYSTEMS All other reviewed and negative other than HPI. OBJECTIVE: BP 108/72 Pulse 88 Temp 37 C (98.6 F) Resp 18 Wt 85.2 kg (187 lb 12.8 oz) SpO2 96% BMI 29.37 kg/m . Vital signs reviewed by this provider. APPEARANCE Well appearing, alert, in no acute distress, well-hydrated, well nourished. EYES conjunctiva and sclera normal. HEART RRR with normal S1 and S2, no murmurs, no gallops, no JVD appreciated LUNG clear to auscultation. No wheezes, rhonchi or rales ABDOMEN bowel sounds normoactive, no bruits, soft, non-tender, non-distended, without organomegaly or palpable masses. Negative Diaz's. No rebound tenderness or guarding EXTREMITIES Extremities normal, No deformities, No skin discoloration, and No edema SKIN Skin color, texture, turgor normal, no suspicious rashes or lesions to exposed skin Hepatitis B Vaccine(1 of 3 - 3-dose series) Never done Influenza Vaccine(1) due on 11/05/2022 DTaP,Tdap,Td Vaccine(1 - Tdap) due on 03/23/2023 Covid-19 Vaccine(1) due on 06/03/2023 Shingrix Vaccine(2 of 2) due on 03/07/2023 Annual PCP Team Chronic Disease Visit due on 01/11/2024 BP Controlled (<130/80) due on 01/11/2024 Diabetes Screening due on 06/03/2025 Colorectal Cancer Screening due on 05/15/2027 Lipid Screening due on 06/04/2027 Depression Assessment Completed Pneumococcal Vaccine Completed HPV Vaccine Aged Out Hepatitis C Screening Discontinued HIV Screening Discontinued ASSESSMENT/PLAN: 1. Chronic epigastric pain - ICD9: 789.06, 338.29, ICD10: R10.13, G89.29 (primary diagnosis) Etiology unclear Differential Diagnosis includes GERD, PUD, Gastritis, and pancreatitis - no red flag symptoms or exam findings - red flag symptoms discussed, verbalizes understanding - CONSULT TO GASTROENTEROLOGY - LIPASE BLD - CBC + DIFF - COMP METABOLIC PANEL - recommend alcohol cessation 2. Encounter for immunization - ICD9: V03.89, ICD10: Z23 - ZOSTER VACCINE, RECOMBINANT (SHINGRIX) - ZOSTER VACCINE, RECOMBINANT (SHINGRIX) Belkys Devine APRN.CNP Prescription instructions reviewed with patient as applicable. Patient advised if symptoms do not improve or if symptoms worsen sooner, to contact their primary care physician. Potential red flag symptoms discussed with the patient. Reviewed appropriate action plan to take if red flag symptoms occur. Patient agreeable to treatment plan. I spent a total of 30 minutes on the date of the service which included preparing to see the patient, [id number] patient care, completing clinical documentation, obtaining and/or reviewing separately obtained history, performing a medically appropriate examination, counseling and educating the patient/family/caregiver, and ordering medications, tests, or procedures. documented in this encounter [facility] 01-04-2023 Miscellaneous Notes Patient has been identified by name and date of : Yes Patient phones for refill(s): Requested Prescriptions Pending Prescriptions Disp Refills lisinopril (ZESTRIL) 40 mg tablet 90 tablet 1 Sig: Take 1 tablet by mouth once daily. hydroCHLOROthiazide 12.5 mg capsule 90 capsule 1 Sig: Take 1 capsule by mouth once daily. Date of last office visit in primary care: 06/02/2022 Date of next office visit in primary care: Visit date not found Please advise. Thank you. Pascale Little LPN. documented in this encounter [facility] 11-10-2022 Miscellaneous Notes Detail vm informing pt that phone call follow-up is scheduled with Thoracic nurse, due provider changing clinic days. Patient asked to contact scheduling and confirm. Revised schedule sent reg mail. documented in this encounter [facility] 08-04-2022 History of Present illness Narrative Chief Complaint Patient presents with: Back Pain HPI Navarro Lin is a 51 year old male who presents here today for Above Complaints. Patient complaining of bilateral lower back pain which started first thing this morning. Described as constant tightness/soreness, currently 6/10, without radiation down his legs. No exacerbating factors. Resting today. Has not taken anything OTC for pain. Admits to picking up air conditioner yesterday which weighed about 100 lbs. Did not have pain at that time. Denies loss of bowel/bladder control, saddle anesthesia, weakness, fall. Past medical history, appointments, medications, allergies reviewed. 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 Diverticulosis Erectile dysfunction Generalized anxiety disorder Hemorrhoid History of carpal tunnel release of both wrists History of tobacco use Hypertension Malignant neoplasm of vertebral column (HCC) 2018 calcified mass, benign Previous Surgical History PAST SURGICAL HISTORY Procedure Laterality Date BACK SURGERY HX COLONOSCOPY 05/14/2022 repeat in 5 years COLONOSCOPY FLX DX W/COLLJ SPEC WHEN PFRMD 03/23/2019 Colonoscopy ESOPHAGOGASTRODUODENOSCOPY TRANSORAL DIAGNOSTIC 03/23/2019 EGD LUNG SURGERY HX ORTHOPEDICS SURGERY HX Right 2000 boxer fracture repair- right hand PAST SURGICAL HISTORY OF 11/2017 s/p T12-L1 laminectomy, resection of epidural tumor, T12-L1 posterolateral fusion with pedicle screw fixation PICC LINE INSERT/CONSULT 09/02/2017 REVISE MEDIAN N/CARPAL TUNNEL SURG Left 01/02/2021 Left carpal tunnel release REVISE MEDIAN N/CARPAL TUNNEL SURG Right 11/2021 Carpal tunnel release surgery RMVL LUNG OTHER THAN PNEUMONECTOMY 1 LOBE LOBECT Right 08/31/2017 VATS right upper lung lobectomy, lymph node dissection by lung cancer SKIN BIOPSY HX TONSILLECTOMY PRIMARY/SECONDARY <AGE 12 Tonsillectomy Family History FAMILY HISTORY Problem Relation Age of Onset Heart Mother [place] at 52 y/o Heart Father pacemaker other (paralyzed) Father after fall-bed bound at 82 y/o Breast Cancer Maternal Aunt Coronary Artery Disease Sister s/p stent Alcohol/Drug Brother Opiate overdose in his 40's None Sister Alcohol/Drug Brother other (unkown) Brother in [facility] Patient Allergies ALLERGIES Allergen Reactions Darvocet A500 [Prop* Hives Current Medications Current Outpatient Medications on File Prior to Visit Medication Sig cholestyramine-sucrose (QUESTRAN) 4 gram powder Dissolve 2 g (1/2 scoop) in water or juice and take by mouth before meals twice daily lisinopril (ZESTRIL) 40 mg tablet Take 1 tablet by mouth once daily. hydroCHLOROthiazide 12.5 mg capsule Take 1 capsule by mouth once daily. busPIRone (BUSPAR) 10 mg tablet Take 1 tablet by mouth three times daily. famotidine (PEPCID) 20 mg tablet Take 1 tablet by mouth at bedtime as needed. pantoprazole DR (PROTONIX) 40 mg tablet Take 1 tablet by mouth once daily. No current facility-administered medications on file prior to visit. Social History Social History Tobacco Use Smoking status: Former Packs/day: 3.00 Years: 32.00 Pack years: 96.00 Types: Cigarettes Start date: 07/18/1984 Quit date: 08/31/2017 Years since quittin.9 Smokeless tobacco: Never Tobacco comments: quit day of surgery Vaping Use Vaping Use: Never used Substance Use Topics Alcohol use: Yes Comment: 2-3 hard cider most days Drug use: No Review of Symptoms REVIEW OF SYSTEMS See HPI EXAM: BP 130/84 (BP Site: Right Arm, BP Position: Sitting, BP Cuff Size: Large Adult) Pulse 76 Resp 16 Wt 82.6 kg (182 lb) BMI 28.47 kg/m General Appearance: Well appearing, alert, in no acute distress, well-hydrated, well nourished.. Skin: Skin color, texture, turgor normal, no suspicious rashes or lesions. Back:no pain to palpation of vertebrae, good flexion and extension, good range of motion, reflexes are 2+ and symmetric, motor and sensory appear to be normal, no evidence of scoliosis. Positive for TTP over lumbar paraspinal muscles bilaterally. SLR positive on right. Health Maintenance List HEPATITIS B(1 of 3 - 3-dose series) Never done BP CONTROLLED (<130/80) Never done SHINGRIX VACCINE(1 of 2) Never done DTAP,TDAP,TD(1 - Tdap) due on 03/23/2023 COVID-19 VACCINE(1) due on 06/03/2023 ANNUAL PCP TEAM CHRONIC DISEASE VISIT due on 06/03/2023 DIABETES SCREEN due on 06/03/2025 COLORECTAL CANCER SCREENING due on 05/15/2027 LIPID SCREEN due on 06/04/2027 INFLUENZA Completed DEPRESSION ASSESSMENT Completed PNEUMOCOCCAL Completed HEPATITIS C SCREENING Discontinued HIV SCREENING Discontinued ASSESSMENT/PLAN: 1. Acute bilateral low back pain without sciatica - ICD9: 724.2, 338.19, ICD10: M54.50 (primary diagnosis) Back strain 2/2 lifting heavy object with back and not his knees. Discussed ice/heat, NSAIDs as prescribed, rest, and home exercises. Discussed proper lifting techniques. Red flags for re-assessment reviewed with patient in detail. Call if not improving in 2-3 weeks. 2. Gastroesophageal reflux disease, unspecified whether esophagitis present - ICD9: 530.81, ICD10: K21.9 - Requesting refills today. - FAMOTIDINE 20 MG TABLET Aruna Tong MD documented in this encounter [facility] 07-07-2022 Miscellaneous Notes Refill sent documented in this encounter [facility] 07-05-2022 Miscellaneous Notes Patient phones requesting refills as follows: Requested Prescriptions Pending Prescriptions Disp Refills lisinopril (ZESTRIL) 40 mg tablet 90 tablet 1 Sig: Take 1 tablet by mouth once daily. hydroCHLOROthiazide 12.5 mg capsule 90 capsule 1 Sig: Take 1 capsule by mouth once daily. FRANK 06/02/22 NOV 07/07/22 Please review and advise. Kan Landa LPN documented in this encounter [facility] 06-03-2022 History of Present illness Narrative Patient presents with: Mass: Possible hernia discomfort x 1 day HPI: Abdominal pain: Duration: present for years, bothering him today so he stayed home from work Location: upper abdomen Character: pressure Radiation: No. 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 Diverticulosis Erectile dysfunction Generalized anxiety disorder Hemorrhoid History of carpal tunnel release of both wrists History of tobacco use Hypertension Malignant neoplasm of vertebral column (HCC) 2018 calcified mass, benign PAST SURGICAL HISTORY Procedure Laterality Date BACK SURGERY HX COLONOSCOPY FLX DX W/COLLJ SPEC WHEN PFRMD 03/23/2019 Colonoscopy ESOPHAGOGASTRODUODENOSCOPY TRANSORAL DIAGNOSTIC 03/23/2019 EGD LUNG SURGERY HX ORTHOPEDICS SURGERY HX Right 1999 boxer fracture repair- right hand PAST SURGICAL HISTORY OF 11/2017 s/p T12-L1 laminectomy, resection of epidural tumor, T12-L1 posterolateral fusion with pedicle screw fixation PICC LINE INSERT/CONSULT 09/02/2017 REVISE MEDIAN N/CARPAL TUNNEL SURG Left 01/02/2021 Left carpal tunnel release REVISE MEDIAN N/CARPAL TUNNEL SURG Right 11/2021 Carpal tunnel release surgery RMVL LUNG OTHER THAN PNEUMONECTOMY 1 LOBE LOBECT Right 08/31/2017 VATS right upper lung lobectomy, lymph node dissection by lung cancer SKIN BIOPSY HX TONSILLECTOMY PRIMARY/SECONDARY <AGE 12 Tonsillectomy MEDICATIONS: busPIRone (BUSPAR) 10 mg tablet Take 1 tablet by mouth three times daily. cholestyramine-sucrose (QUESTRAN) 4 gram powder Dissolve 2 g (1/2 scoop) in water or juice and take by mouth before meals twice daily famotidine (PEPCID) 20 mg tablet Take 1 tablet by mouth at bedtime as needed. lisinopril (ZESTRIL, PRINIVIL) 40 mg tablet Take 1 tablet by mouth once daily. hydroCHLOROthiazide (HYDRODIURIL, ESIDRIX) 12.5 mg capsule Take 1 capsule by mouth once daily. pantoprazole DR (PROTONIX) 40 mg tablet Take 1 tablet by mouth once daily. ALLERGIES: ALLERGIES Allergen Reactions Darvocet A500 [Prop* Hives VITALS: BP 130/76 Pulse 75 Temp 36.9 C (98.5 F) Resp 21 Wt 81.6 kg (179 lb 12.8 oz) SpO2 98% BMI 28.12 kg/m PHYSICAL EXAM: GEN: pleasant, no acute distress, alert HEENT: PERRL, EOMI, NECK: supple, HEART: regular rate, regular rhythm, no murmurs LUNGS: clear to auscultation, no wheezes or crackles, no increased WOB ABD: soft, non-distended, prominent xiphoid, mild diastasis recti, no intra-abdominal masses palpated, non-tender. 1cm reducible abdominal wall mass present when standing right of midline half way between the umbilicus and xiphoid process. EXT: no clubbing, no cyanosis, no edema ASSESSMENT/PLAN: 1. Ventral hernia without obstruction or gangrene - ICD9: 553.20, ICD10: K43.9 Reviewed symptoms of incarceration and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 patient denies a history of skin cancer, denies bleeding/changing moles, and denies a history of skin rash. Neurologic: The patient denies a history of epilepsy/convulsions, denies headaches, denies head/spinal injuries, and denies stroke/TIA. Psychiatric: The patient denies psychiatric medications, denies depression, and denies voices, denies substance abuse. Endocrine: The patient denies thyroid disorders, denies diabetes, and denies hormonal problems. Hematologic: The patient denies a history of bruising, denies bleeding, and denies anemia, denies blood clots. Infections: The patient denies a history of measles and mumps, denies rheumatic fever, and denies sexually transmitted diseases. Musculoskeletal: The patient denies back pain/injury, NOTES back problems, denies sciatica, denies knee/foot trouble, NOTES arthritis, or denies gout. When was patient's last Mammogram screening? N/A Last Colonoscopy: 03/23/2019 Krystin Salcedo I have confirmed and edited as necessary, the PFSH and ROS obtained by others. Cesilia Johnson PA-C PHYSICAL EXAMINATION: General: The patient is 51 year old male, well nourished, well hydrated in no acute distress. The patient is oriented to time, place, and person. VITALS: Blood pressure 104/64, pulse 66, temperature 36.7 C (98.1 F), temperature source Temporal Artery, weight 83.9 kg (185 lb), SpO2 99 %. Body mass index is 28.36 kg/m . HEENT: Normal cephalic, ataumatic, pupils are equally round, sclera are anicteric, mucous membranes are moist, oropharynx is clear. Neck has no masses, asymmetry or lymphadenopathy. Respiratory: Clear to auscultation and percussion. Normal respiratory excursion and pattern. Cardiac: Examination is regular rate and rhythm. Normal S1/S2 Abdominal exam: Soft, nontender, with no palpable masses. No hepatosplenomegaly. No palpable hernias. Extremities: no clubbing, cyanosis or edema. No adenopathy. LABORATORY VALUES: As Noted RADIOLOGIC STUDIES: As Noted Assessment IMPRESSION: history of colon polyps, encounter for surveillance colonoscopy. Chronic diarrhea PLAN: I have reviewed my findings with the surgeon. Will plan for lower endoscopy. We discussed the risks and benefits of the planned endoscopy. I have informed the patient that complications can occur including failure to complete the endoscopy and perforation. The patient had the opportunity to ask questions concerning the planned endoscopy. My staff has also explained the procedure to the patient in understandable terms and has given the patient printed material concerning the procedure. The patient freely consents to surgery. The patient was offered a surgery/procedure at a [facility] facility. I have counseled the patient regarding the risk of exposure to and/or potential harm posed by the COVID-19 virus with having a surgery/procedure at this time versus the risk of delaying the surgery/procedure. It is not possible to know either the risk of delaying the surgery or procedure or chance of getting an infection with perfect accuracy, but a joint decision was made between the patient and myself to proceed at this time with endoscopy. I plan to use Miralax/Dulcolax bowel preparation I have explained to the patient the difference between IV conscious sedation and MAC anesthesia - and I have offered either, according to the patient's wishes. I have explained that with IV conscious sedation there is no anesthesia provider available and therefore there is a limitation of the amount of IV medications that can be given and that the patient may wake up in the middle of the procedure and/or experience pain/discomfort during the procedure. Further discussion was done and the patient was given the opportunity to ask questions and all questions were answered. The patient chooses IV conscious sedation Trial of cholestyramine for chronic diarrhea. Patient is also planning to establish with Dr. Kwong locally in Gastroenterology Diagnoses: (Z12.11) Encounter for screening for malignant neoplasm of colon (primary encounter diagnosis) (Z86.010) History of colonic polyps Consultation requested by Dr. Tong for an opinion regarding screening colonoscopy. My final recommendations will be communicated back to the requesting physician by way of shared Medical record or letter to requesting physician via US mail. Cesilia Johnson PA-C documented in this encounter [facility] 04-13-2022 Nurse Note REVIEW OF SYSTEMS: General: The patient denies fatigue, denies weight loss, denies weight gain, denies feeling hot, and denies feelings of cold. Eyes: The patient denies glaucoma, denies eye injury/surgery, does not wear glasses or contacts. Ear/Nose/Throat: The patient denies allergies, denies hayfever, denies ear infections, and denies bloody noses. Cardiovascular: The patient denies chest pain, denies heart disease, NOTES high blood pressure,denies cardiac stent, denies prior heart attack, denies irregular heart beat, denies high cholesterol, denies poor circulation, denies heart failure, other cardiac issues, NOTES claudication, denies cold feet, denies peripheral arterial stent. Respiratory: The patient denies tuberculosis, denies pneumonia, denies frequent cough, denies pulmonary embolism, NOTES shortness of breath, and denies coughing up blood. Gastrointestinal: The patient denies difficulty swallowing, NOTES acid reflux, NOTES ulcers, denies vomiting, denies jaundice/hepatitis, denies gallbladder problems, denies black or tarry stools, NOTES hemorrhoids, NOTES bleeding from rectum, NOTES diverticulitis, NOTES constipation, NOTES diarrhea, denies loss of stool control, and NOTES hernias. Kidney/Bladder: The patient denies kidney stones, denies urine infections, and denies bloody urine. Skin: The patient denies a history of skin cancer, denies bleeding/changing moles, and denies a history of skin rash. Neurologic: The patient denies a history of epilepsy/convulsions, denies headaches, denies head/spinal injuries, and denies stroke/TIA. Psychiatric: The patient denies psychiatric medications, denies depression, and denies voices, denies substance abuse. Endocrine: The patient denies thyroid disorders, denies diabetes, and denies hormonal problems. Hematologic: The patient denies a history of bruising, denies bleeding, and denies anemia, denies blood clots. Infections: The patient denies a history of measles and mumps, denies rheumatic fever, and denies sexually transmitted diseases. Musculoskeletal: The patient denies back pain/injury, NOTES back problems, denies sciatica, denies knee/foot trouble, NOTES arthritis, or denies gout. When was patient's last Mammogram screening? N/A Last Colonoscopy: 03/23/2019 Krystin Salcedo documented in this encounter [facility] 03-29-2022 History of Present illness Narrative Images from the original note were not included. Subjective HPI HPI Navarro Lin is a 51 year old male who presents today for CC of right leg pain. This started 2 weeks ago, after changing work vehicle. Has tried otc medication for relief. Symptoms are worsened by rom/walking. Relieves when rests. Denies abdominal pain, testicular pain, rash, n/v/d, fever. 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 Diverticulosis Erectile dysfunction Generalized anxiety disorder Hemorrhoid History of carpal tunnel release of both wrists History of tobacco use Hypertension Malignant neoplasm of vertebral column (HCC) 2018 calcified mass, benign PAST SURGICAL HISTORY Procedure Laterality Date COLONOSCOPY FLX DX W/COLLJ SPEC WHEN PFRMD 03/23/2019 Colonoscopy ESOPHAGOGASTRODUODENOSCOPY TRANSORAL DIAGNOSTIC 03/23/2019 EGD LUNG SURGERY HX ORTHOPEDICS SURGERY HX Right 1999 boxer fracture repair- right hand PAST SURGICAL HISTORY OF 11/2017 s/p T12-L1 laminectomy, resection of epidural tumor, T12-L1 posterolateral fusion with pedicle screw fixation PICC LINE INSERT/CONSULT 09/02/2017 REVISE MEDIAN N/CARPAL TUNNEL SURG Left 01/02/2021 Left carpal tunnel release REVISE MEDIAN N/CARPAL TUNNEL SURG Right 11/2021 Carpal tunnel release surgery RMVL LUNG OTHER THAN PNEUMONECTOMY 1 LOBE LOBECT Right 08/31/2017 VATS right upper lung lobectomy, lymph node dissection by lung cancer TONSILLECTOMY PRIMARY/SECONDARY <AGE 12 Tonsillectomy ALLERGIES Darvocet A500 [Propoxyphene N-Acetaminophen] MEDICATIONS famotidine (PEPCID) 20 mg tablet Take 1 tablet by mouth at bedtime as needed. lisinopril (ZESTRIL, PRINIVIL) 40 mg tablet Take 1 tablet by mouth once daily. hydroCHLOROthiazide (HYDRODIURIL, ESIDRIX) 12.5 mg capsule Take 1 capsule by mouth once daily. pantoprazole DR (PROTONIX) 40 mg tablet Take 1 tablet by mouth once daily. busPIRone (BUSPAR) 10 mg tablet Take 1 tablet by mouth three times daily. cyclobenzaprine (FLEXERIL) 10 mg tablet Take 1 tablet by mouth twice daily as needed for muscle spasm or pain. predniSONE (DELTASONE) 10 mg tablet Take 4 tabs daily for 3 days, then 2 tabs daily for 3 days, then 1 tab daily for 3 days with food. FAMILY HISTORY Problem Relation Age of Onset Heart Mother [place] at 52 y/o Heart Father pacemaker other (paralyzed) Father after fall-bed bound at 82 y/o Breast Cancer Maternal Aunt Coronary Artery Disease Sister s/p stent Alcohol/Drug Brother Opiate overdose in his 40's None Sister Alcohol/Drug Brother other (unkown) Brother in [facility] Social History Tobacco Use Smoking status: Former Packs/day: 3.00 Years: 32.00 Pack years: 96.00 Types: Cigarettes Start date: 07/18/1984 Quit date: 08/31/2017 Years since quittin.5 Smokeless tobacco: Never Tobacco comments: quit day of surgery Vaping Use Vaping Use: Never used Substance Use Topics Alcohol use: Yes Comment: 2-3 hard cider most days Drug use: No ROS Objective Blood pressure 118/78, pulse 73, temperature 36.8 C (98.2 F), resp. rate 16, weight 83 kg (183 lb), SpO2 98 %. Physical Exam Constitutional: General: He is not in acute distress. Appearance: He is not toxic-appearing or diaphoretic. HENT: Head: Normocephalic and atraumatic. Pulmonary: Effort: Pulmonary effort is normal. No accessory muscle usage or respiratory distress. Abdominal: General: Bowel sounds are normal. Palpations: Abdomen is soft. There is no hepatomegaly. Tenderness: There is no abdominal tenderness. Musculoskeletal: Legs: Neurological: Mental Status: He is alert and oriented to person, place, and time. ASSESSMENT/PLAN: 1. Inguinal strain, right, initial encounter - ICD9: 848.8, ICD10: S76.211A Rest/stretch -use medication as prescribed -follow up if symptoms persist, worsen, change -declined ortho referral today. - PREDNISONE 10 MG TABLET Johny Rangel APRN.MARINA documented in this encounter [facility] 03-12-2022 History of Present illness Narrative This visit was conducted as a virtual visit. Pt here for follow up visit: Surgery: 08/31/2017: Right video-assisted thoracoscopic surgery upper lobectomy with mediastinal lymph node dissection Pathologic stage: pT2a N0 M0, Stage IB adenocarcinoma of right lung Last [facility] note 03/11/2021 per Aly Tomlinson M.D. ASSESSMENT: (R91.1) Lung nodule (primary encounter diagnosis) (Z90.2) 08/31/2017 - Right VATS upper lobectomy (Z86.16) Personal history of COVID-19 (R06.02) SOB (shortness of breath) (C34.11) Malignant neoplasm of right upper lobe of lung (HCC) 50 year old male recently former heavy smoker (>90 pack years) who on work up for back surgery was incidentally found to right lower nodule that was biopsy proven to be adenocarcinoma. After clinical staging (cT2aN0, stage IB) and assessment by Dr. Kan Christianson, the patient proceeded to primary resection on 08/31/2017 and underwent right VATS upper lobectomy with MLND. Final pathology was reported as pT2a N0 M0, stage IB. [address] scan in November 2020 showed new right lower lobe ground glass opacity likely inflammatory/infectious in nature. On interval CT Scan 03/10/2021, RLL GGO resolved. I was pleased to relay to the patient that his CT scan was reassuring and that the new right lower lobe groundglass opacity had fully resolved. Other subcentimeter nodules were all reported as stable. There is no evidence of disease recurrence. Given these findings, will plan to resume annual CT scans with his next lung cancer surveillance study in March 2022. With respect to the patient's dyspnea on exertion: most recent pulmonary studies reviewed with patient (10/02/2019) as well as ECHO (10/18/2019). I conveyed to patient that these studies were relatively preserved and his symptoms out of proportion to expected given results. I offered to again refer patient for formal pulmonary medicine consultation (as previously discussed/ordered Nov 2019). The patient states that he is interested with preference for local testing and providers if possible ([place] area). PLAN: 1. Resume yearly surveillance CT scan schedule with next lung cancer surveillance CT scan March 2022 -Patient wishes to have CT scan scheduled in [place] and to the call prior to final scheduling. 2. Repeat PFTS and Pulmonary medicine consultation given persistent dyspnea on exertion; respiratory symptoms CCT: 03/09/2022 IMPRESSION: 1. Stable postsurgical changes related to right upper lobectomy. Few small (<5 mm) pulmonary nodules are unchanged. 2. No new or increasing intrathoracic lymphadenopathy is noted. Today's visit : VIRTUAL VISIT PROGRESS NOTE This is a virtual visit using Audio only. It required patient-provider interaction for the medical decision making as documented below. CC: Review of 1 year lung cancer surveillance Last Thoracic Surgery Outpatient encounter: March 11, 2021 Surgery: 08/31/2017: Right video-assisted thoracoscopic surgery upper lobectomy with mediastinal lymph node dissection Pathologic stage: pT2a N0 M0, Stage IB adenocarcinoma of right lung Lung Cancer Surveillance Imaging Protocol / Survivorship Planning 6 months - 02/15/2018: New right lower lobe pleural nodule (18 x 17 mm) 9 month (short interval) - 04/07/2018: Right lower lobe nodule similar, possible inflammation 12 months - 10/05/2018: Right lower lobe nodule decreased in size 18 months - 04/12/2019: Stable to smaller right lower lobe nodule. VITO 2 years - 11/08/2019: VITO 3 years - 12/01/2020 CT chest with IV contrast: Right lower lobe GGO, favor infectious/inflammatory; no new thoracic lymphadenopathy of note: patient with COVID diagnosed 11/03/2020 03/10/2021 (3 years, 6 month) - Resolution of right lower lobe GGO, stable subcentimeter nodules, VITO 03/09/2022 (4 year, 6 months): VITO HPI Navarro Lin was contacted via telephone to review lung cancer surveillance CT scan in follow up Patient contacted on listed telephone number with identity confirmed per protocol. 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 ---06/12/2021 PCP visit for BP meds/care ---01/05/2022 PCP visit for shoulder and back pain: imaging to access musculoskeletal etiology ---01/18/2022: ED visit for abdominal pain: CT scan reassuring, d/c from ED Breathing doing "pretty good." Much better than - probably deconditioned and gaining weight. Intermittent productive cough but not concerning to patient. No difficulty walking blocks or climbing No abdominal pain at this time. Patient tolerating diet and doing well. 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 Diverticulosis Erectile dysfunction Generalized anxiety disorder Hemorrhoid History of carpal tunnel release of both wrists History of tobacco use Hypertension Malignant neoplasm of vertebral column (HCC) 2018 calcified mass, benign PAST SURGICAL HISTORY Procedure Laterality Date COLONOSCOPY FLX DX W/COLLJ SPEC WHEN PFRMD 03/23/2019 Colonoscopy ESOPHAGOGASTRODUODENOSCOPY TRANSORAL DIAGNOSTIC 03/23/2019 EGD LUNG SURGERY HX ORTHOPEDICS SURGERY HX Right 2000 boxer fracture repair- right hand PAST SURGICAL HISTORY OF 11/2017 s/p T12-L1 laminectomy, resection of epidural tumor, T12-L1 posterolateral fusion with pedicle screw fixation PICC LINE INSERT/CONSULT 09/02/2017 REVISE MEDIAN N/CARPAL TUNNEL SURG Left 01/02/2021 Left carpal tunnel release REVISE MEDIAN N/CARPAL TUNNEL SURG Right 11/2021 Carpal tunnel release surgery RMVL LUNG OTHER THAN PNEUMONECTOMY 1 LOBE LOBECT Right 08/31/2017 VATS right upper lung lobectomy, lymph node dissection by lung cancer TONSILLECTOMY PRIMARY/SECONDARY <AGE 12 Tonsillectomy FAMILY HISTORY Problem Relation Age of Onset Heart Mother [place] at 52 y/o Heart Father pacemaker other (paralyzed) Father after fall-bed bound at 82 y/o Breast Cancer Maternal Aunt Coronary Artery Disease Sister s/p stent Alcohol/Drug Brother Opiate overdose in his 40's None Sister Alcohol/Drug Brother other (unkown) Brother in [facility] Social History Tobacco Use Smoking status: Former Packs/day: 3.00 Years: 32.00 Pack years: 96.00 Types: Cigarettes Start date: 07/18/1984 Quit date: 08/31/2017 Years since quittin.5 Smokeless tobacco: Never Tobacco comments: quit day of surgery Vaping Use Vaping Use: Never used Substance Use Topics Alcohol use: Yes Comment: 2-3 hard cider most days Drug use: No Current Outpatient Medications Medication Sig lisinopril (ZESTRIL, PRINIVIL) 40 mg tablet Take 1 tablet by mouth once daily. hydroCHLOROthiazide (HYDRODIURIL, ESIDRIX) 12.5 mg capsule Take 1 capsule by mouth once daily. pantoprazole DR (PROTONIX) 40 mg tablet Take 1 tablet by mouth once daily. famotidine (PEPCID) 20 mg tablet Take 1 tablet by mouth at bedtime as needed. busPIRone (BUSPAR) 10 mg tablet Take 1 tablet by mouth three times daily. cyclobenzaprine (FLEXERIL) 10 mg tablet Take 1 tablet by mouth twice daily as needed for muscle spasm or pain. No current facility-administered medications for this visit. ALLERGIES Allergen Reactions Darvocet A500 [Prop* Hives PHYSICAL EXAMINATION: Audio EXAM: (if completed, performed via video enabled technology) GENERAL: alert and appropriate, in no distress RESPIRATORY: breathing non-labored and speaking in full setences, no audible cough or wheeze during interview 01/18/2022 CT abd/pelvis Liver: Slight increase in size of a intermediate low-attenuation lesion with peripheral enhancement in the subcapsular aspect of the inferior anterior medial segment of the left lobe the liver (2:46). There is a sub-5 mm partially enhancing focus in the subcapsular inferior right lobe the liver (2:42) which is stable. Slight increase in size of a enhancing lesion in the subcapsular lateral aspect of the lateral segment of the left lobe the liver now measuring 1.9 cm (2:35). IMPRESSION: 1. No evidence of acute intra-abdominal or pelvic pathology. 2. Slight increase in size of hepatic lesions since prior study. Previous MRI dated 09/10/2016 demonstrating these represent benign hemangiomas. No further evaluation required. 3. Several colonic diverticula without CT evidence of diverticulitis. 03/09/[address] IIMPRESSION: 1. Stable postsurgical changes related to right upper lobectomy. Few small (<5 mm) pulmonary nodules are unchanged. 2. No new or increasing intrathoracic lymphadenopathy is noted. ASSESSMENT: (Z08, Z85.118) Encounter for follow-up surveillance of lung cancer (primary encounter diagnosis) (C34.11) Malignant neoplasm of right upper lobe of lung (HCC) (Z90.2) 08/31/2017 - Right VATS upper lobectomy (Z86.16) Personal history of COVID-19 (D18.03) Liver hemangioma 51 year old male former heavy smoker (>90 pack years) who on work up for back surgery was incidentally found to right lower nodule that was biopsy proven to be adenocarcinoma. After clinical staging (cT2aN0, stage IB) and assessment by Dr. Kan Christianson, the patient proceeded to primary resection on 08/31/2017 and underwent right VATS upper lobectomy with MLND. Final pathology was reported as pT2a N0 M0, stage IB. [address] surveillance CT scan in November 2020 showed new right lower lobe ground glass opacity likely inflammatory/infectious in nature. On interval CT Scan 03/10/2021, RLL GGO resolved. CT scan from 03/09/2022 (4 year, 6 month post-resetion) showed VITO. I was pleased to relay to the patient that his CT scan was reassuring and without evidence of recurrence. Given these findings, will obtain next CT scan in 1 year (Mar 2023) which will put patient over 5 year post-resection crystal. PLAN: 1. Lung cancer surveillance CT scan in 1 year (Mar 2023; 5.5 year study) 2. Patient conuseled to follow up with PCP regarding intermittent abdominal pain and known liver hemangiomas. No current evidence I spent a total of 20 minutes on the date of the service which included preparing to see the patient, [id number] patient care, completing clinical documentation, performing a medically appropriate examination, counseling and educating the patient/family/caregiver, ordering medications, tests, or procedures, and communicating results to the patient/family/caregiver Aly Tomlinson MD March 12, 2022 12:14 PM documented in this encounter [facility] 02-09-2022 Miscellaneous Notes Duplication. documented in this encounter [facility] 01-06-2022 Miscellaneous Notes Spoke with pt and information listed below given. Pt verbalizes understanding. Krystin Vogel LPN Message left for patient to call back for update and ask for a triage nurse. Steven Bess LPN ----- Message from Aruna Tong MD sent at 01/06/2022 2:44 PM EDT ----- Xray of his lower back shows hardware is intact. No new bony lesions to suggest previous cancer is back or has spread. Mild arthritis changes noted. Continue treatment as discussed in office. documented in this encounter [facility] 01-05-2022 History of Present illness Narrative Radiology Service Progress Note PATIENT NAME: Navarro Lin DATE OF SERVICE: January 05, 2022 TIME: 2:57 PM PATIENT IDENTITY VERIFICATION COMPLETED USING TWO (2) IDENTIFIERS: Name and Date of confirmed by patient verbally. FALL SCREENING: Has the patient had 2 falls in the last year or 1 fall with injury or currently using an Ambulatory Assistive Device (Walker, Cane, Wheelchair, Crutches, etc.)? No PATIENT GENDER DATA: Male PATIENT RELEVANT IMPLANT DATA REVIEWED: Not Applicable RADIOLOGY DEPARTMENT: General X-ray: Exam(s) Completed: Spine X-Ray(s): Lumbar AP / LAT / L5-S1 Upper Extremity X-Ray(s): Shoulder, AP / TRUE AP / AXILLARY bilateral PERIPHERAL IV DATA: Not applicable SIGNED BY: RT Prachi(R) January 05, 2022 2:57 PM documented in this encounter [facility] 01-05-2022 History of Present illness Narrative Chief Complaint Patient presents with: Follow Up: 6 month- both shoulders and back very painful. Patient worried cancer might be back. HPI Navarro Lin is a 51 year old male who presents here today for Evaluation of shoulder and back pain. History of right lung cancer s/p VATS and right upper lobectomy in 2018. Yearly CT chest in March showed stable postoperative changes from right upper lobectomy and stable left pulmonary nodules. Repeat in 12 months. Discharged by Oncology, but continues to see thoracic surgeon. Complaining today of pain in his anterior shoulders which started about a month ago. Described as constant soreness, currently 9/10, without radiation. Exacerbated with lifting, lying on his side, movement in general, palpation. Not taking anything OTC for pain. Has not tried ice/heat. Denies fall/injury, erythema, swelling, bruising, limited ROM. Also complaining of midline lower back pain near the site of his previous surgery for the last month. Described as intermittent sharp/stabbing pain without radiation to his legs. Denies exacerbating factors. Not treating at home. Denies loss of bowel/bladder control, saddle anesthesia. Needs refills on medications. Wants flu shot today. Past medical history, appointments, medications, allergies reviewed. 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 Diverticulosis Erectile dysfunction Generalized anxiety disorder Hemorrhoid History of tobacco use Hypertension Malignant neoplasm of vertebral column (HCC) 2017 calcified mass, benign Previous Surgical History PAST SURGICAL HISTORY Procedure Laterality Date COLONOSCOPY FLX DX W/COLLJ SPEC WHEN PFRMD 03/23/2019 Colonoscopy ESOPHAGOGASTRODUODENOSCOPY TRANSORAL DIAGNOSTIC 03/23/2019 EGD LUNG SURGERY HX ORTHOPEDICS SURGERY HX Right 2000 boxer fracture repair- right hand PAST SURGICAL HISTORY OF 11/2017 s/p T12-L1 laminectomy, resection of epidural tumor, T12-L1 posterolateral fusion with pedicle screw fixation PICC LINE INSERT/CONSULT 09/02/2017 REVISE MEDIAN N/CARPAL TUNNEL SURG Left 01/02/2021 Left carpal tunnel release RMVL LUNG OTHER THAN PNEUMONECTOMY 1 LOBE LOBECT Right 08/31/2017 VATS right upper lung lobectomy, lymph node dissection by lung cancer TONSILLECTOMY PRIMARY/SECONDARY <AGE 12 Tonsillectomy Family History FAMILY HISTORY Problem Relation Age of Onset Heart Mother [place] at 52 y/o Heart Father pacemaker other (paralyzed) Father after fall-bed bound at 82 y/o Breast Cancer Maternal Aunt Coronary Artery Disease Sister s/p stent Alcohol/Drug Brother Opiate overdose in his 40's None Sister Alcohol/Drug Brother other (unkown) Brother in [facility] Patient Allergies ALLERGIES Allergen Reactions Darvocet A500 [Prop* Hives Current Medications Current Outpatient Medications on File Prior to Visit Medication Sig busPIRone (BUSPAR) 10 mg tablet Take 1 tablet by mouth three times daily. hydroCHLOROthiazide (HYDRODIURIL, ESIDRIX) 12.5 mg capsule Take 1 capsule by mouth once daily. pantoprazole DR (PROTONIX) 40 mg tablet Take 1 tablet by mouth once daily. famotidine (PEPCID) 20 mg tablet Take 1 tablet by mouth at bedtime as needed. lisinopril (ZESTRIL, PRINIVIL) 40 mg tablet Take 1 tablet by mouth once daily. No current facility-administered medications on file prior to visit. Social History Social History Tobacco Use Smoking status: Former Packs/day: 3.00 Years: 32.00 Pack years: 96.00 Types: Cigarettes Start date: 07/18/1984 Quit date: 08/31/2017 Years since quittin.3 Smokeless tobacco: Never Tobacco comments: quit day of surgery Vaping Use Vaping Use: Never used Substance Use Topics Alcohol use: Yes Comment: 2-3 hard cider most days Drug use: No Review of Symptoms REVIEW OF SYSTEMS See HPI EXAM: BP 116/68 Pulse 69 Resp 16 Wt 83.6 kg (184 lb 3.2 oz) SpO2 97% BMI 28.24 kg/m General Appearance: Well appearing, alert, in no acute distress, well-hydrated, well nourished.. Skin: Skin color, texture, turgor normal, no suspicious rashes or lesions. Back:no pain to palpation of vertebrae, good flexion and extension, good range of motion, reflexes are 2+ and symmetric, motor and sensory appear to be normal, negative SLR test, no evidence of scoliosis. Positive for TTP over lumbar paraspinal muscles bilaterally Shoulder: Location: Bilateral. Redness: No. Warmth: No. Tenderness to palpation: AC joint. Swelling: No. Range of motion: WNL. Empty can test: positive Duarte: positive. Health Maintenance List HEPATITIS B(1 of 3 - 3-dose series) Never done COVID-19 VACCINE(1) Never done PNEUMOCOCCAL(2 - PCV) due on 10/29/2017 DTAP,TDAP,TD(1 - Tdap) due on 03/20/2019 SHINGRIX VACCINE(1 of 2) Never done DEPRESSION ASSESSMENT Never done INFLUENZA(1) due on 11/05/2021 COLORECTAL CANCER SCREENING due on 03/23/2022 ANNUAL PCP TEAM CHRONIC DISEASE VISIT due on 06/12/2022 BP CONTROLLED (<130/80) due on 06/29/2022 DIABETES SCREEN due on 06/12/2024 LIPID SCREEN due on 06/12/2026 HEPATITIS C SCREENING Discontinued HIV SCREENING Discontinued ASSESSMENT/PLAN: 1. Acute pain of both shoulders - ICD9: 719.41, ICD10: M25.511, M25.512 (primary diagnosis) Impingement vs rotator cuff tendinopathy vs OA. Will obtain xrays to rule out lytic lesions and check joint spaces. Will treat with meds as prescribed, ice/heat, home exercises, and f/u with PT. - XR SHOULDER GENERAL 3V OR MORE AP/TRUE AP/OTHER RIGHT - XR SHOULDER GENERAL 3V OR MORE AP/TRUE AP/OTHER LEFT - MELOXICAM 15 MG TABLET - CYCLOBENZAPRINE 10 MG TABLET - CONSULT TO PHYSICAL THERAPY 2. Acute bilateral low back pain without sciatica - ICD9: 724.2, 338.19, ICD10: M54.50 Suspect muscle strain. Will obtain xrays to rule out lytic lesions and check joint spaces. Will treat with meds as prescribed, ice/heat, home exercises, and f/u with PT. - XR LUMBAR GENERAL 3V AP/LAT/L5-S1 - MELOXICAM 15 MG TABLET - CYCLOBENZAPRINE 10 MG TABLET - CONSULT TO PHYSICAL THERAPY 3. Hypertension, essential - ICD9: 401.9, ICD10: I10 - good control - Continue current medication(s) - Encouraged dietary sodium restriction/DASH diet - Recommended regular aerobic exercise. - Reviewed risks of HTN and principles of treatment - Goal of BP <140/90 - LISINOPRIL 40 MG TABLET - HYDROCHLOROTHIAZIDE 12.5 MG CAPSULE 4. Gastroesophageal reflux disease, unspecified whether esophagitis present - ICD9: 530.81, ICD10: K21.9 Refill. - FAMOTIDINE 20 MG TABLET 5. Need for influenza vaccination - ICD9: V04.81, ICD10: Z23 - INFLUENZA VACCINE QUADRIVALENT 6 MO - 64 YRS IM Aruna Tong MD documented in this encounter [facility] 01-05-2022 History of Present illness Narrative per last opd notes 03/11/2021 PLAN: 1. Resume yearly surveillance CT scan schedule with next lung cancer surveillance CT scan March 2022 -Patient wishes to have CT scan scheduled in [place] and to the call prior to final scheduling. 2. Repeat PFTS and Pulmonary medicine consultation given persistent dyspnea on exertion; respiratory symptoms documented in this encounter [facility] 01-04-2022 Miscellaneous Notes Reason for call: Mr. Lin would like to schedule a f/u appointment with Dr. Tomlinson. Pt has requested a virtual appt with an order for CT Scan sent to local hospital as last year. Please contact Pt before 2pm. Home and cell number [phone] Diagnosis Lung cancer Mary Cain documented in this encounter [facility] 11-20-2021 Miscellaneous Notes Last office visit: 06/12/21 Next appointment scheduled: 12/15/21 Patient phones requesting refills as follows: Requested Prescriptions Pending Prescriptions Disp Refills busPIRone (BUSPAR) 10 mg tablet 270 tablet 1 Sig: Take 1 tablet by mouth three times daily. Please review and advise. Elidia Chacon LPN documented in this encounter [facility] 09-17-2021 Miscellaneous Notes Patient phones requesting refills as follows: Pending Prescriptions Disp Refills HYDROCHLOROTHIAZIDE 12.5 MG CAPSULE 90 capsule 0 Sig: Take 1 capsule by mouth once daily. JORDAN: No FRANK-06/12/21 Labs-06/12/21 NOV-12/15/21 Please review and advise. Jessa Crockett LPN documented in this encounter [facility] 06-29-2021 Miscellaneous Notes Patient telephoned and made aware. Voiced understanding. Steven Bess LPN BP in good range. He was supposed to take the Protonix AND the Pepcid, not one or the other. Should restart the protonix and take pepcid as prescribed also. Manual Readin/74 Pulse: 76 Reason for blood pressure check - Last BP elevated and Medication adjustment Patient is: Taking medication as prescribed Yes Took medication today Yes If no, date medication last taken N/A Experiencing side effects No BP was elevated at last appt 06/12/21. Lisinopril was increased to 40mg daily. Tolerating medication change well. Denies any chest pain, unusual shortness of breath, dizziness, or headaches. No caffeine use. Past personal history of tobacco use; no current exposure. Alert and oriented. Pt has been identified by name and birthdate: Yes Allergies reviewed: Yes Latex allergy: no. Medication - prescribed and OTC reviewed and updated: Yes Do you need any prescription refills prior to your next visit: No Health Maintenance: Reviewed and not up to date and provider notified Patient advised to continue with current medications and would be contacted if any further instructions after review by PCP. Does note increased heartburn and indigestion with medication change from Pantoprazole to Pepcid. Sherice Swenson LPN documented in this encounter [facility] 06-29-2021 History of Present illness Narrative Manual Readin/74 Pulse: 76 Reason for blood pressure check - Last BP elevated and Medication adjustment Patient is: Taking medication as prescribed Yes Took medication today Yes If no, date medication last taken N/A Experiencing side effects No BP was elevated at last appt 06/12/21. Lisinopril was increased to 40mg daily. Tolerating medication change well. Denies any chest pain, unusual shortness of breath, dizziness, or headaches. No caffeine use. Past personal history of tobacco use; no current exposure. Alert and oriented. Pt has been identified by name and birthdate: Yes Allergies reviewed: Yes Latex allergy: no. Medication - prescribed and OTC reviewed and updated: Yes Do you need any prescription refills prior to your next visit: No Health Maintenance: Reviewed and not up to date and provider notified Patient advised to continue with current medications and would be contacted if any further instructions after review by PCP. Sherice Swenson LPN documented in this encounter [facility] 06-12-2021 History of Present illness Narrative Chief Complaint Patient presents with: Follow Up Refill Request: dropped bottle lisinopril in the sink- All fills to [facility] JAMES Navarro Lin is a 50 year old male who presents here today for Above Complaints. HTN: Mr. Lin indicates that he is feeling well and denies any symptoms referable to elevated blood pressure. Specifically denies headache, chest pain, palpitations and peripheral edema. Patient denies any side effects of his medication(s) and is compliant with their regimen. He does not check BP's generally, but does have BP at home. Navarro denies regular aerobic exercise. He watches his diet for sodium, low fat and low cholesterol generally not very much. Last 3 Encounter BP Readings: Date: BP: 06/12/2021 165/86 11/24/2020 145/76 11/13/2020 130/58 History of right lung cancer s/p VATS and right upper lobectomy in 2018. Yearly CT chest in March showed stable postoperative changes from right upper lobectomy and stable left pulmonary nodules. Repeat in 12 months. Discharged by Oncology. Taking Protonix 40 mg daily for heartburn which has not been working well for symptoms. Gets epigastric pain occasionally. Tried Carafate which did not help either. Anxiety controlled on Buspar TID without side effects. PHQ-2 / Depression screen He in the past two weeks denies having felt down, depressed, hopeless or with little interest or pleasure in doing things. Unable to afford Viagra for ED. Has considered penile implant surgery in the past, but is not interested in referral today. Past medical history, appointments, medications, allergies reviewed. 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 Diverticulosis Erectile dysfunction Hemorrhoid History of tobacco use Hypertension Malignant neoplasm of vertebral column (HCC) Previous Surgical History PAST SURGICAL HISTORY Procedure Laterality Date COLONOSCOPY FLX DX W/COLLJ SPEC WHEN PFRMD 03/23/2019 Colonoscopy ESOPHAGOGASTRODUODENOSCOPY TRANSORAL DIAGNOSTIC 03/23/2019 EGD LUNG SURGERY HX ORTHOPEDICS SURGERY HX Right 2000 boxer fracture repair- right hand PAST SURGICAL HISTORY OF 11/2017 s/p T12-L1 laminectomy, resection of epidural tumor, T12-L1 posterolateral fusion with pedicle screw fixation PICC LINE INSERT/CONSULT 09/02/2017 REVISE MEDIAN N/CARPAL TUNNEL SURG Left 01/02/2021 Left carpal tunnel release RMVL LUNG OTHER THAN PNEUMONECTOMY 1 LOBE LOBECT Right 08/31/2017 VATS right upper lung lobectomy, lymph node dissection by lung cancer TONSILLECTOMY PRIMARY/SECONDARY <AGE 12 Tonsillectomy Family History FAMILY HISTORY Problem Relation Age of Onset Heart Mother [place] at 52 y/o Heart Father pacemaker other (paralyzed) Father after fall-bed bound at 82 y/o Breast Cancer Maternal Aunt Coronary Artery Disease Sister s/p stent Alcohol/Drug Brother Opiate overdose in his 40's None Sister Alcohol/Drug Brother other (unkown) Brother in [facility] Patient Allergies ALLERGIES Allergen Reactions Darvocet A500 [Prop* Hives Current Medications Current Outpatient Medications on File Prior to Visit Medication Sig busPIRone (BUSPAR) 10 mg tablet Take 1 tablet by mouth three times daily. lisinopril (ZESTRIL, PRINIVIL) 20 mg tablet Take 1 tablet by mouth once daily. hydroCHLOROthiazide 12.5 mg capsule Take 1 capsule by mouth once daily. pantoprazole DR (PROTONIX) 40 mg tablet Take 1 tablet by mouth once daily. albuterol HFA (VENTOLIN HFA) 90 mcg/actuation inhaler Inhale 2 Puffs as instructed every 4 hours as needed. (Patient not taking: Reported on 01/12/2021 ) naproxen (NAPROSYN) 500 mg tablet Take 1 tablet by mouth twice daily as needed. Take with food. (Patient not taking: Reported on 01/12/2021 ) sucralfate (CARAFATE) 1 gram tablet 3 times daily as needed, wait at least 30 min before food or drink. (Patient not taking: Reported on 01/12/2021 ) loperamide (IMODIUM) 2 mg cap(s) Take 1-2 after each loose stool. Max of 8 in a day. (Patient not taking: Reported on 02/12/2021 ) No current facility-administered medications on file prior to visit. Social History Social History Tobacco Use Smoking status: Former Smoker Packs/day: 3.00 Years: 32.00 Pack years: 96.00 Types: Cigarettes Start date: 07/18/1984 Quit date: 08/31/2017 Years since quittin.7 Smokeless tobacco: Never Used Tobacco comment: quit day of surgery Vaping Use Vaping Use: Never used Substance Use Topics Alcohol use: Yes Comment: 2-3 hard cider most days Drug use: No Review of Symptoms REVIEW OF SYSTEMS GENERAL: No weight loss, malaise or fevers RESPIRATORY: Negative for cough, hemoptysis, wheezing, COPD, dyspnea or shortness of breath CARDIOVASCULAR: Negative for chest pain, leg swelling, hypertension, CHF or palpitations GI: No nausea, vomiting, or diarrhea SKIN: Negative for lesions, rash, and itching EXAM: BP 150/82 Pulse 65 Resp 18 Wt 84.6 kg (186 lb 8 oz) SpO2 96% BMI 28.59 kg/m General Appearance: Well appearing, alert, in no acute distress, well-hydrated, well nourished.. Skin: Skin color, texture, turgor normal, no suspicious rashes or lesions. Lungs: Lungs clear to auscultation. No wheezing, rhonchi, rales.. Heart: RRR without murmur, gallop, or rubs. No ectopy. Abdomen: Normal abdominal exam, Abdomen soft, non-tender. Bowel sounds normal. No masses, organomegaly. Extremities: No deformities, edema, skin discoloration, clubbing or cyanosis. Good capillary refill. . Health Maintenance List COVID-19 VACCINE(1) Never done HEPATITIS C SCREENING Never done HIV SCREENING Never done DEPRESSION SCREENING due on 01/12/2019 DTAP,TDAP,TD(1 - Tdap) due on 03/20/2019 SHINGRIX VACCINE(1 of 2) Never done INFLUENZA(Season Ended) due on 11/05/2021 COLORECTAL CANCER SCREENING due on 03/23/2022 LIPID SCREEN due on 06/09/2022 DIABETES SCREEN due on 11/25/2022 ONE PNEUMOVAX PRIOR TO AGE 65 Completed MENINGOCOCCAL CONJUGATE Aged Out ASSESSMENT/PLAN: 1. Hypertension, essential - ICD9: 401.9, ICD10: I10 (primary diagnosis) - poor control - Increase lisinopril (Zestril/Prinivil) - Encouraged dietary sodium restriction/DASH diet - Recommended regular aerobic exercise. - Reviewed risks of HTN and principles of treatment - Goal of BP <140/90 - LISINOPRIL 40 MG TABLET - HYDROCHLOROTHIAZIDE 12.5 MG CAPSULE - CBC - COMP METABOLIC PANEL - LIPID PANEL, NONFASTING 2. ANIL (generalized anxiety disorder) - ICD9: 300.02, ICD10: F41.1 Controlled on Buspar. 3. Gastroesophageal reflux disease, unspecified whether esophagitis present - ICD9: 530.81, ICD10: K21.9 - Discussed lifestyle modifications including limiting caffeine, no meals three hours before sleep and head of bed elevation - Add pepcid and continue PPI. Call if not improving in 1-2 weeks. - FAMOTIDINE 20 MG TABLET 4. Malignant neoplasm of right upper lobe of lung (HCC) - ICD9: 162.3, ICD10: C34.11 S/p VATS. F/u with yearly CT chest. 5. Erectile dysfunction, unspecified erectile dysfunction type - ICD9: 607.84, ICD10: N52.9 Refusing rx or surgical referral. Aruna Tong MD documented in this encounter [facility] 09-02-2017 History of Past i llness Narrative Problem Noted Date Resolved Date Chylothorax on right 09/02/2017 04/07/2018 Overview: History: Admitted 08/31/17 for elective right lower lung lobectomy and lymph node dissection for cT2aN0 lung cancer. After starting regular diet, found to have high volume, milky output from chest tube on 09/02/17. Right arm PICC placed and TPN started 09/02/17. When output from leah drain decreased below 200 ml in 24 hours, underwent chest tube sclerosis with doxycycline on 09/08/17 and leah drain kept to -10cm for 48 hours to maintain apposition. Assessment: Chyle leak following lymph node dissection, improved with bowel rest and TPN+ octreotide 1200 mg in formula Plan: -Diet: Advance to non fat clear liquids in addition to TPN (cycled at 12 hours) with 1200 mg octreotide [Consider advancing to non fat diet in clinic along with medium chain triglyceride oil) -Convert right pleural leah drain to bulb suction. Monitor outputs and record daily yields (patien to go home with leah, to be removed in clinic) . Pain, postoperative, acute 09/01/201704/07 Overview: Secondary to OR Discharge planning issues 08/22/20172018 Overview: History: and lives in [place], [place]. Admitted 08/31/17 for elective lung cancer resection; postop complicated by chylothorax treated with bowel rest and chest tube pleurodesis Assessment: Ready for discharge to home with home care for skilled needs: PICC line care, TPN, right pleural leah drain to bulb suction. Plan: - Discuss needs with patient and collaborate with case management - Will continue to evaluate during hospital admission - Home TPN teaching 09/09/17 - 09/09/17 :Discharge home. Return to clinic in a week for routine surgery follow up, diet advancement, chest tube care. . documented as of this encounter (statuses as of 06/13/2021) [facility] History of Past illness Narrative* Problem Noted Date Resolved Date Chylothorax on right 09/02/2017 04/07/2018 Overview: History: Admitted 08/31/17 for elective right lower lung lobectomy and lymph node dissection for cT2aN0 lung cancer. After starting regular diet, found to have high volume, milky output from chest tube on 09/02/17. Right arm PICC placed and TPN started 09/02/17. When output from leah drain decreased below 200 ml in 24 hours, underwent chest tube sclerosis with doxycycline on 09/08/17 and leah drain kept to -10cm for 48 hours to maintain apposition. Assessment: Chyle leak following lymph node dissection, improved with bowel rest and TPN+ octreotide 1200 mg in formula Plan: -Diet: Advance to non fat clear liquids in addition to TPN (cycled at 12 hours) with 1200 mg octreotide [Consider advancing to non fat diet in clinic along with medium chain triglyceride oil) -Convert right pleural leah drain to bulb suction. Monitor outputs and record daily yields (patien to go home with leah, to be removed in clinic) . Pain, postoperative, acute 09/01/201704/07 Overview: Secondary to OR Discharge planning issues 08/22/20172018 Overview: History: and lives in [place], [place]. Admitted 08/31/17 for elective lung cancer resection; postop complicated by chylothorax treated with bowel rest and chest tube pleurodesis Assessment: Ready for discharge to home with home care for skilled needs: PICC line care, TPN, right pleural leah drain to bulb suction. Plan: - Discuss needs with patient and collaborate with case management - Will continue to evaluate during hospital admission - Home TPN teaching 09/09/17 - 09/09/17 :Discharge home. Return to clinic in a week for routine surgery follow up, diet advancement, chest tube care. . documented as of this encounter (statuses as of 06/29/2021) [facility] History of Past illness Narrative* Problem Noted Date Resolved Date Chylothorax on right 09/02/2017 04/07/2018 Overview: History: Admitted 08/31/17 for elective right lower lung lobectomy and lymph node dissection for cT2aN0 lung cancer. After starting regular diet, found to have high volume, milky output from chest tube on 09/02/17. Right arm PICC placed and TPN started 09/02/17. When output from leah drain decreased below 200 ml in 24 hours, underwent chest tube sclerosis with doxycycline on 09/08/17 and leah drain kept to -10cm for 48 hours to maintain apposition. Assessment: Chyle leak following lymph node dissection, improved with bowel rest and TPN+ octreotide 1200 mg in formula Plan: -Diet: Advance to non fat clear liquids in addition to TPN (cycled at 12 hours) with 1200 mg octreotide [Consider advancing to non fat diet in clinic along with medium chain triglyceride oil) -Convert right pleural leah drain to bulb suction. Monitor outputs and record daily yields (patien to go home with leah, to be removed in clinic) . Pain, postoperative, acute 09/01/201704/07 Overview: Secondary to OR Discharge planning issues 08/22/20172018 Overview: History: and lives in [place], [place]. Admitted 08/31/17 for elective lung cancer resection; postop complicated by chylothorax treated with bowel rest and chest tube pleurodesis Assessment: Ready for discharge to home with home care for skilled needs: PICC line care, TPN, right pleural leah drain to bulb suction. Plan: - Discuss needs with patient and collaborate with case management - Will continue to evaluate during hospital admission - Home TPN teaching 09/09/17 - 09/09/17 :Discharge home. Return to clinic in a week for routine surgery follow up, diet advancement, chest tube care. . documented as of this encounter (statuses as of 09/10/2021) [facility] History of Past illness Narrative* Problem Noted Date Resolved Date Chylothorax on right 09/02/2017 04/07/2018 Overview: History: Admitted 08/31/17 for elective right lower lung lobectomy and lymph node dissection for cT2aN0 lung cancer. After starting regular diet, found to have high volume, milky output from chest tube on 09/02/17. Right arm PICC placed and TPN started 09/02/17. When output from leah drain decreased below 200 ml in 24 hours, underwent chest tube sclerosis with doxycycline on 09/08/17 and leah drain kept to -10cm for 48 hours to maintain apposition. Assessment: Chyle leak following lymph node dissection, improved with bowel rest and TPN+ octreotide 1200 mg in formula Plan: -Diet: Advance to non fat clear liquids in addition to TPN (cycled at 12 hours) with 1200 mg octreotide [Consider advancing to non fat diet in clinic along with medium chain triglyceride oil) -Convert right pleural leah drain to bulb suction. Monitor outputs and record daily yields (patien to go home with leah, to be removed in clinic) . Pain, postoperative, acute 09/01/201704/07 Overview: Secondary to OR Discharge planning issues 08/22/20172018 Overview: History: and lives in [place], [place]. Admitted 08/31/17 for elective lung cancer resection; postop complicated by chylothorax treated with bowel rest and chest tube pleurodesis Assessment: Ready for discharge to home with home care for skilled needs: PICC line care, TPN, right pleural leah drain to bulb suction. Plan: - Discuss needs with patient and collaborate with case management - Will continue to evaluate during hospital admission - Home TPN teaching 09/09/17 - 09/09/17 :Discharge home. Return to clinic in a week for routine surgery follow up, diet advancement, chest tube care. . documented as of this encounter (statuses as of 09/17/2021) [facility] History of Past illness Narrative* Problem Noted Date Resolved Date Chylothorax on right 09/02/2017 04/07/2018 Overview: History: Admitted 08/31/17 for elective right lower lung lobectomy and lymph node dissection for cT2aN0 lung cancer. After starting regular diet, found to have high volume, milky output from chest tube on 09/02/17. Right arm PICC placed and TPN started 09/02/17. When output from leah drain decreased below 200 ml in 24 hours, underwent chest tube sclerosis with doxycycline on 09/08/17 and leah drain kept to -10cm for 48 hours to maintain apposition. Assessment: Chyle leak following lymph node dissection, improved with bowel rest and TPN+ octreotide 1200 mg in formula Plan: -Diet: Advance to non fat clear liquids in addition to TPN (cycled at 12 hours) with 1200 mg octreotide [Consider advancing to non fat diet in clinic along with medium chain triglyceride oil) -Convert right pleural leah drain to bulb suction. Monitor outputs and record daily yields (patien to go home with leah, to be removed in clinic) . Pain, postoperative, acute 09/01/201704/07 Overview: Secondary to OR Discharge planning issues 08/22/20172018 Overview: History: and lives in [place], [place]. Admitted 08/31/17 for elective lung cancer resection; postop complicated by chylothorax treated with bowel rest and chest tube pleurodesis Assessment: Ready for discharge to home with home care for skilled needs: PICC line care, TPN, right pleural leah drain to bulb suction. Plan: - Discuss needs with patient and collaborate with case management - Will continue to evaluate during hospital admission - Home TPN teaching 09/09/17 - 09/09/17 :Discharge home. Return to clinic in a week for routine surgery follow up, diet advancement, chest tube care. . documented as of this encounter (statuses as of 11/20/2021) [facility] History of Past illness Narrative* Problem Noted Date Resolved Date Chylothorax on right 09/02/2017 04/07/2018 Overview: History: Admitted 08/31/17 for elective right lower lung lobectomy and lymph node dissection for cT2aN0 lung cancer. After starting regular diet, found to have high volume, milky output from chest tube on 09/02/17. Right arm PICC placed and TPN started 09/02/17. When output from leah drain decreased below 200 ml in 24 hours, underwent chest tube sclerosis with doxycycline on 09/08/17 and leah drain kept to -10cm for 48 hours to maintain apposition. Assessment: Chyle leak following lymph node dissection, improved with bowel rest and TPN+ octreotide 1200 mg in formula Plan: -Diet: Advance to non fat clear liquids in addition to TPN (cycled at 12 hours) with 1200 mg octreotide [Consider advancing to non fat diet in clinic along with medium chain triglyceride oil) -Convert right pleural leah drain to bulb suction. Monitor outputs and record daily yields (patien to go home with leah, to be removed in clinic) . Pain, postoperative, acute 09/01/201704/07 Overview: Secondary to OR Discharge planning issues 08/22/20172018 Overview: History: and lives in [place], [place]. Admitted 08/31/17 for elective lung cancer resection; postop complicated by chylothorax treated with bowel rest and chest tube pleurodesis Assessment: Ready for discharge to home with home care for skilled needs: PICC line care, TPN, right pleural leah drain to bulb suction. Plan: - Discuss needs with patient and collaborate with case management - Will continue to evaluate during hospital admission - Home TPN teaching 09/09/17 - 09/09/17 :Discharge home. Return to clinic in a week for routine surgery follow up, diet advancement, chest tube care. . documented as of this encounter (statuses as of 01/04/2022) [facility] History of Past illness Narrative* Problem Noted Date Resolved Date Chylothorax on right 09/02/2017 04/07/2018 Overview: History: Admitted 08/31/17 for elective right lower lung lobectomy and lymph node dissection for cT2aN0 lung cancer. After starting regular diet, found to have high volume, milky output from chest tube on 09/02/17. Right arm PICC placed and TPN started 09/02/17. When output from leah drain decreased below 200 ml in 24 hours, underwent chest tube sclerosis with doxycycline on 09/08/17 and leah drain kept to -10cm for 48 hours to maintain apposition. Assessment: Chyle leak following lymph node dissection, improved with bowel rest and TPN+ octreotide 1200 mg in formula Plan: -Diet: Advance to non fat clear liquids in addition to TPN (cycled at 12 hours) with 1200 mg octreotide [Consider advancing to non fat diet in clinic along with medium chain triglyceride oil) -Convert right pleural leah drain to bulb suction. Monitor outputs and record daily yields (patien to go home with leah, to be removed in clinic) . Pain, postoperative, acute 09/01/201704/07 Overview: Secondary to OR Discharge planning issues 08/22/20172018 Overview: History: and lives in [place], [place]. Admitted 08/31/17 for elective lung cancer resection; postop complicated by chylothorax treated with bowel rest and chest tube pleurodesis Assessment: Ready for discharge to home with home care for skilled needs: PICC line care, TPN, right pleural leah drain to bulb suction. Plan: - Discuss needs with patient and collaborate with case management - Will continue to evaluate during hospital admission - Home TPN teaching 09/09/17 - 09/09/17 :Discharge home. Return to clinic in a week for routine surgery follow up, diet advancement, chest tube care. . documented as of this encounter (statuses as of 01/05/2022) [facility] History of Past illness Narrative* Problem Noted Date Resolved Date Chylothorax on right 09/02/2017 04/07/2018 Overview: History: Admitted 08/31/17 for elective right lower lung lobectomy and lymph node dissection for cT2aN0 lung cancer. After starting regular diet, found to have high volume, milky output from chest tube on 09/02/17. Right arm PICC placed and TPN started 09/02/17. When output from leah drain decreased below 200 ml in 24 hours, underwent chest tube sclerosis with doxycycline on 09/08/17 and leah drain kept to -10cm for 48 hours to maintain apposition. Assessment: Chyle leak following lymph node dissection, improved with bowel rest and TPN+ octreotide 1200 mg in formula Plan: -Diet: Advance to non fat clear liquids in addition to TPN (cycled at 12 hours) with 1200 mg octreotide [Consider advancing to non fat diet in clinic along with medium chain triglyceride oil) -Convert right pleural leah drain to bulb suction. Monitor outputs and record daily yields (patien to go home with leah, to be removed in clinic) . Pain, postoperative, acute 09/01/201704/07 Overview: Secondary to OR Discharge planning issues 08/22/20172018 Overview: History: and lives in [place], [place]. Admitted 08/31/17 for elective lung cancer resection; postop complicated by chylothorax treated with bowel rest and chest tube pleurodesis Assessment: Ready for discharge to home with home care for skilled needs: PICC line care, TPN, right pleural leah drain to bulb suction. Plan: - Discuss needs with patient and collaborate with case management - Will continue to evaluate during hospital admission - Home TPN teaching 09/09/17 - 09/09/17 :Discharge home. Return to clinic in a week for routine surgery follow up, diet advancement, chest tube care. . documented as of this encounter (statuses as of 01/05/2022) [facility] History of Past illness Narrative* Problem Noted Date Resolved Date Chylothorax on right 09/02/2017 04/07/2018 Overview: History: Admitted 08/31/17 for elective right lower lung lobectomy and lymph node dissection for cT2aN0 lung cancer. After starting regular diet, found to have high volume, milky output from chest tube on 09/02/17. Right arm PICC placed and TPN started 09/02/17. When output from leah drain decreased below 200 ml in 24 hours, underwent chest tube sclerosis with doxycycline on 09/08/17 and leah drain kept to -10cm for 48 hours to maintain apposition. Assessment: Chyle leak following lymph node dissection, improved with bowel rest and TPN+ octreotide 1200 mg in formula Plan: -Diet: Advance to non fat clear liquids in addition to TPN (cycled at 12 hours) with 1200 mg octreotide [Consider advancing to non fat diet in clinic along with medium chain triglyceride oil) -Convert right pleural leah drain to bulb suction. Monitor outputs and record daily yields (patien to go home with leah, to be removed in clinic) . Pain, postoperative, acute 09/01/201704/07 Overview: Secondary to OR Discharge planning issues 08/22/20172018 Overview: History: and lives in [place]. Admitted 08/31/17 for elective lung cancer resection; postop complicated by chylothorax treated with bowel rest and chest tube pleurodesis Assessment: Ready for discharge to home with home care for skilled needs: PICC line care, TPN, right pleural leah drain to bulb suction. Plan: - Discuss needs with patient and collaborate with case management - Will continue to evaluate during hospital admission - Home TPN teaching 09/09/17 - 09/09/17 :Discharge home. Return to clinic in a week for routine surgery follow up, diet advancement, chest tube care. . documented as of this encounter (statuses as of 01/06/2022) [facility] History of Past illness Narrative* Problem Noted Date Resolved Date Chylothorax on right 09/02/2017 04/07/2018 Overview: History: Admitted 08/31/17 for elective right lower lung lobectomy and lymph node dissection for cT2aN0 lung cancer. After starting regular diet, found to have high volume, milky output from chest tube on 09/02/17. Right arm PICC placed and TPN started 09/02/17. When output from leah drain decreased below 200 ml in 24 hours, underwent chest tube sclerosis with doxycycline on 09/08/17 and leah drain kept to -10cm for 48 hours to maintain apposition. Assessment: Chyle leak following lymph node dissection, improved with bowel rest and TPN+ octreotide 1200 mg in formula Plan: -Diet: Advance to non fat clear liquids in addition to TPN (cycled at 12 hours) with 1200 mg octreotide [Consider advancing to non fat diet in clinic along with medium chain triglyceride oil) -Convert right pleural leah drain to bulb suction. Monitor outputs and record daily yields (patien to go home with leah, to be removed in clinic) . Pain, postoperative, acute 09/01/201704/07 Overview: Secondary to OR Discharge planning issues 08/22/20172018 Overview: History: and lives in [place]. Admitted 08/31/17 for elective lung cancer resection; postop complicated by chylothorax treated with bowel rest and chest tube pleurodesis Assessment: Ready for discharge to home with home care for skilled needs: PICC line care, TPN, right pleural leah drain to bulb suction. Plan: - Discuss needs with patient and collaborate with case management - Will continue to evaluate during hospital admission - Home TPN teaching 09/09/17 - 09/09/17 :Discharge home. Return to clinic in a week for routine surgery follow up, diet advancement, chest tube care. . documented as of this encounter (statuses as of 02/09/2022) [facility] History of Past illness Narrative* Problem Noted Date Resolved Date Chylothorax on right 09/02/2017 04/07/2018 Overview: History: Admitted 08/31/17 for elective right lower lung lobectomy and lymph node dissection for cT2aN0 lung cancer. After starting regular diet, found to have high volume, milky output from chest tube on 09/02/17. Right arm PICC placed and TPN started 09/02/17. When output from leah drain decreased below 200 ml in 24 hours, underwent chest tube sclerosis with doxycycline on 09/08/17 and leah drain kept to -10cm for 48 hours to maintain apposition. Assessment: Chyle leak following lymph node dissection, improved with bowel rest and TPN+ octreotide 1200 mg in formula Plan: -Diet: Advance to non fat clear liquids in addition to TPN (cycled at 12 hours) with 1200 mg octreotide [Consider advancing to non fat diet in clinic along with medium chain triglyceride oil) -Convert right pleural leah drain to bulb suction. Monitor outputs and record daily yields (patien to go home with leah, to be removed in clinic) . Pain, postoperative, acute 09/01/201704/07 Overview: Secondary to OR Discharge planning issues 08/22/20172018 Overview: History: and lives in [place]. Admitted 08/31/17 for elective lung cancer resection; postop complicated by chylothorax treated with bowel rest and chest tube pleurodesis Assessment: Ready for discharge to home with home care for skilled needs: PICC line care, TPN, right pleural leah drain to bulb suction. Plan: - Discuss needs with patient and collaborate with case management - Will continue to evaluate during hospital admission - Home TPN teaching 09/09/17 - 09/09/17 :Discharge home. Return to clinic in a week for routine surgery follow up, diet advancement, chest tube care. . documented as of this encounter (statuses as of 03/29/2022) [facility] History of Past illness Narrative* Problem Noted Date Resolved Date Chylothorax on right 09/02/2017 04/07/2018 Overview: History: Admitted 08/31/17 for elective right lower lung lobectomy and lymph node dissection for cT2aN0 lung cancer. After starting regular diet, found to have high volume, milky output from chest tube on 09/02/17. Right arm PICC placed and TPN started 09/02/17. When output from leah drain decreased below 200 ml in 24 hours, underwent chest tube sclerosis with doxycycline on 09/08/17 and leah drain kept to -10cm for 48 hours to maintain apposition. Assessment: Chyle leak following lymph node dissection, improved with bowel rest and TPN+ octreotide 1200 mg in formula Plan: -Diet: Advance to non fat clear liquids in addition to TPN (cycled at 12 hours) with 1200 mg octreotide [Consider advancing to non fat diet in clinic along with medium chain triglyceride oil) -Convert right pleural leah drain to bulb suction. Monitor outputs and record daily yields (patien to go home with leah, to be removed in clinic) . Pain, postoperative, acute 09/01/201704/07 Overview: Secondary to OR Discharge planning issues 08/22/20172018 Overview: History: and lives in [place]. Admitted 08/31/17 for elective lung cancer resection; postop complicated by chylothorax treated with bowel rest and chest tube pleurodesis Assessment: Ready for discharge to home with home care for skilled needs: PICC line care, TPN, right pleural leah drain to bulb suction. Plan: - Discuss needs with patient and collaborate with case management - Will continue to evaluate during hospital admission - Home TPN teaching 09/09/17 - 09/09/17 :Discharge home. Return to clinic in a week for routine surgery follow up, diet advancement, chest tube care. . documented as of this encounter (statuses as of 04/13/2022) [facility] History of Past illness Narrative* Problem Noted Date Resolved Date Chylothorax on right 09/02/2017 04/07/2018 Overview: History: Admitted 08/31/17 for elective right lower lung lobectomy and lymph node dissection for cT2aN0 lung cancer. After starting regular diet, found to have high volume, milky output from chest tube on 09/02/17. Right arm PICC placed and TPN started 09/02/17. When output from leah drain decreased below 200 ml in 24 hours, underwent chest tube sclerosis with doxycycline on 09/08/17 and leah drain kept to -10cm for 48 hours to maintain apposition. Assessment: Chyle leak following lymph node dissection, improved with bowel rest and TPN+ octreotide 1200 mg in formula Plan: -Diet: Advance to non fat clear liquids in addition to TPN (cycled at 12 hours) with 1200 mg octreotide [Consider advancing to non fat diet in clinic along with medium chain triglyceride oil) -Convert right pleural leha drain to bulb suction. Monitor outputs and record daily yields (patien to go home with leah, to be removed in clinic) . Pain, postoperative, acute 09/01/201704/07 Overview: Secondary to OR Discharge planning issues 08/22/20172018 Overview: History: and lives in [place], [place]. Admitted 08/31/17 for elective lung cancer resection; postop complicated by chylothorax treated with bowel rest and chest tube pleurodesis Assessment: Ready for discharge to home with home care for skilled needs: PICC line care, TPN, right pleural leah drain to bulb suction. Plan: - Discuss needs with patient and collaborate with case management - Will continue to evaluate during hospital admission - Home TPN teaching 09/09/17 - 09/09/17 :Discharge home. Return to clinic in a week for routine surgery follow up, diet advancement, chest tube care. . documented as of this encounter (statuses as of 04/14/2022) [facility]2018 History of Past illness Narrative* Problem Noted Date Resolved Date Chylothorax on right 09/02/2017 04/07/2018 Overview: History: Admitted 08/31/17 for elective right lower lung lobectomy and lymph node dissection for cT2aN0 lung cancer. After starting regular diet, found to have high volume, milky output from chest tube on 09/02/17. Right arm PICC placed and TPN started 09/02/17. When output from leah drain decreased below 200 ml in 24 hours, underwent chest tube sclerosis with doxycycline on 09/08/17 and leah drain kept to -10cm for 48 hours to maintain apposition. Assessment: Chyle leak following lymph node dissection, improved with bowel rest and TPN+ octreotide 1200 mg in formula Plan: -Diet: Advance to non fat clear liquids in addition to TPN (cycled at 12 hours) with 1200 mg octreotide [Consider advancing to non fat diet in clinic along with medium chain triglyceride oil) -Convert right pleural leah drain to bulb suction. Monitor outputs and record daily yields (patien to go home with leah, to be removed in clinic) . Pain, postoperative, acute 09/01/201704/07 Overview: Secondary to OR Discharge planning issues 08/22/20172018 Overview: History: and lives in [place], [place]. Admitted 08/31/17 for elective lung cancer resection; postop complicated by chylothorax treated with bowel rest and chest tube pleurodesis Assessment: Ready for discharge to home with home care for skilled needs: PICC line care, TPN, right pleural leah drain to bulb suction. Plan: - Discuss needs with patient and collaborate with case management - Will continue to evaluate during hospital admission - Home TPN teaching 09/09/17 - 09/09/17 :Discharge home. Return to clinic in a week for routine surgery follow up, diet advancement, chest tube care. . documented as of this encounter (statuses as of 04/23/2022) [facility] History of Past illness Narrative* Problem Noted Date Resolved Date Chylothorax on right 09/02/2017 04/07/2018 Overview: History: Admitted 08/31/17 for elective right lower lung lobectomy and lymph node dissection for cT2aN0 lung cancer. After starting regular diet, found to have high volume, milky output from chest tube on 09/02/17. Right arm PICC placed and TPN started 09/02/17. When output from leah drain decreased below 200 ml in 24 hours, underwent chest tube sclerosis with doxycycline on 09/08/17 and leah drain kept to -10cm for 48 hours to maintain apposition. Assessment: Chyle leak following lymph node dissection, improved with bowel rest and TPN+ octreotide 1200 mg in formula Plan: -Diet: Advance to non fat clear liquids in addition to TPN (cycled at 12 hours) with 1200 mg octreotide [Consider advancing to non fat diet in clinic along with medium chain triglyceride oil) -Convert right pleural leah drain to bulb suction. Monitor outputs and record daily yields (patien to go home with leah, to be removed in clinic) . Pain, postoperative, acute 09/01/201704/07 Overview: Secondary to OR Discharge planning issues 08/22/20172018 Overview: History: and lives in [place], [place]. Admitted 08/31/17 for elective lung cancer resection; postop complicated by chylothorax treated with bowel rest and chest tube pleurodesis Assessment: Ready for discharge to home with home care for skilled needs: PICC line care, TPN, right pleural leah drain to bulb suction. Plan: - Discuss needs with patient and collaborate with case management - Will continue to evaluate during hospital admission - Home TPN teaching 09/09/17 - 09/09/17 :Discharge home. Return to clinic in a week for routine surgery follow up, diet advancement, chest tube care. . documented as of this encounter (statuses as of 04/23/2022) [facility] History of Past illness Narrative* Problem Noted Date Resolved Date Chylothorax on right 09/02/2017 04/07/2018 Overview: History: Admitted 08/31/17 for elective right lower lung lobectomy and lymph node dissection for cT2aN0 lung cancer. After starting regular diet, found to have high volume, milky output from chest tube on 09/02/17. Right arm PICC placed and TPN started 09/02/17. When output from leah drain decreased below 200 ml in 24 hours, underwent chest tube sclerosis with doxycycline on 09/08/17 and leah drain kept to -10cm for 48 hours to maintain apposition. Assessment: Chyle leak following lymph node dissection, improved with bowel rest and TPN+ octreotide 1200 mg in formula Plan: -Diet: Advance to non fat clear liquids in addition to TPN (cycled at 12 hours) with 1200 mg octreotide [Consider advancing to non fat diet in clinic along with medium chain triglyceride oil) -Convert right pleural leah drain to bulb suction. Monitor outputs and record daily yields (patien to go home with leah, to be removed in clinic) . Pain, postoperative, acute 09/01/201704/07 Overview: Secondary to OR Discharge planning issues 08/22/20172018 Overview: History: and lives in [place], [place]. Admitted 08/31/17 for elective lung cancer resection; postop complicated by chylothorax treated with bowel rest and chest tube pleurodesis Assessment: Ready for discharge to home with home care for skilled needs: PICC line care, TPN, right pleural leah drain to bulb suction. Plan: - Discuss needs with patient and collaborate with case management - Will continue to evaluate during hospital admission - Home TPN teaching 09/09/17 - 09/09/17 :Discharge home. Return to clinic in a week for routine surgery follow up, diet advancement, chest tube care. . documented as of this encounter (statuses as of 05/04/2022) [facility] History of Past illness Narrative* Problem Noted Date Resolved Date Chylothorax on right 09/02/2017 04/07/2018 Overview: History: Admitted 08/31/17 for elective right lower lung lobectomy and lymph node dissection for cT2aN0 lung cancer. After starting regular diet, found to have high volume, milky output from chest tube on 09/02/17. Right arm PICC placed and TPN started 09/02/17. When output from leah drain decreased below 200 ml in 24 hours, underwent chest tube sclerosis with doxycycline on 09/08/17 and leah drain kept to -10cm for 48 hours to maintain apposition. Assessment: Chyle leak following lymph node dissection, improved with bowel rest and TPN+ octreotide 1200 mg in formula Plan: -Diet: Advance to non fat clear liquids in addition to TPN (cycled at 12 hours) with 1200 mg octreotide [Consider advancing to non fat diet in clinic along with medium chain triglyceride oil) -Convert right pleural leah drain to bulb suction. Monitor outputs and record daily yields (patien to go home with leah, to be removed in clinic) . Pain, postoperative, acute 09/01/201704/07 Overview: Secondary to OR Discharge planning issues 08/22/20172018 Overview: History: and lives in [place], [place]. Admitted 08/31/17 for elective lung cancer resection; postop complicated by chylothorax treated with bowel rest and chest tube pleurodesis Assessment: Ready for discharge to home with home care for skilled needs: PICC line care, TPN, right pleural leah drain to bulb suction. Plan: - Discuss needs with patient and collaborate with case management - Will continue to evaluate during hospital admission - Home TPN teaching 09/09/17 - 09/09/17 :Discharge home. Return to clinic in a week for routine surgery follow up, diet advancement, chest tube care. . documented as of this encounter (statuses as of 05/14/2022) [facility] History of Past illness Narrative* Problem Noted Date Resolved Date Chylothorax on right 09/02/2017 04/07/2018 Overview: History: Admitted 08/31/17 for elective right lower lung lobectomy and lymph node dissection for cT2aN0 lung cancer. After starting regular diet, found to have high volume, milky output from chest tube on 09/02/17. Right arm PICC placed and TPN started 09/02/17. When output from leah drain decreased below 200 ml in 24 hours, underwent chest tube sclerosis with doxycycline on 09/08/17 and leah drain kept to -10cm for 48 hours to maintain apposition. Assessment: Chyle leak following lymph node dissection, improved with bowel rest and TPN+ octreotide 1200 mg in formula Plan: -Diet: Advance to non fat clear liquids in addition to TPN (cycled at 12 hours) with 1200 mg octreotide [Consider advancing to non fat diet in clinic along with medium chain triglyceride oil) -Convert right pleural leah drain to bulb suction. Monitor outputs and record daily yields (patien to go home with leah, to be removed in clinic) . Pain, postoperative, acute 09/01/201704/07 Overview: Secondary to OR Discharge planning issues 08/22/20172018 Overview: History: and lives in [place], [place]. Admitted 08/31/17 for elective lung cancer resection; postop complicated by chylothorax treated with bowel rest and chest tube pleurodesis Assessment: Ready for discharge to home with home care for skilled needs: PICC line care, TPN, right pleural leah drain to bulb suction. Plan: - Discuss needs with patient and collaborate with case management - Will continue to evaluate during hospital admission - Home TPN teaching 09/09/17 - 09/09/17 :Discharge home. Return to clinic in a week for routine surgery follow up, diet advancement, chest tube care. . documented as of this encounter (statuses as of 05/25/2022) [facility] History of Past illness Narrative* Problem Noted Date Resolved Date Chylothorax on right 09/02/2017 04/07/2018 Overview: History: Admitted 08/31/17 for elective right lower lung lobectomy and lymph node dissection for cT2aN0 lung cancer. After starting regular diet, found to have high volume, milky output from chest tube on 09/02/17. Right arm PICC placed and TPN started 09/02/17. When output from leah drain decreased below 200 ml in 24 hours, underwent chest tube sclerosis with doxycycline on 09/08/17 and leah drain kept to -10cm for 48 hours to maintain apposition. Assessment: Chyle leak following lymph node dissection, improved with bowel rest and TPN+ octreotide 1200 mg in formula Plan: -Diet: Advance to non fat clear liquids in addition to TPN (cycled at 12 hours) with 1200 mg octreotide [Consider advancing to non fat diet in clinic along with medium chain triglyceride oil) -Convert right pleural leah drain to bulb suction. Monitor outputs and record daily yields (patien to go home with leah, to be removed in clinic) . Pain, postoperative, acute 09/01/201704/07 Overview: Secondary to OR Discharge planning issues 08/22/20172018 Overview: History: and lives in [place], [place]. Admitted 08/31/17 for elective lung cancer resection; postop complicated by chylothorax treated with bowel rest and chest tube pleurodesis Assessment: Ready for discharge to home with home care for skilled needs: PICC line care, TPN, right pleural leah drain to bulb suction. Plan: - Discuss needs with patient and collaborate with case management - Will continue to evaluate during hospital admission - Home TPN teaching 09/09/17 - 09/09/17 :Discharge home. Return to clinic in a week for routine surgery follow up, diet advancement, chest tube care. . documented as of this encounter (statuses as of 06/02/2022) [facility] History of Past illness Narrative* Problem Noted Date Resolved Date Chylothorax on right 09/02/2017 04/07/2018 Overview: History: Admitted 08/31/17 for elective right lower lung lobectomy and lymph node dissection for cT2aN0 lung cancer. After starting regular diet, found to have high volume, milky output from chest tube on 09/02/17. Right arm PICC placed and TPN started 09/02/17. When output from leah drain decreased below 200 ml in 24 hours, underwent chest tube sclerosis with doxycycline on 09/08/17 and leah drain kept to -10cm for 48 hours to maintain apposition. Assessment: Chyle leak following lymph node dissection, improved with bowel rest and TPN+ octreotide 1200 mg in formula Plan: -Diet: Advance to non fat clear liquids in addition to TPN (cycled at 12 hours) with 1200 mg octreotide [Consider advancing to non fat diet in clinic along with medium chain triglyceride oil) -Convert right pleural leah drain to bulb suction. Monitor outputs and record daily yields (patien to go home with leah, to be removed in clinic) . Pain, postoperative, acute 09/01/201704/07 Overview: Secondary to OR Discharge planning issues 08/22/20172018 Overview: History: and lives in [place], [place]. Admitted 08/31/17 for elective lung cancer resection; postop complicated by chylothorax treated with bowel rest and chest tube pleurodesis Assessment: Ready for discharge to home with home care for skilled needs: PICC line care, TPN, right pleural leah drain to bulb suction. Plan: - Discuss needs with patient and collaborate with case management - Will continue to evaluate during hospital admission - Home TPN teaching 09/09/17 - 09/09/17 :Discharge home. Return to clinic in a week for routine surgery follow up, diet advancement, chest tube care. . documented as of this encounter (statuses as of 06/03/2022) [facility] History of Past illness Narrative* Problem Noted Date Resolved Date Chylothorax on right 09/02/2017 04/07/2018 Overview: History: Admitted 08/31/17 for elective right lower lung lobectomy and lymph node dissection for cT2aN0 lung cancer. After starting regular diet, found to have high volume, milky output from chest tube on 09/02/17. Right arm PICC placed and TPN started 09/02/17. When output from leah drain decreased below 200 ml in 24 hours, underwent chest tube sclerosis with doxycycline on 09/08/17 and leah drain kept to -10cm for 48 hours to maintain apposition. Assessment: Chyle leak following lymph node dissection, improved with bowel rest and TPN+ octreotide 1200 mg in formula Plan: -Diet: Advance to non fat clear liquids in addition to TPN (cycled at 12 hours) with 1200 mg octreotide [Consider advancing to non fat diet in clinic along with medium chain triglyceride oil) -Convert right pleural leah drain to bulb suction. Monitor outputs and record daily yields (patien to go home with leah, to be removed in clinic) . Pain, postoperative, acute 09/01/201704/07 Overview: Secondary to OR Discharge planning issues 08/22/20172018 Overview: History: and lives in [place], [place]. Admitted 08/31/17 for elective lung cancer resection; postop complicated by chylothorax treated with bowel rest and chest tube pleurodesis Assessment: Ready for discharge to home with home care for skilled needs: PICC line care, TPN, right pleural leah drain to bulb suction. Plan: - Discuss needs with patient and collaborate with case management - Will continue to evaluate during hospital admission - Home TPN teaching 09/09/17 - 09/09/17 :Discharge home. Return to clinic in a week for routine surgery follow up, diet advancement, chest tube care. . documented as of this encounter (statuses as of 07/06/2022) [facility] History of Past illness Narrative* Problem Noted Date Resolved Date Chylothorax on right 09/02/2017 04/07/2018 Overview: History: Admitted 08/31/17 for elective right lower lung lobectomy and lymph node dissection for cT2aN0 lung cancer. After starting regular diet, found to have high volume, milky output from chest tube on 09/02/17. Right arm PICC placed and TPN started 09/02/17. When output from leah drain decreased below 200 ml in 24 hours, underwent chest tube sclerosis with doxycycline on 09/08/17 and leah drain kept to -10cm for 48 hours to maintain apposition. Assessment: Chyle leak following lymph node dissection, improved with bowel rest and TPN+ octreotide 1200 mg in formula Plan: -Diet: Advance to non fat clear liquids in addition to TPN (cycled at 12 hours) with 1200 mg octreotide [Consider advancing to non fat diet in clinic along with medium chain triglyceride oil) -Convert right pleural leah drain to bulb suction. Monitor outputs and record daily yields (patien to go home with leah, to be removed in clinic) . Pain, postoperative, acute 09/01/201704/07 Overview: Secondary to OR Discharge planning issues 08/22/20172018 Overview: History: and lives in [place]. Admitted 08/31/17 for elective lung cancer resection; postop complicated by chylothorax treated with bowel rest and chest tube pleurodesis Assessment: Ready for discharge to home with home care for skilled needs: PICC line care, TPN, right pleural leah drain to bulb suction. Plan: - Discuss needs with patient and collaborate with case management - Will continue to evaluate during hospital admission - Home TPN teaching 09/09/17 - 09/09/17 :Discharge home. Return to clinic in a week for routine surgery follow up, diet advancement, chest tube care. . documented as of this encounter (statuses as of 07/07/2022) [facility] History of Past illness Narrative* Problem Noted Date Resolved Date Chylothorax on right 09/02/2017 04/07/2018 Overview: History: Admitted 08/31/17 for elective right lower lung lobectomy and lymph node dissection for cT2aN0 lung cancer. After starting regular diet, found to have high volume, milky output from chest tube on 09/02/17. Right arm PICC placed and TPN started 09/02/17. When output from leah drain decreased below 200 ml in 24 hours, underwent chest tube sclerosis with doxycycline on 09/08/17 and leah drain kept to -10cm for 48 hours to maintain apposition. Assessment: Chyle leak following lymph node dissection, improved with bowel rest and TPN+ octreotide 1200 mg in formula Plan: -Diet: Advance to non fat clear liquids in addition to TPN (cycled at 12 hours) with 1200 mg octreotide [Consider advancing to non fat diet in clinic along with medium chain triglyceride oil) -Convert right pleural leah drain to bulb suction. Monitor outputs and record daily yields (patien to go home with leah, to be removed in clinic) . Pain, postoperative, acute 09/01/201704/07 Overview: Secondary to OR Discharge planning issues 08/22/20172018 Overview: History: and lives in [place]. Admitted 08/31/17 for elective lung cancer resection; postop complicated by chylothorax treated with bowel rest and chest tube pleurodesis Assessment: Ready for discharge to home with home care for skilled needs: PICC line care, TPN, right pleural leah drain to bulb suction. Plan: - Discuss needs with patient and collaborate with case management - Will continue to evaluate during hospital admission - Home TPN teaching 09/09/17 - 09/09/17 :Discharge home. Return to clinic in a week for routine surgery follow up, diet advancement, chest tube care. . documented as of this encounter (statuses as of 08/04/2022) [facility] History of Past illness Narrative* Problem Noted Date Diagnosed Date Resolved Date Chylothorax on right 09/02/2017 019 Overview: History: Admitted 08/31/17 for elective right lower lung lobectomy and lymph node dissection for cT2aN0 lung cancer. After starting regular diet, found to have high volume, milky output from chest tube on 09/02/17. Right arm PICC placed and TPN started 09/02/17. When output from leah drain decreased below 200 ml in 24 hours, underwent chest tube sclerosis with doxycycline on 09/08/17 and leah drain kept to -10cm for 48 hours to maintain apposition. Assessment: Chyle leak following lymph node dissection, improved with bowel rest and TPN+ octreotide 1200 mg in formula Plan: -Diet: Advance to non fat clear liquids in addition to TPN (cycled at 12 hours) with 1200 mg octreotide [Consider advancing to non fat diet in clinic along with medium chain triglyceride oil) -Convert right pleural leah drain to bulb suction. Monitor outputs and record daily yields (patien to go home with leah, to be removed in clinic) . Pain, postoperative, acute 09/01/2017 0 04/07/2018 Overview: Secondary to OR Discharge planning issues 08/22/2017 Overview: History: and lives in [place]. Admitted 08/31/17 for elective lung cancer resection; postop complicated by chylothorax treated with bowel rest and chest tube pleurodesis Assessment: Ready for discharge to home with home care for skilled needs: PICC line care, TPN, right pleural leah drain to bulb suction. Plan: - Discuss needs with patient and collaborate with case management - Will continue to evaluate during hospital admission - Home TPN teaching 09/09/17 - 09/09/17 :Discharge home. Return to clinic in a week for routine surgery follow up, diet advancement, chest tube care. . documented as of this encounter (statuses as of 11/11/2022) [facility] History of Past illness Narrative* Problem Noted Date Diagnosed Date Resolved Date Chylothorax on right 09/02/2017 019 Overview: History: Admitted 08/31/17 for elective right lower lung lobectomy and lymph node dissection for cT2aN0 lung cancer. After starting regular diet, found to have high volume, milky output from chest tube on 09/02/17. Right arm PICC placed and TPN started 09/02/17. When output from leah drain decreased below 200 ml in 24 hours, underwent chest tube sclerosis with doxycycline on 09/08/17 and leah drain kept to -10cm for 48 hours to maintain apposition. Assessment: Chyle leak following lymph node dissection, improved with bowel rest and TPN+ octreotide 1200 mg in formula Plan: -Diet: Advance to non fat clear liquids in addition to TPN (cycled at 12 hours) with 1200 mg octreotide [Consider advancing to non fat diet in clinic along with medium chain triglyceride oil) -Convert right pleural leah drain to bulb suction. Monitor outputs and record daily yields (patien to go home with leah, to be removed in clinic) . Pain, postoperative, acute 09/01/2017 0 04/07/2018 Overview: Secondary to OR Discharge planning issues 08/22/2017 Overview: History: and lives in [place], [place]. Admitted 08/31/17 for elective lung cancer resection; postop complicated by chylothorax treated with bowel rest and chest tube pleurodesis Assessment: Ready for discharge to home with home care for skilled needs: PICC line care, TPN, right pleural leah drain to bulb suction. Plan: - Discuss needs with patient and collaborate with case management - Will continue to evaluate during hospital admission - Home TPN teaching 09/09/17 - 09/09/17 :Discharge home. Return to clinic in a week for routine surgery follow up, diet advancement, chest tube care. . documented as of this encounter (statuses as of 01/05/2023) [facility] History of Past illness Narrative* Problem Noted Date Diagnosed Date Resolved Date Chylothorax on right 09/02/2017 019 Overview: History: Admitted 08/31/17 for elective right lower lung lobectomy and lymph node dissection for cT2aN0 lung cancer. After starting regular diet, found to have high volume, milky output from chest tube on 09/02/17. Right arm PICC placed and TPN started 09/02/17. When output from leah drain decreased below 200 ml in 24 hours, underwent chest tube sclerosis with doxycycline on 09/08/17 and leah drain kept to -10cm for 48 hours to maintain apposition. Assessment: Chyle leak following lymph node dissection, improved with bowel rest and TPN+ octreotide 1200 mg in formula Plan: -Diet: Advance to non fat clear liquids in addition to TPN (cycled at 12 hours) with 1200 mg octreotide [Consider advancing to non fat diet in clinic along with medium chain triglyceride oil) -Convert right pleural leah drain to bulb suction. Monitor outputs and record daily yields (patien to go home with leah, to be removed in clinic) . Pain, postoperative, acute 09/01/2017 0 04/07/2018 Overview: Secondary to OR Discharge planning issues 08/22/2017 Overview: History: and lives in [place], [place]. Admitted 08/31/17 for elective lung cancer resection; postop complicated by chylothorax treated with bowel rest and chest tube pleurodesis Assessment: Ready for discharge to home with home care for skilled needs: PICC line care, TPN, right pleural leah drain to bulb suction. Plan: - Discuss needs with patient and collaborate with case management - Will continue to evaluate during hospital admission - Home TPN teaching 09/09/17 - 09/09/17 :Discharge home. Return to clinic in a week for routine surgery follow up, diet advancement, chest tube care. . documented as of this encounter (statuses as of 01/11/2023) [facility]06-[facility]-2018 History of Past illness Narrative* Problem Noted Date Diagnosed Date Resolved Date Chylothorax on right 09/02/2017 019 Overview: History: Admitted 08/31/17 for elective right lower lung lobectomy and lymph node dissection for cT2aN0 lung cancer. After starting regular diet, found to have high volume, milky output from chest tube on 09/02/17. Right arm PICC placed and TPN started 09/02/17. When output from leah drain decreased below 200 ml in 24 hours, underwent chest tube sclerosis with doxycycline on 09/08/17 and leah drain kept to -10cm for 48 hours to maintain apposition. Assessment: Chyle leak following lymph node dissection, improved with bowel rest and TPN+ octreotide 1200 mg in formula Plan: -Diet: Advance to non fat clear liquids in addition to TPN (cycled at 12 hours) with 1200 mg octreotide [Consider advancing to non fat diet in clinic along with medium chain triglyceride oil) -Convert right pleural leah drain to bulb suction. Monitor outputs and record daily yields (patien to go home with leah, to be removed in clinic) . Pain, postoperative, acute 09/01/2017 0 04/07/2018 Overview: Secondary to OR Discharge planning issues 08/22/2017 Overview: History: and lives in [place], [place]. Admitted 08/31/17 for elective lung cancer resection; postop complicated by chylothorax treated with bowel rest and chest tube pleurodesis Assessment: Ready for discharge to home with home care for skilled needs: PICC line care, TPN, right pleural leah drain to bulb suction. Plan: - Discuss needs with patient and collaborate with case management - Will continue to evaluate during hospital admission - Home TPN teaching 09/09/17 - 09/09/17 :Discharge home. Return to clinic in a week for routine surgery follow up, diet advancement, chest tube care. . documented as of this encounter (statuses as of 01/25/2023) [facility] History of Past illness Narrative* Problem Noted Date Diagnosed Date Resolved Date Chylothorax on right 09/02/2017 019 Overview: History: Admitted 08/31/17 for elective right lower lung lobectomy and lymph node dissection for cT2aN0 lung cancer. After starting regular diet, found to have high volume, milky output from chest tube on 09/02/17. Right arm PICC placed and TPN started 09/02/17. When output from leah drain decreased below 200 ml in 24 hours, underwent chest tube sclerosis with doxycycline on 09/08/17 and leah drain kept to -10cm for 48 hours to maintain apposition. Assessment: Chyle leak following lymph node dissection, improved with bowel rest and TPN+ octreotide 1200 mg in formula Plan: -Diet: Advance to non fat clear liquids in addition to TPN (cycled at 12 hours) with 1200 mg octreotide [Consider advancing to non fat diet in clinic along with medium chain triglyceride oil) -Convert right pleural leah drain to bulb suction. Monitor outputs and record daily yields (patien to go home with leah, to be removed in clinic) . Pain, postoperative, acute 09/01/2017 0 04/07/2018 Overview: Secondary to OR Discharge planning issues 08/22/2017 Overview: History: and lives in [place], [place]. Admitted 08/31/17 for elective lung cancer resection; postop complicated by chylothorax treated with bowel rest and chest tube pleurodesis Assessment: Ready for discharge to home with home care for skilled needs: PICC line care, TPN, right pleural leah drain to bulb suction. Plan: - Discuss needs with patient and collaborate with case management - Will continue to evaluate during hospital admission - Home TPN teaching 09/09/17 - 09/09/17 :Discharge home. Return to clinic in a week for routine surgery follow up, diet advancement, chest tube care. . documented as of this encounter (statuses as of 04/22/2023) [facility] History of Past illness Narrative* Problem Noted Date Diagnosed Date Resolved Date Chylothorax on right 09/02/2017 019 Overview: History: Admitted 08/31/17 for elective right lower lung lobectomy and lymph node dissection for cT2aN0 lung cancer. After starting regular diet, found to have high volume, milky output from chest tube on 09/02/17. Right arm PICC placed and TPN started 09/02/17. When output from leah drain decreased below 200 ml in 24 hours, underwent chest tube sclerosis with doxycycline on 09/08/17 and leah drain kept to -10cm for 48 hours to maintain apposition. Assessment: Chyle leak following lymph node dissection, improved with bowel rest and TPN+ octreotide 1200 mg in formula Plan: -Diet: Advance to non fat clear liquids in addition to TPN (cycled at 12 hours) with 1200 mg octreotide [Consider advancing to non fat diet in clinic along with medium chain triglyceride oil) -Convert right pleural leah drain to bulb suction. Monitor outputs and record daily yields (patien to go home with leah, to be removed in clinic) . Pain, postoperative, acute 09/01/2017 0 04/07/2018 Overview: Secondary to OR Discharge planning issues 08/22/2017 Overview: History: and lives in [place], [place]. Admitted 08/31/17 for elective lung cancer resection; postop complicated by chylothorax treated with bowel rest and chest tube pleurodesis Assessment: Ready for discharge to home with home care for skilled needs: PICC line care, TPN, right pleural leah drain to bulb suction. Plan: - Discuss needs with patient and collaborate with case management - Will continue to evaluate during hospital admission - Home TPN teaching 09/09/17 - 09/09/17 :Discharge home. Return to clinic in a week for routine surgery follow up, diet advancement, chest tube care. . documented as of this encounter (statuses as of 05/12/2023) [facility] History of Past illness Narrative* Problem Noted Date Diagnosed Date Resolved Date Chylothorax on right 09/02/2017 019 Overview: History: Admitted 08/31/17 for elective right lower lung lobectomy and lymph node dissection for cT2aN0 lung cancer. After starting regular diet, found to have high volume, milky output from chest tube on 09/02/17. Right arm PICC placed and TPN started 09/02/17. When output from leah drain decreased below 200 ml in 24 hours, underwent chest tube sclerosis with doxycycline on 09/08/17 and leah drain kept to -10cm for 48 hours to maintain apposition. Assessment: Chyle leak following lymph node dissection, improved with bowel rest and TPN+ octreotide 1200 mg in formula Plan: -Diet: Advance to non fat clear liquids in addition to TPN (cycled at 12 hours) with 1200 mg octreotide [Consider advancing to non fat diet in clinic along with medium chain triglyceride oil) -Convert right pleural leah drain to bulb suction. Monitor outputs and record daily yields (patien to go home with leah, to be removed in clinic) . Pain, postoperative, acute 09/01/2017 0 04/07/2018 Overview: Secondary to OR Discharge planning issues 08/22/2017 Overview: History: and lives in [place], [place]. Admitted 08/31/17 for elective lung cancer resection; postop complicated by chylothorax treated with bowel rest and chest tube pleurodesis Assessment: Ready for discharge to home with home care for skilled needs: PICC line care, TPN, right pleural leah drain to bulb suction. Plan: - Discuss needs with patient and collaborate with case management - Will continue to evaluate during hospital admission - Home TPN teaching 09/09/17 - 09/09/17 :Discharge home. Return to clinic in a week for routine surgery follow up, diet advancement, chest tube care. . documented as of this encounter (statuses as of 05/24/2023) [facility] History of Past illness Narrative* Problem Noted Date Diagnosed Date Resolved Date Chylothorax on right 09/02/2017 019 Overview: History: Admitted 08/31/17 for elective right lower lung lobectomy and lymph node dissection for cT2aN0 lung cancer. After starting regular diet, found to have high volume, milky output from chest tube on 09/02/17. Right arm PICC placed and TPN started 09/02/17. When output from leah drain decreased below 200 ml in 24 hours, underwent chest tube sclerosis with doxycycline on 09/08/17 and leah drain kept to -10cm for 48 hours to maintain apposition. Assessment: Chyle leak following lymph node dissection, improved with bowel rest and TPN+ octreotide 1200 mg in formula Plan: -Diet: Advance to non fat clear liquids in addition to TPN (cycled at 12 hours) with 1200 mg octreotide [Consider advancing to non fat diet in clinic along with medium chain triglyceride oil) -Convert right pleural leah drain to bulb suction. Monitor outputs and record daily yields (patien to go home with leah, to be removed in clinic) . Pain, postoperative, acute 09/01/2017 0 04/07/2018 Overview: Secondary to OR Discharge planning issues 08/22/2017 Overview: History: and lives in [place], [place]. Admitted 08/31/17 for elective lung cancer resection; postop complicated by chylothorax treated with bowel rest and chest tube pleurodesis Assessment: Ready for discharge to home with home care for skilled needs: PICC line care, TPN, right pleural leah drain to bulb suction. Plan: - Discuss needs with patient and collaborate with case management - Will continue to evaluate during hospital admission - Home TPN teaching 09/09/17 - 09/09/17 :Discharge home. Return to clinic in a week for routine surgery follow up, diet advancement, chest tube care. . documented as of this encounter (statuses as of 06/22/2023) [facility] History of Past illness Narrative* Problem Noted Date Diagnosed Date Resolved Date Chylothorax on right 09/02/2017 019 Overview: History: Admitted 08/31/17 for elective right lower lung lobectomy and lymph node dissection for cT2aN0 lung cancer. After starting regular diet, found to have high volume, milky output from chest tube on 09/02/17. Right arm PICC placed and TPN started 09/02/17. When output from leah drain decreased below 200 ml in 24 hours, underwent chest tube sclerosis with doxycycline on 09/08/17 and leah drain kept to -10cm for 48 hours to maintain apposition. Assessment: Chyle leak following lymph node dissection, improved with bowel rest and TPN+ octreotide 1200 mg in formula Plan: -Diet: Advance to non fat clear liquids in addition to TPN (cycled at 12 hours) with 1200 mg octreotide [Consider advancing to non fat diet in clinic along with medium chain triglyceride oil) -Convert right pleural leah drain to bulb suction. Monitor outputs and record daily yields (patien to go home with leah, to be removed in clinic) . Pain, postoperative, acute 09/01/2017 0 04/07/2018 Overview: Secondary to OR Discharge planning issues 08/22/2017 Overview: History: and lives in [place], [place]. Admitted 08/31/17 for elective lung cancer resection; postop complicated by chylothorax treated with bowel rest and chest tube pleurodesis Assessment: Ready for discharge to home with home care for skilled needs: PICC line care, TPN, right pleural leah drain to bulb suction. Plan: - Discuss needs with patient and collaborate with case management - Will continue to evaluate during hospital admission - Home TPN teaching 09/09/17 - 09/09/17 :Discharge home. Return to clinic in a week for routine surgery follow up, diet advancement, chest tube care. . documented as of this encounter (statuses as of 06/23/2023) [facility] History of Past illness Narrative* Problem Noted Date Diagnosed Date Resolved Date Chylothorax on right 09/02/2017 019 Overview: History: Admitted 08/31/17 for elective right lower lung lobectomy and lymph node dissection for cT2aN0 lung cancer. After starting regular diet, found to have high volume, milky output from chest tube on 09/02/17. Right arm PICC placed and TPN started 09/02/17. When output from leah drain decreased below 200 ml in 24 hours, underwent chest tube sclerosis with doxycycline on 09/08/17 and leah drain kept to -10cm for 48 hours to maintain apposition. Assessment: Chyle leak following lymph node dissection, improved with bowel rest and TPN+ octreotide 1200 mg in formula Plan: -Diet: Advance to non fat clear liquids in addition to TPN (cycled at 12 hours) with 1200 mg octreotide [Consider advancing to non fat diet in clinic along with medium chain triglyceride oil) -Convert right pleural leah drain to bulb suction. Monitor outputs and record daily yields (patien to go home with leah, to be removed in clinic) . Pain, postoperative, acute 09/01/2017 0 04/07/2018 Overview: Secondary to OR Discharge planning issues 08/22/2017 Overview: History: and lives in [place]. Admitted 08/31/17 for elective lung cancer resection; postop complicated by chylothorax treated with bowel rest and chest tube pleurodesis Assessment: Ready for discharge to home with home care for skilled needs: PICC line care, TPN, right pleural leah drain to bulb suction. Plan: - Discuss needs with patient and collaborate with case management - Will continue to evaluate during hospital admission - Home TPN teaching 09/09/17 - 09/09/17 :Discharge home. Return to clinic in a week for routine surgery follow up, diet advancement, chest tube care. . documented as of this encounter (statuses as of 06/23/2023) [facility] History of Past illness Narrative* Problem Noted Date Diagnosed Date Resolved Date Chylothorax on right 09/02/2017 019 Overview: History: Admitted 08/31/17 for elective right lower lung lobectomy and lymph node dissection for cT2aN0 lung cancer. After starting regular diet, found to have high volume, milky output from chest tube on 09/02/17. Right arm PICC placed and TPN started 09/02/17. When output from leah drain decreased below 200 ml in 24 hours, underwent chest tube sclerosis with doxycycline on 09/08/17 and leah drain kept to -10cm for 48 hours to maintain apposition. Assessment: Chyle leak following lymph node dissection, improved with bowel rest and TPN+ octreotide 1200 mg in formula Plan: -Diet: Advance to non fat clear liquids in addition to TPN (cycled at 12 hours) with 1200 mg octreotide [Consider advancing to non fat diet in clinic along with medium chain triglyceride oil) -Convert right pleural leah drain to bulb suction. Monitor outputs and record daily yields (patien to go home with leah, to be removed in clinic) . Pain, postoperative, acute 09/01/2017 0 04/07/2018 Overview: Secondary to OR Discharge planning issues 08/22/2017 Overview: History: and lives in [place]. Admitted 08/31/17 for elective lung cancer resection; postop complicated by chylothorax treated with bowel rest and chest tube pleurodesis Assessment: Ready for discharge to home with home care for skilled needs: PICC line care, TPN, right pleural leah drain to bulb suction. Plan: - Discuss needs with patient and collaborate with case management - Will continue to evaluate during hospital admission - Home TPN teaching 09/09/17 - 09/09/17 :Discharge home. Return to clinic in a week for routine surgery follow up, diet advancement, chest tube care. . documented as of this encounter (statuses as of 06/10/2023) [facility] Diagnosis Hypertension, essential- Primary Unspecified essential hypertension ANIL (generalized anxiety disorder) Generalized anxiety disorder Gastroesophageal reflux disease, unspecified whether esophagitis present Malignant neoplasm of right upper lobe of lung (HCC) Malignant neoplasm of upper lobe, bronchus or lung Erectile dysfunction, unspecified erectile dysfunction type documented in this encounter [facility] Diagnosis Hypertension, essential- Primary Unspecified essential hypertension [facility] Diagnosis Hypertension, essential Unspecified essential hypertension [facility]* Diagnosis Malignant neoplasm of unspecified part of unspecified bronchus or lung (HCC)- Primary S/P lobectomy of lung Other postprocedural status [facility] Diagnosis Acute pain of both shoulders- Primary Acute bilateral low back pain without sciatica Hypertension, essential Unspecified essential hypertension Gastroesophageal reflux disease, unspecified whether esophagitis present Need for influenza vaccination Need for prophylactic vaccination and inoculation against influenza [facility] Diagnosis Gastroesophageal reflux disease, unspecified whether esophagitis present [facility]* Diagnosis Inguinal strain, right, initial encounter- Primary [facility] Diagnosis Encounter for screening for malignant neoplasm of colon- Primary Special screening for malignant neoplasms, colon History of colonic polyps Personal history of colonic polyps documented [facility] this [facility] Diagnosis URI, acute- Primary Acute upper respiratory infections of unspecified site Rhinorrhea Other diseases of nasal cavity and sinuses [facility]* Diagnosis Viral sinusitis- Primary Unspecified sinusitis (chronic) Viral URI with cough Acute upper respiratory infections of unspecified site [facility] Diagnosis Encounter for follow-up surveillance of lung cancer- Primary Unspecified follow-up examination Malignant neoplasm of right upper lobe of lung (HCC) Malignant neoplasm of upper lobe, bronchus or lung 08/31/2017 - Right VATS upper lobectomy Other postprocedural status Personal history of COVID-19 Liver hemangioma Hemangioma of intra-abdominal structures Malignant neoplasm of unspecified part of unspecified bronchus or lung (HCC) [facility]* Diagnosis Annual physical exam- Primary Routine general medical examination at a health care facility Hypertension, essential Unspecified essential hypertension Screening for hyperlipidemia Screening for lipoid disorders Generalized anxiety disorder Gastroesophageal reflux disease, unspecified whether esophagitis present Hx of cancer of lung Personal history of malignant neoplasm of bronchus and lung [facility]* Diagnosis Ventral hernia without obstruction or gangrene- Primary Ventral hernia, unspecified, without mention of obstruction or gangrene [facility]* Diagnosis Hypertension, essential Unspecified essential hypertension [facility] Diagnosis Acute bilateral low back pain without sciatica- Primary Gastroesophageal reflux disease, unspecified whether esophagitis present documented in this encounter [facility]* Diagnosis Hypertension, essential Unspecified essential hypertension [facility] Diagnosis Chronic epigastric pain- Primary Abdominal pain, epigastric Encounter for immunization Need for other specified prophylactic vaccination against single bacterial disease [facility]* Diagnosis Diarrhea, unspecified type- Primary Nausea and vomiting, unspecified vomiting type documented in this encounter [facility] note* Diagnosis Gastroesophageal reflux disease, unspecified whether esophagitis present [facility]* Diagnosis Hypertension, essential- Primary Unspecified essential hypertension Immunization due Need for prophylactic vaccination and inoculation against unspecified single disease Screening for depression Hyperlipidemia, mixed Mixed hyperlipidemia Generalized anxiety disorder Gastroesophageal reflux disease, unspecified whether esophagitis present Diarrhea, unspecified type [facility]* Diagnosis Hyperlipidemia, mixed- Primary Mixed hyperlipidemia documented in this encounter [facility] note* Diagnosis SOB (shortness of breath)- Primary Shortness of breath Hx of cancer of lung Personal history of malignant neoplasm of bronchus and lung [facility]* Diagnosis Hypertension, essential Unspecified essential hypertension documented in this encounter [facility] note* Diagnosis Hypertension, essential Unspecified essential hypertension [facility]* Diagnosis Gastroesophageal reflux disease, unspecified whether esophagitis present documented in this encounter [facility] note* Diagnosis SOB (shortness of breath) Shortness of breath documented in this encounter [facility] note* Diagnosis SOB (shortness of breath)- Primary Shortness of breath Elevated diaphragm Disorders of diaphragm Former smoker Personal history of tobacco use, presenting hazards to health Leg swelling Swelling of limb COPD, mild (HCC) Chronic airway obstruction, not elsewhere classified History of lung cancer Personal history of malignant neoplasm of bronchus and lung [facility] Diagnosis Elevated diaphragm Disorders of diaphragm [facility]* Diagnosis Gastroesophageal reflux disease, unspecified whether esophagitis present [facility] Diagnosis 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, mild (HCC) Chronic airway obstruction, not elsewhere classified Former cigarette smoker Personal history of tobacco use, presenting hazards to health History of lung cancer Personal history of malignant neoplasm of bronchus and lung [facility]* Diagnosis Hyperlipidemia, mixed Mixed hyperlipidemia [facility] Diagnosis Acute pain of both shoulders Acute bilateral low back pain without sciatica [facility] Diagnosis Hypertension, essential Unspecified essential hypertension [facility] Diagnosis Hypertension, essential Unspecified essential hypertension [facility]* Diagnosis ED (erectile dysfunction) of organic origin- Primary Impotence of organic origin Hyperlipidemia, mixed Mixed hyperlipidemia Encounter for immunization Need for other specified prophylactic vaccination against single bacterial disease Hypertension, essential Unspecified essential hypertension [facility]* Diagnosis Hyperlipidemia, mixed Mixed hyperlipidemia documented [facility] this [facility]* Diagnosis Nausea- Primary Nausea alone documented in this [facility]* Diagnosis Hypertension, essential Unspecified essential hypertension documented [facility]* Diagnosis Neoplasm of lung Neoplasm of unspecified nature of respiratory system documented [facility] this [facility] Diagnosis Neoplasm of lung- Primary Neoplasm of unspecified nature of respiratory system Malignant neoplasm of right upper lobe of lung (HCC) Malignant neoplasm of upper lobe, bronchus or lung documented [facility] this [facility] Diagnosis Hypertension, essential- Primary Unspecified essential hypertension ED (erectile dysfunction) of organic origin Impotence of organic origin documented [facility] this [facility]* Diagnosis Gastroesophageal reflux disease, unspecified whether esophagitis present documented [facility] this [facility] Diagnosis Left hand pain- Primary Pain in limb documented [facility] this [facility]* Diagnosis Viral gastroenteritis- Primary Intestinal infection due to other organism, not elsewhere classified Nausea and vomiting, unspecified vomiting type Generalized abdominal pain Abdominal pain, generalized [facility] Diagnosis Influenza- Primary Influenza with other respiratory manifestations [facility] Diagnosis ED (erectile dysfunction) of organic origin Impotence of organic origin documented [facility] Diagnosis Sore throat- Primary Acute pharyngitis documented [facility] this [facility] Diagnosis Acute on chronic low back pain- Primary Ecchymosis Other specified circulatory system disorders Acute on chronic low back pain documented in this encounter [facility] note* Diagnosis Acute on chronic low back pain documented in this encounter [facility] note* Diagnosis ED (erectile dysfunction) of organic origin Impotence of organic origin documented in this encounter [facility] note* Diagnosis Hyperlipidemia, mixed Mixed hyperlipidemia documented in this encounter [facility] note* Diagnosis Hypertension, essential Unspecified essential hypertension documented in this encounter [facility] note* Diagnosis Hypokalemia- Primary Hypopotassemia documented in this encounter [facility] note* Diagnosis ED (erectile dysfunction) of organic origin Impotence of organic origin documented in this encounter [facility] for referral (narrative)* Diagnostic Procedure Only (Routine) - Pending Review Specialty Diagnoses / Procedures [facility] To [facility] Procedures US ABD RT UPPER QUADRANT US ABDOMINAL REAL TIME W/IMAGE LIMITED Lori Enriquez MD [address] [place] [address] Us Imaging Referral ID Status Reason Start Date Expiration Date Visits Requested Visits Authorized [id number] Pending Review Auto-Generat ed Referral 05/14/2022 06/13/2023 1 1 [facility] for referral (narrative)* Outpatient Procedure (Routine) - Authorized Specialty Diagnoses / Procedures [facility] Diagnoses SOB (shortness of breath) Procedures SPIROMETRY - BASELINE AND POST DILATOR BRNCDILAT RSPSE SPMTRY PRE&POST-BRNCDILAT ADMBelkys Arndt APRN.CNP [address] [place] [address] [facility] [address] [place] [address] Referral ID Status Reason Start Date Expiration Date Visits Requested Visits Authorized [id number] Authorized Auto-Generat ed Referral 06/22/2023 07/21/2024 1 1 [facility] for referral (narrative)* Diagnostic Procedure Only (Routine) - Authorized Specialty Diagnoses / Procedures Referred By Contac t Referred To Contact XR IMAGING Diagnoses Elevated diaphragm Procedures XR CHEST FLUORO SNIFF TEST FLUOROSCOPY UP TO 1 HOUR PHYSICIAN/QHP TIME Gisela Mckeon MD [address] [place] [address] [place] [address] Referral ID Status Reason Start Date Expiration Date Visits Requested Visits Authorized [id number] Authorized Auto-Generat ed Referral 07/19/2023 08/17/2024 1 1 * Outpatient Procedure (Routine) - Authorized Specialty Diagnoses / Procedures Referred By Contac t Referred To Contact [facility] Diagnoses Leg swelling Procedures US LEG VEIN DVT UNL VAS LAB DUP-SCAN XTR VEINS UNILATERAL/LIMITED STUDY Gisela Mckeon MD [address] [place] [address] [facility] [place] [id number] Referral ID Status Reason Start Date Expiration Date Visits Requested Visits Authorized [id number] Authorized Auto-Generat ed Referral 07/19/2023 07/18/2024 1 1 [facility] for referral (narrative)* Diagnostic Procedure Only (Routine) - Closed Specialty Diagnoses / Procedures Referred By Contac t Referred To Contact XR IMAGING Diagnoses Elevated diaphragm Procedures XR CHEST FLUORO SNIFF TEST FLUOROSCOPY UP TO 1 HOUR PHYSICIAN/QHP TIME Gisela Mckeon MD [address] [place] [address] [place] [address] Referral ID Status Reason Start Date Expiration Date V isits Requested Visits Authorized [id number] Closed Auto-Generate d Referral 07/19/2023 08/17/2024 1 1 [facility] for referral (narrative)* Diagnostic Procedure Only (Routine) - Closed Specialty Diagnoses / Procedures Referred By Contac t Referred To Contact XR IMAGING Diagnoses Acute bilateral low back pain without sciatica Procedures XR LUMBAR GENERAL 3V AP/LAT/L5-S1 RADEX SPINE LUMBOSACRAL 2/3 VIEWS Aruna Tong MD [address] [place] [address] [place] [address] Referral ID Status Reason Start Date Expiration Date V isits Requested Visits Authorized [id number] Closed Auto-Generate d Referral 01/05/2022 02/04/2023 1 1 * Diagnostic Procedure Only (Routine) - Closed Specialty Diagnoses / Procedures Referred By Contac t Referred To Contact XR IMAGING Diagnoses Acute pain of both shoulders Procedures XR SHOULDER GENERAL 3V OR MORE AP/TRUE AP/OTHER LEFT RADEX SHOULDER COMPLETE MINIMUM 2 VIEWS Aruna Tong MD [address] [place] [address] [place] [address] Referral ID Status Reason Start Date Expiration Date V isits Requested Visits Authorized [id number] Closed Auto-Generate d Referral 01/05/2022 02/04/2023 1 1 * Diagnostic Procedure Only (Routine) - Closed Specialty Diagnoses / Procedures Referred By Contac t Referred To Contact XR IMAGING Diagnoses Acute pain of both shoulders Procedures XR SHOULDER GENERAL 3V OR MORE AP/TRUE AP/OTHER RIGHT RADEX SHOULDER COMPLETE MINIMUM 2 VIEWS Aruna Tong MD [address] [place] [address] [place] [address] Referral ID Status Reason Start Date Expiration Date V isits Requested Visits Authorized [id number] Closed Auto-Generate d Referral 01/05/2022 02/04/2023 1 1 [facility] for visit Narrative* Diagnostic Procedure Only (Routine) - Closed Specialty Diagnoses / Procedures Referred By Contac t Referred To Contact XR IMAGING Diagnoses Elevated diaphragm Procedures XR CHEST FLUORO SNIFF TEST FLUOROSCOPY UP TO 1 HOUR PHYSICIAN/QHP TIME Gisela Mckeon MD [address] [place] [address] [place] [address] Referral ID Status Reason Start Date Expiration Date V isits Requested Visits Authorized [id number] Closed Auto-Generate d Referral 07/19/2023 08/17/2024 1 1 [facility] for visit Narrative* Diagnostic Procedure Only (Routine) - Closed Specialty Diagnoses / Procedures Referred By Contac t Referred To Contact XR IMAGING Diagnoses Acute bilateral low back pain without sciatica Procedures XR LUMBAR GENERAL 3V AP/LAT/L5-S1 RADEX SPINE LUMBOSACRAL 2/3 VIEWS Aruna Tong MD [address] [place] [address] [place] [address] Referral ID Status Reason Start Date Expiration Date V isits Requested Visits Authorized [id number] Closed Auto-Generate d Referral 01/05/2022 02/04/2023 1 1 [facility] for visit Narrative* Diagnostic Procedure Only (Urgent) - Closed Specialty Diagnoses / Procedures Referred By Contac t Referred To Contact XR IMAGING Diagnoses Acute on chronic low back pain Procedures XR LUMBAR GENERAL 3V AP/LAT/L5-S1 RADEX SPINE LUMBOSACRAL 2/3 VIEWS PodlogarBelkys APRN.MARINA [address] [place] [address] Phone: tel: fax: [place] [address] Referral ID Status Reason Start Date Expiration Date V isits Requested Visits Authorized [id number] Closed Auto-Generate d Referral 08/15/2024 09/14/2025 1 1 [facility] Summary Purpose Family History No Family History Records FoundNo Family History Records FoundNo Family History Records FoundNo Family History Records FoundNo Family History Records Found Advance Directives No Advanced Directives Records FoundDocuments on File Type Date Recorded Patient Bender Hand Expl anation Advance Directive(s) 01/02/2021 1:00 PM Advance Directive(s) 12/12/2020 3:46 PM Advance Directive(s) 11/19/2020 4:10 PM Advance Directive(s) 11/19/2020 4:11 PM Advance Directive(s) 10/30/2020 4:53 PM Advance Directive(s) 03/23/2019 7:53 AM Advance Directive(s) 11/15/2017 11:33 AM Advance Directive(s) 08/23/2017 4:04 PM Advance Directive(s) 06/23/2017 3:40 PM Advance Directive(s) 06/23/2017 5:20 PM Advance Directive(s) 06/23/2017 5:22 PM Documents on File Type Date Recorded Patient Bender Hand Expl anation Advance Directive(s) 06/23/2017 5:22 PM Documents on File Type Date Recorded Patient Bender Hand Expl anation Advance Directive(s) 06/23/2017 5:22 PM Reason for Referral Specialty Diagnoses / Procedures Referred By Contac t Referred To Contact CT IMAGING Diagnoses Malignant neoplasm of unspecified part of unspecified bronchus or lung (HCC) S/P lobectomy of lung Procedures CT CHEST W IVCON DIAGNOSTIC COMPUTED TOMOGRAPHY THORAX W/CONTRAST Jarred Herrera MD, PhD [address] [employer] [facility] [employer] [place] -[address] [place] [address] Ct Imaging Referral ID Status Reason Start Date Expiration Date Visits Requested Visits Authorized [id number] Pending Review Auto-Generat ed Referral 01/05/2022 02/04/2023 1 1 Specialty Diagnoses / Procedures Referred By Contac t Referred To Contact [facility] Diagnoses Malignant neoplasm of unspecified part of unspecified bronchus or lung (HCC) S/P lobectomy of lung Procedures LUNG DIFFUSION CAPACITY (DLCO) DIFFUSING CAPACITY Jarred Herrera MD, PhD [address] [place] [phone] [facility] [address] [place] [address] Referral ID Status Reason Start Date Expiration Date Visits Requested Visits Authorized [id number] Pending Review Auto-Generat ed Referral 01/05/2022 02/04/2023 1 1 Specialty Diagnoses / Procedures Referred By Contac t Referred To Contact [facility] Diagnoses Malignant neoplasm of unspecified part of unspecified bronchus or lung (HCC) S/P lobectomy of lung Procedures SPIROMETRY BASELINE ONLY SPMTRY W/VC EXPIRATORY GARRET W/WO MXML VOL VNTJ Jarred Herrera MD, PhD [address] [facility] [address] [place] [address] [facility] [address] [place] [id number] Referral ID Status Reason Start Date Expiration Date Visits Requested Visits Authorized [id number] Pending Review Auto-Generat ed Referral 01/05/2022 02/04/2023 1 1 Specialty Diagnoses / Procedures Referred By Contac t Referred To Contact Pulmonary and Critical Care Medicine Diagnoses Malignant neoplasm of unspecified part of unspecified bronchus or lung (HCC) S/P lobectomy of lung Procedures CONSULT TO PULM/CRITICAL CARE OFFICE/OUTPATIENT [facility] MDM 60-74 MINUTES Jarred Herrera MD, PhD [address] [facility] [address] [place] [id number] Referral ID Status Reason Start Date Expiration Date Visits Requested Visits Authorized [id number] Authorized PCP Requested Referral 01/05/2022 01/05/2023 1 1 Specialty Diagnoses / Procedures Referred By Contac t Referred To Contact [facility] Diagnoses Acute pain of both shoulders Acute bilateral low back pain without sciatica Procedures CONSULT TO PHYSICAL THERAPY PHYSICAL THERAPY EVALUATION HIGH COMPLEX 45 MINS Aruna Tong MD [facility] [place] [address] [facility] [place] [phone] Referral ID Status Reason Start Date Expiration Date Visits Requested Visits Authorized [id number] Pending Review Auto-Generat ed Referral 01/05/2022 01/05/2023 1 1 Specialty Diagnoses / Procedures Referred By Contac t Referred To Contact XR IMAGING Diagnoses Acute bilateral low back pain without sciatica Procedures XR LUMBAR GENERAL 3V AP/LAT/L5-S1 RADEX SPINE LUMBOSACRAL 2/3 VIEWS Aruna Tong MD [facility] [place] [id number] Xr Imaging Referral ID Status Reason Start Date Expiration Date V isits Requested Visits Authorized [id number] Closed Auto-Generate d Referral 01/05/2022 02/04/2023 1 1 Specialty Diagnoses / Procedures Referred By Contac t Referred To Contact XR IMAGING Diagnoses Acute pain of both shoulders Procedures XR SHOULDER GENERAL 3V OR MORE AP/TRUE AP/OTHER LEFT RADEX SHOULDER COMPLETE MINIMUM 2 VIEWS Aruna Tong MD [address] [place] [address] Xr Imaging Referral ID Status Reason Start Date Expiration Date V isits Requested Visits Authorized [id number] Closed Auto-Generate d Referral 01/05/2022 02/04/2023 1 1 Specialty Diagnoses / Procedures Referred By Contac t Referred To Contact XR IMAGING Diagnoses Acute pain of both shoulders Procedures XR SHOULDER GENERAL 3V OR MORE AP/TRUE AP/OTHER RIGHT RADEX SHOULDER COMPLETE MINIMUM 2 VIEWS Aruna Tong MD [address] [place] [address] Xr Imaging Referral ID Status Reason Start Date Expiration Date V isits Requested Visits Authorized [id number] Closed Auto-Generate d Referral 01/05/2022 02/04/2023 1 1 Specialty Diagnoses / Procedures Referred By Contac t Referred To Contact CT IMAGING Diagnoses Malignant neoplasm of unspecified part of unspecified bronchus or lung (HCC) Procedures CT CHEST WO IVCON DIAGNOSTIC COMPUTED TOMOGRAPHY THORAX W/O Aly Muhammad MD [address] [place] [address] Ct Imaging Referral ID Status Reason Start Date Expiration Date Visits Requested Visits Authorized [id number] Pending Review Auto-Generat ed Referral 06/03/2023 1 1 Specialty Diagnoses / Procedures Referred By Contac t Referred To Contact Gastroenterology Diagnoses Chronic epigastric pain Procedures CONSULT TO GASTROENTEROLOGY OFFICE/OUTPATIENT NEW [facility]IGH MDM 60-74 MINUTES Belkys Devine APRN.CNP [address] [place] [address] Referral ID Status Reason Start Date Expiration Date Visits Requested Visits Authorized [id number] Authorized PCP Requested Referral 01/10/2023 01/10/2024 1 1 Specialty Diagnoses / Procedures Referred By Contac t Referred To Contact CT IMAGING Diagnoses Neoplasm of lung Procedures CT CHEST WO IVCON DIAGNOSTIC COMPUTED TOMOGRAPHY THORAX W/O CNTRST Marivel Arreola, MECHANICAL SOUND TECHNICIAN.COMPENSATION CONSULTING MANAGER [address] [place] [address] [place] [address] Referral ID Status Reason Start Date Expiration Date V isits Requested Visits Authorized [id number] Closed Auto-Generate d Referral 03/18/2023 04/16/2024 1 1 Referral ID Status Reason Start Date Expiration Date Visits Requested Visits Authorized [id number] New Request Auto-Generat ed Referral 03/15/2024 04/14/2025 1 1 Additional Source Comments (unrecognized sect ion and content) No Status Records FoundNo Status Records FoundNo Status Records FoundNo Status Records FoundNo Status Records Found INFORMATION SOURCE (unrecogn ized section and content) DATE CREATED AUTHOR 08/24/2017 [facility] DATE CREATED AUTHOR AUTHOR'S ORGANIZ ATION 10/30/2017 [facility] DATE CREATED AUTHOR AUTHOR'S ORGANIZ ATION 01/21/2022 [facility] DATE CREATED AUTHOR AUTHOR'S ORGANIZ ATION 09/02/2023 [facility] DATE CREATED AUTHOR AUTHOR'S ORGANIZ ATION 12/10/2024 [facility] Source Comments (unrecognize d section and content) In the event this informatio n is protected by the Federal Confidentiality of Alcohol and Drug Abuse Patient Records regulations: The Federal rules restrict any use of the information to criminally investigate or prosecute any alcohol or drug abuse patient.[facility] the event this information is protected by the Federal Confidentiality of Alcohol and Drug Abuse Patient Records regulations: The Federal rules restrict any use of the information to criminally investigate or prosecute any alcohol or drug abuse patient.[facility] the event this information is protected by the Federal Confidentiality of Alcohol and Drug Abuse Patient Records regulations: The Federal rules restrict any use of the information to criminally investigate or prosecute any alcohol or drug abuse patient.[facility] the event this information is protected by the Federal Confidentiality of Alcohol and Drug Abuse Patient Records regulations: The Federal rules restrict any use of the information to criminally investigate or prosecute any alcohol or drug abuse patient.[facility] the event this information is protected by the Federal Confidentiality of Alcohol and Drug Abuse Patient Records regulations: The Federal rules restrict any use of the information to criminally investigate or prosecute any alcohol or drug abuse patient.[facility] the event this information is protected by the Federal Confidentiality of Alcohol and Drug Abuse Patient Records regulations: The Federal rules restrict any use of the information to criminally investigate or prosecute any alcohol or drug abuse patient.[facility] the event this information is protected by the Federal Confidentiality of Alcohol and Drug Abuse Patient Records regulations: The Federal rules restrict any use of the information to criminally investigate or prosecute any alcohol or drug abuse patient.[facility] the event this information is protected by the Federal Confidentiality of Alcohol and Drug Abuse Patient Records regulations: The Federal rules restrict any use of the information to criminally investigate or prosecute any alcohol or drug abuse patient.[facility] the event this information is protected by the Federal Confidentiality of Alcohol and Drug Abuse Patient Records regulations: The Federal rules restrict any use of the information to criminally investigate or prosecute any alcohol or drug abuse patient.[facility] the event this information is protected by the Federal Confidentiality of Alcohol and Drug Abuse Patient Records regulations: The Federal rules restrict any use of the information to criminally investigate or prosecute any alcohol or drug abuse patient.[facility] the event this information is protected by the Federal Confidentiality of Alcohol and Drug Abuse Patient Records regulations: The Federal rules restrict any use of the information to criminally investigate or prosecute any alcohol or drug abuse patient.[facility] the event this information is protected by the Federal Confidentiality of Alcohol and Drug Abuse Patient Records regulations: The Federal rules restrict any use of the information to criminally investigate or prosecute any alcohol or drug abuse patient.[facility] the event this information is protected by the Federal Confidentiality of Alcohol and Drug Abuse Patient Records regulations: The Federal rules restrict any use of the information to criminally investigate or prosecute any alcohol or drug abuse patient.[facility] the event this information is protected by the Federal Confidentiality of Alcohol and Drug Abuse Patient Records regulations: The Federal rules restrict any use of the information to criminally investigate or prosecute any alcohol or drug abuse patient.[facility] Hospital[facility] the event this information is protected by the Federal Confidentiality of Alcohol and Drug Abuse Patient Records regulations: The Federal rules restrict any use of the information to criminally investigate or prosecute any alcohol or drug abuse patient.[facility] Hospital[facility] the event this information is protected by the Federal Confidentiality of Alcohol and Drug Abuse Patient Records regulations: The Federal rules restrict any use of the information to criminally investigate or prosecute any alcohol or drug abuse patient.[facility] Hospital[facility] the event this information is protected by the Federal Confidentiality of Alcohol and Drug Abuse Patient Records regulations: The Federal rules restrict any use of the information to criminally investigate or prosecute any alcohol or drug abuse patient.[facility] Hospital[facility] the event this information is protected by the Federal Confidentiality of Alcohol and Drug Abuse Patient Records regulations: The Federal rules restrict any use of the information to criminally investigate or prosecute any alcohol or drug abuse patient.[facility] Hospital[facility] the event this information is protected by the Federal Confidentiality of Alcohol and Drug Abuse Patient Records regulations: The Federal rules restrict any use of the information to criminally investigate or prosecute any alcohol or drug abuse patient.[facility] Hospital[facility] the event this information is protected by the Federal Confidentiality of Alcohol and Drug Abuse Patient Records regulations: The Federal rules restrict any use of the information to criminally investigate or prosecute any alcohol or drug abuse patient.[facility] Hospital[facility] the event this information is protected by the Federal Confidentiality of Alcohol and Drug Abuse Patient Records regulations: The Federal rules restrict any use of the information to criminally investigate or prosecute any alcohol or drug abuse patient.[facility] Hospital[facility] the event this information is protected by the Federal Confidentiality of Alcohol and Drug Abuse Patient Records regulations: The Federal rules restrict any use of the information to criminally investigate or prosecute any alcohol or drug abuse patient.[facility] HospitalIn the event this information is protected by the Federal Confidentiality of Alcohol and Drug Abuse Patient Records regulations: The Federal rules restrict any use of the information to criminally investigate or prosecute any alcohol or drug abuse patient.[facility] HospitalIn the event this information is protected by the Federal Confidentiality of Alcohol and Drug Abuse Patient Records regulations: The Federal rules restrict any use of the information to criminally investigate or prosecute any alcohol or drug abuse patient.[facility] HospitalIn the event this information is protected by the Federal Confidentiality of Alcohol and Drug Abuse Patient Records regulations: The Federal rules restrict any use of the information to criminally investigate or prosecute any alcohol or drug abuse patient.[facility] HospitalIn the event this information is protected by the Federal Confidentiality of Alcohol and Drug Abuse Patient Records regulations: The Federal rules restrict any use of the information to criminally investigate or prosecute any alcohol or drug abuse patient.[facility] HospitalIn the event this information is protected by the Federal Confidentiality of Alcohol and Drug Abuse Patient Records regulations: The Federal rules restrict any use of the information to criminally investigate or prosecute any alcohol or drug abuse patient.[facility] HospitalIn the event this information is protected by the Federal Confidentiality of Alcohol and Drug Abuse Patient Records regulations: The Federal rules restrict any use of the information to criminally investigate or prosecute any alcohol or drug abuse patient.[facility] HospitalIn the event this information is protected by the Federal Confidentiality of Alcohol and Drug Abuse Patient Records regulations: The Federal rules restrict any use of the information to criminally investigate or prosecute any alcohol or drug abuse patient.[facility] HospitalIn the event this information is protected by the Federal Confidentiality of Alcohol and Drug Abuse Patient Records regulations: The Federal rules restrict any use of the information to criminally investigate or prosecute any alcohol or drug abuse patient.[facility] HospitalIn the event this information is protected by the Federal Confidentiality of Alcohol and Drug Abuse Patient Records regulations: The Federal rules restrict any use of the information to criminally investigate or prosecute any alcohol or drug abuse patient.[facility] HospitalIn the event this information is protected by the Federal Confidentiality of Alcohol and Drug Abuse Patient Records regulations: The Federal rules restrict any use of the information to criminally investigate or prosecute any alcohol or drug abuse patient.[facility] HospitalIn the event this information is protected by the Federal Confidentiality of Alcohol and Drug Abuse Patient Records regulations: The Federal rules restrict any use of the information to criminally investigate or prosecute any alcohol or drug abuse patient.[facility] HospitalIn the event this information is protected by the Federal Confidentiality of Alcohol and Drug Abuse Patient Records regulations: The Federal rules restrict any use of the information to criminally investigate or prosecute any alcohol or drug abuse patient.[facility] HospitalIn the event this information is protected by the Federal Confidentiality of Alcohol and Drug Abuse Patient Records regulations: The Federal rules restrict any use of the information to criminally investigate or prosecute any alcohol or drug abuse patient.[facility] HospitalIn the event this information is protected by the Federal Confidentiality of Alcohol and Drug Abuse Patient Records regulations: The Federal rules restrict any use of the information to criminally investigate or prosecute any alcohol or drug abuse patient.[facility] HospitalIn the event this information is protected by the Federal Confidentiality of Alcohol and Drug Abuse Patient Records regulations: The Federal rules restrict any use of the information to criminally investigate or prosecute any alcohol or drug abuse patient.[facility] HospitalIn the event this information is protected by the Federal Confidentiality of Alcohol and Drug Abuse Patient Records regulations: The Federal rules restrict any use of the information to criminally investigate or prosecute any alcohol or drug abuse patient.[facility] HospitalIn the event this information is protected by the Federal Confidentiality of Alcohol and Drug Abuse Patient Records regulations: The Federal rules restrict any use of the information to criminally investigate or prosecute any alcohol or drug abuse patient.[facility] HospitalIn the event this information is protected by the Federal Confidentiality of Alcohol and Drug Abuse Patient Records regulations: The Federal rules restrict any use of the information to criminally investigate or prosecute any alcohol or drug abuse patient.[facility] HospitalIn the event this information is protected by the Federal Confidentiality of Alcohol and Drug Abuse Patient Records regulations: The Federal rules restrict any use of the information to criminally investigate or prosecute any alcohol or drug abuse patient.[facility] HospitalIn the event this information is protected by the Federal Confidentiality of Alcohol and Drug Abuse Patient Records regulations: The Federal rules restrict any use of the information to criminally investigate or prosecute any alcohol or drug abuse patient.[facility] HospitalIn the event this information is protected by the Federal Confidentiality of Alcohol and Drug Abuse Patient Records regulations: The Federal rules restrict any use of the information to criminally investigate or prosecute any alcohol or drug abuse patient.[facility] HospitalIn the event this information is protected by the Federal Confidentiality of Alcohol and Drug Abuse Patient Records regulations: The Federal rules restrict any use of the information to criminally investigate or prosecute any alcohol or drug abuse patient.[facility] HospitalIn the event this information is protected by the Federal Confidentiality of Alcohol and Drug Abuse Patient Records regulations: The Federal rules restrict any use of the information to criminally investigate or prosecute any alcohol or drug abuse patient.[facility] HospitalIn the event this information is protected by the Federal Confidentiality of Alcohol and Drug Abuse Patient Records regulations: The Federal rules restrict any use of the information to criminally investigate or prosecute any alcohol or drug abuse patient.[facility] HospitalIn the event this information is protected by the Federal Confidentiality of Alcohol and Drug Abuse Patient Records regulations: The Federal rules restrict any use of the information to criminally investigate or prosecute any alcohol or drug abuse patient.[facility] HospitalIn the event this information is protected by the Federal Confidentiality of Alcohol and Drug Abuse Patient Records regulations: The Federal rules restrict any use of the information to criminally investigate or prosecute any alcohol or drug abuse patient.[facility] HospitalIn the event this information is protected by the Federal Confidentiality of Alcohol and Drug Abuse Patient Records regulations: The Federal rules restrict any use of the information to criminally investigate or prosecute any alcohol or drug abuse patient.[facility] HospitalIn the event this information is protected by the Federal Confidentiality of Alcohol and Drug Abuse Patient Records regulations: The Federal rules restrict any use of the information to criminally investigate or prosecute any alcohol or drug abuse patient.[facility] HospitalIn the event this information is protected by the Federal Confidentiality of Alcohol and Drug Abuse Patient Records regulations: The Federal rules restrict any use of the information to criminally investigate or prosecute any alcohol or drug abuse patient.[facility] HospitalIn the event this information is protected by the Federal Confidentiality of Alcohol and Drug Abuse Patient Records regulations: The Federal rules restrict any use of the information to criminally investigate or prosecute any alcohol or drug abuse patient.[facility] HospitalIn the event this information is protected by the Federal Confidentiality of Alcohol and Drug Abuse Patient Records regulations: The Federal rules restrict any use of the information to criminally investigate or prosecute any alcohol or drug abuse patient.[facility] HospitalIn the event this information is protected by the Federal Confidentiality of Alcohol and Drug Abuse Patient Records regulations: The Federal rules restrict any use of the information to criminally investigate or prosecute any alcohol or drug abuse patient.[facility] HospitalIn the event this information is protected by the Federal Confidentiality of Alcohol and Drug Abuse Patient Records regulations: The Federal rules restrict any use of the information to criminally investigate or prosecute any alcohol or drug abuse patient.[facility] HospitalIn the event this information is protected by the Federal Confidentiality of Alcohol and Drug Abuse Patient Records regulations: The Federal rules restrict any use of the information to criminally investigate or prosecute any alcohol or drug abuse patient.[facility] HospitalIn the event this information is protected by the Federal Confidentiality of Alcohol and Drug Abuse Patient Records regulations: The Federal rules restrict any use of the information to criminally investigate or prosecute any alcohol or drug abuse patient.[facility] HospitalIn the event this information is protected by the Federal Confidentiality of Alcohol and Drug Abuse Patient Records regulations: The Federal rules restrict any use of the information to criminally investigate or prosecute any alcohol or drug abuse patient.[facility] HospitalIn the event this information is protected by the Federal Confidentiality of Alcohol and Drug Abuse Patient Records regulations: The Federal rules restrict any use of the information to criminally investigate or prosecute any alcohol or drug abuse patient.[facility] HospitalIn the event this information is protected by the Federal Confidentiality of Alcohol and Drug Abuse Patient Records regulations: The Federal rules restrict any use of the information to criminally investigate or prosecute any alcohol or drug abuse patient.[facility] HospitalIn the event this information is protected by the Federal Confidentiality of Alcohol and Drug Abuse Patient Records regulations: The Federal rules restrict any use of the information to criminally investigate or prosecute any alcohol or drug abuse patient.[facility] HospitalIn the event this information is protected by the Federal Confidentiality of Alcohol and Drug Abuse Patient Records regulations: The Federal rules restrict any use of the information to criminally investigate or prosecute any alcohol or drug abuse patient.[facility] HospitalIn the event this information is protected by the Federal Confidentiality of Alcohol and Drug Abuse Patient Records regulations: The Federal rules restrict any use of the information to criminally investigate or prosecute any alcohol or drug abuse patient.[facility] HospitalIn the event this information is protected by the Federal Confidentiality of Alcohol and Drug Abuse Patient Records regulations: The Federal rules restrict any use of the information to criminally investigate or prosecute any alcohol or drug abuse patient.[facility] HospitalIn the event this information is protected by the Federal Confidentiality of Alcohol and Drug Abuse Patient Records regulations: The Federal rules restrict any use of the information to criminally investigate or prosecute any alcohol or drug abuse patient.[facility] HospitalIn the event this information is protected by the Federal Confidentiality of Alcohol and Drug Abuse Patient Records regulations: The Federal rules restrict any use of the information to criminally investigate or prosecute any alcohol or drug abuse patient.[facility] HospitalIn the event this information is protected by the Federal Confidentiality of Alcohol and Drug Abuse Patient Records regulations: The Federal rules restrict any use of the information to criminally investigate or prosecute any alcohol or drug abuse patient.[facility] HospitalIn the event this information is protected by the Federal Confidentiality of Alcohol and Drug Abuse Patient Records regulations: The Federal rules restrict any use of the information to criminally investigate or prosecute any alcohol or drug abuse patient.[facility] HospitalIn the event this information is protected by the Federal Confidentiality of Alcohol and Drug Abuse Patient Records regulations: The Federal rules restrict any use of the information to criminally investigate or prosecute any alcohol or drug abuse patient.[facility] HospitalIn the event this information is protected by the Federal Confidentiality of Alcohol and Drug Abuse Patient Records regulations: The Federal rules restrict any use of the information to criminally investigate or prosecute any alcohol or drug abuse patient.[facility] HospitalIn the event this information is protected by the Federal Confidentiality of Alcohol and Drug Abuse Patient Records regulations: The Federal rules restrict any use of the information to criminally investigate or prosecute any alcohol or drug abuse patient.[facility] HospitalIn the event this information is protected by the Federal Confidentiality of Alcohol and Drug Abuse Patient Records regulations: The Federal rules restrict any use of the information to criminally investigate or prosecute any alcohol or drug abuse patient.[facility] HospitalIn the event this information is protected by the Federal Confidentiality of Alcohol and Drug Abuse Patient Records regulations: The Federal rules restrict any use of the information to criminally investigate or prosecute any alcohol or drug abuse patient.[facility] HospitalIn the event this information is protected by the Federal Confidentiality of Alcohol and Drug Abuse Patient Records regulations: The Federal rules restrict any use of the information to criminally investigate or prosecute any alcohol or drug abuse patient.[facility] HospitalIn the event this information is protected by the Federal Confidentiality of Alcohol and Drug Abuse Patient Records regulations: The Federal rules restrict any use of the information to criminally investigate or prosecute any alcohol or drug abuse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
[2024-12-29 23:25] LABS: Hematocrit 46.2 % (40-54); Hemoglobin 15.8 g/dL (13.0-16.5); Immature Granulocytes Count 0.020 X10^3/uL (0.0-0.0); Mean Corp Hgb Conc 34.2 g/dL (32-36); Mean Corpuscular Volume 92.6 fL (80-94); Mean Platelet Vol. 10.6 fl (6.2-12.0); NRBC Flagged by Analyzer 0 % (0-5); Platelet Count 212 K/mm3 (150-450); RBC Distribution Width CV 12.7 % (11.6-14.6); RBC Distribution Width SD 43.3 fl (35.1-43.9); Red Blood Count 4.99 M/mm3 (4.6-6.2); White Blood Count 6.8 K/mm3 (4.4-11.0)
[2024-12-29 23:43] VITALS: BP 144/84; PULSE 73; RESP 18; O2SAT 97
[2024-12-29 23:45] LABS: Anion Gap 12 (5-15); BUN 12 mg/dL (4-19); BUN/Creat Ratio 13.3 RATIO (10-20); Calcium,Total 9.7 mg/dL (7.6-11.0); Carbon Dioxide 27.6 mmol/L (21.0-32.0); Chloride 99 mmol/L (98-108); Estimated Creatinine Clearance 90.78 ml/min (50-250); Glucose 109 mg/dL (70-99); Potassium 4.2 mmol/L (3.3-5.1); Troponin T High Sensitivity 16 ng/L (<=22)
[2024-12-30] VITALS: BP 142/89; PULSE 67; RESP 16; O2SAT 100
[2024-12-30 01:00] VITALS: BP 144/86; PULSE 67; RESP 14; O2SAT 100
[2024-12-30 01:12] LABS: Troponin T High Sens 2 HR 16 ng/L (<=22)
[2024-12-30 01:31] VITALS: BP 135/95; PULSE 71; RESP 16; TEMP 36.8; O2SAT 99
== END 2024-12-30 01:33 | disposition home or self-care (01) ==
PROVIDERS: Emergency Provider Emergency Medicine; PCP Family Medicine; Visit Provider Emergency Medicine
DX: R07.9 Chest pain, unspecified (principal); I10 Essential (primary) hypertension; Z87.891 Personal history of nicotine dependence; Z79.899 Other long term (current) drug therapy; E78.5 Hyperlipidemia, unspecified
CPT/HCPCS: 71275; 80048; 84484; 85025; 93005; 96374; 99284; Q9967; A4216